=== PATIENT | male | born 1945 | race Caucasian/White ===

== ENCOUNTER 2017-05-14 11:30 | Outpatient (RCR) | payer MEDICARE, OTHER, SELFPAY ==
--- NOTE | 2017-05-09 12:58 | HP.PTEVAL_ITS ---
Patient's Visit Information ANILA ROBLEDO is a 71 year old M referred to Physical Therapy by Asif FRENCH with a diagnosis of vertigo. Date of Evaluation: 05/09/17 Physical Therapist: Asif Clifton, ELIZABETHT, OC - Visit Plan Frequency: 1-2x /Week Duration: 2-4 Weeks Plan: 1-2x/week as needed for positional treamtnets and vestibular therapya s warranted. - Subjective Subjective: Spinning with lying down last night, insidious onset, lasting 20 seconds. Feels normal in between episode. Head did feel a little funny last night. This is same as he had years ago. One other episode in between. Slept in [place] last night but not real well, this is normal for him. Called Dr. Segal this am and sent for PT. - Objective Walks into PT and transfers I. - L Hallpike and positive R hallpike up torsional, or ageotropic,. Treated with R Gal and then nauseous. [place] good on the way out and good balance but did not wish to attempt maneuver again as he has plans tonight. Full c/s AROM without pain and oriented to person, place and date. - Goals Goal 1:: abolish dizzyness in bed at night Goal Time Frame: 2-4 Weeks Goal 2:: Sleep normal without interruption from dizzyness. Goal Time Frame: 2-4 Weeks Goal 3:: Pt feel 100% normal and full actvitiy Goal Time Frame: 2-4 Weeks - Rehabilitation Potential Physical Therapy Diagnosis: BPPV horizontal vs posterior canal Rehabilitation Potential: Good - Anticipated Interventions Patient/Client Instruction: Educate patient on: Condition, Plan of Care For the Purpose of:: To increase tolerance to activity/condition/position Comment: positional treatment and ex/vestibular therapy For the Purpose of:: To increase tolerance to activity/condition/position Thank you for the opportunity to evaluate your patient. For Medicare and Medicare HMO plans, please review the plan of care and approve it. It will need to be FAXED BACK to us at [phone] for Medicare purposes. Please let me know if there are questions or concerns regarding this plan of care. Physician Signature: Date:
--- NOTE | 2017-05-14 11:44 | HP.PTDCSUM ---
HP - PT D/C Summary It has been my pleasure to treat ANILA ROBLEDO under orders from DR.ESMITH Dolores for the diagnosis of vertigo for a total of 2 visit(s). Discharge Date: 05/14/17 Please see the following information for a summary of their discharge status. - Subjective Subjective: No dizzyness, activities are normal except sleeping position stilla voiding L side and sleeping in a recliner. 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 - Overall Improvement % Improvement: 90 - Objective Objective/Function: - B hallpike. - roll test. FGA is good. VOR is normal. - Goals Goal 1:: abolish dizzyness in bed at night Goal Progress: Goal Met Goal 2:: Sleep normal without interruption from dizzyness. Goal Progress: Goal Met Goal 3:: Pt feel 100% normal and full actvitiy Goal Progress: Goal Met - Plan Plan: D/C - D/C Information Discharge Comments: Doing well and negative dizzyness testing today. If there are questions or concerns regarding this patient's physical therapy, please feel free to call me at [phone]. Thank you for the referral of this patient. Sincerely, Asif Clifton, ELIZABETHT, OC
== END 2017-05-14 19:00 | disposition home or self-care (01) ==
LOC: PT 11:30
PROVIDERS: Family Provider Family Medicine; PCP Family Medicine; Visit Provider Family Medicine
DX: R42 Dizziness and giddiness (principal)
CPT/HCPCS: 97161; 97530

== ENCOUNTER → 2017-05-15 09:18 | Outpatient (CLI) | payer MEDICARE, OTHER, SELFPAY ==
[2017-05-15 10:46] LABS: AST(SGOT) 30 U/L (15-37); Alanine Aminotransfer ALT/SGPT 51 U/L (16-61); Albumin, Serum 3.6 g/dL (3.2-5.0); Alkaline Phosphatase 53 U/L (45-117); Anion Gap 9 (5-15); BUN 16 mg/dL (7-18); BUN/Creat Ratio 14.5 RATIO (10-20); Calcium,Total 9.1 mg/dL (8.5-10.1); Chloride 102 mmol/L (98-107); EST Glomerular Filtration Rate 70 mL/min (>60); Est Glom Filt Rate - Afr Amer 85 mL/min (>60); Globulin 3.7 g/dL (2.2-4.2); Glucose 150 mg/dL (74-106); Potassium 3.8 mmol/L (3.5-5.1); Protein, Total 7.3 g/dL (6.4-8.2); Sodium Level 135 mmol/L (136-145)
== END ==
PROVIDERS: Family Provider Family Medicine; PCP Family Medicine; Visit Provider Family Medicine
DX: E11.9 Type 2 diabetes mellitus without complications (principal)
CPT/HCPCS: 36415; 80053

== ENCOUNTER 2017-05-27 13:31 | Outpatient (RCR) | payer MEDICARE, OTHER, SELFPAY ==
--- NOTE | 2017-05-27 14:13 | HP.PTEVAL_ITS ---
Patient's Visit Information ANILA ROBLEDO is a 71 year old M referred to Physical Therapy by Puma DIAS with a diagnosis of Vertigo. Date of Evaluation: 05/27/17 Physical Therapist: Asif Clifton DPT, OC - Visit Plan Frequency: 1x/Week Duration: 2-4 Weeks Plan: 1xweek as needed for positional monitorring and treatment. Educated patient on negative positional testing today and to watch for other symptoms. - Subjective Subjective: Was good for ten days. Then woke up last Friday and sat up and head started spinning like before real quick and not as bad. Then went to work and looked down, bent over and started spinning. No new traumas. Called doctor Kd and sent back for PT. No dizzyness today. Feels off in head and is avoiding fast movement of head. This is the same as before but not as bad, - Objective Patient walks in and transfers I and normal today. - B hallpike and - roll test today. Oculomotor is unremarkable: no nystagmus with gaze or head shake. -skew eye deviation. convergence appears normal. No symptoms with VOR walking or sitting. Pursuit is normal. Saccades is difficult to R but no symptoms. Balance appears normal. Neck AROM WFL and UE aROM WFL. Bi and tri reflexes 2/3. Sensation in UE WNL to gross light touch. OVERALL PATIENT PRESENTS WITH NEGATIVE POSITIONAL TESTS TODAY BUT NO OTHER CONCERNS OR UNUSUAL SYMPTOMS LEADING IN ANOTHER DIRECTION. BASED ON RECENT PAST, WILL MONITOR FOR POSITIONAL NEEDS. - Goals Goal 1:: Abolish dizzy feeling. Goal Time Frame: 2-4 Weeks - Rehabilitation Potential Physical Therapy Diagnosis: Vertigo Rehabilitation Potential: Good - Anticipated Interventions Patient/Client Instruction: Educate patient on: Condition For the Purpose of:: To increase tolerance to activity/condition/position Comment: positional treatments as needed. For the Purpose of:: To increase tolerance to activity/condition/position Thank you for the opportunity to evaluate your patient. For Medicare and Medicare HMO plans, please review the plan of care and approve it. It will need to be FAXED BACK to us at [phone] for Medicare purposes. Please let me know if there are questions or concerns regarding this plan of care. Physician Signature: Date:
--- NOTE | 2017-08-28 15:56 | HP.PT.NRP ---
HP - Discharge Summary (1) - Patient Information ANILA ROBLEDO was seen in my office for initial evaluation on 05/27/17. The following Plan of Care was established for this patient: Initial Frequency: 1x/Week Initial Duration: 2-4 Weeks - Anticipated Interventions Patient/Client Instruction: Educate patient on: Condition For the Purpose of:: To increase tolerance to activity/condition/position For the Purpose of:: To increase tolerance to activity/condition/position This patient was last seen in our office 05/27/17. Pertinent comments regarding their Physical therapy will appear below: Pt was tested for positional vertigo on the and was negative. This was after being seen for a bout of BPPV and treated. Plan was to monitor him weekly for need for therapy. He neglected to schedule any further visits and it has been 3 months and I will discontinue due to nonattendance. At this point I will be discontinuing this patient from physical therapy. I would be happy to see this patient again in the future if found appropriate by the physician. Thank you! Asif Clifton, DPT, OC
== END 2017-05-27 19:00 | disposition home or self-care (01) ==
LOC: PT 13:31
PROVIDERS: Family Provider Family Medicine; PCP Family Medicine; Visit Provider Family Medicine
DX: R42 Dizziness and giddiness (principal)
CPT/HCPCS: 97161

== ENCOUNTER → 2017-08-14 08:57 | Outpatient (CLI) | payer MEDICARE, OTHER, SELFPAY ==
--- NOTE | 2017-08-14 08:57 | DT_ITS ---
This patient was seen during an EMR downtime August 11, 2017 - August 18, 2017. This patient may have a combination of paper and electronic documentation or all paper documentation. All documentation is viewable within the e-chart portion of [facility] for each patient visit.
[2017-08-19 02:55] LABS: AST(SGOT) 29 U/L (15-37); Alanine Aminotransfer ALT/SGPT 50 U/L (16-61); Albumin, Serum 3.8 g/dL (3.2-5.0); Alkaline Phosphatase 60 U/L (45-117); BUN 20 mg/dL (7-18); BUN/Creat Ratio 15.4 RATIO (10-20); Calcium,Total 8.9 mg/dL (8.5-10.1); Cholesterol 178 mg/dL (200); EST Glomerular Filtration Rate 58 mL/min (>60); Est Glom Filt Rate - Afr Amer 70 mL/min (>60); Globulin 3.7 g/dL (2.2-4.2); Glucose 150 mg/dL (74-106); Potassium 3.9 mmol/L (3.5-5.1); Protein, Total 7.5 g/dL (6.4-8.2); Sodium Level 138 mmol/L (136-145); Triglycerides 58 mg/dL; Very Low Density Lipoprotein 12 mg/dL (5-40)
[2017-08-19 02:56] LABS: Anion Gap 8 (5-15); Chloride 102 mmol/L (98-107); High Density Lipoprotein 41 mg/dL; Thyroid Stim Hormone (TSH) 0.99 uIU/mL (0.358-3.74)
== END ==
PROVIDERS: Family Provider Family Medicine; PCP Family Medicine; Visit Provider Family Medicine
DX: E11.9 Type 2 diabetes mellitus without complications (principal)
CPT/HCPCS: 36415; 80053; 80061; 83036; 84443

== ENCOUNTER 2017-09-24 14:35 | Observation (INO) | payer MEDICARE, OTHER, SELFPAY ==
[2017-09-24] VITALS (8 sets, daily range): BP systolic 121–141; BP diastolic 61–90; PULSE 70–106; RESP 15–22; TEMP 36.6–36.8; O2SAT 95–98; BMI 36.9; BMI 39.2
--- NOTE | 2017-09-24 14:45 | EKG12_ITS ---
Test Reason : CP Blood Pressure : / mmHG Vent. Rate : 087 BPM Atrial Rate : 087 BPM P-R Int : 162 ms QRS Dur : 092 ms QT Int : 354 ms P-R-T Axes : 041 -41 003 degrees QTc Int : 425 ms Normal sinus rhythm Left axis deviation Abnormal ECG Confirmed by ELIZABETH FLEMING, SUZAN ([id number]), make up editor HOLLAND LOUISE ([id number]) on 09/26/2017 1:05:25 PM Referred By: GONZALEZ/TIFFANY Confirmed By:SUZAN JOHNSON MD
--- NOTE | 2017-09-24 14:50 | RAD_ITS ---
STUDY: X-RAY CHEST REASON FOR EXAM: Male, 71 years old. Chest tightness and shortness of breath. TECHNIQUE: Single AP portable view of the chest. COMPARISON: None. FINDINGS: EKG electrodes are seen. The lungs are clear and expanded. There is no demonstrated pleural abnormality. Normal size heart. Normal mediastinum and corby. Normal visualized pulmonary arteries. There is atherosclerotic calcification of the aortic arch with tortuosity. There are diffuse degenerative changes of the visualized thoracic spine. Normal visualized ribs, clavicles, and shoulders. There is no demonstrated abnormality of the visualized soft tissue structures of the upper abdomen. RAD/Chest 1 View (Portable) IMPRESSION: No acute abnormality is seen. Electronically Signed: Lance Jaramillo MD at 15:10 EDT Tel [phone], Service support ,
[2017-09-24 14:55] LABS: Absolute Neutrophil Count 4.9 X10^3/uL (2.0-7.7); Basophil# 0.02 X10^3/uL; Basophil% 0.2 % (0-1); Eosinophil# 0.11 X10^3/uL; Eosinophils% 1.3 % (0-5); Hematocrit 43.2 % (40-54); Hemoglobin 15.3 g/dl (13.0-16.5); Lymphocyte % 27.8 % (19-41); Mean Corp Hgb Conc 35.4 g/gl (32-36); Mean Corpuscular Hgb 31.3 pg (27.0-32.0); Mean Corpuscular Volume 88.3 fL (80-94); Mean Platelet Vol. 9.9 fl (6.2-12.0); Monocyte# 0.96 X10^3/uL; Monocyte% 11.6 % (0-10); Neutrophil # 4.86 X10^3/uL (2.7-7.7); Neutrophil % 58.7 % (47-70); Platelet Count 224 K/mm3 (150-450); RBC Distribution Width CV 13.6 % (11.6-14.6); RBC Distribution Width SD 43.4 fl (35.1-43.9); Red Blood Count 4.89 M/mm3 (4.6-6.2); White Blood Count 8.3 K/mm3 (4.4-11.0)
[2017-09-24 15:01] LABS: POSITIVE COUNT NO; POSITIVE DIFFERENTIAL NO; POSITIVE MORPHOLOGY NO
[2017-09-24 15:11] LABS: Anion Gap 8 (5-15); BUN 27 mg/dL (7-18); BUN/Creat Ratio 16.8 RATIO (10-20); Calcium,Total 9.7 mg/dL (8.5-10.1); Chloride 103 mmol/L (98-107); Creatinine, Serum 1.61 mg/dL (0.70-1.30); EST Glomerular Filtration Rate 45 mL/min (>60); Est Glom Filt Rate - Afr Amer 55 mL/min (>60); Estimated Creatinine Clearance 42.69 ml/min; Glucose 158 mg/dL (74-106); Potassium 3.7 mmol/L (3.5-5.1); Sodium Level 136 mmol/L (136-145)
--- NOTE | 2017-09-24 15:11 | ED.DCSUM_ITS ---
- ER Visit Summary Date of Service: 09/24/17 Chief Complaint: Chest pain History of Present Illness: The patient is a 71 M presenting with chest pain. This started while golfing. Patient was on the 16th hole and began having chest pain radiating to his left shoulder. He describes this as a tightness. At its worst it was 7 out of 10. He has shortness of breath associated with this. He has a history of hypertension, diabetes, hypercholesterolemia. He has a family history of early DE in his father at age 41. He is not a smoker. He travels frequently to [place], last trip was in August, no other PE/DVT risk factors. Physical Examination: Vitals are stable. Patient is afebrile. Alert no acute distress. HEENT exam is unremarkable. Neck is supple. Lungs are clear and equal bilaterally. Heart is regular rate and rhythm. Abdomen is soft nontender nondistended. Extremities are unremarkable. Skin is warm and dry. No focal neurologic deficit. Remainder of exam is unremarkable. Emergency Department Course and Treatment: Patient was given aspirin, morphine, Zofran. EKG is sinus rate of 87 with no acute ischemic changes. Chest x-ray shows no acute process. D-dimer negative. CBC, chemistries unremarkable other than creatinine 1.61. Troponin is negative. Patient is pain-free on reevaluation. Discussed with the hospitalist for observation. Disposition: Observation Impression: Chest pain This note was generated with [employer] dictation software. It may contain incorrect words, spelling, and punctuation that were not noted in review of the chart prior to signing ED Disposition - Plan for ED Patient: Chief Complaint: Chest Pain
--- NOTE | 2017-09-24 15:16 | NURSING ---
NO LW OR POA
[2017-09-24] MEDS: Morphine 4 MG/ML Syringe IV (15:24)
[2017-09-24] MEDS: Aspirin 325 MG Tablet PO (15:24)
[2017-09-24] MEDS: Ondansetron 4 MG/2 ML Vial IV (15:24)
[2017-09-24 16:13] LABS: D-Dimer Quantitative (DVT/PE) 0.49 FEU/ug/m (0.27-0.49)
--- NOTE | 2017-09-24 16:34 | PCM.HP.STD ---
Problem List (1) Chest pain Status: Acute (2) Diabetes Status: Chronic Qualifiers: Diabetes mellitus type: type 2 (3) HTN (hypertension) Status: Chronic (4) HLD (hyperlipidemia) Status: Chronic (5) GERD (gastroesophageal reflux disease) Status: Chronic (6) Aortic stenosis Status: Chronic History of Present Illness Date of Admission: 09/24/17 Chief Complaint: chest pain The patient is a 71 year old M with a hx of mild , htn, T2DM, HLD, GERD, who presents to the ER with chest pain that began today while he was playing golf. He described it as sudden onset of bilateral anterior sharp pain with no aggrevating or alleviating factors. He did also become somewhat SOB and nauseous, and reported some dizziness as well. There was some radiation into his left shoulder. It has been off and on all day. At this point he still complains of mild 1-2/10 pain. He has no hx of CAD and does not see a director multimedia. He has no smoking hx. His father at age 41 of a heart attack. He had a negative stress test about 10 years ago. He had mild on an echo about 1 year ago. He reports that he has good control of his diabetes and that his A1C has come down from 8 range to 7.4 on his last check. [] Past Medical History Past Medical History (Chronic Problems): Chronic Problems Diabetes (Chronic) HTN (hypertension) (Chronic) HLD (hyperlipidemia) (Chronic) GERD (gastroesophageal reflux disease) (Chronic) Aortic stenosis (Chronic) Allergies Penicillins [PCN] Allergy (Verified 12/03/16 13:10) Unknown Home Medications: Ambulatory Orders Medication Instructions Recorded Aspirin [Adult Low Dose Aspirin EC] 81 mg PO DAILY 09/24/15 Atorvastatin Calcium [Lipitor] 80 mg PO QHS 09/24/15 Hydrochlorothiazide [Hctz] 25 mg PO DAILY 09/24/15 Niacin 500 mg PO DAILY 09/24/15 Ramipril [Altace] 10 mg PO BID 09/24/15 Saw [place] 900 mg PO DAILY 09/24/15 Canagliflozin [Invokana] 100 mg PO DAILY 09/24/17 Finasteride [Proscar] 5 mg PO DAILY 09/24/17 Garlic 100 mg PO DAILY 09/24/17 Metformin HCl [Metformin HCl ER] 750 mg PO DAILY 09/24/17 Pyridoxine HCl [Vitamin B-6] 100 mg PO DAILY 09/24/17 Sitagliptin Phos/Metformin HCl 1 tab PO DAILY 09/24/17 [Janumet Xr 100-1,000 mg Tablet] Tamsulosin HCl [Flomax] 0.4 mg PO DAILY 09/24/17 Surgical History: no surgical history Psychiatric History: No pertinent psych hx Lives: Spouse/ Significant Other Smoking Status: Never smoker Tobacco Use: Non-smoker Alcohol: None Drugs: None - *Family History Maternal History Items: Cancer - breast Paternal History Items: Heart Disease - of [place] age 41 Review of Systems Constitutional: Denies: Chills, Fever, Weight Change HEENT: Denies: Head Aches, Sinus Congestion, Sinus Drainage Cardiovascular: Reports: Chest Pain, - - dizziness. Denies: Palpitations Respiratory: Reports: Shortness of Breath. Denies: Cough, Shortness of breath at rest, Sputum production Gastrointestinal: Denies: Abdominal Pain, Nausea, Vomiting Genitourinary: Denies: Dysuria Musculoskeletal: Denies: Joint Pain, Joint Tenderness Skin: Denies: Rash, Wounds Neurological: Denies: Numbness, Tingling, Focal weakness Psychiatric: Denies: Anxiety, Depression, Homicidal Ideations, Suicidal Ideations Hematologic/ Lymphatic: Denies: Easy Bruising, Easy Bleeding VTE Information - Inpt Only VTE Present on Admission: No VTE Mechan Device Prophylaxis: None VTE Pharm Prophylaxis ordered?: Yes Patient Problems: Active and Suspected Problems Chest pain (Acute) - Physical Exam General: Alert, Oriented x3, Cooperative HEENT: Atraumatic, PERRLA, EOMI, Normocephalic Neck: Supple, No JVD, Negative Carotid Bruits Lungs: Clear to auscultation, Normal air movement Cardiovascular: Regular rate, No murmurs, Murmur - 2/6 systolic murmur best heard over LSB 2nd intercostal space. Abdomen: Bowel Sounds Present, Soft, Non Tender Extremities: No edema, Capillary Refill Less than 3 Seconds Skin: No rashes, No breakdown Musculoskeletal: No Tenderness to Palpation of Joints or Extremities Neurological: Cranial nerves II-XII grossly intact Psych/Mental Status: Normal Affect, Appropriate, Alert and oriented to time, place, person, mood and affect Vital Signs Temp Pulse Resp BP Pulse Ox 98 F 76 17 134/89 H 97 09/24/17 14:37 09/24/17 16:24 09/24/17 16:24 09/24/17 16:24 09/24/17 16:24 Oxygen Flow Rate (L/min) 2 Oxygen Delivery Method Room Air Weight: 250 lb Body Mass Index (BMI) 36.9 Laboratory Tests Past 24 Hrs 09/24/17 09/24/17 09/24/17 14:42 14:42 14:42 WBC 8.3 RBC 4.89 Hgb 15.3 Hct 43.2 MCV 88.3 MCH 31.3 MCHC 35.4 RDW 13.6 RDW Differential 43.4 Plt Count 224 MPV 9.9 Immature Gran % (Auto) 0.400 Neut % (Auto) 58.7 Lymph % (Auto) 27.8 Moffat % (Auto) 11.6 H Eos % (Auto) 1.3 Baso % (Auto) 0.2 Absolute Neuts (auto) 4.9 Absolute Lymphs (auto) 2.30 Total Counted Not Reportable D-Dimer Quant (PE/DVT) 0.49 Sodium 136 Potassium 3.7 Chloride 103 Carbon Dioxide 25.0 Anion Gap 8 BUN 27 H Creatinine 1.61 H Estim Creat Clear Calc 42.69 Est GFR (MDRD) Af Amer 55 L Est GFR (MDRD) Non-Af 45 L BUN/Creatinine Ratio 16.8 Glucose 158 H Calcium 9.7 Troponin I < 0.015 Assessment/Plan All Active Problems Chest pain (Acute) 1. Chest pain - risk factors include age, family hx, T2DM, HTN, HLD, . Negative EKG, troponin, cxr. Treadmill stress in AM. cycle troponin. Repeat EKG in AM. Continue asa. D dimer neg. 2. HTN - on ramipril, hctz. hold hctz 3. Elevated creatinine - unclear baseline. hold hctz 4. T2DM - last a1c 7.4. hold orals 5. - last echo 08/24 - mild as. 6. HLD - on statin, niacin 7. BPH - flomax/proscar DVT ppx: heparin This patient was seen by Ralph Alvarado PA-C under the supervision of Doctor Neva.
--- NOTE | 2017-09-24 16:35 | NURSING ---
124 CP OBS CLIFTON
--- NOTE | 2017-09-24 16:39 | NURSING ---
Sera notified patient may transfer to PCU
--- NOTE | 2017-09-24 17:23 | EKG12_ITS ---
Test Reason : CHEST PAIN ADMIT Blood Pressure : / mmHG Vent. Rate : 078 BPM Atrial Rate : 078 BPM P-R Int : 168 ms QRS Dur : 094 ms QT Int : 404 ms P-R-T Axes : 024 -35 -06 degrees QTc Int : 460 ms Normal sinus rhythm Left axis deviation /LAHB Abnormal ECG When compared with ECG of 25-MAR-2003 13:32, Premature ventricular complexes are no longer Present Aberrant conduction is no longer Present Nonspecific T wave abnormality has replaced inverted T waves in Inferior leads Nonspecific T wave abnormality, worse in Lateral leads Confirmed by MARCELLO GODWIN ([id number]), editor managing newspaper HOLLAND LOUISE ([id number]) on 09/30/2017 2:14:29 PM Referred By: CLIFTON Confirmed By:MARCELLO GODWIN
[2017-09-24] MEDS: Pyridoxine HCl 100 MG Tablet PO (21:27)
[2017-09-24] MEDS: Atorvastatin Calcium 80 MG Tablet PO (21:28)
[2017-09-24] MEDS: Ramipril 10 MG Capsule PO (21:28)
[2017-09-24] MEDS: Tamsulosin HCl 0.4 MG Capsule PO (21:28)
[2017-09-24] MEDS: Heparin Injection (Vial) 5,000 UNIT/ML VIAL 5000 UNIT SC (21:28)
[2017-09-24] MEDS: Finasteride 5 MG Tablet PO (21:28)
[2017-09-25 03:00] VITALS: PULSE 68
[2017-09-25 03:25] VITALS: BP 111/70; PULSE 70; RESP 16; TEMP 36.7; O2SAT 94
[2017-09-25 05:26] LABS: Absolute Lymphocyte Count 1.78 X10^3/ul (0.83-4.51); Absolute Neutrophil Count 3.9 X10^3/uL (2.0-7.7); Basophil# 0.02 X10^3/uL; Basophil% 0.3 % (0-1); Eosinophil# 0.16 X10^3/uL; Eosinophils% 2.4 % (0-5); Hematocrit 41.6 % (40-54); Hemoglobin 14.4 g/dl (13.0-16.5); Lymphocyte # 1.78 X10^3/ul (4.0); Lymphocyte % 26.5 % (19-41); Mean Corp Hgb Conc 34.6 g/gl (32-36); Mean Corpuscular Volume 89.5 fL (80-94); Mean Platelet Vol. 10.4 fl (6.2-12.0); Monocyte# 0.88 X10^3/uL; Monocyte% 13.1 % (0-10); Neutrophil # 3.86 X10^3/uL (2.7-7.7); Neutrophil % 57.6 % (47-70); POSITIVE COUNT NO; POSITIVE DIFFERENTIAL NO; POSITIVE MORPHOLOGY NO; Platelet Count 198 K/mm3 (150-450); RBC Distribution Width CV 13.7 % (11.6-14.6); RBC Distribution Width SD 44.4 fl (35.1-43.9); Red Blood Count 4.65 M/mm3 (4.6-6.2); White Blood Count 6.7 K/mm3 (4.4-11.0)
[2017-09-25 05:29] LABS: International Normalized Ratio 1.1; Prothrombin Time (Protime)PT. 14.2 SECONDS (11.7-14.9)
[2017-09-25 05:30] LABS: Partial Thromboplast Time 32.8 Seconds (24.1-36.2)
[2017-09-25 05:36] VITALS: BP 123/77; PULSE 71; RESP 18; TEMP 36.9; O2SAT 93
[2017-09-25 05:37] LABS: Anion Gap 7 (5-15); BUN 23 mg/dL (7-18); BUN/Creat Ratio 19.3 RATIO (10-20); Calcium,Total 8.9 mg/dL (8.5-10.1); Chloride 105 mmol/L (98-107); Creatinine, Serum 1.19 mg/dL (0.70-1.30); EST Glomerular Filtration Rate 64 mL/min (>60); Est Glom Filt Rate - Afr Amer 78 mL/min (>60); Estimated Creatinine Clearance 55.88 ml/min; Glucose 136 mg/dL (74-106); Potassium 3.8 mmol/L (3.5-5.1); Sodium Level 139 mmol/L (136-145)
[2017-09-25] MEDS: Aspirin E.C. 81 MG Tablet PO (05:38)
[2017-09-25] MEDS: Ramipril 10 MG Capsule PO (05:38)
[2017-09-25 05:51] LABS: Bedside Glucose 138 mg/dL (70-110)
--- NOTE | 2017-09-25 05:55 | EKG12_ITS ---
Test Reason : AM EKG Blood Pressure : / mmHG Vent. Rate : 074 BPM Atrial Rate : 074 BPM P-R Int : 142 ms QRS Dur : 090 ms QT Int : 400 ms P-R-T Axes : 009 -36 -11 degrees QTc Int : 444 ms Normal sinus rhythm Left axis deviation Abnormal ECG When compared with ECG of 24-SEP-2017 17:37, MANUAL COMPARISON REQUIRED, DATA IS UNCONFIRMED Confirmed by MARCELLO GODWIN ([id number]), international editorial producer HOLLAND LOUISE ([id number]) on 09/30/2017 2:14:51 PM Referred By: CLIFTON Confirmed By:MARCELLO GODWIN
[2017-09-25 08:15] VITALS: PULSE 82
--- NOTE | 2017-09-25 09:07 | STRESSREP ---
Stress Test Report Exercise myocardial perfusion stress test. 71-year-old male with a history of chest pain hypertension hyperlipidemia diabetes mellitus. Stress protocol: Resting EKG demonstrates normal sinus rhythm with a rate of 76 bpm normal intervals and noted resting blood pressure is 122/76 mmHg. The patient exercised according to regular Willian protocol for total duration of 7 minutes patient completed 1 minute into stage III of the Willian protocol. The maximum heart rate attained was 144 bpm which was 96% of maximum predicted heart rate the maximum workload attained was 8.5 metabolic equivalents. At rest there were no ST or T-wave changes noted suggest ischemia peak exercise upsloping ST changes only were noted with no meet the criteria for ischemia. No clinical angina was noted. The test was terminated due to leg fatigue. Myocardial perfusion protocol. 14.7 mCi of technetium 99m sestamibi was injected at rest. The patient exercised according to regular Willian protocol for 7 minutes attaining 8.5 metabolic equivalents at peak exercise 44.9 mCi of technetium 99m sestamibi was injected stress images were obtained stress and rest images were reconstructed and compared in the short axis vertical long and horizontal long axis. Gated images were also obtained Perfusion SPECT analysis: Review of the stress images demonstrate normal uptake of tracer noted in all areas of the myocardium. The resting images similarly demonstrate normal uptake of tracer noted in all areas of myocardium. No reversibility is noted suggest ischemia no previous infarct is noted. Gated SPECT analysis: The gated ejection fraction is 46%. Conclusion: Normal exercise myocardial perfusion stress test at a high workload. No clinical angina noted. Good functional capacity. Borderline ejection fraction.
[2017-09-25 09:12] VITALS: BP 121/81; PULSE 75; RESP 18; TEMP 36.7; O2SAT 93
[2017-09-25] MEDS: Tamsulosin HCl 0.4 MG Capsule PO (09:23)
[2017-09-25] MEDS: Finasteride 5 MG Tablet PO (09:23)
[2017-09-25] MEDS: Pyridoxine HCl 100 MG Tablet PO (09:24)
--- NOTE | 2017-09-25 09:53 | DCINST_ITS ---
- Discharge Diagnoses Current Active Problems: Current Active and Chronic Problems Chest pain (Acute) Diabetes (Chronic) HTN (hypertension) (Chronic) HLD (hyperlipidemia) (Chronic) GERD (gastroesophageal reflux disease) (Chronic) Aortic stenosis (Chronic) You will use the following diet at home:: No restrictions Discharge Activity: Return to Normal Activity Call your doctor if you observe: Shortness of breath, Dizziness, Fainting spells , Chest pain Allergies/Adverse Reactions: Allergies Penicillins [PCN] Allergy (Verified 12/03/16 13:10) Unknown Medications to take at Discharge Aspirin [Adult Low Dose Aspirin EC] 81 mg PO DAILY 09/24/15 Atorvastatin Calcium [Lipitor] 80 mg PO QHS 09/24/15 Hydrochlorothiazide [Hctz] 25 mg PO DAILY 09/24/15 Niacin 500 mg PO DAILY 09/24/15 Ramipril [Altace] 10 mg PO BID 09/24/15 Saw [place] 900 mg PO DAILY 09/24/15 Canagliflozin [Invokana] 100 mg PO DAILY 09/24/17 Finasteride [Proscar] 5 mg PO DAILY 09/24/17 Garlic 100 mg PO DAILY 09/24/17 Metformin HCl [Metformin HCl ER] 750 mg PO DAILY 09/24/17 Pyridoxine HCl [Vitamin B-6] 100 mg PO DAILY 09/24/17 Sitagliptin Phos/Metformin HCl [Janumet Xr 100-1,000 mg Tablet] 1 tab PO DAILY 09/24/17 Tamsulosin HCl [Flomax] 0.4 mg PO DAILY 09/24/17 Primary Care Physician: Petr Yi MD [Primary Care Provider] - Please follow up with your Primary Care Physician in: 1 Week Test Results: Test results from this visit will be discussed in further detail at your follow- up appointment, if applicable. Proposed Discharge Date: 09/25/17
--- NOTE | 2017-09-25 09:54 | PCM.DC.SUM ---
Discharge Date and Diagnosis Date of Admission: 09/24/17 Date of Discharge: 09/25/17 - Primary Discharge Diagnosis Active and Suspected Problems 1. Chest pain-ACS ruled out. 2. Acute kidney injury- resolved. - Secondary Discharge Diagnosis Chronic Problems Diabetes (Chronic) HTN (hypertension) (Chronic) HLD (hyperlipidemia) (Chronic) GERD (gastroesophageal reflux disease) (Chronic) Aortic stenosis (Chronic) Hospital Course and Treatment Imaging Results: Diagnostic Data Chest X-Ray 09/24/17 14:50 IMPRESSION: No acute abnormality is seen. Electronically Signed: Lance Jaramillo MD at 15:10 EDT Tel [phone], Service support , Operations: None Procedures: Stress test Summary of Care Provided: The patient is a 71 year old M admitted 09/24/2017 due to chest pain. Patient states this occurred while golfing. Denies further chest pain since admission. ACS ruled out. EKG without evidence of ischemia. Chest x-ray unremarkable. Troponin negative. Patient underwent nuclear stress test which was negative for ischemia. Patient was noted to have acute kidney injury secondary to dehydration, resolved with IV fluids. His chronic medical history includes hypertension, type 2 diabetes mellitus, aortic stenosis, hyperlipidemia, BPH. Chronic medical conditions stable at this time. Patient follows as outpatient for routine echocardiograms to monitor aortic stenosis which was last noted to be mild 08/2016. Patient is stable at time of discharge. Follow-up with primary care physician in 1 week. General: Alert, Oriented x3, Cooperative HEENT: Atraumatic, PERRLA, EOMI, Normocephalic Neck: Supple, No JVD, Negative Carotid Bruits Lungs: Clear to auscultation, Normal air movement Cardiovascular: Regular rate, regular rhythm, murmur Abdomen: Bowel Sounds Present, Soft, Non Tender Extremities: No edema, Capillary Refill Less than 3 Seconds Skin: No rashes, No breakdown Musculoskeletal: No Tenderness to Palpation of Joints or Extremities Neurological: Cranial nerves II-XII grossly intact Psych/Mental Status: Normal Affect, Appropriate Patient seen exam prior to discharge. Physical assessment as noted above. Patient stable for discharge home with further follow-up with primary care physician. This patient was seen by IRIS Jackson under the supervision of Dr. Sementi. Discharge Diet: No Restrictions Discharge Activity: Return to Normal Activity Call your doctor if you observe: Shortness of breath, Dizziness, Fainting spells, Chest pain Home Medications: Medications to take at Discharge Aspirin [Adult Low Dose Aspirin EC] 81 mg PO DAILY 09/24/15 Atorvastatin Calcium [Lipitor] 80 mg PO QHS 09/24/15 Hydrochlorothiazide [Hctz] 25 mg PO DAILY 09/24/15 Niacin 500 mg PO DAILY 09/24/15 Ramipril [Altace] 10 mg PO BID 09/24/15 Saw [place] 900 mg PO DAILY 09/24/15 Canagliflozin [Invokana] 100 mg PO DAILY 09/24/17 Finasteride [Proscar] 5 mg PO DAILY 09/24/17 Garlic 100 mg PO DAILY 09/24/17 Metformin HCl [Metformin HCl ER] 750 mg PO DAILY 09/24/17 Pyridoxine HCl [Vitamin B-6] 100 mg PO DAILY 09/24/17 Sitagliptin Phos/Metformin HCl [Janumet Xr 100-1,000 mg Tablet] 1 tab PO DAILY 09/24/17 Tamsulosin HCl [Flomax] 0.4 mg PO DAILY 09/24/17 Primary Care Physician: Petr Yi MD [Primary Care Provider] - Please follow up with your Primary Care Physician in: 1 Week Disposition: Home Minutes spent on discharge:: 35 Patient Condition:: Stable Medical Necessity - Tobacco Use Smoking Status: Never smoker Tobacco Use: Non-smoker Meaningful Use Info Meaningful Use Diagnoses (Choose all that apply): None applicable
--- NOTE | 2017-09-25 10:07 | DS.PCM_ITS ---
Discharge Date and Diagnosis Date of Admission: 09/24/17 Date of Discharge: 09/25/17 - Primary Discharge Diagnosis Active and Suspected Problems 1. Chest pain-ACS ruled out. 2. Acute kidney injury- resolved. - Secondary Discharge Diagnosis Chronic Problems Diabetes (Chronic) HTN (hypertension) (Chronic) HLD (hyperlipidemia) (Chronic) GERD (gastroesophageal reflux disease) (Chronic) Aortic stenosis (Chronic) Hospital Course and Treatment Imaging Results: Diagnostic Data Chest X-Ray 09/24/17 14:50 IMPRESSION: No acute abnormality is seen. Electronically Signed: Lance Jaramillo MD at 15:10 EDT Tel [phone], Service support , Operations: None Procedures: Stress test Summary of Care Provided: The patient is a 71 year old M admitted 09/24/2017 due to chest pain. Patient states this occurred while golfing. Denies further chest pain since admission. ACS ruled out. EKG without evidence of ischemia. Chest x-ray unremarkable. Troponin negative. Patient underwent nuclear stress test which was negative for ischemia. Patient was noted to have acute kidney injury secondary to dehydration, resolved with IV fluids. His chronic medical history includes hypertension, type 2 diabetes mellitus, aortic stenosis, hyperlipidemia, BPH. Chronic medical conditions stable at this time. Patient follows as outpatient for routine echocardiograms to monitor aortic stenosis which was last noted to be mild 08/2016. Patient is stable at time of discharge. Follow-up with primary care physician in 1 week. General: Alert, Oriented x3, Cooperative HEENT: Atraumatic, PERRLA, EOMI, Normocephalic Neck: Supple, No JVD, Negative Carotid Bruits Lungs: Clear to auscultation, Normal air movement Cardiovascular: Regular rate, regular rhythm, murmur Abdomen: Bowel Sounds Present, Soft, Non Tender Extremities: No edema, Capillary Refill Less than 3 Seconds Skin: No rashes, No breakdown Musculoskeletal: No Tenderness to Palpation of Joints or Extremities Neurological: Cranial nerves II-XII grossly intact Psych/Mental Status: Normal Affect, Appropriate Patient seen exam prior to discharge. Physical assessment as noted above. Patient stable for discharge home with further follow-up with primary care physician. This patient was seen by IRIS Jackson under the supervision of Dr. Sementi. Discharge Diet: No Restrictions Discharge Activity: Return to Normal Activity Call your doctor if you observe: Shortness of breath, Dizziness, Fainting spells , Chest pain Home Medications: Medications to take at Discharge Aspirin [Adult Low Dose Aspirin EC] 81 mg PO DAILY 09/24/15 Atorvastatin Calcium [Lipitor] 80 mg PO QHS 09/24/15 Hydrochlorothiazide [Hctz] 25 mg PO DAILY 09/24/15 Niacin 500 mg PO DAILY 09/24/15 Ramipril [Altace] 10 mg PO BID 09/24/15 Saw [place] 900 mg PO DAILY 09/24/15 Canagliflozin [Invokana] 100 mg PO DAILY 09/24/17 Finasteride [Proscar] 5 mg PO DAILY 09/24/17 Garlic 100 mg PO DAILY 09/24/17 Metformin HCl [Metformin HCl ER] 750 mg PO DAILY 09/24/17 Pyridoxine HCl [Vitamin B-6] 100 mg PO DAILY 09/24/17 Sitagliptin Phos/Metformin HCl [Janumet Xr 100-1,000 mg Tablet] 1 tab PO DAILY 09/24/17 Tamsulosin HCl [Flomax] 0.4 mg PO DAILY 09/24/17 Primary Care Physician: Petr Yi MD [Primary Care Provider] - Please follow up with your Primary Care Physician in: 1 Week Disposition: Home Minutes spent on discharge:: 35 Patient Condition:: Stable Medical Necessity - Tobacco Use Smoking Status: Never smoker Tobacco Use: Non-smoker Meaningful Use Info Meaningful Use Diagnoses (Choose all that apply): None applicable
[2017-09-25 10:58] VITALS: PULSE 72
== END 2017-09-25 09:52 | disposition home or self-care (01) ==
LOC: ED 16:07 → PCU 16:36
PROVIDERS: Admitting Provider Internal Medicine; Emergency Provider Emergency Medicine; Family Provider Family Medicine; PCP Family Medicine; Visit Provider Internal Medicine
DX: R07.89 Other chest pain (principal); R06.02 Shortness of breath; I10 Essential (primary) hypertension; E11.9 Type 2 diabetes mellitus without complications; Z82.49 Family history of ischemic heart disease and other diseases of the circulatory system; K21.9 Gastro-esophageal reflux disease without esophagitis; E78.5 Hyperlipidemia, unspecified; Z79.899 Other long term (current) drug therapy; Z79.82 Long term (current) use of aspirin; Z79.84 Long term (current) use of oral hypoglycemic drugs; N40.0 Benign prostatic hyperplasia without lower urinary tract symptoms; N17.9 Acute kidney failure, unspecified; E86.0 Dehydration
CPT/HCPCS: 36415; 71045; 78452; 80048; 82962; 84484; 85025; 85379; 85610; 85730; 93005; 93017; 96372; 96374; 96375; 99218; 99283; A9500; J7040; A4216; G0378; J2405

== ENCOUNTER → 2017-11-11 22:57 | Outpatient (CLI) | payer MEDICARE, OTHER, SELFPAY | PROVIDERS: Family Provider Family Medicine; PCP Family Medicine; Visit Provider Family Medicine | DX: G47.33 Obstructive sleep apnea (adult) (pediatric) (principal) | CPT/HCPCS: 95810 ==

== ENCOUNTER → 2018-01-12 20:00 | Outpatient (CLI) | payer MEDICARE, OTHER, SELFPAY | PROVIDERS: Family Provider Family Medicine; PCP Family Medicine; Visit Provider Family Medicine | DX: G47.33 Obstructive sleep apnea (adult) (pediatric) (principal) | CPT/HCPCS: 95811 ==

== ENCOUNTER → 2018-03-04 12:57 | Outpatient (CLI) | payer MEDICARE, OTHER, SELFPAY ==
[2017-09-24 16:57] VITALS: BMI 39.2
[2018-03-04 13:14] LABS: Bacteria 0 SEEN /hpf (None Seen); Mucous, Urine 0 SEEN /hpf (<or=2+); Red Blood Cells-Urine 0 SEEN /hpf (0-5); Squamous Epithelial Cells - UA 0 SEEN /hpf (0-5); White Blood Cells 0 SEEN /hpf (0-5)
[2018-03-04 14:06] LABS: Color, Urine Yellow (Yellow); Glucose, Dipstick 1000 mg/dl (Normal); Ketone-Dipstick Negative (Negative); Leukocyte Esterase-Dipstick Negative /ul (Negative); Nitrite-Dipstick Negative (Negative); Occult Blood-Urine Negative /ul (Negative); Protein-Dipstick 30 mg/dl (Negative); Specific Gravity, Urine 1.015 (1.002-1.030); Urine Bilirubin Dipstick Negative (Negative); Urine Clarity Clear (Clear); Urine Urobilinogen Normal (Normal); Urine pH 6.5 (5.0 - 8.0)
[2018-03-04 14:19] LABS: Erythrocyte Sedimentation Rate 9 mm/hr (0-20)
[2018-03-04 14:22] LABS: Absolute Lymphocyte Count 1.97 X10^3/ul (0.83-4.51); Absolute Neutrophil Count 4.2 X10^3/uL (2.0-7.7); Basophil# 0.02 X10^3/uL; Basophil% 0.3 % (0-1); Eosinophil# 0.11 X10^3/uL; Eosinophils% 1.6 % (0-5); Hematocrit 43.2 % (40-54); Lymphocyte # 1.97 X10^3/ul (4.0); Lymphocyte % 28.5 % (19-41); Mean Corp Hgb Conc 34.7 g/gl (32-36); Mean Corpuscular Hgb 30.9 pg (27.0-32.0); Mean Corpuscular Volume 88.9 fL (80-94); Monocyte# 0.62 X10^3/uL; Neutrophil # 4.18 X10^3/uL (2.7-7.7); Neutrophil % 60.3 % (47-70); POSITIVE COUNT NO; POSITIVE DIFFERENTIAL NO; POSITIVE MORPHOLOGY NO; Platelet Count 203 K/mm3 (150-450); RBC Distribution Width CV 13.7 % (11.6-14.6); RBC Distribution Width SD 44.4 fl (35.1-43.9); Red Blood Count 4.86 M/mm3 (4.6-6.2); White Blood Count 6.9 K/mm3 (4.4-11.0)
[2018-03-04 14:39] LABS: AST(SGOT) 20 U/L (15-37); Alanine Aminotransfer ALT/SGPT 35 U/L (16-61); Albumin, Serum 3.6 g/dL (3.2-5.0); Alkaline Phosphatase 58 U/L (45-117); Anion Gap 8 (5-15); BUN 19 mg/dL (7-18); BUN/Creat Ratio 17.9 RATIO (10-20); Calcium,Total 8.9 mg/dL (8.5-10.1); Chloride 107 mmol/L (98-107); Cholesterol 209 mg/dL (200); Creatinine, Serum 1.06 mg/dL (0.70-1.30); EST Glomerular Filtration Rate 73 mL/min (>60); Est Glom Filt Rate - Afr Amer 89 mL/min (>60); Globulin 3.6 g/dL (2.2-4.2); Glucose 148 mg/dL (74-106); High Density Lipoprotein 40 mg/dL; Potassium 3.7 mmol/L (3.5-5.1); Protein, Total 7.2 g/dL (6.4-8.2); Sodium Level 138 mmol/L (136-145); Triglycerides 104 mg/dL; Very Low Density Lipoprotein 21 mg/dL (5-40)
== END ==
PROVIDERS: Family Provider Family Medicine; PCP Family Medicine; Referring Provider Family Medicine; Visit Provider Family Medicine
DX: E11.9 Type 2 diabetes mellitus without complications (principal); R10.11 Right upper quadrant pain
CPT/HCPCS: 36415; 80053; 80061; 81001; 85025; 85652

== ENCOUNTER → 2018-03-07 08:28 | Outpatient (CLI) | payer MEDICARE, OTHER, SELFPAY ==
--- NOTE | 2018-03-07 08:31 | US_ITS ---
HISTORY: RUQ PAIN X 1 WEEK TECHNIQUE: Mccarty scale and color doppler imaging was performed of the gallbladder and liver COMPARISON: None FINDINGS: The gallbladder shows normal distention and he is without internal echoes, wall thickening, or pericholecystic edema. No intrahepatic or extrahepatic biliary dilatation. The common duct measures 4-5 mm in diameter which is normal. The liver appears enlarged measuring over 19 cm in length and shows a diffuse pattern of increased echogenicity compatible with fatty infiltration. No focal lesion seen. No ascites. Visualized portions of the pancreas are unremarkable. The right kidney is visualized and shows a tiny exophytic cortical cyst. No hydronephrosis. US/Abdomen Limited IMPRESSION: 1. Enlarged, fatty liver. No ascites. 2. Negative gallbladder ultrasound. No biliary dilatation or acute disease. at 0403 Reported and signed by: Preet Mcbride MD Electronically Signed: Preet Mcbride, at 4:02 EST Tel , Service support ,
== END ==
PROVIDERS: Family Provider Family Medicine; PCP Family Medicine; Referring Provider Family Medicine; Visit Provider Family Medicine
DX: K76.0 Fatty (change of) liver, not elsewhere classified (principal); R10.11 Right upper quadrant pain
CPT/HCPCS: 76705

== ENCOUNTER → 2018-03-13 11:07 | Outpatient (CLI) | payer MEDICARE, OTHER, SELFPAY ==
--- NOTE | 2018-03-13 11:12 | NM_ITS ---
CLINICAL: 72-year-old male with reported history of right upper quadrant abdominal pain. RADIONUCLIDE HEPATOBILIARY SCINTIGRAPHY COMPARISON: Abdominal ultrasound report 03/07/2018 FINDINGS: Following the intravenous administration of 6.0 mCi of 99m Tc Mebrofenin, hepatobiliary images reveal: 1. Relatively prompt and homogeneous radiopharmaceutical concentration is noted by a normal sized liver. No parenchymal defects are identified. 2. Gallbladder activity is identified at 15 minutes post radiopharmaceutical administration. 3. Small intestinal tract is observed at 15 minutes following tracer injection. 4. Washout of the radiopharmaceutical by the hepatic parenchyma appears qualitatively normal. The patient was administered a fatty meal (8 ounces BOOST-30 grams fat). The post fatty meal consumption gallbladder ejection fraction calculated at 60 minutes was noted to be 35.0 % (normal greater than 30%). OH/Hepatobilliary Img w/Pharm Int IMPRESSION: 1. NORMAL 99m Tc Mebrofenin hepatobiliary imaging examination with fatty meal ingestion. A. A gallbladder ejection fraction calculated to be greater than 30% following the administration of a consumed fatty meal makes the probability of functional hepatobiliary disease (gallbladder and/or sphincter of Oddi dyskinesia) and/or organic hepatobiliary disease (chronic acalculous cholecystitis and/or cystic duct syndrome) to be low. (David and Xavier, J Nucl Med 43: 1603, 2002). Electronically Signed: Dustin Kelly DO at 22:49 EST Tel , Service support ,
== END ==
PROVIDERS: Family Provider Family Medicine; PCP Family Medicine; Referring Provider Family Medicine; Visit Provider Family Medicine
DX: R10.11 Right upper quadrant pain (principal)
CPT/HCPCS: 78227; A9537

== ENCOUNTER → 2018-03-19 16:45 | Outpatient (CLI) | payer MEDICARE, OTHER, SELFPAY ==
--- NOTE | 2018-03-19 16:47 | CT_ITS ---
STUDY: CT ABDOMEN AND PELVIS WITH CONTRAST REASON FOR EXAM: Male, 72 years old. Right upper quadrant pain since February RADIATION DOSAGE (If Supplied By Facility): CTDIvol = ( 15.79 ) mGy, DLP = ( 1318.97 ) mGycm TECHNIQUE: Transaxial images were obtained from the dome of the diaphragm to the symphysis pubis without oral contrast. 100ML ml of Isovue 300 contrast was administered. Sagittal and coronal images were reconstructed. Individualized dose optimization techniques were used for this CT. COMPARISON: None. FINDINGS: The visualized lung bases are unremarkable. The visualized portions of the heart are within normal limits. Water density cystic lesion of the right hepatic lobe measures 1.9 cm, compatible with a simple cyst. Subcentimeter intermediate density lesion of the left hepatic lobe measures 7 mm, too small to characterize but statistically likely represents simple cyst. No suspicious hepatic masses are seen. Normal gallbladder and extrahepatic biliary system. Normal spleen. Normal pancreas. Normal bilateral adrenal glands. Normal right kidney. Normal left kidney. Normal visualized stomach. Normal small intestine. Normal colon. The appendix is visualized and appears normal. There is diffuse atherosclerotic calcification of the abdominal aorta, without a demonstrated aneurysm. Normal inferior vena cava. Normal retroperitoneum. Normal urinary bladder. There is enlargement of the prostate gland. Prostate calcifications are present. Normal abdominal wall. There are diffuse degenerative changes of the visualized lumbar spine. There is narrowing of the canal at L4-L5. CT/Abdomen/Pelvis WITH Contrast IMPRESSION: 1. No inflammatory process or bowel obstruction seen. 2. Atherosclerosis. 3. Hepatic cyst. 4. Prostatomegaly with calcifications. 5. Degenerative changes of the thoracolumbar spine. Suspect canal narrowing at L4-L5. Electronically Signed: Julián Guzman MD at 17:38 EST , Service support ,
== END ==
PROVIDERS: Family Provider Family Medicine; PCP Family Medicine; Referring Provider Family Medicine; Visit Provider Family Medicine
DX: R10.11 Right upper quadrant pain (principal)
CPT/HCPCS: 74177; Q9967

== ENCOUNTER → 2018-04-14 08:24 | Outpatient (CLI) | payer MEDICARE, OTHER, SELFPAY ==
--- NOTE | 2018-04-14 08:30 | RAD_ITS ---
STUDY: X-RAY - LUMBAR SPINE REASON FOR EXAM: Male, 72 years old. Back pain. TECHNIQUE: 5 view(s) of the lumbar spine were obtained. COMPARISON: None FINDINGS: Normal lumbar lordosis. There is no substantial scoliosis. There is a normal alignment of the vertebrae. There is diffuse demineralization with multi-level endplate spondylosis. There is multi-level degenerative disc disease with multi-level disc space narrowing. There is no evidence of acute fracture or loss of vertebral axial height. There is no demonstrated spondylolysis of the pars interarticulares. There is atherosclerotic calcification of the abdominal aorta without a demonstrated aneurysm. RAD/L/S Spine Min 4 Views IMPRESSION: Osteopenia and degenerative changes of the lumbar spine. Electronically Signed: Naveen Robles DO at 22:38 EST Tel [phone], Service support ,
--- NOTE | 2018-04-14 08:45 | RAD_ITS ---
STUDY: X-RAY - THORACIC SPINE REASON FOR EXAM: Male, 72 years old. Back pain. Left lower quadrant pain. TECHNIQUE: 3 view(s) of the thoracic spine were obtained. COMPARISON: None. FINDINGS: Normal kyphosis of the thoracic spine. There is no substantial scoliosis. There is multilevel endplate spondylosis of the thoracic vertebrae. There is multilevel disc space narrowing of the thoracic spine. There is no evidence of acute fracture or loss of vertebral axial height. The soft tissue structures are unremarkable. RAD/Thoracic Spine 3 Views IMPRESSION: Degenerative changes of the thoracic spine. There is no acute fracture or subluxation. Electronically Signed: Naveen Robles DO at 23:16 EST Tel [phone], Service support ,
== END ==
PROVIDERS: Family Provider Family Medicine; PCP Family Medicine; Referring Provider Family Medicine; Visit Provider Family Medicine
DX: M47.895 Other spondylosis, thoracolumbar region (principal); M51.36 Other intervertebral disc degeneration, lumbar region; M48.061 Spinal stenosis, lumbar region without neurogenic claudication; M85.88 Other specified disorders of bone density and structure, other site
CPT/HCPCS: 72072; 72110

== ENCOUNTER 2018-05-13 08:14 | Day surgery (SDC) | payer MEDICARE, OTHER, SELFPAY ==
[2018-05-05 09:36] VITALS: BMI 35.1
[2018-05-13 08:27] VITALS: BP 94/62; PULSE 97; RESP 18; TEMP 36.4; O2SAT 99; BMI 35.3
[2018-05-13 08:45] LABS: Bedside Glucose 221 mg/dL (70-110)
--- NOTE | 2018-05-13 09:15 | EGD_PTH ---
PATIENT: ANILA ROBLEDO LOC: EN U#:[id number] AGE/SX: 72/M ROOM: RE05/13/[address]: Dr. Chuck Ricketts MD : 1945 BED: DIS: 05/13/2018 SPEC #: [id number] RECD: 05/13/18 10:26 STATUS: RACHNA RJ #: [id number] ZAKIA: 05/13/18 09:[address]: Chuck Ricketts DEPT: SURGICAL PATHOLOGY RECD BY: Nir Castillo ENTERED: 05/13/18 12:50 SP TYPE: EGD BIOPSY OT DR: Dr. Puma Yi MD Tissues: Gastric mucous membrane Procedures: Surgery Specimen Level IV HEADER OPER[place] [place] DIAGNOSIS: Abdominal pain TISSUE SUBMITTED: Antral biopsy for H. pylori and pathology MICROSCOPIC DIAGNOSIS Gastric antrum, biopsy: Chronic active gastritis. Positive for Helicobacter pylori. See comment. AM:tony 05/14/18 COMMENT The results of immunohistochemistry for Helicobacter pylori will be reported separately ([id number]). MICROSCOPIC DESCRIPTION Slides are reviewed. GROSS DESCRIPTION Received in fixative is one container labeled with the patient's name and designated antral biopsy. The specimen consists of one irregular fragment of light wong soft tissue that measures 0.5 x 0.2 x 0.1 cm. The specimen is totally submitted in one cassette. / AM:tony 05/13/18 TC:2 CPT: 79718
--- NOTE | 2018-05-13 09:15 | IMM_PTH ---
PATIENT: ANILA ROBLEDO LOC: [facility] U#:[id number] AGE/SX: 72/M ROOM: RE05/13/[address]: Dr. Chuck Ricketts MD : 1945 BED: DIS: 05/13/2018 SPEC #: [id number] RECD: 05/13/18 13:53 STATUS: RACHNA REBob #: [id number] ZAKIA: 05/13/18 09:[address]: Chuck Ricketts DEPT: IMMUNOHISTOCHEMISTRY RECD BY: Maddie Whitaker ENTERED: 05/13/18 13:55 SP TYPE: IMMUNO OTHR DR: Dr. Puma Yi MD Tissues: Stomach, NOS Procedures: H Pylori (initial) PHYSICIAN & INSTITUTION [place] [address] SPECIMEN INFORMATION: Tissue Source: Antral biopsy Clinical Info: Abdominal pain Specimen Number: [id number] CPT code: 59719 METHODOLOGY: Deparaffinized sections of prefer/formalin-fixed tissue or PAP/DQ stained slides are incubated with monoclonal/polyclonal antibodies/oligonucleotide probes. Localization is made via biotin free immunoperoxidase method. Appropriate controls are performed and reacted as expected. Results on target cell population are indicated in the following table: RESULTS: ANTIBODY / CLONE RESULT H Pylori (polyclonal) positive, abundant These tests were developed and their performance characteristics determined by [facility]. They may not have been cleared or approved by the U.S. Food and Drug Administration. The FDA has determined that such clearance or approval is not necessary. INTERPRETATION: Antral biopsy: Positive for abundant Helicobacter pylori organisms. AM:tony 05/14/18
[2018-05-13 09:22] VITALS: BP 84/57; BP 94/62; PULSE 82; RESP 16; TEMP 36.2; O2SAT 95
--- NOTE | 2018-05-13 09:23 | OP.ENDO_ITS ---
05/13/2018 Petr Yi [address] [place] [address] Re : Upper GI endoscopy procedure for Matthias Hoffmann Dear Dr. Yi This procedure was performed on Sunday, May 13, 2018. My impressions and recommendations are as follows: Impressions : - Normal esophagus. - Z-line regular, 39 cm from the incisors. - Gastritis. Biopsied. - Normal examined duodenum. No specimens collected. Recommendations : - Discharge patient to home. - Resume previous diet. - Continue present medications. - Await pathology results. - Repeat upper endoscopy (date not yet determined) to evaluate the response to therapy. - Return to my office in 2 weeks. My findings are described in the full procedure note, which is enclosed. If I can be of further assistance, please feel free to contact me at Doctor phone number(s): , Fax: [phone], Work: . Sincerely, MD Chuck Hatch MD 05/13/2018 9:22:58 AM This report has been signed electronically.
[2018-05-13 09:30] VITALS: BP 89/64; BP 94/62; PULSE 81; RESP 16; O2SAT 93
[2018-05-13 09:35] VITALS: BP 106/66; BP 94/62; PULSE 77; RESP 16; O2SAT 96
[2018-05-13 09:38] VITALS: BP 94/62; BP 98/72; PULSE 85; RESP 16; TEMP 36.6; O2SAT 93
[2018-05-13 10:09] VITALS: BP 94/62
== END 2018-05-13 10:12 | disposition home or self-care (01) ==
LOC: EN 08:15 → AC 08:17
PROVIDERS: Family Provider Family Medicine; PCP Family Medicine; Referring Provider Surgery; Visit Provider Surgery
PROC: 0DJ08ZZ Inspection of Upper Intestinal Tract, Via Natural or Artificial Opening Endoscopic (ICD-10-PCS; CPT 43235; principal; 2018-05-13 09:10)
DX: K29.50 Unspecified chronic gastritis without bleeding (principal); B96.81 Helicobacter pylori [H. pylori] as the cause of diseases classified elsewhere; R10.10 Upper abdominal pain, unspecified; K21.9 Gastro-esophageal reflux disease without esophagitis; E11.9 Type 2 diabetes mellitus without complications; I10 Essential (primary) hypertension; R01.1 Cardiac murmur, unspecified; I35.0 Nonrheumatic aortic (valve) stenosis; G25.81 Restless legs syndrome; E78.5 Hyperlipidemia, unspecified; Z79.84 Long term (current) use of oral hypoglycemic drugs; Z79.82 Long term (current) use of aspirin; Z79.899 Other long term (current) drug therapy
CPT/HCPCS: 43239; 82962; 88305; 88342; J7120

== ENCOUNTER → 2018-06-10 07:41 | Outpatient (CLI) | payer MEDICARE, OTHER, SELFPAY ==
[2018-05-27 08:54] VITALS: BMI 35.9
--- NOTE | 2018-06-10 07:43 | ECHOD_ITS ---
Reason For Study: MURMUR Procedure This was a 2D Doppler, Color Flow transthoracic echocardiogram. Exam performed in department. Left Ventricle Normal LV size. Moderate concentric left ventricular hypertrophy. Left ventricular systolic function is normal. The estimated ejection fraction is 60 %. Stage 1 diastolic dysfunction. No regional wall motion abnormalities noted. Right Ventricle Normal RV size. Normal systolic function. Atria The left atrium is mildly enlarged. Normal right atrium. Mitral Valve There is mild mitral annular calcification. Trivial mitral valve insufficiency. Tricuspid Valve Normal tricuspid valve. Mild (1+) tricuspid valve insufficiency. Aortic Valve Trisinus/trileaflet aortic valve. Moderate focal aortic valve calcification. Peak aortic valve gradient 56 mmHg. Mean aortic valve gradient 35 mmHg. Calculated aortic valve area (continuity equation) is 1.1 cm2. Mild to moderate aortic stenosis. Pulmonic Valve Normal pulmonic valve. Great Vessels Calcified aortic root. The pulmonary artery is normal size. Normal inferior vena cava. Pericardium/Pleural No pericardial effusion. MMode/2D Measurements & Calculations LVIDd: 4.8 cm IVSd: 1.5 cm LVOT diam: 2.2 cm LVIDs: 3.2 cm LVPWd: 1.4 cm LVOT area: 3.7 cm2 RVDd: 3.2 cm FS: 32.0 % Ao root diam: 3.7 cm LAV(MOD-bp): 80.0 ml LA A4 area: 24.3 cm2 LAV(MOD-bp) Indexed: 34.0 ml/m2 LAV(MOD-sp2): 72.1 ml LAV(MOD-sp4): 83.1 ml LA dimension(2D): 5.1 cm RA A4 area: 11.5 cm2 Time Measurements MV dec time: 0.38 sec Doppler Measurements & Calculations MV E max ld: 50.6 cm/sec Lat Peak E' Ld: 6.7 cm/sec Med Peak E' Ld: 4.0 cm/sec MV A max ld: 88.3 cm/sec E/E' lat: 7.5 E/E' med: 12.5 MV E/A: 0.57 Ao V2 max: 371.1 cm/sec LV V1 max: 114.2 cm/sec SV(LVOT): 93.5 ml Ao max P.0 mmHg LV V1 max P.2 mmHg Ao V2 mean: 286.9 cm/sec LV V1 mean P.2 mmHg Ao mean P.1 mmHg LV V1 mean: 87.1 cm/sec Ao V2 VTI: 76.3 cm LV V1 VTI: 25.5 cm SHERWIN(I,D): 1.2 cm2 SHERWIN(V,D): 1.1 cm2 PA V2 max: 118.0 cm/sec Interpretation Summary Normal LV size. Moderate concentric left ventricular hypertrophy. The estimated ejection fraction is 60 %. Stage 1 diastolic dysfunction. Moderate focal aortic valve calcification. Mean aortic valve gradient 35 mmHg. Calculated aortic valve area (continuity equation) is 1.1 cm2. Mild to moderate aortic stenosis. Ordering Physician: Alo Salgado Referring Physician: suzie Yi Performed By: Steph Killian, STALIN, RVT
--- NOTE | 2018-06-10 07:43 | CDU_ITS ---
Reason For Study: Syncope Rt. Velocities/BP Lt. Velocities/BP Prox CCA 76/16 cm/sec. Prox CCA 79/24 cm/sec. Mid CCA 79/15 cm/sec. Mid CCA 64/14 cm/sec. Dist CCA 73/23 cm/sec. Dist CCA 67/17 cm/sec. Prox ICA 71/22 cm/sec. Prox ICA 62/11 cm/sec. Mid ICA 59/21 cm/sec. Mid ICA 116/45 cm/sec. Dist ICA 60/23 cm/sec. Dist ICA 87/24 cm/sec. Rt. ICA/CCA = 0.90. Lt. ICA/CCA = 1.8. Prox ECA 90/17 cm/sec. Prox ECA 95/20 cm/sec. Rt. Vert. 49/17 cm/sec. Lt. Vert. 35/10 cm/sec. Right Extracranial There is heterogeneous, smooth atherosclerotic plaque noted in the right common carotid artery. There is heterogeneous, irregular atherosclerotic plaque noted in the right internal carotid artery. There is heterogeneous, smooth atherosclerotic plaque noted in the right external carotid artery. Antegrade flow is noted in the right vertebral artery. Left Extracranial There is heterogeneous, irregular atherosclerotic plaque noted in the left common carotid artery. There is heterogeneous, irregular atherosclerotic plaque noted in the left internal carotid artery. There is homogeneous, smooth atherosclerotic plaque noted in the left external carotid artery. Antegrade flow is noted in the left vertebral artery. Procedure Carotid Duplex [id number]. Exam performed in department. Interpretation Summary Mild (<50%) stenosis right extracranial internal carotid. Mild (<50%) stenosis left extracranial internal carotid. Flow within the vertebral arteries is antegrade bilaterally. Ordering Physician: Alo Salgado Referring Physician: Puma Yi Performed By: Tamela Burger, STALIN, RVT
== END ==
PROVIDERS: Family Provider Family Medicine; PCP Family Medicine; Referring Provider Internal Medicine Cardiovascular Disease; Visit Provider Internal Medicine Cardiovascular Disease
DX: Z01.810 Encounter for preprocedural cardiovascular examination (principal); R09.89 Other specified symptoms and signs involving the circulatory and respiratory systems
CPT/HCPCS: 93306; 93880

== ENCOUNTER → 2018-06-18 | Outpatient (CLI) | payer MEDICARE, OTHER, SELFPAY ==
[2018-05-27 08:54] VITALS: BMI 35.9
[2018-06-18 10:47] LABS: ALB/GLOB Ratio 1.2 RATIO (0.9-2.4); AST(SGOT) 26 U/L (15-37); Alanine Aminotransfer ALT/SGPT 39 U/L (16-61); Albumin, Serum 3.6 g/dL (3.2-5.0); Alkaline Phosphatase 57 U/L (45-117); Anion Gap 8 (5-15); BUN 20 mg/dL (7-18); Calcium,Total 8.9 mg/dL (8.5-10.1); Chloride 103 mmol/L (98-107); Cholesterol 158 mg/dL (200); Creatinine, Serum 1.05 mg/dL (0.70-1.30); EST Glomerular Filtration Rate 74 mL/min (>60); Est Glom Filt Rate - Afr Amer 89 mL/min (>60); Globulin 3.1 g/dL (2.2-4.2); Glucose 131 mg/dL (74-106); High Density Lipoprotein 36 mg/dL; Potassium 3.9 mmol/L (3.5-5.1); Protein, Total 6.7 g/dL (6.4-8.2); Sodium Level 135 mmol/L (136-145); Triglycerides 69 mg/dL; Very Low Density Lipoprotein 14 mg/dL (5-40)
== END | disposition home or self-care (01) ==
LOC: MFPLAB 09:05
PROVIDERS: Family Provider Family Medicine; PCP Family Medicine; Referring Provider Family Medicine; Visit Provider Family Medicine
DX: E11.9 Type 2 diabetes mellitus without complications (principal); I10 Essential (primary) hypertension; E78.00 Pure hypercholesterolemia, unspecified
CPT/HCPCS: 36415; 80053; 80061

== ENCOUNTER → 2018-07-27 10:35 | Outpatient (CLI) | payer MEDICARE, OTHER, SELFPAY ==
[2018-05-27 08:54] VITALS: BMI 35.9
== END ==
PROVIDERS: Family Provider Family Medicine; PCP Family Medicine; Referring Provider Surgery; Visit Provider Surgery
DX: A04.8 Other specified bacterial intestinal infections (principal)

== ENCOUNTER → 2018-11-13 18:05 | Outpatient (CLI) | payer MEDICARE, OTHER, SELFPAY ==
[2018-05-27 08:54] VITALS: BMI 35.9
== END ==
PROVIDERS: Family Provider Family Medicine; PCP Family Medicine; Referring Provider Family Medicine; Visit Provider Family Medicine
DX: R31.9 Hematuria, unspecified (principal)
CPT/HCPCS: 87077; 87086; 87088; 87186

== ENCOUNTER → 2019-01-19 08:36 | Outpatient (CLI) | payer MEDICARE, OTHER, SELFPAY ==
[2018-05-27 08:54] VITALS: BMI 35.9
[2019-01-19 10:04] LABS: ALB/GLOB Ratio 0.9 RATIO (0.9-2.4); AST(SGOT) 21 U/L (15-37); Alanine Aminotransfer ALT/SGPT 35 U/L (16-61); Albumin, Serum 3.5 g/dL (3.2-5.0); Alkaline Phosphatase 57 U/L (45-117); Anion Gap 7 (5-15); BUN 22 mg/dL (7-18); BUN/Creat Ratio 16.5 RATIO (10-20); Chloride 104 mmol/L (98-107); Cholesterol 208 mg/dL (200); Creatinine, Serum 1.33 mg/dL (0.70-1.30); EST Glomerular Filtration Rate 56 mL/min (>60); Est Glom Filt Rate - Afr Amer 68 mL/min (>60); Globulin 3.8 g/dL (2.2-4.2); Glucose 154 mg/dL (74-106); High Density Lipoprotein 42 mg/dL; PSA,Total - Annual Screen 0.72 ng/mL (0.00-4.00); Potassium 3.9 mmol/L (3.5-5.1); Protein, Total 7.3 g/dL (6.4-8.2); Sodium Level 136 mmol/L (136-145); Thyroid Stim Hormone (TSH) 1.67 uIU/mL (0.358-3.74); Triglycerides 85 mg/dL; Very Low Density Lipoprotein 17 mg/dL (5-40)
== END ==
PROVIDERS: Family Provider Family Medicine; PCP Family Medicine; Referring Provider Family Medicine; Visit Provider Family Medicine
DX: E78.00 Pure hypercholesterolemia, unspecified (principal); E11.9 Type 2 diabetes mellitus without complications; N40.1 Benign prostatic hyperplasia with lower urinary tract symptoms; Z12.5 Encounter for screening for malignant neoplasm of prostate
CPT/HCPCS: 36415; 80053; 80061; 84153; 84443; G0103

== ENCOUNTER → 2019-02-12 07:57 | Outpatient (CLI) | payer MEDICARE, OTHER, SELFPAY ==
[2019-01-22 08:15] VITALS: BMI 36.5
[2019-02-12 08:55] LABS: Hematocrit 45.5 % (40-54); Hemoglobin 15.3 g/dL (13.0-16.5); Mean Corp Hgb Conc 33.6 g/dL (32-36); Mean Corpuscular Hgb 29.9 pg (27.0-32.0); Mean Platelet Vol. 10.8 fl (6.2-12.0); Platelet Count 193 K/mm3 (150-450); RBC Distribution Width SD 45.5 fl (35.1-43.9); Red Blood Count 5.11 M/mm3 (4.6-6.2); White Blood Count 7.8 K/mm3 (4.4-11.0)
== END ==
PROVIDERS: Family Provider Family Medicine; PCP Family Medicine; Visit Provider Nurse Practitioner Adult Health
DX: E11.9 Type 2 diabetes mellitus without complications (principal)
CPT/HCPCS: 36415; 85027

== ENCOUNTER → 2019-04-15 10:15 | Outpatient (CLI) | payer MEDICARE, OTHER, SELFPAY ==
[2019-01-22 08:15] VITALS: BMI 36.5
[2019-04-15 12:54] LABS: Anion Gap 4 (5-15); BUN 17 mg/dL (7-18); BUN/Creat Ratio 14.7 RATIO (10-20); Calcium,Total 9.4 mg/dL (8.5-10.1); Chloride 109 mmol/L (98-107); Creatinine, Serum 1.16 mg/dL (0.70-1.30); EST Glomerular Filtration Rate 66 mL/min (>60); Est Glom Filt Rate - Afr Amer 80 mL/min (>60); Glucose 131 mg/dL (74-106); Sodium Level 137 mmol/L (136-145)
== END ==
PROVIDERS: PCP Family Medicine; Referring Provider Family Medicine; Visit Provider Family Medicine
DX: E11.9 Type 2 diabetes mellitus without complications (principal)
CPT/HCPCS: 36415; 80048

== ENCOUNTER → 2019-07-22 09:24 | Outpatient (CLI) | payer MEDICARE, OTHER, SELFPAY ==
[2019-01-22 08:15] VITALS: BMI 36.5
[2019-07-22 13:53] LABS: ALB/GLOB Ratio 1.2 RATIO (0.9-2.4); AST(SGOT) 23 U/L (15-37); Alanine Aminotransfer ALT/SGPT 41 U/L (16-61); Albumin, Serum 3.8 g/dL (3.2-5.0); Alkaline Phosphatase 62 U/L (45-117); Anion Gap 6 (5-15); BUN 20 mg/dL (7-18); BUN/Creat Ratio 16.4 RATIO (10-20); Calcium,Total 9.3 mg/dL (8.5-10.1); Chloride 104 mmol/L (98-107); Cholesterol 215 mg/dL (200); Creatinine, Serum 1.22 mg/dL (0.70-1.30); EST Glomerular Filtration Rate 62 mL/min (>60); Est Glom Filt Rate - Afr Amer 75 mL/min (>60); Globulin 3.2 g/dL (2.2-4.2); Glucose 147 mg/dL (74-106); High Density Lipoprotein 41 mg/dL; Potassium 3.8 mmol/L (3.5-5.1); Sodium Level 137 mmol/L (136-145); Triglycerides 78 mg/dL; Very Low Density Lipoprotein 16 mg/dL (5-40)
== END ==
PROVIDERS: PCP Family Medicine; Visit Provider Family Medicine
DX: E11.9 Type 2 diabetes mellitus without complications (principal)
CPT/HCPCS: 36415; 80053; 80061

== ENCOUNTER → 2019-11-06 09:43 | Outpatient (CLI) | payer MEDICARE, OTHER, SELFPAY ==
[2019-01-22 08:15] VITALS: BMI 36.5
[2019-11-06 10:48] LABS: ALB/GLOB Ratio 0.9 RATIO (0.9-2.4); AST(SGOT) 22 U/L (15-37); Alanine Aminotransfer ALT/SGPT 41 U/L (16-61); Albumin, Serum 3.7 g/dL (3.2-5.0); Alkaline Phosphatase 61 U/L (45-117); Anion Gap 5 (5-15); BUN 22 mg/dL (7-18); BUN/Creat Ratio 17.3 RATIO (10-20); Calcium,Total 8.9 mg/dL (8.5-10.1); Chloride 103 mmol/L (98-107); Cholesterol 188 mg/dL (200); Creatinine, Serum 1.27 mg/dL (0.70-1.30); EST Glomerular Filtration Rate 59 mL/min (>60); Est Glom Filt Rate - Afr Amer 72 mL/min (>60); Globulin 3.9 g/dL (2.2-4.2); Glucose 125 mg/dL (74-106); High Density Lipoprotein 42 mg/dL; Potassium 3.8 mmol/L (3.5-5.1); Protein, Total 7.6 g/dL (6.4-8.2); Sodium Level 138 mmol/L (136-145); Thyroid Stim Hormone (TSH) 1.16 uIU/mL (0.358-3.74); Triglycerides 65 mg/dL; Very Low Density Lipoprotein 13 mg/dL (5-40)
[2019-11-07 08:40] LABS: Vitamin B12 409 pg/mL (211-911)
== END ==
PROVIDERS: PCP Family Medicine; Referring Provider Family Medicine; Visit Provider Family Medicine
DX: E11.9 Type 2 diabetes mellitus without complications (principal)
CPT/HCPCS: 36415; 80053; 80061; 82607; 84403; 84443

== ENCOUNTER 2019-12-05 17:13 | Emergency (ER) | payer MEDICARE, OTHER, SELFPAY ==
[2019-01-22 08:15] VITALS: BMI 36.5
[2019-12-05 17:15] VITALS: BP 131/84; PULSE 88; RESP 18; TEMP 36.3; O2SAT 95; BMI 34.8
[2019-12-05] MEDS: Oxymetazoline 0.05% 1 SPRAY SPRAY.BTL 2 SPRAY NASAL (17:30)
--- NOTE | 2019-12-05 17:33 | ED.VIS.GEN ---
History of Present Illness Informant: Patient, Family Onset: Today Context: Sudden Onset Timing: Continuous Quality: Nosebleed Location: Right nostril Current Severity: Severe Maximum Severity: Severe Worsened by: Nothing Relieved by: Nothing Associated Symptoms: Denies Narrative: 74-year-old male history of recurrent nosebleeds with previous cautery by ENT presents to the emergency department with a nosebleed. Started 2 hours ago. He has been unable to get it stopped with manual pressure. He is only on aspirin. He was similar nosebleed yesterday but he was able to stop with manual pressure. He has had multiple cauterizations in the past with most recent being about 3 months ago. Patient denies trauma. He denies any other symptoms of bleeding. He is not lightheaded or dizzy. Denies nausea or vomiting. Denies headache or neck pain. Prior similar symptoms: Yes Recent Illness/Hospitalization: No <De Cerna - Last Filed: 12/05/19 18:05> <Jay Alexis - Last Filed: 12/05/19 20:09> Chief Complaint: Nosebleed Past Medical History Prior records reviewed: Yes Past Medical History: - - Hypertension hyperlipidemia otic stenosis GERD Surgical History: - - Bilateral knee replacement Lives: With Family Smoking Status: Never smoker Alcohol: None Drugs: None - Family History Maternal Family History: Family History (Last Reviewed 01/22/19 @ 10:[address] Alo Salgado MD) Mother Breast cancer Liver disease Father Myocardial infarction Heart disease Sister Cancer Breast cancer Brother CAD (coronary artery disease) Heart disease Family History: Reports: Cancer - breast Paternal Family History: Family History (Last Reviewed 01/22/19 @ 10:[address] Alo Salgado MD) Mother Breast cancer Liver disease Father Myocardial infarction Heart disease Sister Cancer Breast cancer Brother CAD (coronary artery disease) Heart disease Family History: Reports: Heart Disease - of [place] age 41 <De Cerna - Last Filed: 12/05/19 18:05> - Family History Maternal Family History: Family History (Last Reviewed 01/22/19 @ 10:[address] Alo Salgado MD) Mother Breast cancer Liver disease Father Myocardial infarction Heart disease Sister Cancer Breast cancer Brother CAD (coronary artery disease) Heart disease Paternal Family History: Family History (Last Reviewed 01/22/19 @ 10:[address] Alo Salgado MD) Mother Breast cancer Liver disease Father Myocardial infarction Heart disease Sister Cancer Breast cancer Brother CAD (coronary artery disease) Heart disease <Jay Alexis - Last Filed: 12/05/19 20:09> - Allergies and Home Meds Allergies/Adverse Reactions: Allergies Penicillins [PCN] Allergy (Mild, Verified 12/05/19 17:17) hives nitroglycerin Adverse Reaction (Mild, Verified 12/05/19 17:17) LOC Primary Care Physician: Petr Dos Santos MD [STAFF PHYSICIAN] - As soon as possible Review of Systems All systems negative except as indicated General: Denies: Chills, Fever, Sweats Eyes: Denies: Visual changes - bilaterally, Diplopia ENT: Reports: - - Epistaxis. Denies: Rhinorrhea, Sore throat Cardiovascular: Denies: Chest pain, Palpitations Respiratory: Denies: Dyspnea, Cough, Dyspnea on exertion Gastrointestinal: Denies: Abdominal pain, Nausea, Vomiting, Diarrhea, Melena, Hematochezia Genitourinary: Denies: Dysuria, Hematuria, Frequency Musculoskeletal: Denies: Back pain, Extremity Pain Skin: Denies: Rash, Wounds Neurological: Denies: Headache, Weakness, Numbness <De Cerna - Last Filed: 12/05/19 18:05> Physical Exam Vital Signs/Narrative: Vital Signs Temp Pulse Resp BP Pulse Ox 12/05/19 17:15 97.3 F L 88 18 131/84 H 95 Inital Vital Signs reviewed: Yes General: Well nourished, Well developed, No Acute Distress Head: Normocephalic, Atraumatic Eyes: Perrl, EOMI ENT: Moist mucous membranes, - - Patient has active bleeding right nostril. There is a large blood clot noted. After having him blow his nose I do not seal any nasal septal hematoma it appears to be anterior bleeding he has no blood in the posterior oropharynx he has no swelling or bruising of his nose that would. Demonstrate any signs of trauma. Left nostril is normal. Normal visualization of his face. Neck: Supple, Nontender Cardiovascular: Regular rate, Regular rhythm, No murmurs Respiratory: No distress, CTA bilaterally, Chest nontender Abdomen: Soft, Nontender, Nondistended, Normal bowel sounds Back: Nontender, Normal Inspection Extremities: Nontender, No edema Skin: Normal color, No rash Neurological: Alert, Oriented x3, Cranial nerves II-XII grossly intact, Normal Strength, Normal Sensation Psychological: Normal affect, Normal Mood <De Cerna - Last Filed: 12/05/19 18:05> Vital Signs/Narrative: Vital Signs Temp Pulse Resp BP Pulse Ox 12/05/19 17:15 97.3 F L 88 18 131/84 H 95 <Jay Alexis - Last Filed: 12/05/19 20:09> Diagnostic/Tx/Re-eval - Medical Decision Making Patient actively bleeding on arrival. Had him blow his nose. Blood some blood clots. I then soaked Afrin on a cottonball and placed it into the right nostril. Repeat exam his bleeding has essentially resolved I am able to see some areas of dry mucosa on his nasal septum. It is not actively bleeding. Therefore Vaseline gauze was packed into his nostril. Patient ambulated around the department he did not have any further bleeding. He was reassured. We will place him on Keflex. He will be following up with his ENT this week. He was given return precautions. He was discharged home and was agreeable with plan of care and all questions were answered <De Cerna - Last Filed: 12/05/19 18:05> - Medical Decision Making I supervised the PA and have performed my own pertinent history and physical. Results and treatment plan were discussed. HPI: Patient reports he had bleeding from his right nares that resolved yesterday. States that it began again today and is lasted 2 hours and he cannot get this to stop. He is on baby aspirin only. PE: Vitals: Stable. Afebrile. General: Well-nourished and well-developed. Head: Normocephalic atraumatic. HEENT: There is fresh blood in his right nares. There appears to be a culprit vessel on the anterior nasal septum on the right. Neck: Supple, no lymphadenopathy. No JVD. Nontender. Cardiovascular: Regular rate and rhythm. No murmurs. Respiratory: No respiratory distress. Clear to auscultation bilaterally. Abdominal: Soft, nontender, nondistended, normal bowel sounds. No guarding, rebound, or peritoneal signs. Back: Nontender. Extremities: Nontender, no edema. Skin: Normal color, no rash. Neurologic: Alert and oriented ?3. Cranial nerves II through XII are intact. Normal strength and sensation. Psych: Normal affect. Emergency Department course: Following packing with Vaseline gauze the patient was resting comfortably. However, prior to discharge she began to bleed from that site again. A 5.5 cm rapid Rhino was placed. He then had bleeding down the posterior pharynx. A 7.5 cm rapid Rhino was placed and he had bleeding anteriorly. The patient was discussed with Dr. Luis Angel Shanks who asked that we put a 5.5 cm rapid Rhino in the left side. This was placed and the bleeding stopped. He tolerated all of this well. Treatment Plan: Patient will be discharged with Keflex. Is given a first dose in the emergency department instructed to follow-up Dr. greene in 3 to 5 days for another exam. Return to the emergency department for any worsening symptoms. This note was generated with [employer] dictation software. It may contain incorrect words, spelling, and punctuation that were not noted in review of the chart prior to signing. <Jay Alexis - Last Filed: 12/05/19 20:09> ED Disposition <De Cerna - Last Filed: 12/05/19 18:05> <Jay Alexis - Last Filed: 12/05/19 20:09> - Plan for ED Patient: Disposition: Home or Assisted Living Diagnosis: Epistaxis, Essential hypertension, HLD (hyperlipidemia) Instructions: ED Epistaxis Adult Prescriptions: Cephalexin [Keflex] 500 mg PO Q6 #20 capsule Referrals: Petr Dos Santos MD [STAFF PHYSICIAN] - 3-5 Days
--- NOTE | 2019-12-05 17:56 | ED.RN ---
ENT CART AT BEDSIDE
[2019-12-05 20:24] VITALS: RESP 16
[2019-12-05] MEDS: Cephalexin 500 MG Capsule PO (20:27)
== END 2019-12-05 20:31 | disposition home or self-care (01) ==
PROVIDERS: Emergency Provider Physician Assistant Medical; PCP Family Medicine
DX: R04.0 Epistaxis (principal); I10 Essential (primary) hypertension; E78.5 Hyperlipidemia, unspecified; Z79.82 Long term (current) use of aspirin
CPT/HCPCS: 30901; 99283

== ENCOUNTER 2019-12-24 08:49 | Emergency (ER) | payer MEDICARE, OTHER, SELFPAY ==
[2019-12-24 08:50] VITALS: BP 171/106; PULSE 91; RESP 18; TEMP 36.4; O2SAT 96; BMI 35.4
--- NOTE | 2019-12-24 09:05 | ED.DCSUM_ITS ---
History of Present Illness Informant: Patient Onset: Today Narrative: 74-year-old male with a past medical history of recurrent nosebleeds with previous cautery by ENT presents with a nosebleed. Started 45 minutes ago when he bent over. He was able to get it to stop with manual pressure. He is not on aspirin or blood thinner. He states his most recent cauterization was within the last 2 weeks. Denies trauma. Denies dizziness or lightheadedness. <Asya Pak - Last Filed: 12/24/19 09:11> <Jay Alexis - Last Filed: 12/24/19 09:22> Chief Complaint: Nosebleed Past Medical History Past Medical History: - - recurrent epistaxis Surgical History: - - Bilateral knee replacement Smoking Status: Never smoker - Family History Maternal Family History: Family History (Last Reviewed 01/22/19 @ 10:[address] Alo Salgado MD) Mother Breast cancer Liver disease Father Myocardial infarction Heart disease Sister Cancer Breast cancer Brother CAD (coronary artery disease) Heart disease Family History: Reports: Cancer - breast Paternal Family History: Family History (Last Reviewed 01/22/19 @ 10:[address] Alo Salgado MD) Mother Breast cancer Liver disease Father Myocardial infarction Heart disease Sister Cancer Breast cancer Brother CAD (coronary artery disease) Heart disease Family History: Reports: Heart Disease - of [place] age 41 <Asya Pak - Last Filed: 12/24/19 09:11> - Family History Maternal Family History: Family History (Last Reviewed 01/22/19 @ 10:[address] Alo Salgado MD) Mother Breast cancer Liver disease Father Myocardial infarction Heart disease Sister Cancer Breast cancer Brother CAD (coronary artery disease) Heart disease Paternal Family History: Family History (Last Reviewed 01/22/19 @ 10:[address] Alo Salgado MD) Mother Breast cancer Liver disease Father Myocardial infarction Heart disease Sister Cancer Breast cancer Brother CAD (coronary artery disease) Heart disease <Jay Alexis - Last Filed: 12/24/19 09:22> - Allergies and Home Meds Allergies/Adverse Reactions: Allergies Penicillins [PCN] Allergy (Mild, Verified 12/24/19 08:52) hives nitroglycerin Adverse Reaction (Mild, Verified 12/24/19 08:52) LOC Primary Care Physician: Petr Dos Santos MD [STAFF PHYSICIAN] - Review of Systems General: Denies: Chills, Fever, Sweats ENT: Denies: Rhinorrhea, Sore throat Cardiovascular: Denies: Chest pain, Palpitations Respiratory: Denies: Dyspnea, Cough, Dyspnea on exertion Gastrointestinal: Denies: Abdominal pain, Nausea, Vomiting Genitourinary: Denies: Dysuria, Hematuria, Frequency Skin: Denies: Wounds Neurological: Denies: Headache, Weakness Hematologic: Reports: Easy bleeding <Asya Pak - Last Filed: 12/24/19 09:11> Physical Exam Vital Signs/Narrative: Vital Signs Temp Pulse Resp BP Pulse Ox 12/24/19 08:50 97.5 F L 91 18 171/106 H 96 Inital Vital Signs reviewed: Yes General: Well nourished, Well developed, No Acute Distress Head: Normocephalic, Atraumatic ENT: Moist mucous membranes, No rhinorrhea, - - Clot on right side of nasal septum. No active bleeding. Neck: Supple, Nontender Cardiovascular: Regular rate, Regular rhythm Respiratory: No distress, CTA bilaterally Skin: Normal color, No rash Neurological: Alert, Oriented x3, Cranial nerves II-XII grossly intact Psychological: Normal affect, Normal Mood <Asya Pak - Last Filed: 12/24/19 09:11> Vital Signs/Narrative: Vital Signs Temp Pulse Resp BP Pulse Ox 12/24/19 08:50 97.5 F L 91 18 171/106 H 96 <Jay Alexis - Last Filed: 12/24/19 09:22> Diagnostic/Tx/Re-eval - Medical Decision Making Patient presented with episode of epistaxis. He has a small clot in his right nasal septum and has no active bleeding in the ED. He has no orthostatic symptoms. He does not want treatment or to be monitored. He states he has salve he will put in his nose at home. He was advised to call ENT today for follow- up. Return to ED if rebleeding occurs. He was agreeable and discharged home in stable condition. <Asya Pak - Last Filed: 12/24/19 09:11> - Medical Decision Making I supervised the PA and have performed my own pertinent history and physical. Results and treatment plan were discussed. HPI: Patient reports that he had cautery to the right side of his nose marcial roximately [address] Tyler[address] He was doing well until this morning when it began bleeding again. The bleeding has now resolved. He is not on any blood thinners. PE: Vitals: Stable. Afebrile. General: Well-nourished and well-developed. Head: Normocephalic atraumatic. HEENT: There is a scab on the anterior nasal septum on the right from the cautery. There is no active bleeding. He has no blood in the oropharynx. Neck: Supple, no lymphadenopathy. No JVD. Nontender. Cardiovascular: Regular rate and rhythm. No murmurs. Respiratory: No respiratory distress. Clear to auscultation bilaterally. Abdominal: Soft, nontender, nondistended, normal bowel sounds. No guarding, rebound, or peritoneal signs. Back: Nontender. Extremities: Nontender, no edema. Skin: Normal color, no rash. Neurologic: Alert and oriented ?3. Cranial nerves II through XII are intact. Normal strength and sensation. Psych: Normal affect. Emergency Department course: Patient went through packing approximately 3 weeks ago. Had a prolonged discussion with him about using Vaseline gauze or packing again. At this time he would like to use conservative management. He does not want a packing placed. Treatment Plan: Patient will be discharged instructions to continue to use the ointment that was prescribed by Dr. Tyler. Called him today for to be seen in as soon as possible. Return to the emergency department for worsening bleeding or any other concerns. This note was generated with [employer] dictation software. It may contain incorrect words, spelling, and punctuation that were not noted in review of the chart prior to signing. <Jay Alexis - Last Filed: 12/24/19 09:22> ED Disposition <Asya Pak - Last Filed: 12/24/19 09:11> <Jay Alexis - Last Filed: 12/24/19 09:22> - Plan for ED Patient: Disposition: Home or Assisted Living Diagnosis: Epistaxis, recurrent Instructions: ED Epistaxis Adult Referrals: Petr Dos Santos MD [STAFF PHYSICIAN] -
== END 2019-12-24 09:37 | disposition home or self-care (01) ==
LOC: ED 09:19
PROVIDERS: Emergency Provider Physician Assistant; PCP Family Medicine
DX: R04.0 Epistaxis (principal); Z79.82 Long term (current) use of aspirin
CPT/HCPCS: 99282; 99285

== ENCOUNTER → 2020-02-10 14:41 | Outpatient (CLI) | payer MEDICARE, OTHER, SELFPAY ==
[2020-02-01 09:11] VITALS: BMI 36.1
--- NOTE | 2020-02-10 14:43 | ECHOD_ITS ---
Reason For Study: MURMUR Procedure This was a 2D Doppler, Color Flow transthoracic echocardiogram. Exam performed in department. Left Ventricle Normal LV size. Moderate concentric left ventricular hypertrophy. Left ventricular systolic function is normal. The estimated ejection fraction is 65 %. No regional wall motion abnormalities noted. Right Ventricle Normal RV size. Normal systolic function. Atria Normal left atrium. Normal right atrium. Mitral Valve Normal mitral valve. Tricuspid Valve Normal tricuspid valve. Aortic Valve Trisinus/trileaflet aortic valve. Moderate focal aortic valve calcification. Peak aortic valve gradient 90 mmHg. Mean aortic valve gradient 59 mmHg. Calculated aortic valve area (continuity equation) is 0.8 cm2. Severe aortic stenosis. Pulmonic Valve Normal pulmonic valve. Great Vessels Normal aortic root. The pulmonary artery is normal size. Normal inferior vena cava. Pericardium/Pleural No pericardial effusion. MMode/2D Measurements & Calculations LVIDd: 4.6 cm IVSd: 1.5 cm LVOT diam: 2.2 cm LVIDs: 2.5 cm LVPWd: 1.6 cm LVOT area: 3.8 cm2 RVDd: 3.4 cm FS: 45.8 % Ao root diam: 3.8 cm LAV(MOD-bp): 64.2 ml LA A4 area: 21.6 cm2 LAV(MOD-bp) Indexed: 27.3 ml/m2 LAV(MOD-sp2): 62.4 ml LAV(MOD-sp4): 62.7 ml LA dimension(2D): 5.1 cm RA A4 area: 12.0 cm2 Time Measurements MV dec time: 0.20 sec Doppler Measurements & Calculations MV E max ld: 43.9 cm/sec Lat Peak E' Ld: 5.3 cm/sec Med Peak E' Ld: 3.3 cm/sec MV A max ld: 87.0 cm/sec E/E' lat: 8.2 E/E' med: 13.4 MV E/A: 0.50 Ao V2 max: 474.6 cm/sec LV V1 max: 105.2 cm/sec SV(LVOT): 91.4 ml Ao max P.2 mmHg LV V1 max P.4 mmHg Ao V2 mean: 374.1 cm/sec LV V1 mean P.8 mmHg Ao mean P.1 mmHg LV V1 mean: 80.4 cm/sec Ao V2 VTI: 106.0 cm LV V1 VTI: 24.0 cm SHERWIN(I,D): 0.86 cm2 SHERWIN(V,D): 0.84 cm2 PA V2 max: 95.0 cm/sec Interpretation Summary Normal LV size. Moderate concentric left ventricular hypertrophy. Left ventricular systolic function is normal. The estimated ejection fraction is 65 %. Moderate focal aortic valve calcification. Mean aortic valve gradient 59 mmHg. Calculated aortic valve area (continuity equation) is 0.8 cm2. Severe aortic stenosis. Compared to the previous echocardiogram the aortic valve is significantly worse. Ordering Physician: Yancy Hussein Referring Physician: Maulik Yi Performed By: Steph Killian RDCS, RVT
== END ==
PROVIDERS: PCP Family Medicine; Referring Provider Physician Assistant Medical; Visit Provider Physician Assistant Medical
DX: I35.0 Nonrheumatic aortic (valve) stenosis (principal)
CPT/HCPCS: 93306

== ENCOUNTER 2020-03-13 07:07 | Day surgery (SDC) | payer MEDICARE, OTHER, SELFPAY ==
[2020-02-01 09:11] VITALS: BMI 36.1
[2020-03-07 11:34] VITALS: BMI 36.8
--- NOTE | 2020-03-07 12:22 | RAD_ITS ---
STUDY: X-RAY CHEST REASON FOR EXAM: Male, 74 years old. pre heart cath next week, SOB TECHNIQUE: Single AP portable view of the chest. COMPARISON: None. FINDINGS: The lungs are clear and expanded. There is no demonstrated pleural abnormality. Normal size heart. Normal mediastinum and corby. Normal visualized pulmonary arteries. Normal visualized aortic arch and descending thoracic aorta. Normal visualized thoracic spine. There is degenerative osteoarthritis of the bilateral shoulders. There is no demonstrated abnormality of the visualized soft tissue structures of the upper abdomen. RAD/Chest PA and Lateral IMPRESSION: Degenerative changes, as described above. No demonstrated acute cardiopulmonary process. Electronically Signed: Annabelle Mobley, at 10:47 EST Tel , Service support ,
[2020-03-07 13:08] LABS: Absolute Lymphocyte Count 1.88 X10^3/uL (0.83-4.51); Absolute Neutrophil Count 4.6 X10^3/uL (2.0-7.7); Basophil# 0.03 X10^3/uL; Basophil% 0.4 % (0-1); Eosinophil# 0.14 X10^3/uL; Eosinophils% 1.9 % (0-5); Hematocrit 46.3 % (40-54); Hemoglobin 15.3 g/dL (13.0-16.5); Lymphocyte # 1.88 X10^3/ul (4.0); Lymphocyte % 25.3 % (19-41); Mean Corpuscular Hgb 30.2 pg (27.0-32.0); Mean Corpuscular Volume 91.3 fL (80-94); Mean Platelet Vol. 10.1 fl (6.2-12.0); Monocyte# 0.74 X10^3/uL; NRBC Flagged by Analyzer 0 % (0-5); Neutrophil # 4.59 X10^3/uL (2.7-7.7); Neutrophil % 61.9 % (47-70); Platelet Count 198 K/mm3 (150-450); RBC Distribution Width CV 14.1 % (11.6-14.6); RBC Distribution Width SD 46.9 fl (35.1-43.9); Red Blood Count 5.07 M/mm3 (4.6-6.2); White Blood Count 7.4 K/mm3 (4.4-11.0)
[2020-03-07 13:14] LABS: Prothrombin Time (Protime)PT. 12.9 SECONDS (11.7-14.9)
[2020-03-07 13:36] LABS: Anion Gap 6 (5-15); BUN 15 mg/dL (7-18); Calcium,Total 9.1 mg/dL (8.5-10.1); Chloride 110 mmol/L (98-107); Creatinine, Serum 1.25 mg/dL (0.70-1.30); EST Glomerular Filtration Rate 60 mL/min (>60); Est Glom Filt Rate - Afr Amer 73 mL/min (>60); Glucose 110 mg/dL (74-106); Potassium 4.1 mmol/L (3.5-5.1); Sodium Level 141 mmol/L (136-145)
[2020-03-09 08:15] VITALS: BMI 36.8
--- NOTE | 2020-03-13 07:19 | HP_ITS ---
HPI HPI History of Present Illness Surgical H&P: Yes Details: This is a 74-year-old gentleman who presents here today for an updated history and physical for an upcoming heart catheterization for evaluation of his aortic stenosis. Patient does have a history of aortic stenosis, hypertension and hyperlipidemia. Patient did undergo a echocardiogram to evaluate his aortic stenosis earlier this month. It did demonstrate a calculated aortic valve area of 0.8 cm?. When compared to previous it is significantly worsened. From a cardiac standpoint, patient is doing well. He does not have any chest discomfort/heaviness/tightness. He does not have any worsening symptoms of shortness of breath. He denies any PND. He does not have any orthopnea. He does not have any symptoms of congestive heart failure. He does not have any palpitations that he is aware of. He does not have any lightheadedness or dizziness. He does not have any near-syncope or syncope. He does not have any lower extremity edema. He does not have any symptoms of claudication. Intake Vital Signs 03/07/20 Height 5 ft 11 in 03/07/20 Weight: 264 lb 03/07/20 BP 128/76 H 03/07/20 Blood Pressure Location Lt brachial 03/07/20 Position Sitting 03/07/20 Respiration 16 03/07/20 Pulse 79 03/07/20 Pulse Source Monitor Intake Visit Reasons: update H &P Religious Ritual Slaughterer Required: No Accompanied by: None Is patient in pain?: No Allergies Penicillins [PCN] Allergy (Mild, Verified 03/07/20 11:36) hives nitroglycerin Adverse Reaction (Mild, Verified 03/07/20 11:36) LOC Medications Atorvastatin Calcium [Lipitor] 80 mg PO QHS 09/24/15 [History Confirmed 03/07/20] Hydrochlorothiazide [Hctz] 25 mg PO DAILY 09/24/15 [History Confirmed 03/07/20] Ramipril [Altace] 10 mg PO BID 09/24/15 [History Confirmed 03/07/20] Finasteride [Proscar] 5 mg PO DAILY 09/24/17 [History Confirmed 03/07/20] Garlic 100 mg PO DAILY 09/24/17 [History Confirmed 03/07/20] Metformin HCl [Metformin HCl ER] 750 mg PO DAILY 09/24/17 [History Confirmed 03/07/20] Pyridoxine HCl [Vitamin B-6] 100 mg PO DAILY 09/24/17 [History Confirmed 03/07/20] Tamsulosin HCl [Flomax] 0.4 mg PO DAILY 09/24/17 [History Confirmed 03/07/20] ropinirole 0.5 mg tablet 0.5 mg PO QHS 05/05/18 [History Confirmed 03/07/20] Dulaglutide [Trulicity] 0.75 mg SQ QWEEK 12/05/19 [History Confirmed 03/07/20] aspirin 81 mg tablet,delayed release 81 mg PO DAILY 02/01/20 [History Confirmed 03/07/20] empagliflozin 25 mg tablet mg PO 02/01/20 [History Confirmed 03/07/20] linagliptin 5 mg tablet 5 mg PO DAILY tab 03/07/20 [History Confirmed 03/07/20] saw palmetto 450 mg capsule 900 mg PO DAILY cap 03/07/20 [History Confirmed 03/07/20] Ejection fraction %: 65 to 70 PFSH Medical History (Updated 03/07/20 @ 11:41 by Siobhan Head) Non-rheumatic aortic stenosis (Chronic) Essential hypertension (Chronic) HLD (hyperlipidemia) (Chronic) BPH (benign prostatic hyperplasia) (Chronic) GERD (gastroesophageal reflux disease) (Chronic) Positive Helicobacter pylori test (Chronic ~05/13/18) Sleep apnea (Chronic) Type 2 diabetes mellitus (Chronic) Cholecystitis (Resolved) Surgical History History of bilateral knee replacement (Resolved) History of colonoscopy (Resolved ~2016) History of esophagogastroduodenoscopy (EGD) (Resolved ~05/13/18) Family History Mother Breast cancer Liver disease Father , Age 41 Myocardial infarction Heart disease Sister Cancer Breast cancer Brother CAD (coronary artery disease) CABG Heart disease Social History (Updated 03/07/20 @ 16:41 by Yancy MCKEON, PA) Smoking Status: Never smoker alcohol intake: current alcohol intake frequency: holidays/special occasions only substance use type: does not use caffeine: No ROS Const Const: Negative for fatigue, weakness, headache(s), frequent falls, difficulty sleeping or excessive sweating Eyes Eyes: Negative for loss of peripheral vision, transient loss of vision, blurry vision, double vision or tunnel vision ENT ENT: Negative for headache(s), dizziness, Nosebleed/epistaxis or balance problems Cardio Chest Pain: No Palpitations: No Edema: None Muscle aches with walking: None Resp Respiratory: Positive for SOB with activity (Occasionally with stairs); negative for SOB at rest, SOB orthopnea\SOB lying down, Cough or paroxysmal nocturnal dyspnea GI GI: Negative nausea, vomiting, heartburn or black,tarry stools : Negative for hematuria Musc Musc: Negative for muscle aches/ myalgia, muscle weakness, joint pain or balance problems Skin Skin: Negative non-healing lesions, rash or unusual bruising Neuro Neuro: Negative for dizziness, lightheadedness, near syncope, syncope, frequent falls, headache(s), weakness, blurry vision, double vision or lack of coordination [place]akeel Hematologic/Lymphatic: Negative for easy bleeding or easy bruising Endo Endo: Negative for fatigue, excessive sweating or increased thirst/drinking Psych Psych: Negative for anxiety or depression Allergy Allergy/Immunology: Negative for hives, Negative for rash Assessment & Plan 1. Non-rheumatic aortic stenosis I35.0 Plan Echocardiogram did demonstrate worsening aortic stenosis in which it is in the severe category. Would like to obtain a heart catheterization to further evaluate. Based upon findings patient will likely be referred to a CT surgeon. Patient Instructions You will need a flatbed driver the day of your heart cath Nothing to eat or drink after midnight In the morning take only the altace. Hold your metformin the night before since you take it in the evening and for 3 days after. Hold your diabetic medication in the morning of the procedure. Your procedure is scheduled fo 03/13 at 0930, You will arrive at 0800. Orders Orders: 12 Lead EKG performed by [facility] Today Basic Metabolic Profile (BMP) Today Prothrombin Time w/INR Today CBC W/Diff, Automated Today Chest PA and Lateral Today 2. Essential hypertension I10 Plan Blood pressure is well controlled on current medications, we do not recommend any changes at this time. Orders Orders: 12 Lead EKG performed by [facility] Today Basic Metabolic Profile (BMP) Today Prothrombin Time w/INR Today CBC W/Diff, Automated Today Chest PA and Lateral Today 3. HLD (hyperlipidemia) E78.5 Plan Laboratory Tests 11/06/19 09:46 Cholesterol 188 LDL Cholesterol 133 H HDL Cholesterol 42 Pt will continue with current high intensity statin as these are not ideal. This is monitored by his PCP Orders Orders: 12 Lead EKG performed by [facility] Today Plan Detail Follow Up 2 Months (BELT TENDER/MMM) Coding Level of Care Code Off vis,est,level 4 Diagnoses Non-rheumatic aortic stenosis I35.0 Essential hypertension I10 HLD (hyperlipidemia) E78.5 Coding Level of Care Code Off vis,est,level 4 Diagnoses Non-rheumatic aortic stenosis I35.0 Essential hypertension I10 HLD (hyperlipidemia) E78.5 Supplemental Info Supplemental Information Echocardiogram 02/2020: Normal LV size. Moderate concentric left ventricular hypertrophy. Left ventricular systolic function is normal. The estimated ejection fraction is 65 %. Moderate focal aortic valve calcification. Mean aortic valve gradient 59 mmHg. Calculated aortic valve area (continuity equation) is 0.8 cm2. Severe aortic stenosis. Compared to the previous echocardiogram the aortic valve is significantly worse. Carotid duplex 2019: Mild (<50%) stenosis right extracranial internal carotid. Mild (<50%) stenosis left extracranial internal carotid. Flow within the vertebral arteries is antegrade bilaterally. Echocardiogram 2019: Normal LV size. Moderate concentric left ventricular hypertrophy. The estimated ejection fraction is 60 %. Stage 1 diastolic dysfunction. Moderate focal aortic valve calcification. Mean aortic valve gradient 35 mmHg. Calculated aortic valve area (continuity equation) is 1.1 cm2. Mild to moderate aortic stenosis. Stress test 2018: Normal exercise myocardial perfusion stress test at a high workload. No clinical angina noted. Good functional capacity. Borderline ejection fraction. Labs LDL Cholesterol 133 mg/dL (0-130) H 11/06/19 HDL Cholesterol 42 mg/dL (40-) 11/06/19 Triglycerides 65 mg/dL (-199) 11/06/19 VLDL Cholesterol 13 mg/dL (5-40) 11/06/19 Diagnostics Electrocardiogram 03/07/20 Echocardiogram 02/10/20 Chest X-Ray 03/07/20 COVID (Procedure Consent) Procedure Criteria Procedure Criteria: Yes Elective The surgeon/proceduralist and patient have discussed in detail the risk of exposure to and/or potential harm posed by the COVID-19 virus with having a surgery/procedure at this time versus the risk of? delaying the surgery/procedure. It is not possible to know either the risk of delaying the surgery or procedure or chance of getting an infection with perfect accuracy, but a joint decision was made between the patient and the surgeon/proceduralist ?to proceed at this time with the scheduled surgery/procedure as indicated on the consent form.
--- NOTE | 2020-03-13 08:39 | CL.D_ITS ---
Patient Name: ANILA ROBLEDO Study Date: 03/13/2020 Performing: Alo Salgado MD Ht: 70.86 inches 180 cm : 1945 Wt: 264.55 lbs 120 kg Age: 74 Gender: male BSA: 2.37 PROCEDURE(S) PERFORMED DC11-AO ROOT ANGIO WITH HEART CATH EX38-BTF/COR CLINICAL PROFILE AND INDICATIONS Indications: Valvular Disease Heart Failure: None Stress/Imaging Stress/Image Study Performed: No CAD Presentations: No Sxs, no angina. CONCLUSIONS Normal coronary arteries Aortic Valve Calcification- Moderate Aortic Valve Stenosis- Severe RECOMMENDATIONS Recommend TAVR DESCRIPTION OF PROCEDURE The patient arrived to the procedure lab. The risks and benefits of the procedure as well as a full d escription of our services here and current unavailability of surgical backup were fully explained to the patient and/or their significant other prior to the catheterization. The Timeout was completed, verifying the correct patient and procedure. The patient's procedural site was prepped and draped in the usual fashion. Local anesthetic was given subcutaneously to right radial region with Lidocaine 2% . Using a modified Seldinger technique, arterial access was obtained via the right radial artery, a 6 Fr sheath was inserted. Right Coronary Artery selective angiography was then performed in multiple v iews using a 5 Fr. 4.0 [place] catheter. Left Coronary Artery selective angiography was performed in mu ltiple views using a 5 Fr. 4.0 [place] catheter.The arterial sheath was pulled and a TR Band was applie d for hemostasis. 10cc of air CORONARY ANGIOGRAPHY DOMINANCE: Right Dominant LEFT HEART ASSESSMENT Left Ventricular Ejection Fraction: by Echo 65 % Normal LV wall motion Normal Left Ventricular systolic function LEFT MAIN: Angiographically normal LEFT ANTERIOR DESCENDING ARTERY: No significant disease noted CIRCUMFLEX ARTERY: No significant disease noted RIGHT CORONARY ARTERY: Mild luminal irregularities VALVE FINDINGS: Aortic Valve Calcification - moderate Aortic Valve Stenosis - severe AORTIC ROOT: Atherosclerotic COMPLICATIONS No Complications PROCEDURE MEDICATIONS Fentanyl 50 mcg IV Versed 1 mg IV Versed 1 mg IV Oxygen: 2 L/min via nasal cannula Heparin diluted in 23cc Heparinized saline. Patient given 10cc IA of this solution. 03/13/2020 08:23:0 2 Verapamil 2.5mg, 2000 units of Heparin diluted in 23cc Heparinized saline. Patient given 10cc IA of this solution. 03/13/2020 08:23:02 SUMMARY OF HEMODYNAMIC DATA Time AIR REST ECG 07:48:18 AO 139/78 (103) SA 08:24:32 AO 117/68 (91) 08:32:20 Signed By Alo Salgado MD On 03/13/2020 08:39:34 Signed By Alo Salgado MD On 03/13/2020 08:39:10 Alo Salgado MD
== END 2020-03-13 10:20 | disposition home or self-care (01) ==
PROVIDERS: Physician Assistant Medical; PCP Family Medicine; Referring Provider Internal Medicine Cardiovascular Disease; Visit Provider Internal Medicine Cardiovascular Disease
DX: I35.0 Nonrheumatic aortic (valve) stenosis (principal); I10 Essential (primary) hypertension; E78.5 Hyperlipidemia, unspecified; N40.0 Benign prostatic hyperplasia without lower urinary tract symptoms; K21.9 Gastro-esophageal reflux disease without esophagitis; E11.9 Type 2 diabetes mellitus without complications; G47.30 Sleep apnea, unspecified; R06.02 Shortness of breath; I35.8 Other nonrheumatic aortic valve disorders; I65.23 Occlusion and stenosis of bilateral carotid arteries; I77.810 Thoracic aortic ectasia; Z79.899 Other long term (current) drug therapy; Z79.84 Long term (current) use of oral hypoglycemic drugs; Z79.82 Long term (current) use of aspirin; Z82.49 Family history of ischemic heart disease and other diseases of the circulatory system
CPT/HCPCS: 36415; 71046; 80048; 85025; 85610; 93454; 99152; J7040; Q9967; C1769; C1894

== ENCOUNTER → 2020-04-20 09:55 | Outpatient (CLI) | payer MEDICARE, OTHER, SELFPAY ==
[2020-03-09 08:15] VITALS: BMI 36.8
--- NOTE | 2020-04-20 10:05 | RAD_ITS ---
STUDY: X-RAY - ABDOMEN/PELVIS REASON FOR EXAM: Male, 74 years old. RUQ pain for several months TECHNIQUE: AP supine and upright views of the abdomen and pelvis. COMPARISON: None. FINDINGS: Normal visualized lung bases. There is marked fecal retention, otherwise unremarkable bowel gas pattern. There is no demonstrated free abdominal air. The visualized liver, spleen and kidneys are grossly normal in size and morphology. Normal soft tissue structures. Normal visualized osseous structures. RAD/Abd Inc Decub and/or Erect IMPRESSION: Fecal retention. No gross acute abnormality. Electronically Signed: Cristofer Weber MD at 21:34 EST , Service support ,
[2020-04-20 12:43] LABS: Erythrocyte Sedimentation Rate 4 mm/hr (0-20)
[2020-04-20 12:49] LABS: Absolute Lymphocyte Count 1.76 X10^3/uL (0.83-4.51); Absolute Neutrophil Count 4.6 X10^3/uL (2.0-7.7); Basophil# 0.03 X10^3/uL; Basophil% 0.4 % (0-1); Eosinophil# 0.16 X10^3/uL; Eosinophils% 2.2 % (0-5); Hematocrit 46.4 % (40-54); Hemoglobin 15.1 g/dL (13.0-16.5); Lymphocyte # 1.76 X10^3/ul (4.0); Lymphocyte % 23.9 % (19-41); Mean Corp Hgb Conc 32.5 g/dL (32-36); Mean Corpuscular Hgb 29.4 pg (27.0-32.0); Mean Corpuscular Volume 90.3 fL (80-94); Mean Platelet Vol. 10.1 fl (6.2-12.0); Monocyte# 0.75 X10^3/uL; Monocyte% 10.2 % (0-10); NRBC Flagged by Analyzer 0 % (0-5); Neutrophil # 4.61 X10^3/uL (2.7-7.7); Neutrophil % 62.8 % (47-70); Platelet Count 224 K/mm3 (150-450); RBC Distribution Width CV 13.7 % (11.6-14.6); RBC Distribution Width SD 45.8 fl (35.1-43.9); Red Blood Count 5.14 M/mm3 (4.6-6.2); White Blood Count 7.4 K/mm3 (4.4-11.0)
[2020-04-20 13:07] LABS: ALB/GLOB Ratio 0.9 RATIO (0.9-2.4); AST(SGOT) 21 U/L (15-37); Alanine Aminotransfer ALT/SGPT 35 U/L (16-61); Albumin, Serum 3.4 g/dL (3.2-5.0); Alkaline Phosphatase 73 U/L (45-117); Anion Gap 4 (5-15); BUN 22 mg/dL (7-18); BUN/Creat Ratio 17.2 RATIO (10-20); Calcium,Total 9.6 mg/dL (8.5-10.1); Chloride 105 mmol/L (98-107); Creatinine, Serum 1.28 mg/dL (0.70-1.30); EST Glomerular Filtration Rate 59 mL/min (>60); Est Glom Filt Rate - Afr Amer 71 mL/min (>60); Globulin 3.9 g/dL (2.2-4.2); Glucose 162 mg/dL (74-106); Potassium 4.7 mmol/L (3.5-5.1); Protein, Total 7.3 g/dL (6.4-8.2); Sodium Level 138 mmol/L (136-145); Thyroid Stim Hormone (TSH) 1.21 uIU/mL (0.358-3.74)
[2020-04-21 13:47] LABS: H. Pylori Antibody (IgG) 0.88 (0.00-0.79)
== END ==
PROVIDERS: PCP Family Medicine; Referring Provider Family Medicine; Visit Provider Family Medicine
DX: Z00.00 Encounter for general adult medical examination without abnormal findings (principal); R10.11 Right upper quadrant pain; E11.9 Type 2 diabetes mellitus without complications; N40.1 Benign prostatic hyperplasia with lower urinary tract symptoms; Z12.5 Encounter for screening for malignant neoplasm of prostate
CPT/HCPCS: 36415; 74019; 80053; 84153; 84443; 85025; 85652; 86677; G0103

== ENCOUNTER → 2020-05-01 08:25 | Outpatient (CLI) | payer MEDICARE, OTHER, SELFPAY ==
[2020-04-20 14:54] VITALS: BMI 36.3
--- NOTE | 2020-05-01 08:30 | CR.ITP_ITS ---
Diagnosis - General Information Admitting Diagnosis: Heart Valve Replacement - AVR Personal Learning Style:: Audio/Visual, Written Barriers to Learning: Vision Impairment Stage of change r/t lifestyle modifications:: Action Gave educational material for:: Treating Heart Disease, Emotions & Heart Disease, Stress Management & Relaxation, Sleep Disorders & Heart Disease, How The Heart Works, What it means to have Heart Disease, How Coronary Artery Disease is Diagnosed, Heart Procedures, What Heart Medications Do, Risk Factors & Modifications, Living an Active Life, Nutrition - Education/Goals Individual Counseling: Initial Assessment: Abnormal Cholesterol Levels, High Blood Pressure, Overweight/Obesity, Diabetes, Metabolic Syndrome (as evidenced by 3 of 5 A-E below), A. Fasting Blood Sugar >100, B. Waist Circumference >35/Females >40/Males, Hypertension Cardiac Rehabilitation Goals: 1. Maintain the individual as the primary focus of care. 2. To improve the patient's quality of life. 3. Identification of cardiac risk factors and provide cardiac risk factor management. 4. Enhance the psychosocial status of the patient. 5. Reconditioning enough to allow the patient to resume customary activities. 6. Control symptoms of cardiac disease Personal Goals: Initial Assessment: Improve energy level, Participate in home exercise program, Improve knowledge of cardiac disease, Improve muscle strength and endurance, Improve diet and eating habits (eat healthier), Control risk factors (learn risk factor modification) Scale for measuring improvement of personal goals: Enter appropriate number in Comments. 2 = Unchanged. 3 = Slightly Better. 4 = Moderate Improvement. 5 = Met my Goal - Diagnosis & Disease Process Outcomes/Goals: Pt IDs own risk factors & lifestyle modifications by Session 10, Verbalizes symptoms of angina & response by session 3., Pt independently manages Plan/Interventions: Assist Pt to ID & engage in lifestyle modification to reduce CVD risk, Instruct on individual risk factors, Review symptoms of angina & emergency actions, Review secondary diagnosis & identify educational needs. - Safety Referral to Physical Therapy: No Referral to [facility] Case Management: No Fall Risk Assessed:: Yes Assistive Devices:: None Exercise - Initial Assessment - Visit Date of Eval: 05/01/20 Session #:: 0 - precardiac rehab Mets: Pre-: >7 METS for 30 minutes by discharge - Physician Prescribed Exercise Modalities: Treadmill, Rower, Airdyne, NuStep Frequency: 3x/week for 12 weeks [36 sessions] Intensity: 60-80% of age predicted maximum heart rate reserve Current METSs:: 4.0 Target Heart Rate:: 95-124 Resting Blood Pressure: 154/84 EKG Type: Sinus Rhythm - Outcomes & Goals Goals:: Verbalizes understanding of THR, RPE & goal METS by session 6, Documents in home exercise log/reports 30 min aerobic 5 day/wk by DC, Demonstrates accurate pulse taking by DC - Intervention & Plan Exercise Program Goals: Instruct on personal THR & RPE, Instruct on MET level & personal MET goal, Instruct on home exercise - Physical Activity Home Exercise Physical Activity - Home Exercise: Safe Exercise, Warm-up, Self-monitoring, Cool-Down, Home Exercise > 30 min Daily, Sitting Time <3 hours/daily - Outcomes & Goals Outcomes/Goals: Demonstrates correct Warm-up/exercise Cool-Down (S3) if = 2.5 METs, Verbalizes symptoms of exercise intolerance by Session 3 (S3), Demonstrate safe equipment use (S3) & follows exercise prescrition (6) - Intervention & Plan Plan/Intervention: Instruct warm-up & cool-down if exercising at > 2 METs, Instruct on symptoms of exercise intolerance & actions to take, Instruct & monitor on saf, Assess intial functional capacity & safety risk Nutrition - Initial Assessment - Program Goals Nutrition Program Goals: LDL <100 optimal. 100 - 129 Near optimal. 130 - 159 Borderline High. 160 - 189 High. Total Cholesterol <200 desirable. 200 - 239 Borderline High. >/= 240 High. HDL < 40 Low >/=60 High. Triglycerides <150 desirable. <199 optimal. VlDL 5 - 40. HgbA1C <7%. BMI <25 Patient has diagnosis of Hyperlipidemia (ICD E78)?: Yes - Visit Date of Assessment:: 05/01/20 Session #:: 0 - pre-cardiac rehab - Cholesterol/Lipids Triglycerides (mg/dL): 65 Total Cholesterol (mg/dL): 150 LDL Cholesterol (mg/dL): 133 HDL Cholesterol (mg/dL): 42 Determine presence & major risk factors that modify LDL goal: Hypertension or hypertensive medication, Family history of premature CHD in Male < 55 years: female <65 yearsFa, Age men > 45 years; women >/= 55 years Outcomes/Goals: Pt IDs own risk factors & lifestyle modifications by Session 10, Verbalizes symptoms of angina & response by session 3., Pt independently manages Intervention/Plan: Instruct on personal lipid levels & lipid goals/NCEP guidelines, Instruct on cholesterol Referral to dietitian:: Yes - Diabetes (Other Core Measures) Diabetes Type: Diagnosis Type II ICD-10 E11 Insulin dependent injection/pump?: No Non-Insulin Dependent?: Yes - Trulicity and metformin Do you monitor your blood sugar at home?: No Referral to Diabetic Clinic:: Yes Outcomes/Goals:: Able to state symptoms of, Able to state, Able to state Intervention/Plan:: Instruct on, Refer to, Instruct on - Weight Mgt (Other Care) Not Applicable: No Height: 5 ft 11 in Weight:: 261 lb BMI: 36.3 Diagnosis Overweight/Obesity BMI> 30% ICD-10 E66: Yes Diagnosis High BMI/Morbid Obesity BMI> 35% ICD-10 Z68: Yes Outcomes/Goals: Pt sets, maintains & shows weight loss goal & trend during rehab Intervention/Plan: Instruct on ideal BMI & set weight loss goal w/patient, Assist pt to ID & incorporate diet changes for weight loss by S9, Refer to Structured Weight Loss program as appropriate, Encourage goal of using 250- 300dcal per session for weight loss - Healthy Eating Habits Will attend diet classes:: Yes Outcomes/Goals:: Consume diet rich in vegs,fruits,whole grain/high fiber,fish,lean meat, Limit sat/trans fats,cholesterol & added salts & sugars Intervention/Plan:: Assess current eating habits - Education Gave educational materials for:: Signs & symptoms of hypoglycemia, Signs & symptoms of hyperglycemia, Relate diabetes to coronary artery disease, Healthy eating Medical - Initial Assessment - Visit Date of Eval: 05/01/20 Session #:: 0 - pre-cardiac rehab - Medication Compliance Preventative Medication(s):: Aspirin, Clopidogrel/P2Y12 inhibit, Statin/lipid H/O mental health issues: depression, anxiety, or addiction?: No Doesn?t believe in the benefits of treatment?: No Believes medications are unnecessary or harmful?: No Has a concern about medication side effects?: No Expresses concern over the cost of medications?: No Outcomes/Goals: Verbalizes medications,desired effect & common side effects @ DC, Pt self-reports following medication regimen, Keeps card in wallet w/medications listed by DC Interventions/plans: Instruct on medication effects & side effects, Review medication list w/patient every two weeks, Instruct importance of taking meds as ordered & assist problem solving - Tobacco Use Tobacco Use: Non-smoker - Hypertension Hypertension Diagnosis:: Hypertension ICD-10 I10 Resting Blood Pressure:: 148/84 [place] [employer] Hypertension Guidelines: [place] [employer] Hypertension Guidelines. Normal BP Less than 120/80. Elevated BP 120/80. Hypertension Stage 1: BP 130-139/80-89. Hypertesnion Stage 2: BP 140 or higher/90 or higher. Hypertension Crisis: BP higher than 180/120 Outcomes/Goals: Able to verbalize/achieve optimal blood pressure <130/80, Incorporates diet changes & exercise for blood pressure control by DC Interventions/plan: Instruct on optimal blood pressure, hypertension & medications, Instruct on effects of sodium, alcohol, stress, exercise &hypertension - Tobacco Cessation Referral Smoking Cessation Referral:: No Individual Education/Counseling:: No Education Schedule Given:: Yes Psychosocial - Initial Assess - VIsit Date of Eval: 05/01/20 Session #:: 0 - pre-cardiac rehab Not Applicable: Yes History of previous Mental disease:: No - Target Goals Target Goals: Assess presence or absence of depression. Using a valid screening tool, maximizes coping skills. Positive support system - Psychosocial Test Tool Used:: VerticalResponse QOL Cardiac, PHQ-9 Questionnaire phq-9 Severity: Severity. 1-4 Minimal Depression. 5-9 Mild Depression. 10-14 Moderate Depression. 15-19 Moderately Sever Depression. 20-27 Severe Depression. Rule: - Referral to Behavioral Health PS - Interventions: Yes Attend Stress Management Classes, No Referral to Behavioral Health if PHQ-9 score >9:, No Referral to [facility], No Referral to Physician if PHQ-9 if score is 5-9: - Outcomes/Goals: See list Psychosocial Outcomes/Goals:: ID's personal stressors & 2 strategies to manage stress by discharge - Intervention/Plan: See List Interventions/Plan:: Assess stressors,coping strategies & signs of derpression on admission, Instruct/assist pt to develop coping & personal stress Mgt strategies, Instruct patient to recognize signs & symptoms of depression, Instruct patient to recog Patient Health Questionnaire Initial Assessment 1. Little interest or pleasure in doing things: Not at all 2. Feeling down, depressed, or hopeless: Not at all 3. Trouble falling or staying asleep, or sleeping too much: Nearly every day 4. Feeling tired or having little energy: Several days 5. Poor appetite or overeating: Not at all 6. Feeling bad about yourself -- or that you are a failure or have let yourself or your family down: Not at all 7. Trouble concentrating on things, such as reading the newspaper or watching television: Not at all 8. Moving or speaking so slowly that other people could have noticed. Or the opposite - being so fidgety or restless that you have been moving around a lot more than usual: Not at all 9. Thoughts that you would be better off , or of hurting yourself in some way: Not at all How difficult have these problems made it for you to do your work, take care of things at home, or get along with other people?: Not difficult at all Total Score: 4 ROB-Q SV Test - Statements CAD is a disease of the arteries in the heart: False Examples of risk factors for heart disease: True Angina is chest pain or discomfort: I Don't Know The benefits of resistance training include: True Eating more meat and dairy products: False Anti-platelet medications such as aspirin are important: True The only effective way to manage stress: False An exercise warm-up slowly increases heart rate: True Prepared, processed foods usually have high sodium: I Don't Know Depression is common after a heart attack: I Don't Know The statin medications lower cholesterol: True To control blood pressure, lower the amount of sodium: I Don't Know Self-Efficacy Initial Assessment We would like to know how confident you are in doing certain activities. Please select your confidence level for:: Select your confidence level for the following using the scale 1-10 where 1 is not at all confident and 10 is totally confident. Your score is the average of all 6 responses. Fatigue: How confident are you that you can keep the fatigue caused by your disease from interfering with the things you want to do? Select Number: 10 Physical Discomfort or Pain: How confident are you that you can keep the physical discomfort or pain of your disease from interfering with the things you want to do? Select Number: 10 Emotional Distress: How confident are you that you can keep the emotional distress caused by your disease from interfering with the things you want to do? Select Number: 10 Other Symptoms or Health Problems: How confident are you that you can keep other symptoms or health problems from interfering with the things you want to do? Select Number: 7 Different Tasks and Activities: How confident are you that you can do the different tasks and activities needed to manage your health condition so as to reduce your need to see a doctor? Select Number: 10 Medication: How confident are you that you can do things other than just taking medication to reduce how much your illness affects your everyday life? Select Number: 7 Total Score:: 9 Nutrition Survey - Nutrition Survey Instructions Scoring Instructions: Scoring is as follows: Yes = 1 points. No = 0 point. Patient score that is >/=12 is considered to be at potential nutritional risk an d could benefit from a referral to a registered dietitian. - Nutrition Survey Initial Have you lost >10 lbs over the past 2 months without trying?: No Are you following a special diet at home for diabetes, low fat, or low salt?: No Are you interested in meeting with a dietitian for help understanding your diet?: Yes Do you eat less than 3 meals a day?: No Do you eat fatty meats (smith, sausage, ribs, etc), fried foods, desserts, large amounts of salad dressings, margarine, butter, or cheese most days?: Yes Do you have food allergies? [Enter types in comment field]: No Do you eat in restaurants more than 3 times a week?: No Do you season food with salt, seasoning salt, or garlic salt?: No Do you used canned, boxed, frozen meals, or soups, seasoning packets?: No Total Score:: 2
--- NOTE | 2020-05-01 08:31 | CR.HP_ITS ---
CR - History & Physical - General Arrival date:: 05/01/20 Arrival time:: 08:33 Date of Referral:: 04/22/20 Date of CR Evaluation:: 05/01/20 Referring Physician: Dr. Alo Salgado Primary Diagnosis: Heart Valve Replacement - AVR - History of Present Cardiac Event Onset Date: Enter Onset Date of cardiac illnesses in Comment field below Heart valve replacement or repair:: Yes - 04/10/2020 Type of Symptoms:: shortness of breath climbing stairs, tank terminal gauger heart murmur Interventions with present event:: TAVR - Medications Home Medications: Ambulatory Orders Medication Instructions Recorded Atorvastatin Calcium [Lipitor] 80 mg PO QHS 09/24/15 Hydrochlorothiazide [Hctz] 25 mg PO DAILY 09/24/15 Finasteride [Proscar] 5 mg PO DAILY 09/24/17 Metformin HCl [Metformin HCl ER] 750 mg PO DAILY 09/24/17 Pyridoxine HCl [Vitamin B-6] 100 mg PO DAILY 09/24/17 Tamsulosin HCl [Flomax] 0.4 mg PO DAILY 09/24/17 ropinirole 0.5 mg tablet 0.5 mg PO QHS 05/05/18 Dulaglutide [Trulicity] 0.75 mg SQ QWEEK 12/05/19 empagliflozin 25 mg tablet 1 tab PO DAILY 02/01/20 linagliptin 5 mg tablet 5 mg PO DAILY tab 03/07/20 saw palmetto 450 mg capsule 900 mg PO DAILY cap 03/07/20 aspirin 81 mg tablet,delayed 81 mg PO DAILY 04/19/20 release clindamycin HCl 300 mg capsule 600 mg PO ONCE cap 04/19/20 clopidogrel 75 mg tablet 75 mg PO DAILY 04/19/20 ramipril 10 mg capsule 10 mg PO DAILY cap 04/19/20 - Allergies Allergies/Adverse Reactions: Allergies Penicillins [PCN] Allergy (Mild, Verified 04/20/20 14:52) hives nitroglycerin Adverse Reaction (Mild, Verified 04/20/20 14:52) LOC - Sleep Disorder Evaluation Hx of Sleep Apnea: Yes Do you snore loudly (louder than talking or can be heard through closed doors)?: Yes - Diagonosed with Sleep Apnea has tried home unit hasn't worked. Do you often feel tired/ fatigued/ sleepy during daytime?: No Has anyone observed you stop breathing during sleep?: No History of Hypertension (for STOP score): Yes STOP Results: Positive Advanced Directives - Advanced Directives Power of Senior [employer]: Yes - Eloisa is POA for healthcare. Living Will: Yes Advance Directives Information Provided: No Advance Directives on File: Yes DNR Order?:: No Past Medical History - Covid-19 Screening Fever: No - Has had both vaccines for COVID Unexplained muscle aches: No Current respiratory symptoms: No Upper respiratory infections symptoms: No Gastro-intestinal symptoms: Yes - H/O GERD Jwu-[id number]-Cfhrdd symptoms: No Has tested positive for COVID-19 in last 30 days: No Had contact w/person w/symptoms or Covid-19 (+) last 14 days: No Has High Risk Exposures ID'd by Health dept/Inf Control team: No 65 years or older:: Yes Lives in Assisted Living facility:: No Has a chronic lung disease or moderate to severe asthma:: No Has a serious heart condition:: Yes Immunocompromised:: No Severely obese (Body Mass Index of 40 or higher):: No Diabetic:: Yes Has chronic kidney disease undergoing dialysis:: No - Past Medical Illness Medical History: Past Medical History (Last Reviewed 04/20/20 @ 15:[address] Alo Salgado MD) Non-rheumatic aortic stenosis (Chronic) I35.0 Essential hypertension (Chronic) I10 HLD (hyperlipidemia) (Chronic) E78.5 BPH (benign prostatic hyperplasia) N40.0 GERD (gastroesophageal reflux disease) K21.9 Positive Helicobacter pylori test Onset Date: 05/13/18 A04.8 Sleep apnea G47.30 Type 2 diabetes mellitus E11.9 Cholecystitis K81.9 - Past Surgical History Surgical History: Past Surgical History (Last Reviewed 04/20/20 @ 15:[address] Alo Salgado MD) History of aortic valve replacement (Acute) Onset Date: 04/10/20 Z95.2 TAVR w/ 26 mm Cynthia S3 ultra valve 04/10/20 History of bilateral knee replacement Z96.653 History of colonoscopy Onset Date: 2016 Z98.890 History of esophagogastroduodenoscopy (EGD) Onset Date: 05/13/18 Z98.890 History of left heart catheterization Onset Date: 03/13/20 Z98.890 Surgical History: - - Bilateral knee replacement - Family History Summary Family History: Family History (Last Reviewed 04/20/20 @ 15:[address] Alo Salgado MD) Mother Breast cancer Liver disease Father , Age 41 Myocardial infarction Heart disease Sister Cancer Breast cancer Brother CAD (coronary artery disease) CABG Heart disease Social History - Smoking History Smoking Status: Never smoker - Alcohol Use Alcohol Usage: Yes - very moderate - Substance Abuse Hx Substance Use: No - Occupation Occupation (List type of work in comments):: Retired - works at [employer] in [place] - Hobbies, Recreation, Social Activities Hobbies: Sports - Golfer Recreational Activities: I am able to engage in all my recreational activities Social Environment - Status Marital Status: - Current Living Arrangements Living Environment:: Spouse - Children How many children do you have?: 3 - 1 Do any of your children live nearby?: Yes - Safety Do you feel safe in your surroundings?: Yes - Assistance Do you need any assistance at home?: none Review of Systems - Review of Systems Hints: Right click = Denies (Slash). Left click = Reports (Mcgrath) Review of Present Symptoms: Reports: Dizziness/Lightheadedness - rare occasions; if stand to fast or for to long.. Denies: Shortness of Breath at Rest, Shortness of Breath with Exertion, Operative Discomfort, Angina, Wound Healing, Fatigue, Appetite - Normal - H-pyloria now on medications., Sleep - Normal - dont sleep very well, up and down after 2-3 hours of sleep, Sexual Changes - Pain Is Patient Pain Free?: Yes Pain Location: none Pain Level: 0/10 Risk Factor Assessment - Chief Complaint Chief Complaint: 74 yr old male of Dr. Salgado's who presentst o cardiac rehab today following recent heart valve replacement - AVR. - Vital Signs Temperature: 97.3 F Respiratory Rate: 16 Pulse Ox: 98 - Blood Pressure: 148/84 - Pulse Pulse Rate: 86 Pulse Rhythm: Regular - Hypertension Blood Pressure Sitting - Left Arm: 148/84 - Blood Cholesterol/Lipids Total Cholesterol (mg/dL) Goal = less than 200 mg/dL: 150 - 11/06/2019 HDL Cholesterol (mg/dL) Goal = less than 40 mg/dL: 42 LDL Cholesterol (mg/dL) Goal = less than 70 mg/dL: 133 Triglycerides (mg/dL) Goal = less than 150 mg/dL: 65 - Diabetes Diabetic History: Type II Nutrition Referral for Diabetes: Yes - Obesity Height: 5 ft 11 in Weight:: 261 lb Weight in Pounds: 261.0 lbs Weight Source: Stated by Patient Body Mass Index (BMI): 36.3 Nutritional Referral for Obesity: Yes - Risk Stratification Risk Guidelines: Lowest Risk: Risk Factor for Smoking, Risk Factor for Dyslipidemia, Risk Factor for Sedentary Lifestyle, Risk Factor for Depression, Moderate Risk: Risk Factor for Diabetes - Glucose 162, hBA1c 6.7, Highest Risk: Risk Factor for Obesity, Risk Factor for Hypertension - For Smoking Smoking Risk Guidelines: Smoking Low Risk: None or quit greater than 6 months ago. Smoking Moderate Risk: Smoker or quit 6 months or less ago. Smoking High Risk: Smoker - For Dyslipidemia Dyslipidemia Risk Guidelines: Low Risk: Moderate Risk: High Risk: 15-25% fat 25.1-29% fat >/= 30% fat. <7% sat fat 7-9% sat fat >9% sat fat. <150 mg chol 150-299 mg chol >/= 300 mg chol. LDL <100 LDL 100-129 LDL >/= 130. Chol/HDL ratio <5.0 Chol/HDL ratio 5.0-6.0 Chol/HDL ratio >6.0. Triglycerides <100 Triglycerides 100- 149 Triglycerides >/= 150 - For Diabetes Mellitus Diabetes Risk Guidelines: Diabetes Low Risk: HgA1c <6.5% and/or FBG <120. Diabetes Moderate Risk: HgA1c 6.6-7.9% and/or FBG 120-180. Diabetes High Risk: HgA1c >/= 8% and/or FBG >180 - For Obesity/Overweight Obesity/Overweight Risk Guidelines: Obesity Low Risk: BMI <25.0. Obesity Moderate Risk: BMI 25-29.9. Obesity High Risk: BMI >/= 30.0 - For Hypertension Hypertension Risk Guidelines: Hypertension Low Risk: Systolic <120 and Diastolic <80. Hypertension Moderate Risk: Systolic 120-139 and Diastolic 80-89. Hypertension High Risk: Systolic >/= 140 and Diastolic >/= 90 - For Sedentary Lifestyle Sedentary Lifestyle Risk Guidelines: Sedentary Lifestyle Low Risk: >/= 1,500 kcal/week. Sedentary Lifestyle Moderate Risk: 700-1,499 kcal/week. Sedentary Lifestyle High Risk: < 700 kcal/week - For Depression Depression Risk Guidelines: Depression Low Risk: Not clinically depressed. Depression Moderate Risk: Mildly depressed. Depression High Risk: Clinically depressed - Family History Family History: Family History (Last Reviewed 04/20/20 @ 15:[address] Alo Salgado MD) Mother Breast cancer Liver disease Father Myocardial infarction Heart disease Sister Cancer Breast cancer Brother CAD (coronary artery disease) Heart disease Motivation - Motivation to Participate On a scale of 1 to 10, how prepared are you to commit to attending program?: 10 What do you see as barriers to successfully being able to complete the program?: none What do you see as the benefits of succesfully completing the program? In other words, what do you hope to get out of participating in the program?: lose some weight, get cholesterol down some, Are there issues you are dealing with that will interfere with completing the program?: none Do you have a spouse or signficant other, family or friends who will help support you to complete the program?: Yes
[2020-05-01 08:51] VITALS: BP 148/84; PULSE 86; RESP 16; TEMP 36.3; O2SAT 98; BMI 36.3
[2020-05-01 09:22] VITALS: BP 148/84; BP 154/84; BMI 36.3
== END ==
PROVIDERS: PCP Family Medicine; Referring Provider Internal Medicine Cardiovascular Disease; Visit Provider Internal Medicine Cardiovascular Disease
DX: I10 Essential (primary) hypertension (principal); E11.9 Type 2 diabetes mellitus without complications; K21.9 Gastro-esophageal reflux disease without esophagitis; E78.5 Hyperlipidemia, unspecified

== ENCOUNTER 2020-05-05 08:00 | Outpatient (RCR) | payer MEDICARE, OTHER, SELFPAY ==
[2020-05-01 08:51] VITALS: BMI 36.3
[2020-05-01 09:22] VITALS: BMI 36.3
== END 2020-05-07 23:59 ==
LOC: CR 08:00
PROVIDERS: PCP Family Medicine; Referring Provider Internal Medicine Cardiovascular Disease; Visit Provider Internal Medicine Cardiovascular Disease
DX: I35.0 Nonrheumatic aortic (valve) stenosis (principal); Z95.2 Presence of prosthetic heart valve; I10 Essential (primary) hypertension; E78.5 Hyperlipidemia, unspecified
CPT/HCPCS: 93798

== ENCOUNTER 2020-06-07 08:00 | Outpatient (RCR) | payer MEDICARE, OTHER, SELFPAY ==
[2020-05-01 08:51] VITALS: BMI 36.3
[2020-05-01 09:22] VITALS: BMI 36.3
--- NOTE | 2020-05-29 10:35 | CR.ITP_ITS ---
Exercise - 30-day Assessment - Visit Date of Eval: 05/29/20 Session #:: 10 - Physician Prescribed Exercise Modalities: Treadmill, Airdyne, NuStep Frequency: 3x/week for 12 weeks [36 sessions] Intensity: 60-80% of age predicted maximum heart rate reserve Current METSs:: 4.0 Target Heart Rate:: 96-125 Current RPE:: 12-13 Maximum Excercise HR:: 125 Resting Blood Pressure: 110/52 Maximum Exercise Blood Pressure: 136/68 EKG Type: Sinus rhythm to sinus tachycardia with rare PVC and PAC - Outcomes & Goals Goals:: Verbalizes understanding of THR, RPE & goal METS by session 6, Documents in home exercise log/reports 30 min aerobic 5 day/wk by DC, Demonstrates accurate pulse taking by DC - Intervention & Plan Exercise Program Goals: Instruct on personal THR & RPE, Instruct on MET level & personal MET goal, Show patient to take own pulse /validate performance until accurate, Instruct on home exercise - 30-day Reassessments 30 day Reassessments:: Progressing - Physical Activity Home Exercise Physical Activity - Home Exercise: Safe Exercise, Warm-up, Self-monitoring, Cool-Down, Home Exercise > 30 min Daily, Sitting Time <3 hours/daily - Outcomes & Goals Outcomes/Goals: Demonstrates correct Warm-up/exercise Cool-Down (S3) if = 2.5 METs, Verbalizes symptoms of exercise intolerance by Session 3 (S3), Demonstrate safe equipment use (S3) & follows exercise prescrition (6) - Intervention & Plan Plan/Intervention: Instruct warm-up & cool-down if exercising at > 2 METs, Instruct on symptoms of exercise intolerance & actions to take, Instruct & monitor on saf, Assess intial functional capacity & safety risk - 30-day Reassessments 30 day Reassessments:: Progressing Nutrition - 30-Day Assessment - Program Goals Nutrition Program Goals: LDL <100 optimal. 100 - 129 Near optimal. 130 - 159 Borderline High. 160 - 189 High. Total Cholesterol <200 desirable. 200 - 239 Borderline High. >/= 240 High. HDL < 40 Low >/=60 High. Triglycerides <150 desirable. <199 optimal. VlDL 5 - 40. HgbA1C <7%. BMI <25 Patient has diagnosis of Hyperlipidemia (ICD E78)?: Yes - Visit Date of Assessment:: 05/29/20 Session #:: 10 - Cholesterol/Lipids Triglycerides (mg/dL): 295 - 120/04/2019 Total Cholesterol (mg/dL): 214 LDL Cholesterol (mg/dL): 108 HDL Cholesterol (mg/dL): 47 Determine presence & major risk factors that modify LDL goal: Hypertension or hypertensive medication, Family history of premature CHD in Male < 55 years: female <65 yearsFa, Age men > 45 years; women >/= 55 years Outcomes/Goals: Pt IDs own risk factors & lifestyle modifications by Session 10, Verbalizes symptoms of angina & response by session 3., Pt independently manages Intervention/Plan: Instruct on personal lipid levels & lipid goals/NCEP guidelines, Instruct on cholesterol Referral to dietitian:: Yes - Medical Nutrition Therapy 30-day Reassessments:: Progressing - Diabetes (Other Core Measures) Diabetes Type: Diagnosis Type II ICD-10 E11 Fasting blood glucose:: 119 Hgb A1C (4.2 -6.3): 6.5 Insulin dependent injection/pump?: No Non-Insulin Dependent?: Yes Do you monitor your blood sugar at home?: Yes Referral to Diabetic Clinic:: Yes Outcomes/Goals:: Able to state symptoms of, Able to state, Able to state Intervention/Plan:: Instruct on, Refer to, Instruct on 30-day Reassessments:: Progressing - Weight Mgt (Other Care) Not Applicable: Yes Height: 5 ft 11 in Weight:: 258 lb BMI: 35.9 Diagnosis Overweight/Obesity BMI> 30% ICD-10 E66: Yes Diagnosis High BMI/Morbid Obesity BMI> 35% ICD-10 Z68: Yes Outcomes/Goals: Pt sets, maintains & shows weight loss goal & trend during rehab Intervention/Plan: Instruct on ideal BMI & set weight loss goal w/patient, Assist pt to ID & incorporate diet changes for weight loss by S9, Refer to Structured Weight Loss program as appropriate, Encourage goal of using 250- 300dcal per session for weight loss 30 day Reassessments:: Progressing - Healthy Eating Habits Will attend diet classes:: Yes Outcomes/Goals:: Consume diet rich in vegs,fruits,whole grain/high fib er,fish,lean meat, Limit sat/trans fats,cholesterol & added salts & sugars Intervention/Plan:: Assess current eating habits 30-day Reassessments:: Progressing - Education Gave educational materials for:: Signs & symptoms of hypoglycemia, Signs & symptoms of hyperglycemia, Relate diabetes to coronary artery disease, Healthy eating Medical- 30-Day Assessment - Visit Date of Eval: 05/29/20 Session #:: 10 - Medication Compliance Preventative Medication(s):: Aspirin, Clopidogrel/P2Y12 inhibit, Statin/lipid, Beta uday H/O mental health issues: depression, anxiety, or addiction?: No Doesn?t believe in the benefits of treatment?: No Believes medications are unnecessary or harmful?: No Has a concern about medication side effects?: No Expresses concern over the cost of medications?: No Outcomes/Goals: Verbalizes medications,desired effect & common side effects @ DC, Pt self-reports following medication regimen, Keeps card in wallet w/medications listed by DC Interventions/plans: Instruct on medication effects & side effects, Review medication list w/patient every two weeks, Instruct importance of taking meds as ordered & assist problem solving 30-day Reassessments:: Progressing - Tobacco Use Tobacco Use: Non-smoker - Hypertension Hypertension Diagnosis:: Hypertension ICD-10 I10 Resting Blood Pressure:: 110/52 [place] [employer] Hypertension Guidelines: [place] [employer] Hypertension Guidelines. Normal BP Less than 120/80. Elevated BP 120/80. Hypertension Stage 1: BP 130-139/80-89. Hypertesnion Stage 2: BP 140 or higher/90 or higher. Hypertension Crisis: BP higher than 180/120 Peak Exercise Blood Pressure:: 136/68 Outcomes/Goals: Able to verbalize/achieve optimal blood pressure <130/80, Incorporates diet changes & exercise for blood pressure control by DC Interventions/plan: Instruct on optimal blood pressure, hypertension & medications, Instruct on effects of sodium, alcohol, stress, exercise &hypertension 30 day Reassessments:: Progressing - Tobacco Cessation Referral Smoking Cessation Referral:: No Individual Education/Counseling:: No Education Schedule Given:: Yes Psychosocial - 30-Day Assess - VIsit Date of Eval: 05/29/20 Session #:: 10 Not Applicable: Yes History of previous Mental disease:: No - Target Goals Target Goals: Assess presence or absence of depression. Using a valid screening tool, maximizes coping skills. Positive support system - Psychosocial Test Tool Used:: PHQ-9 Questionnaire phq-9 Severity: Severity. 1-4 Minimal Depression. 5-9 Mild Depression. 10-14 Moderate Depression. 15-19 Moderately Sever Depression. 20-27 Severe Depression. Rule: - Referral to Behavioral Health PS - Interventions: Yes Attend Stress Management Classes, No Referral to Behavioral Health if PHQ-9 score >9:, No Referral to [facility], No Referral to Physician if PHQ-9 if score is 5-9: - Outcomes/Goals: See list Psychosocial Outcomes/Goals:: ID's personal stressors & 2 strategies to manage stress by discharge - Intervention/Plan: See List Interventions/Plan:: Assess stressors,coping strategies & signs of derpression on admission, Instruct/assist pt to develop coping & personal stress Mgt strategies, Instruct patient to recognize signs & symptoms of depression, Instruct patient to recog - 30-day Reassessments: 30 day Reassessments:: Progressing Patient Health Questionnaire 30-Day Re-eval Assessment 1. Little interest or pleasure in doing things: Several days 2. Feeling down, depressed, or hopeless: Not at all 3. Trouble falling or staying asleep, or sleeping too much: Several days 4. Feeling tired or having little energy: Not at all 5. Poor appetite or overeating: Not at all 6. Feeling bad about yourself -- or that you are a failure or have let yourself or your family down: Not at all 7. Trouble concentrating on things, such as reading the newspaper or watching television: Not at all 8. Moving or speaking so slowly that other people could have noticed. Or the opposite - being so fidgety or restless that you have been moving around a lot more than usual: Not at all 9. Thoughts that you would be better off , or of hurting yourself in some way: Several days How difficult have these problems made it for you to do your work, take care of things at home, or get along with other people?: Somewhat difficult Total Score: 3 Self-Efficacy 30-Day Re-eval Assessment We would like to know how confident you are in doing certain activities. Please select your confidence level for:: Select your confidence level for the following using the scale 1-10 where 1 is not at all confident and 10 is totally confident. Your score is the average of all 6 responses. Fatigue: How confident are you that you can keep the fatigue caused by your disease from interfering with the things you want to do? Select Number: 9 Physical Discomfort or Pain: How confident are you that you can keep the physical discomfort or pain of your disease from interfering with the things you want to do? Select Number: 9 Emotional Distress: How confident are you that you can keep the emotional distress caused by your disease from interfering with the things you want to do? Select Number: 9 Other Symptoms or Health Problems: How confident are you that you can keep other symptoms or health problems from interfering with the things you want to do? Select Number: 9 Different Tasks and Activities: How confident are you that you can do the different tasks and activities needed to manage your health condition so as to reduce your need to see a doctor? Select Number: 10 Medication: How confident are you that you can do things other than just taking medication to reduce how much your illness affects your everyday life? Select Number: 8 Total Score:: 9
[2020-05-29 10:43] VITALS: BP 110/52; BP 136/68; BMI 35.9
== END 2020-06-07 23:59 ==
LOC: CR 08:00
PROVIDERS: PCP Family Medicine; Referring Provider Internal Medicine Cardiovascular Disease; Visit Provider Internal Medicine Cardiovascular Disease
DX: I35.0 Nonrheumatic aortic (valve) stenosis (principal); I10 Essential (primary) hypertension; E78.5 Hyperlipidemia, unspecified; Z95.2 Presence of prosthetic heart valve
CPT/HCPCS: 93798

== ENCOUNTER 2020-07-07 08:00 | Outpatient (RCR) | payer MEDICARE, OTHER, SELFPAY ==
[2020-05-01 08:51] VITALS: BMI 36.3
[2020-05-29 10:43] VITALS: BMI 35.9
[2020-06-08 00:46] VITALS: BP 110/52; BP 136/68
--- NOTE | 2020-06-28 06:42 | CR.ITP_ITS ---
Exercise - 60-day Assessment - Visit Date of Eval: 06/28/20 Session #:: 18 - Physician Prescribed Exercise Modalities: Treadmill, Rower, NuStep Frequency: 3x/week for 12 weeks [36 sessions] Intensity: 60-80% of age predicted maximum heart rate reserve Current METSs:: 5.5 increase from 4.0 Target Heart Rate:: 95-124 Current RPE:: 11-13 Maximum Excercise HR:: 116 Resting Blood Pressure: 128/74 Maximum Exercise Blood Pressure: 154/88 EKG Type: NSR to sinus tach w/rare PVCs - Outcomes & Goals Goals:: Verbalizes understanding of THR, RPE & goal METS by session 6, Documents in home exercise log/reports 30 min aerobic 5 day/wk by DC, Demonstrates accurate pulse taking by DC - Intervention & Plan Exercise Program Goals: Instruct on personal THR & RPE, Instruct on MET level & personal MET goal, Show patient to take own pulse /validate performance until accurate, Instruct on home exercise - 30-day Reassessments 30 day Reassessments:: Met - Physical Activity Home Exercise Physical Activity - Home Exercise: Safe Exercise, Warm-up, Self-monitoring, Cool-Down, Home Exercise > 30 min Daily, Sitting Time <3 hours/daily - Outcomes & Goals Outcomes/Goals: Demonstrates correct Warm-up/exercise Cool-Down (S3) if = 2.5 METs, Verbalizes symptoms of exercise intolerance by Session 3 (S3), Demonstrate safe equipment use (S3) & follows exercise prescrition (6) - Intervention & Plan Plan/Intervention: Instruct warm-up & cool-down if exercising at > 2 METs, Instruct on symptoms of exercise intolerance & actions to take, Instruct & monitor on saf, Assess intial functional capacity & safety risk - 30-day Reassessments 30 day Reassessments:: Met Nutrition - 60-Day Assessment - Program Goals Nutrition Program Goals: LDL <100 optimal. 100 - 129 Near optimal. 130 - 159 Borderline High. 160 - 189 High. Total Cholesterol <200 desirable. 200 - 239 Borderline High. >/= 240 High. HDL < 40 Low >/=60 High. Triglycerides <150 desirable. <199 optimal. VlDL 5 - 40. HgbA1C <7%. BMI <25 Patient has diagnosis of Hyperlipidemia (ICD E78)?: Yes - Visit Date of Assessment:: 06/28/20 Session #:: 18 - Cholesterol/Lipids Triglycerides (mg/dL): 65 - 11/06/2019 Total Cholesterol (mg/dL): 188 LDL Cholesterol (mg/dL): 133 HDL Cholesterol (mg/dL): 42 Determine presence & major risk factors that modify LDL goal: Hypertension or hypertensive medication, Age men > 45 years; women >/= 55 years Outcomes/Goals: Pt IDs own risk factors & lifestyle modifications by Session 10, Verbalizes symptoms of angina & response by session 3., Pt independently manages Intervention/Plan: Instruct on personal lipid levels & lipid goals/NCEP guidelines, Instruct on cholesterol Referral to dietitian:: Yes - Medical Nutrition Therapy 30-day Reassessments:: Progressing - Diabetes (Other Core Measures) Diabetes Type: Diagnosis Type II ICD-10 E11 Fasting blood glucose:: 162 Hgb A1C (4.2 -6.3): 6.7 Non-Insulin Dependent?: Yes - Trulicity, Do you monitor your blood sugar at home?: Yes Referral to Diabetic Clinic:: Yes Outcomes/Goals:: Able to state symptoms of, Able to state, Able to state Intervention/Plan:: Instruct on, Refer to, Instruct on - Weight Mgt (Other Care) Not Applicable: No Height: 5 ft 11 in Weight:: 260 lb BMI: 36.2 Diagnosis Overweight/Obesity BMI> 30% ICD-10 E66: Yes Diagnosis High BMI/Morbid Obesity BMI> 35% ICD-10 Z68: Yes Intervention/Plan: Instruct on ideal BMI & set weight loss goal w/patient, Assist pt to ID & incorporate diet changes for weight loss by S9, Refer to Structured Weight Loss program as appropriate, Encourage goal of using 250-3 00dcal per session for weight loss 30 day Reassessments:: Progressing - Healthy Eating Habits Will attend diet classes:: Yes Outcomes/Goals:: Consume diet rich in vegs,fruits,whole grain/high fiber,fish,lean meat, Limit sat/trans fats,cholesterol & added salts & sugars Intervention/Plan:: Assess current eating habits 30-day Reassessments:: Progressing - Education Gave educational materials for:: Signs & symptoms of hypoglycemia, Signs & symptoms of hyperglycemia, Relate diabetes to coronary artery disease, Healthy eating Medical- 60-Day Assessment - Visit Date of Eval: 06/28/20 Session #:: 18 - Medication Compliance Preventative Medication(s):: Aspirin, Clopidogrel/P2Y12 inhibit, Statin/lipid, Beta uday H/O mental health issues: depression, anxiety, or addiction?: No Doesn?t believe in the benefits of treatment?: No Believes medications are unnecessary or harmful?: No Has a concern about medication side effects?: No Expresses concern over the cost of medications?: No Outcomes/Goals: Verbalizes medications,desired effect & common side effects @ DC, Pt self-reports following medication regimen, Keeps card in wallet w/medica tions listed by DC Interventions/plans: Instruct on medication effects & side effects, Review medication list w/patient every two weeks, Instruct importance of taking meds as ordered & assist problem solving 30-day Reassessments:: Progressing - Tobacco Use Tobacco Use: Non-smoker - Hypertension Hypertension Diagnosis:: Hypertension ICD-10 I10 Resting Blood Pressure:: 128/74 - controlled with medication [place] [employer] Hypertension Guidelines: [place] [employer] Hypertension Guidelines. Normal BP Less than 120/80. Elevated BP 120/80. Hypertension Stage 1: BP 130-139/80-89. Hypertesnion Stage 2: BP 140 or higher/90 or higher. Hypertension Crisis: BP higher than 180/120 Peak Exercise Blood Pressure:: 154/88 - w/exercise Outcomes/Goals: Able to verbalize/achieve optimal blood pressure <130/80, Incorporates diet changes & exercise for blood pressure control by DC Interventions/plan: Instruct on optimal blood pressure, hypertension & medications, Instruct on effects of sodium, alcohol, stress, exercise &hypertension 30 day Reassessments:: Progressing - Tobacco Cessation Referral Smoking Cessation Referral:: No Individual Education/Counseling:: No Education Schedule Given:: Yes Psychosocial - 60-Day Assess - VIsit Date of Eval: 06/28/20 Session #:: 18 Not Applicable: Yes History of previous Mental disease:: No - Target Goals Target Goals: Assess presence or absence of depression. Using a valid screening tool, maximizes coping skills. Positive support system - Psychosocial Test Tool Used:: PHQ-9 Questionnaire phq-9 Severity: Severity. 1-4 Minimal Depression. 5-9 Mild Depression. 10-14 Moderate Depression. 15-19 Moderately Sever Depression. 20-27 Severe Depression. Rule: - Referral to Behavioral Health PS - Interventions: Yes Attend Stress Management Classes, No Referral to Behavioral Health if PHQ-9 score >9:, No Referral to [facility], No Referral to Physician if PHQ-9 if score is 5-9: - Outcomes/Goals: See list Psychosocial Outcomes/Goals:: ID's personal stressors & 2 strategies to manage stress by discharge - Intervention/Plan: See List Interventions/Plan:: Assess stressors,coping strategies & signs of derpression on admission, Instruct/assist pt to develop coping & personal stress Mgt stra tegies, Instruct patient to recognize signs & symptoms of depression, Instruct patient to recog - 30-day Reassessments: 30 day Reassessments:: Progressing Patient Health Questionnaire 60-Day Re-eval Assessment 1. Little interest or pleasure in doing things: Not at all 2. Feeling down, depressed, or hopeless: Not at all 3. Trouble falling or staying asleep, or sleeping too much: Not at all 4. Feeling tired or having little energy: Not at all 5. Poor appetite or overeating: Not at all 6. Feeling bad about yourself -- or that you are a failure or have let yourself or your family down: Not at all 7. Trouble concentrating on things, such as reading the newspaper or watching television: Not at all 8. Moving or speaking so slowly that other people could have noticed. Or the opposite - being so fidgety or restless that you have been moving around a lot more than usual: Not at all 9. Thoughts that you would be better off , or of hurting yourself in some way: Not at all How difficult have these problems made it for you to do your work, take care of things at home, or get along with other people?: Not difficult at all Total Score: 0 Self-Efficacy 60-Day Re-eval Assessment We would like to know how confident you are in doing certain activities. Please select your confidence level for:: Select your confidence level for the following using the scale 1-10 where 1 is not at all confident and 10 is totally confident. Your score is the average of all 6 responses. Fatigue: How confident are you that you can keep the fatigue caused by your disease from interfering with the things you want to do? Select Number: 10 Physical Discomfort or Pain: How confident are you that you can keep the physical discomfort or pain of your disease from interfering with the things you want to do? Select Number: 10 Emotional Distress: How confident are you that you can keep the emotional distress caused by your disease from interfering with the things you want to do? Select Number: 10 Other Symptoms or Health Problems: How confident are you that you can keep other symptoms or health problems from interfering with the things you want to do? Select Number: 10 Different Tasks and Activities: How confident are you that you can do the different tasks and activities needed to manage your health condition so as to reduce your need to see a doctor? Select Number: 10 Medication: How confident are you that you can do things other than just taking medication to reduce how much your illness affects your everyday life? Select Number: 10 Total Score:: 10
[2020-06-28 06:48] VITALS: BP 128/74; BP 154/88; BMI 36.2
== END 2020-07-07 23:59 ==
LOC: CR 08:00
PROVIDERS: PCP Family Medicine; Referring Provider Internal Medicine Cardiovascular Disease; Visit Provider Internal Medicine Cardiovascular Disease
DX: I35.0 Nonrheumatic aortic (valve) stenosis (principal); I10 Essential (primary) hypertension; E78.5 Hyperlipidemia, unspecified; Z95.2 Presence of prosthetic heart valve
CPT/HCPCS: 93798

== ENCOUNTER → 2020-07-26 08:37 | Outpatient (CLI) | payer MEDICARE, OTHER, SELFPAY ==
[2020-05-01 08:51] VITALS: BMI 36.3
[2020-06-28 06:48] VITALS: BMI 36.2
[2020-07-28 08:33] LABS: H. PYLORI STOOL AG Negative (Negative)
== END ==
PROVIDERS: PCP Family Medicine; Referring Provider Family Medicine; Visit Provider Family Medicine
DX: A04.8 Other specified bacterial intestinal infections (principal)

== ENCOUNTER 2020-08-04 15:15 | Outpatient (RCR) | payer MEDICARE, OTHER, SELFPAY ==
[2020-05-01 08:51] VITALS: BMI 36.3
[2020-06-28 06:48] VITALS: BMI 36.2
[2020-07-08 00:43] VITALS: BP 128/74; BP 154/88
--- NOTE | 2020-07-28 07:10 | CR.ITP_ITS ---
Diagnosis Exercise - Final/Discharge - Visit Date of Eval: 07/28/20 Session #:: 31 - Physician Prescribed Exercise Modalities: Treadmill, Rower, NuStep Frequency: 3x/week for 12 weeks [36 sessions] Intensity: 60-80% of age predicted maximum heart rate reserve Current METSs:: 5.5 unchanged due to neuropathy pain, knee discomfort, foot pain Target Heart Rate:: 95-124 Current RPE:: 12-14 Maximum Excercise HR:: 111 Resting Blood Pressure: 132/72 - still somewhat elevated resting BPs Maximum Exercise Blood Pressure: 164/84 EKG Type: NSR to sinus tach with occasional multi focal PVCs, rare PACs. Current Physical Activity or Exercising minutes: working & golfing - Outcomes & Goals Goals:: Verbalizes understanding of THR, RPE & goal METS by session 6, Documents in home exercise log/reports 30 min aerobic 5 day/wk by DC, Demonstrates accurate pulse taking by DC - Intervention & Plan Exercise Program Goals: Instruct on personal THR & RPE, Instruct on MET level & personal MET goal, Show patient to take own pulse /validate performance until accurate, Instruct on home exercise - 30-day Reassessments 30 day Reassessments:: Met - Physical Activity Home Exercise Physical Activity - Home Exercise: Safe Exercise, Warm-up, Self-monitoring, Cool-Down, Home Exercise > 30 min Daily, Sitting Time <3 hours/daily - Outcomes & Goals Outcomes/Goals: Demonstrates correct Warm-up/exercise Cool-Down (S3) if = 2.5 METs, Verbalizes symptoms of exercise intolerance by Session 3 (S3), Demonstrate safe equipment use (S3) & follows exercise prescrition (6) - Intervention & Plan Plan/Intervention: Instruct warm-up & cool-down if exercising at > 2 METs, Instruct on symptoms of exercise intolerance & actions to take, Instruct & monitor on saf, Assess intial functional capacity & safety risk - 30-day Reassessments 30 day Reassessments:: Met Nutrition - Initial Assessment Nutrition - 30-Day Assessment Nutrition - 60-Day Assessment Nutrition - 90-Day Assessment Nutrition - Final Assessment - Visit Date of Assessment:: 07/28/20 - no recent labs available since admission - Cholesterol/Lipids Determine presence & major risk factors that modify LDL goal: Hypertension or hypertensive medication, Family history of premature CHD in Male < 55 years: female <65 yearsFa, Age men > 45 years; women >/= 55 years Outcomes/Goals: Pt IDs own risk factors & lifestyle modifications by Session 10, Verbalizes symptoms of angina & response by session 3., Pt independently manages Intervention/Plan: Instruct on personal lipid levels & lipid goals/NCEP guidelines, Instruct on cholesterol Referral to dietitian:: No 30-day Reassessments:: Progressing - Diabetes (Other Core Measures) Diabetes Type: Diagnosis Type II ICD-10 E11 Non-Insulin Dependent?: Yes - Trulicity Qweek; metfomin Referral to Diabetic Clinic:: No Outcomes/Goals:: Able to state symptoms of, Able to state, Able to state Intervention/Plan:: Instruct on, Instruct on 30-day Reassessments:: Met - Weight Mgt (Other Care) Not Applicable: No Height: 5 ft 11 in Weight:: 261 lb - unchanged BMI: 36.3 Diagnosis Overweight/Obesity BMI> 30% ICD-10 E66: Yes Diagnosis High BMI/Morbid Obesity BMI> 35% ICD-10 Z68: Yes Outcomes/Goals: Pt sets, maintains & shows weight loss goal & trend during rehab Intervention/Plan: Instruct on ideal BMI & set weight loss goal w/patient, Assist pt to ID & incorporate diet changes for weight loss by S9, Encourage goal of using 250-300dcal per session for weight loss 30 day Reassessments:: Not Met - encouraged patient to participate in [facility] structured weight loss program. - Healthy Eating Habits Will attend diet classes:: Yes Outcomes/Goals:: Consume diet rich in vegs,fruits,whole grain/high fiber,fish,lean meat, Limit sat/trans fats,cholesterol & added salts & sugars Intervention/Plan:: Assess current eating habits 30-day Reassessments:: Progressing - Education Gave educational materials for:: Signs & symptoms of hypoglycemia, Signs & symptoms of hyperglycemia, Relate diabetes to coronary artery disease, Healthy eating Medical - Initial Assessment Medical- 30-Day Assessment Medical- 60-Day Assessment Medical- 90-Day Assessment Medical - Final Assessment - Visit Date of Eval: 07/28/20 Session #:: 31 - Medication Compliance Preventative Medication(s):: Aspirin, Statin/lipid, Beta uday H/O mental health issues: depression, anxiety, or addiction?: No Doesn?t believe in the benefits of treatment?: No Believes medications are unnecessary or harmful?: No Has a concern about medication side effects?: No Expresses concern over the cost of medications?: No Outcomes/Goals: Verbalizes medications,desired effect & common side effects @ DC, Pt self-reports following medication regimen, Keeps card in wallet w/medications listed by DC Interventions/plans: Instruct on medication effects & side effects, Review medication list w/patient every two weeks, Instruct importance of taking meds as ordered & assist problem solving 30-day Reassessments:: Met - Tobacco Use Tobacco Use: Non-smoker - Hypertension Hypertension Diagnosis:: Hypertension ICD-10 I10 Resting Blood Pressure:: 132/72 - resting BPs remain somewhat elevated [place] [employer] Hypertension Guidelines: [place] [employer] Hypertension Guidelines. Normal BP Less than 120/80. Elevated BP 120/80. Hypertension Stage 1: BP 130-139/80-89. Hypertesnion Stage 2: BP 140 or higher/90 or higher. Hypertension Crisis: BP higher than 180/120 Peak Exercise Blood Pressure:: 164/84 - w/exercise Outcomes/Goals: Able to verbalize/achieve optimal blood pressure <130/80, Incorporates diet changes & exercise for blood pressure control by DC Interventions/plan: Instruct on optimal blood pressure, hypertension & medications, Instruct on effects of sodium, alcohol, stress, exercise &hypertension 30 day Reassessments:: Progressing - Tobacco Cessation Referral Smoking Cessation Referral:: No Individual Education/Counseling:: No Education Schedule Given:: Yes Psychosocial - Initial Assess Psychosocial - 30-Day Assess Psychosocial - 60-Day Assess Psychosocial - 90-Day Assess Psychosocial - Final Assessmen - VIsit Date of Eval: 07/28/20 - t Session #:: 31 Not Applicable: Yes History of previous Mental disease:: No - Psychosocial Test Tool Used:: LisandroDone In :60 Seconds QOL Cardiac, PHQ-9 Questionnaire phq-9 Severity: Severity. 1-4 Minimal Depression. 5-9 Mild Depression. 10-14 Moderate Depression. 15-19 Moderately Sever Depression. 20-27 Severe Depression. Rule: - Referral to Behavioral Health PS - Interventions: Yes Attend Stress Management Classes, No Referral to Behavioral Health if PHQ-9 score >9:, No Referral to [facility], No Referral to Physician if PHQ-9 if score is 5-9: - Outcomes/Goals: See list Psychosocial Outcomes/Goals:: ID's personal stressors & 2 strategies to manage stress by discharge - Intervention/Plan: See List Interventions/Plan:: Assess stressors,coping strategies & signs of derpression on admission, Instruct/assist pt to develop coping & personal stress Mgt strategies, Instruct patient to recognize signs & symptoms of depression, Instruct patient to recog - 30-day Reassessments: 30 day Reassessments:: Met Patient Health Questionnaire Discharge Assessment 1. Little interest or pleasure in doing things: Not at all 2. Feeling down, depressed, or hopeless: Not at all 3. Trouble falling or staying asleep, or sleeping too much: Not at all 4. Feeling tired or having little energy: Not at all 5. Poor appetite or overeating: Not at all 6. Feeling bad about yourself -- or that you are a failure or have let yourself or your family down: Not at all 7. Trouble concentrating on things, such as reading the newspaper or watching television: Not at all 8. Moving or speaking so slowly that other people could have noticed. Or the opposite - being so fidgety or restless that you have been moving around a lot more than usual: Not at all 9. Thoughts that you would be better off , or of hurting yourself in some way: Not at all How difficult have these problems made it for you to do your work, take care of things at home, or get along with other people?: Not difficult at all Total Score: 0 ROB-Q SV Test - Statements CAD is a disease of the arteries in the heart: False Examples of risk factors for heart disease: True Angina is chest pain or discomfort: True The benefits of resistance training include: True Eating more meat and dairy products: False Anti-platelet medications such as aspirin are important: True The only effective way to manage stress: False An exercise warm-up slowly increases heart rate: True Prepared, processed foods usually have high sodium: True Depression is common after a heart attack: True The statin medications lower cholesterol: True To control blood pressure, lower the amount of sodium: True If someone gets chest discomfort during walking: False Transfats are partially hydrogenated vegetable oils: False Sleep apnea that is not treated increases the risk: True To control cholesterol, one should become a vegetarian: False Someone knows if he/she is exercising at the right level: True Diabetes cannot be prevented with exercise & health eating: False Stress is a large risk for heart attack: True A diet that can help lower blood pressure is rich in: True - Total Score Total Correct Responses: 18 Self-Efficacy Discharge Assessment We would like to know how confident you are in doing certain activities. Please select your confidence level for:: Select your confidence level for the following using the scale 1-10 where 1 is not at all confident and 10 is totally confident. Your score is the average of all 6 responses. Fatigue: How confident are you that you can keep the fatigue caused by your disease from interfering with the things you want to do? Select Number: 10 Physical Discomfort or Pain: How confident are you that you can keep the physical discomfort or pain of your disease from interfering with the things you want to do? Select Number: 10 Emotional Distress: How confident are you that you can keep the emotional distress caused by your disease from interfering with the things you want to do? Select Number: 10 Other Symptoms or Health Problems: How confident are you that you can keep other symptoms or health problems from interfering with the things you want to do? Select Number: 10 Different Tasks and Activities: How confident are you that you can do the different tasks and activities needed to manage your health condition so as to reduce your need to see a doctor? Select Number: 10 Medication: How confident are you that you can do things other than just taking medication to reduce how much your illness affects your everyday life? Select Number: 10 Total Score:: 10 Nutrition Survey - Nutrition Survey Discharge Have you lost >10 lbs over the past 2 months without trying?: No Are you following a special diet at home for diabetes, low fat, or low salt?: Yes Are you interested in meeting with a dietitian for help understanding your diet?: No Do you eat less than 3 meals a day?: No Do you eat fatty meats (smith, sausage, ribs, etc), fried foods, desserts, large amounts of salad dressings, margarine, butter, or cheese most days?: No Do you have food allergies? [Enter types in comment field]: No Do you eat in restaurants more than 3 times a week?: No Do you season food with salt, seasoning salt, or garlic salt?: No Do you used canned, boxed, frozen meals, or soups, seasoning packets?: No Total Score:: 1
[2020-07-28 07:22] VITALS: BP 132/72; BP 164/84; BMI 36.3
== END 2020-08-07 23:59 ==
LOC: CR 15:15
PROVIDERS: PCP Family Medicine; Referring Provider Internal Medicine Cardiovascular Disease; Visit Provider Internal Medicine Cardiovascular Disease
DX: I35.0 Nonrheumatic aortic (valve) stenosis (principal); I10 Essential (primary) hypertension; E78.5 Hyperlipidemia, unspecified; Z95.2 Presence of prosthetic heart valve
CPT/HCPCS: 93798

== ENCOUNTER 2020-08-09 06:27 | Outpatient (RCR) | payer MEDICARE, OTHER, SELFPAY ==
[2020-05-01 08:51] VITALS: BMI 36.3
[2020-07-28 07:22] VITALS: BMI 36.3
[2020-08-08 00:28] VITALS: BP 132/72; BP 164/84
== END 2020-09-06 23:59 ==
LOC: CR 06:27
PROVIDERS: PCP Family Medicine; Referring Provider Internal Medicine Cardiovascular Disease; Visit Provider Internal Medicine Cardiovascular Disease
DX: I35.0 Nonrheumatic aortic (valve) stenosis (principal); I10 Essential (primary) hypertension; E78.5 Hyperlipidemia, unspecified; Z95.2 Presence of prosthetic heart valve
CPT/HCPCS: 93798

== ENCOUNTER 2020-08-10 17:15 | Emergency (ER) | payer MEDICARE, OTHER, SELFPAY ==
[2020-05-01 08:51] VITALS: BMI 36.3
[2020-07-28 07:22] VITALS: BMI 36.3
[2020-08-10 17:16] VITALS: BP 139/93; PULSE 89; RESP 16; TEMP 36.1; O2SAT 95; BMI 35.9
[2020-08-10 17:17] VITALS: BP 139/93; PULSE 89; RESP 16; TEMP 36.1; O2SAT 95
--- NOTE | 2020-08-10 17:33 | CT_ITS ---
INDICATION: lower abd pain, n/v EXAMINATION: CT Abdomen And Pelvis W/ Contrast Injection TECHNIQUE: Helically acquired images were obtained of the abdomen and pelvis after IV contrast. A radiation dose optimization technique was used for this scan. IV Contrast dosage and agent: IV 100mL Isovue-300 Oral contrast: None. COMPARISON: 03/19/2018. FINDINGS: Visualized lung bases: Calcified granulomas in the right middle lobe and left lower lobe. Aortic valve replacement. Liver: Diffusely hypodense consistent with fatty liver. Few scattered simple cyst. Gallbladder: Contracted. Spleen: Unremarkable Pancreas: Unremarkable Adrenal Glands: Unremarkable Kidneys: Unremarkable Vasculature: Moderate aortoiliac atherosclerotic disease. GI Tract: Scattered diverticula throughout the colon without evidence of inflammation. Lymphadenopathy: None Peritoneum: No ascites. Bladder: Unremarkable Reproductive organs: The prostate is mildly enlarged. Bones/Soft tissues: There are diffuse degenerative changes of the spine. CT/Abdomen/Pelvis W IV Cont ONLY IMPRESSION: No acute abnormalities in the abdomen or pelvis. Fatty liver. Diverticulosis. Prostatomegaly. Correlate with PSA levels. Electronically Signed: Puma Mendez MD at 19:06 EDT Tel , Service support ,
--- NOTE | 2020-08-10 17:34 | ED.VIS.GI ---
HPI HPI - GI History of Present Illness Chief Complaint: Abd Pain Informant: patient Abdominal Pain/Flank Pain Onset: Days (2-3) Context: Gradual Onset Timing: Continuous and Waxes and wanes Quality: Aching Location: Diffuse (more across lower abd where pt notices) Current Severity: Mild Maximum Severity: Moderate Worsened by: Food (quickly after eating some foods, like a hot dog the other day) Relieved by: Nothing Nausea/Vomiting/Emesis GI Symptom: Positive for Nausea and Vomiting Onset: Yesterday Quality: Positive for Nonbilious Severity: Mild Diarrhea/Melena/Hematochezia GI Symptom: Negative for Diarrhea, Melena and Hematochezia Associated Symptoms Associated Symptoms: Negative for Dysuria, Frequency, Hematuria and Urgency Narrative Narrative: 74-year-old male has been having abdominal pain for the last couple days, it has not gone away but it has worsened quickly after eating certain meals but not everything. His appetite's been normal. He has had some vomiting, no fevers. Normal stools, normal urination. No history of any abdominal surgeries. 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 Denies bleeding from anywhere recently. Was seen initially by his PCP in the office and referred here for further urgent testing. Patient states he has been tested for gallbladder issues in the past but never diagnosed with stones that he knows of. He was diagnosed with H. pylori he wants remotely but unsure if this is similar pain. Rare alcohol use, no significant amounts recently. There is no radiation of the abdominal pain into his back or elsewhere. [facility] Medical History (Updated 08/10/20 @ 20:[address] Augie Claire MD) BPH (benign prostatic hyperplasia) Cholecystitis Essential hypertension GERD (gastroesophageal reflux disease) HLD (hyperlipidemia) Non-rheumatic aortic stenosis Positive Helicobacter pylori test (05/13/18) Sleep apnea Type 2 diabetes mellitus Home Medications atorvastatin 80 mg PO QHS 09/24/15 [History Last Taken 09/23/17] hydrochlorothiazide 25 mg PO DAILY 09/24/15 [History Last Taken 09/23/17] finasteride 5 mg PO DAILY 09/24/17 [History Last Taken 09/23/17] metformin 750 mg PO DAILY 09/24/17 [History Last Taken 03/12/20] pyridoxine (vitamin B6) 100 mg PO DAILY 09/24/17 [History Last Taken 09/23/17] tamsulosin 0.4 mg PO DAILY 09/24/17 [History Last Taken 09/23/17] ropinirole 0.5 mg tablet 0.5 mg PO QHS 05/05/18 [History Last Taken Unknown] dulaglutide 1.5 mg SQ QWEEK 12/05/19 [History Last Taken Unknown] empagliflozin 25 mg tablet 1 tab PO DAILY 02/01/20 [History Last Taken Unknown] linagliptin 5 mg tablet 5 mg PO DAILY tab 03/07/20 [History Last Taken Unknown] saw palmetto 450 mg capsule 900 mg PO DAILY cap 03/07/20 [History Last Taken Unknown] aspirin 81 mg tablet,delayed release 81 mg PO DAILY 04/19/20 [History Last Taken Unknown] ramipril 10 mg capsule 10 mg PO DAILY cap 04/19/20 [History Last Taken Unknown] dicyclomine 20 mg PO TIDAC PRN #20 capsule 08/10/20 [Rx Last Taken Unknown] ondansetron 8 mg PO Q8H PRN PRN #20 tab 08/10/20 [Rx Last Taken Unknown] Allergy/AdvReac Type Severity Reaction Status Date / Time Penicillins [PCN] Allergy Mild hives Verified 08/10/20 17:18 nitroglycerin AdvReac Mild LOC Verified 08/10/20 17:18 Family History Mother Breast cancer Liver disease Father , Age 41 Myocardial infarction Heart disease Sister Cancer Breast cancer Brother CAD (coronary artery disease) CABG Heart disease Surgical History History of aortic valve replacement (04/10/20) History of bilateral knee replacement History of colonoscopy (2016) History of esophagogastroduodenoscopy (EGD) (05/13/18) History of left heart catheterization (03/13/20) Social History Smoking Status: Never smoker alcohol intake: current alcohol intake frequency: holidays/special occasions only substance use type: does not use caffeine: No ROS ROS ED Constitutional Constitutional ED: Denies chills or fever(s) Eyes Eyes: Denies change in vision or diplopia ENT ENT ED: Denies rhinorrhea or sore throat Cardiovascular Cardiovascular: Denies chest pain or palpitations Respiratory/Chest Respiratory/Chest: Denies cough or dyspnea Gastrointestinal Gastrointestinal: Reports as per HPI, abdominal pain, nausea and vomiting; Denies diarrhea Genitourinary Genitourinary ED: Denies dysuria or hematuria Musculoskeletal Musculoskeletal: Denies back pain or neck pain Integumentary Denies abscess or rash Neurologic Neurologic: Denies headache(s), paresthesias or weakness Psychiatric Psychiatric: Denies anxiety or suicidal thoughts EXAM Physical Exam Const Vital Signs: 08/10/20 17:16 08/10/20 17:17 Temperature 96.9 F L 96.9 F L Temperature Source Temporal Temporal Pulse Rate 89 89 Respiratory Rate 16 16 Blood Pressure 139/93 H 139/93 H Blood Pressure Mean 108 108 Pulse Ox 95 95 Oxygen Delivery Method Room Air Room Air Positive well nourished and well developed General Appearance ED: well developed and NAD HEENT Reports moist mucous membranes normocephalic and atraumatic Eyes PERRL and EOMs intact bilaterally Neck full ROM and supple Resp normal respiratory effort and clear to auscultation bilaterally Cardio regular rate, regular rhythm and no murmurs GI soft to palpation, non-distended and no masses GI Narrative: Abdominal obesity. Auscultation: normoactive bowel sounds Palpation: soft and tender other (Multiple areas including epigastrium, left upper quadrant, and medial aspect of right upper quadrant with negative Tan's; periumbilical tenderness, right lower quadrant tenderness.); Negative for guarding or rebound tenderness present Back/Spine no CVA tenderness General Back: other FROM Extremity normal to inspection General Extremety ED: Negative for edema, pulses abnormal or tenderness General Extremity: Negative for edema or pulses abnormal Neuro oriented x3, CN's II-XII intact bilaterally and no sensory deficits noted Sensorium / Orientation: awake and alert Motor Exam: strength 5/5 throughout Skin no rashes or lesions noted and no wounds MDM MDM MDM Narrative Medical decision making narrative: Patient has diffuse multifocal tenderness. I am less inclined to think he has acute cholecystitis, I think this sounds more GI-related, therefore CT of the abdomen and pelvis with IV contrast was obtained. Results are below, negative for any acute. We discussed his prostatomegaly, he has had urine stream issues for some time but does not think he has had a PSA in the past. We discussed following up with that. He was given dicyclomine here and it did help his discomfort significantly, as well as Zofran for nausea. Will prescribe him both of these until he is able to follow-up, the prostatomegaly is incidental, I do think this is GI pain and etiology. He has diverticulosis without diverticulitis on the CT. Lab Data Attestation: I reviewed the patient's lab results. Labs: Laboratory Results - last 24 hr 08/10/20 08/10/20 08/10/20 17:25 17:25 19:10 WBC 8.7 RBC 5.34 Hgb 16.3 Hct 47.7 MCV 89.3 MCH 30.5 MCHC 34.2 RDW Std Deviation 43.6 RDW Coeff of Mateo 13.2 Plt Count 217 MPV 10.3 Immature Gran % (Auto) 0.500 Neut % (Auto) 60.1 Lymph % (Auto) 26.0 Osborne % (Auto) 11.4 H Eos % (Auto) 1.5 Baso % (Auto) 0.5 Absolute Neuts (auto) 5.2 Absolute Lymphs (auto) 2.25 Nucleated RBC % 0 Sodium 139 Potassium 3.6 Chloride 102 Carbon Dioxide 30.0 Anion Gap 7 BUN 22 H Creatinine 1.43 H Estim Creat Clear Calc 49.00 Est GFR (MDRD) Af Amer 62 Est GFR (MDRD) Non-Af 51 L BUN/Creatinine Ratio 15.4 Glucose 151 H Calcium 10.4 H Total Bilirubin 0.70 AST 21 ALT 41 Alkaline Phosphatase 77 Total Protein 7.8 Albumin 3.8 Globulin 4.0 Albumin/Globulin Ratio 1.0 Lipase 118 Urine Color Yellow Urine Clarity Sl. Cloudy Urine pH 5.0 Ur Specific Stephan 1.015 Urine Protein Negative Urine Glucose (UA) 1000 H Urine Ketones Negative Urine Occult Blood Negative Urine Nitrite Negative Urine Bilirubin Negative Urine Urobilinogen Normal Ur Leukocyte Esterase Negative Urine RBC 0 SEEN Urine WBC 0 SEEN Ur Squamous Epith Cells 0 SEEN Urine Bacteria 0 SEEN Urine Mucus 0 SEEN Radiography Diagnostic Testing: Radiology Impression Abdomen/Pelvis CT 08/10/20 17:33 IMPRESSION: No acute abnormalities in the abdomen or pelvis. Fatty liver. Diverticulosis. Prostatomegaly. Correlate with PSA levels. Electronically Signed: Puma Mendez MD at 19:06 EDT Tel , Service support , Discharge Plan Triage Chief Complaint: Abd Pain ED Provider: Augie Claire Dx/Rx/DC Orders Clinical Impression: Abdominal pain, diffuse Instructions: Abdominal Pain Prescriptions: New dicyclomine 10 MG capsule 20 mg PO TIDAC PRN (Reason: abdominal discomfort) Qty: 20 RF: 0 ondansetron [ondansetron] 4 MG tablet 8 mg PO Q8H PRN PRN (Reason: Nausea) Qty: 20 RF: 0 No Action ropinirole 0.5 mg tablet 0.5 mg PO QHS RF: 0 saw palmetto 450 mg capsule 900 mg PO DAILY RF: 0 empagliflozin 25 mg tablet 1 tab PO DAILY RF: 0 linagliptin 5 mg tablet 5 mg PO DAILY RF: 0 aspirin [Adult Aspirin Regimen] 81 mg tablet,delayed release (DR/EC) 81 mg PO DAILY RF: 0 atorvastatin 80 MG tablet 80 mg PO QHS RF: 0 hydrochlorothiazide 25 MG tablet 25 mg PO DAILY RF: 0 ramipril 10 mg capsule 10 mg PO DAILY RF: 0 tamsulosin 0.4 MG capsule 0.4 mg PO DAILY RF: 0 pyridoxine (vitamin B6) 100 MG tablet 100 mg PO DAILY RF: 0 finasteride 5 MG tablet 5 mg PO DAILY RF: 0 metformin 750 MG tablet extended release 24 hr 750 mg PO DAILY RF: 0 dulaglutide 0.75 MG/0.5 ML pen injector 1.5 mg SQ QWEEK RF: 0 Primary Care Provider: Petr Yi Referrals: Petr Yi MD [Primary Care Provider] - 3-5 Days Disposition Disposition: Home, self care
[2020-08-10 17:54] LABS: Absolute Lymphocyte Count 2.25 X10^3/uL (0.83-4.51); Absolute Neutrophil Count 5.2 X10^3/uL (2.0-7.7); Basophil# 0.04 X10^3/uL; Basophil% 0.5 % (0-1); Eosinophil# 0.13 X10^3/uL; Eosinophils% 1.5 % (0-5); Hematocrit 47.7 % (40-54); Hemoglobin 16.3 g/dL (13.0-16.5); Lymphocyte # 2.25 X10^3/ul (0.83-4.51); Mean Corp Hgb Conc 34.2 g/dL (32-36); Mean Corpuscular Hgb 30.5 pg (27.0-32.0); Mean Corpuscular Volume 89.3 fL (80-94); Mean Platelet Vol. 10.3 fl (6.2-12.0); Monocyte# 0.99 X10^3/uL; Monocyte% 11.4 % (0-10); NRBC Flagged by Analyzer 0 % (0-5); Neutrophil # 5.22 X10^3/uL (2.7-7.7); Neutrophil % 60.1 % (47-70); Platelet Count 217 K/mm3 (150-450); RBC Distribution Width CV 13.2 % (11.6-14.6); RBC Distribution Width SD 43.6 fl (35.1-43.9); Red Blood Count 5.34 M/mm3 (4.6-6.2); White Blood Count 8.7 K/mm3 (4.4-11.0)
[2020-08-10 18:17] LABS: AST(SGOT) 21 U/L (15-37); Alanine Aminotransfer ALT/SGPT 41 U/L (16-61); Albumin, Serum 3.8 g/dL (3.2-5.0); Alkaline Phosphatase 77 U/L (45-117); Anion Gap 7 (5-15); BUN 22 mg/dL (7-18); BUN/Creat Ratio 15.4 RATIO (10-20); Calcium,Total 10.4 mg/dL (8.5-10.1); Chloride 102 mmol/L (98-107); Creatinine, Serum 1.43 mg/dL (0.70-1.30); EST Glomerular Filtration Rate 51 mL/min (>60); Est Glom Filt Rate - Afr Amer 62 mL/min (>60); Glucose 151 mg/dL (74-106); Lipase 118 U/L (73-393); Potassium 3.6 mmol/L (3.5-5.1); Protein, Total 7.8 g/dL (6.4-8.2); Sodium Level 139 mmol/L (136-145)
[2020-08-10] MEDS: 0.9% Normal Saline 1,000 ML 1000 ML IV (18:24)
[2020-08-10] MEDS: Ondansetron 4 MG/2 ML Vial IV (18:24)
[2020-08-10] MEDS: Dicyclomine 10 MG Capsule 20 MG PO (18:24)
[2020-08-10 19:15] LABS: Bacteria 0 SEEN /hpf (None Seen); Mucous, Urine 0 SEEN /hpf (<or=2+); Red Blood Cells-Urine 0 SEEN /hpf (0-5); Squamous Epithelial Cells - UA 0 SEEN /hpf (0-5); White Blood Cells 0 SEEN /hpf (0-5)
[2020-08-10 19:16] LABS: Color, Urine Yellow (Yellow); Glucose, Dipstick 1000 mg/dl (Normal); Ketone-Dipstick Negative (Negative); Leukocyte Esterase-Dipstick Negative /ul (Negative); Nitrite-Dipstick Negative (Negative); Occult Blood-Urine Negative /ul (Negative); Protein-Dipstick Negative (Negative); Specific Gravity, Urine 1.015 (1.002-1.030); Urine Bilirubin Dipstick Negative (Negative); Urine Clarity Sl. Cloudy (Clear); Urine Urobilinogen Normal (Normal)
[2020-08-10 20:12] VITALS: BP 132/60; PULSE 79; RESP 16; O2SAT 97
== END 2020-08-10 20:15 | disposition home or self-care (01) ==
PROVIDERS: Emergency Provider Emergency Medicine; PCP Family Medicine
DX: R10.9 Unspecified abdominal pain (principal); E78.5 Hyperlipidemia, unspecified; I10 Essential (primary) hypertension; E11.9 Type 2 diabetes mellitus without complications; N40.0 Benign prostatic hyperplasia without lower urinary tract symptoms; Z79.82 Long term (current) use of aspirin; Z79.84 Long term (current) use of oral hypoglycemic drugs; Z95.3 Presence of xenogenic heart valve; Z79.899 Other long term (current) drug therapy
CPT/HCPCS: 74177; 80053; 81001; 83690; 85025; 96361; 96374; 99284; J7030; Q9967; A4216; J2405

== ENCOUNTER 2020-08-23 11:30 | Outpatient (RCR) | payer MEDICARE, OTHER, SELFPAY ==
[2020-05-01 08:51] VITALS: BMI 36.3
[2020-05-01 09:22] VITALS: BMI 36.3
[2020-07-28 07:22] VITALS: BMI 36.3
== END 2020-08-23 23:59 | disposition home or self-care (01) ==
LOC: DC 11:30
PROVIDERS: PCP Family Medicine; Visit Provider Internal Medicine Cardiovascular Disease
DX: E11.9 Type 2 diabetes mellitus without complications (principal); E78.5 Hyperlipidemia, unspecified; I10 Essential (primary) hypertension; K21.9 Gastro-esophageal reflux disease without esophagitis
CPT/HCPCS: G0108

== ENCOUNTER → 2021-01-23 08:33 | Outpatient (CLI) | payer MEDICARE, OTHER, SELFPAY ==
[2020-07-28 07:22] VITALS: BMI 36.3
[2021-01-23 10:22] LABS: Anion Gap 5 (5-15); BUN 22 mg/dL (7-18); BUN/Creat Ratio 17.7 RATIO (10-20); Chloride 104 mmol/L (98-107); Cholesterol 185 mg/dL (200); Creatinine, Serum 1.24 mg/dL (0.70-1.30); EST Glomerular Filtration Rate 61 mL/min (>60); Est Glom Filt Rate - Afr Amer 73 mL/min (>60); Glucose 149 mg/dL (74-106); High Density Lipoprotein 36 mg/dL; Potassium 3.8 mmol/L (3.5-5.1); Sodium Level 136 mmol/L (136-145); Triglycerides 127 mg/dL; Very Low Density Lipoprotein 25 mg/dL (5-40)
== END ==
PROVIDERS: PCP Family Medicine; Referring Provider Family Medicine; Visit Provider Family Medicine
DX: E11.9 Type 2 diabetes mellitus without complications (principal)
CPT/HCPCS: 36415; 80048; 80061

== ENCOUNTER 2021-05-16 09:48 | Outpatient (CLI) | payer MEDICARE, OTHER, SELFPAY ==
[2020-07-28 07:22] VITALS: BMI 36.3
[2021-05-16 12:31] LABS: Vitamin B12 370 pg/mL (211-911)
[2021-05-16 12:39] LABS: Anion Gap 4 (5-15); BUN 15 mg/dL (7-18); BUN/Creat Ratio 12.9 RATIO (10-20); Calcium,Total 9.7 mg/dL (8.5-10.1); Chloride 107 mmol/L (98-107); Creatinine, Serum 1.16 mg/dL (0.70-1.30); EST Glomerular Filtration Rate 65 mL/min (>60); Est Glom Filt Rate - Afr Amer 79 mL/min (>60); Glucose 186 mg/dL (74-106); PSA,Total - Annual Screen 0.61 ng/mL (0.00-4.00); Sodium Level 136 mmol/L (136-145); Thyroid Stim Hormone (TSH) 1.14 uIU/mL (0.358-3.74)
== END 2021-05-16 23:59 | disposition home or self-care (01) ==
LOC: MFPLAB 09:51
PROVIDERS: PCP Family Medicine; Referring Provider Family Medicine; Visit Provider Family Medicine
DX: E11.9 Type 2 diabetes mellitus without complications (principal); N40.1 Benign prostatic hyperplasia with lower urinary tract symptoms; Z12.5 Encounter for screening for malignant neoplasm of prostate
CPT/HCPCS: 36415; 80048; 82607; 84153; 84403; 84443; G0103

== ENCOUNTER 2021-05-24 11:03 | Outpatient (CLI) | payer MEDICARE, OTHER, SELFPAY ==
[2020-07-28 07:22] VITALS: BMI 36.3
[2021-05-24 11:30] LABS: Hematocrit 46.1 % (40-54); Hemoglobin 16.5 g/dL (13.0-16.5); Mean Corp Hgb Conc 35.8 g/dL (32-36); Mean Corpuscular Hgb 31.9 pg (27.0-32.0); Mean Corpuscular Volume 89.2 fL (80-94); Mean Platelet Vol. 10.2 fl (6.2-12.0); Platelet Count 214 K/mm3 (150-450); RBC Distribution Width SD 42.8 fl (35.1-43.9); Red Blood Count 5.17 M/mm3 (4.6-6.2); White Blood Count 7.2 K/mm3 (4.4-11.0)
== END 2021-05-24 23:59 | disposition home or self-care (01) ==
LOC: LAB 11:07
PROVIDERS: PCP Family Medicine; Visit Provider Family Medicine
DX: I35.0 Nonrheumatic aortic (valve) stenosis (principal)
CPT/HCPCS: 36415; 85027

== ENCOUNTER → 2021-08-16 | Outpatient (CLI) | payer MEDICARE, OTHER, SELFPAY ==
[2020-07-28 07:22] VITALS: BMI 36.3
== END | disposition home or self-care (01) ==
LOC: MTLAB 09:18
PROVIDERS: PCP Family Medicine; Referring Provider Family Medicine; Visit Provider Family Medicine
DX: E11.9 Type 2 diabetes mellitus without complications (principal)
CPT/HCPCS: 36415; 83036

== ENCOUNTER → 2021-11-21 | Outpatient (CLI) | payer MEDICARE, OTHER, SELFPAY ==
[2020-07-28 07:22] VITALS: BMI 36.3
[2021-11-21 10:45] LABS: AST(SGOT) 19 U/L (15-37); Alanine Aminotransfer ALT/SGPT 29 U/L (16-61); Albumin, Serum 3.5 g/dL (3.2-5.0); Alkaline Phosphatase 67 U/L (45-117); Anion Gap 6 (5-15); BUN 19 mg/dL (7-18); BUN/Creat Ratio 17.4 RATIO (10-20); Calcium,Total 9.6 mg/dL (8.5-10.1); Chloride 106 mmol/L (98-107); Cholesterol 191 mg/dL (200); Creatinine, Serum 1.09 mg/dL (0.70-1.30); EST Glomerular Filtration Rate 70 mL/min (>60); Est Glom Filt Rate - Afr Amer 85 mL/min (>60); Globulin 3.5 g/dL (2.2-4.2); Glucose 123 mg/dL (74-106); High Density Lipoprotein 40 mg/dL; Potassium 4.1 mmol/L (3.5-5.1); Sodium Level 138 mmol/L (136-145); Triglycerides 76 mg/dL; Very Low Density Lipoprotein 15 mg/dL (5-40)
== END | disposition home or self-care (01) ==
LOC: MFPLAB 09:24
PROVIDERS: PCP Family Medicine; Referring Provider Family Medicine; Visit Provider Family Medicine
DX: E11.9 Type 2 diabetes mellitus without complications (principal)
CPT/HCPCS: 36415; 80053; 80061

== ENCOUNTER → 2022-05-22 | Outpatient (CLI) | payer MEDICARE, OTHER, SELFPAY ==
[2020-07-28 07:22] VITALS: BMI 36.3
[2022-05-22 10:53] LABS: Vitamin B12 416 pg/mL (211-911)
[2022-05-22 10:54] LABS: ALB/GLOB Ratio 0.9 RATIO (0.9-2.4); AST(SGOT) 19 U/L (15-37); Alanine Aminotransfer ALT/SGPT 34 U/L (16-61); Albumin, Serum 3.4 g/dL (3.2-5.0); Alkaline Phosphatase 58 U/L (45-117); Anion Gap 9 (5-15); BUN 18 mg/dL (7-18); BUN/Creat Ratio 15.4 RATIO (10-20); Calcium,Total 9.6 mg/dL (8.5-10.1); Chloride 105 mmol/L (98-107); Cholesterol 199 mg/dL (200); Creatinine, Serum 1.17 mg/dL (0.70-1.30); EST Glomerular Filtration Rate 65 mL/min (>60); Est Glom Filt Rate - Afr Amer 78 mL/min (>60); Globulin 3.7 g/dL (2.2-4.2); Glucose 152 mg/dL (74-106); High Density Lipoprotein 38 mg/dL; PSA,Total - Annual Screen 0.72 ng/mL (0.00-4.00); Potassium 3.4 mmol/L (3.5-5.1); Protein, Total 7.1 g/dL (6.4-8.2); Sodium Level 137 mmol/L (136-145); Triglycerides 110 mg/dL; Very Low Density Lipoprotein 22 mg/dL (5-40)
== END | disposition home or self-care (01) ==
LOC: MFPLAB 09:03
PROVIDERS: PCP Family Medicine; Referring Provider Family Medicine; Visit Provider Family Medicine
DX: E11.9 Type 2 diabetes mellitus without complications (principal); N40.1 Benign prostatic hyperplasia with lower urinary tract symptoms; Z12.5 Encounter for screening for malignant neoplasm of prostate
CPT/HCPCS: 36415; 80053; 80061; 82607; 84153; 84403; 84443; G0103

== ENCOUNTER → 2022-12-11 | Outpatient (CLI) | payer MEDICARE, OTHER, SELFPAY ==
[2020-07-28 07:22] VITALS: BMI 36.3
[2022-12-11 10:46] LABS: ALB/GLOB Ratio 0.9 RATIO (0.9-2.4); AST(SGOT) 18 U/L (15-37); Alanine Aminotransfer ALT/SGPT 33 U/L (16-61); Albumin, Serum 3.4 g/dL (3.2-5.0); Alkaline Phosphatase 58 U/L (45-117); Anion Gap 5 (5-15); BUN 19 mg/dL (7-18); BUN/Creat Ratio 16.2 RATIO (10-20); Calcium,Total 9.2 mg/dL (8.5-10.1); Chloride 107 mmol/L (98-107); Cholesterol 249 mg/dL (200); Creatinine, Serum 1.17 mg/dL (0.70-1.30); EST Glomerular Filtration Rate 64 mL/min (>60); Est Glom Filt Rate - Afr Amer 78 mL/min (>60); Globulin 3.6 g/dL (2.2-4.2); Glucose 149 mg/dL (74-106); High Density Lipoprotein 43 mg/dL; Potassium 3.9 mmol/L (3.5-5.1); Sodium Level 135 mmol/L (136-145); Triglycerides 132 mg/dL; Very Low Density Lipoprotein 26 mg/dL (5-40)
== END | disposition home or self-care (01) ==
LOC: MFPLAB 08:42
PROVIDERS: PCP Family Medicine; Visit Provider Family Medicine
DX: E11.22 Type 2 diabetes mellitus with diabetic chronic kidney disease (principal); N18.2 Chronic kidney disease, stage 2 (mild)
CPT/HCPCS: 36415; 80053; 80061

== ENCOUNTER → 2023-03-18 | Outpatient (CLI) | payer MEDICARE, OTHER, SELFPAY ==
[2020-07-28 07:22] VITALS: BMI 36.3
[2023-03-18 10:48] LABS: ALB/GLOB Ratio 0.9 RATIO (0.9-2.4); AST(SGOT) 25 U/L (15-37); Alanine Aminotransfer ALT/SGPT 42 U/L (16-61); Albumin, Serum 3.5 g/dL (3.2-5.0); Alkaline Phosphatase 59 U/L (45-117); Anion Gap 7 (5-15); BUN 24 mg/dL (7-18); BUN/Creat Ratio 18.3 RATIO (10-20); Calcium,Total 9.9 mg/dL (8.5-10.1); Chloride 108 mmol/L (98-107); Cholesterol 191 mg/dL (200); Creatinine, Serum 1.31 mg/dL (0.70-1.30); EST Glomerular Filtration Rate 57 mL/min (>60); Est Glom Filt Rate - Afr Amer 68 mL/min (>60); Globulin 3.9 g/dL (2.2-4.2); Glucose 180 mg/dL (74-106); High Density Lipoprotein 38 mg/dL; Potassium 3.9 mmol/L (3.5-5.1); Protein, Total 7.4 g/dL (6.4-8.2); Sodium Level 139 mmol/L (136-145); Triglycerides 78 mg/dL; Very Low Density Lipoprotein 16 mg/dL (5-40)
== END | disposition home or self-care (01) ==
LOC: MFPLAB 08:40
PROVIDERS: PCP Family Medicine; Visit Provider Family Medicine
DX: E11.22 Type 2 diabetes mellitus with diabetic chronic kidney disease (principal); N18.9 Chronic kidney disease, unspecified
CPT/HCPCS: 36415; 80053; 80061

== ENCOUNTER → 2023-05-08 | Outpatient (CLI) | payer MEDICARE, OTHER, SELFPAY ==
[2020-07-28 07:22] VITALS: BMI 36.3
[2023-05-08 08:31] LABS: Bacteria 0 SEEN /hpf (None Seen); Mucous, Urine 0 SEEN /hpf (<or=2+); Red Blood Cells-Urine 0 SEEN /hpf (0-5); White Blood Cells 0 SEEN /hpf (0-5)
[2023-05-08 10:35] LABS: Color, Urine Straw (Yellow); Glucose, Dipstick 1000 mg/dl (Normal); Ketone-Dipstick Negative (Negative); Leukocyte Esterase-Dipstick 25 /ul (Negative); Nitrite-Dipstick Negative (Negative); Occult Blood-Urine 10 /ul (Negative); Protein-Dipstick 15 mg/dl (Negative); Specific Gravity, Urine 1.015 (1.002-1.030); Urine Bilirubin Dipstick Negative (Negative); Urine Clarity Clear (Clear); Urine Urobilinogen Normal (Normal)
[2023-05-08 10:40] LABS: Anion Gap 6 (5-15); BUN 21 mg/dL (7-18); BUN/Creat Ratio 18.1 RATIO (10-20); Calcium,Total 9.4 mg/dL (8.5-10.1); Chloride 108 mmol/L (98-107); Cholesterol 184 mg/dL (200); Creatinine, Serum 1.16 mg/dL (0.70-1.30); EST Glomerular Filtration Rate 65 mL/min (>60); Est Glom Filt Rate - Afr Amer 79 mL/min (>60); Glucose 157 mg/dL (74-106); High Density Lipoprotein 37 mg/dL; Potassium 3.9 mmol/L (3.5-5.1); Sodium Level 138 mmol/L (136-145); Triglycerides 108 mg/dL; Very Low Density Lipoprotein 22 mg/dL (5-40)
[2023-05-08 11:32] LABS: Squamous Epithelial Cells - UA 0-5 SEEN /hpf (0-5)
== END | disposition home or self-care (01) ==
LOC: MFPLAB 08:30
PROVIDERS: PCP Family Medicine; Visit Provider Family Medicine
DX: R39.15 Urgency of urination (principal); E11.69 Type 2 diabetes mellitus with other specified complication
CPT/HCPCS: 36415; 80048; 80061; 81001; 87086

== ENCOUNTER 2023-05-31 09:35 | Emergency (ER) | payer MEDICARE, OTHER, SELFPAY ==
[2020-07-28 07:22] VITALS: BMI 36.3
[2023-05-31 09:35] VITALS: BP 161/86; PULSE 70; RESP 17; TEMP 36.4; O2SAT 96
[2023-05-31 09:36] VITALS: BP 143/83; PULSE 77; RESP 16; TEMP 36.3; O2SAT 96; BMI 34.8
[2023-05-31 10:05] LABS: Absolute Lymphocyte Count 2.14 X10^3/uL (0.83-4.51); Absolute Neutrophil Count 6.4 X10^3/uL (2.0-7.7); Basophil# 0.03 X10^3/uL; Basophil% 0.3 % (0-1); Eosinophil# 0.14 X10^3/uL; Eosinophils% 1.5 % (0-5); Hemoglobin 16.3 g/dL (13.0-16.5); Lymphocyte # 2.14 X10^3/ul (0.83-4.51); Lymphocyte % 22.3 % (19-41); Mean Corp Hgb Conc 33.3 g/dL (32-36); Mean Corpuscular Hgb 29.9 pg (27.0-32.0); Mean Corpuscular Volume 89.7 fL (80-94); Mean Platelet Vol. 10.8 fl (6.2-12.0); Monocyte# 0.85 X10^3/uL; Monocyte% 8.8 % (0-10); NRBC Flagged by Analyzer 0 % (0-5); Neutrophil # 6.38 X10^3/uL (2.7-7.7); Neutrophil % 66.4 % (47-70); Platelet Count 196 K/mm3 (150-450); RBC Distribution Width SD 45.9 fl (35.1-43.9); Red Blood Count 5.46 M/mm3 (4.6-6.2); White Blood Count 9.6 K/mm3 (4.4-11.0)
[2023-05-31 10:11] LABS: Anion Gap 7 (5-15); BUN 18 mg/dL (7-18); BUN/Creat Ratio 14.5 RATIO (10-20); Calcium,Total 9.8 mg/dL (8.5-10.1); Chloride 105 mmol/L (98-107); Creatinine, Serum 1.24 mg/dL (0.70-1.30); EST Glomerular Filtration Rate 60 mL/min (>60); Est Glom Filt Rate - Afr Amer 73 mL/min (>60); Glucose 247 mg/dL (74-106); Potassium 3.6 mmol/L (3.5-5.1); Sodium Level 136 mmol/L (136-145)
--- NOTE | 2023-05-31 10:55 | EX.ED.DYSGE1 ---
HPI History of Present Illness Chief Complaint: Nausea/Vomiting Detail of Chief Complaint: Generalized weakness with nausea and vomiting Informant: patient, spouse/S.O. and family Onset/Context/Timing Onset: Today Quality: Several episodes of vomiting per . Patient denies Location: Home Current Severity: Mild Maximum Severity: Moderate Worsened by: Nothing Relieved by: Nothing Associated Symptoms Associated Symptoms: Dizziness, which patient cannot define. Narrative Narrative: Patient is a 77-year-old male. He has history of essential hypertension, hyperlipidemia, nonrheumatic aortic stenosis who was brought in because of nausea and vomiting per . He denies. He denies headache,. He denies visual, ocular auditory symptoms. He denies rhinorrhea, congestion, postnasal drainage and sore throat. He denies chest pain, shortness of breath or difficulty breathing. specifically stated that his emesis did not have coffee grounds or blood appearance. There was occasional malena. She cannot be more specific. He denies abdominal pain. He denies black or maroon-colored stool. He reports his bowel movements are normal. He denies dysuria, frequency, urgency or hematuria. When asked what he means by dizziness he stated not my head or room spinning . He states he cannot describe it other than dizziness. Asked specifically if he is lightheaded. He presently stated no he is diabetic. Not had his blood sugar checked recently. He is on 3 oral agents. He also has history of benign prostatic hypertrophy. He does endorse frequent urination. This has been a problem for months. He denies dysuria or hematuria. 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) HLD (hyperlipidemia) Non-rheumatic aortic stenosis Positive Helicobacter pylori test (05/13/18) Type 2 diabetes mellitus Home Medications atorvastatin 80 mg tablet 80 mg PO QHS CHOLESTEROL LOWERING 09/24/15 [History Last Taken 09/23/17] hydrochlorothiazide 25 mg tablet 25 mg PO DAILY WATER PILL, BLOOD PRESSUR 09/24/15 [History Last Taken 09/23/17] finasteride 5 mg tablet 5 mg PO DAILY PROSTATE 09/24/17 [History Last Taken 09/23/17] metformin 750 mg tablet,extended release 24 hr 750 mg PO DAILY BLOOD SUGAR 09/24/17 [History Last Taken 03/12/20] pyridoxine (vitamin B6) 100 mg tablet 100 mg PO DAILY SUPPLEMENT 09/24/17 [History Last Taken 09/23/17] tamsulosin 0.4 mg capsule 0.4 mg PO DAILY PROSTATE 09/24/17 [History Last Taken 09/23/17] empagliflozin 25 mg tablet 1 tab PO DAILY 02/01/20 [History Last Taken Unknown] saw palmetto 450 mg capsule 900 mg PO DAILY 03/07/20 [History Last Taken Unknown] aspirin 81 mg tablet,delayed release (Adult Aspirin Regimen) 81 mg PO DAILY 04/19/20 [History Last Taken Unknown] ramipril 10 mg capsule 10 mg PO DAILY BLOOD PRESSURE 04/19/20 [History Last Taken Unknown] clindamycin HCl 300 mg capsule 600 mg PO ONCE PRN 10/03/20 [History Last Taken Unknown] dulaglutide 1.5 mg/0.5 mL subcutaneous pen injector 1.5 mg subcut QWEEK 10/03/20 [History Last Taken Unknown] magnesium oxide 250 mg PO DAILY 05/24/21 [History Last Taken Unknown] ondansetron 4 mg disintegrating tablet 4 mg PO Q8H PRN PRN Nausea #5 tabs 05/31/23 [Rx Last Taken Unknown] Allergy/AdvReac Type Severity Reaction Status Date / Time Penicillins [PCN] Allergy Mild hives Verified 05/31/23 09:41 nitroglycerin AdvReac Mild LOC Verified 05/31/23 09:41 Family History Mother Breast cancer Liver disease Father , Age 41 Myocardial infarction Heart disease Sister Cancer Breast cancer Brother CAD (coronary artery disease) CABG Heart disease Surgical History History of bilateral knee replacement History of colonoscopy (2016) History of esophagogastroduodenoscopy (EGD) (05/13/18) History of left heart catheterization (03/13/20) Sleep apnea Social History Smoking Status: Never smoker alcohol intake: current alcohol intake frequency: holidays/special occasions only substance use type: does not use caffeine: No ROS ROS ED Constitutional Constitutional ED: Denies chills, fever(s), subjective, sweats or weight loss Eyes Eyes: Denies blurry vision, change in vision or diplopia ENT ENT ED: Denies ear pain, rhinorrhea or sore throat Cardiovascular Cardiovascular: Denies chest pain, palpitations or racing heartbeat Respiratory/Chest Respiratory/Chest: Denies cough, dyspnea or dyspnea on exertion Gastrointestinal Gastrointestinal: Reports nausea and vomiting; Denies abdominal pain, constipation, diarrhea or melena Genitourinary Genitourinary ED: Denies dysuria, hematuria or urinary frequency Musculoskeletal Musculoskeletal: Denies arthralgias, back pain or myalgias Integumentary Denies rash Neurologic Neurologic: Reports weakness; Denies headache(s) or paresthesias Psychiatric Psychiatric: Denies anxiety or depression Hematologic/Lymphatic Hematologic/Lymphatic: Reports systems reviewed and no addt'l complaints, except as documented EXAM Physical Exam Const Vital Signs: 05/31/23 09:35 05/31/23 09:36 05/31/23 11:35 Temperature 97.5 F L 97.4 F L 98.4 F Temperature Source Temporal Oral Oral Pulse Rate 70 77 62 Respiratory Rate 17 16 18 Blood Pressure 161/86 H 143/83 H 154/77 H Blood Pressure Mean 111 103 102 Pulse Ox 96 96 96 Oxygen Delivery Method Room Air Room Air Room Air Positive well nourished, well developed and obese General Appearance ED: well developed and NAD; Negative for pallor Nutritional Appearance: obese HEENT Reports dry mucous membranes HEENT Narrative: Head is atraumatic and normocephalic. Ears normal. Nares patent. Posterior pharynx is normal. Mouth ED: Yes dry mucous membranes Mouth: dry mucous membranes Eyes PERRL and EOMs intact bilaterally General Eye ED: Negative for pale conjunctiva or scleral icterus Neck no lymphadenopathy, supple and no JVD Chest Wall inspection of chest normal and palpation of chest normal Resp normal respiratory effort and clear to auscultation bilaterally Cardio regular rate, regular rhythm, S1 normal heart sound, S2 normal heart sound and no murmurs GI non-tender and no masses; Negative for hepatosplenomegaly GI Narrative: There is slight tympany to percussion. Auscultation: hypoactive bowel sounds Palpation: soft; Negative for tender, guarding, splenomegaly, mass or rebound tenderness present Back/Spine no CVA tenderness Back/Spine Narrative: Inspection of the back is normal. Extremity Extremity Narrative: There is slight edema of the lower extremities and there is lack of hair otherwise exam is unremarkable. Neuro oriented x3, CN's II-XII intact bilaterally and no sensory deficits noted Sensorium / Orientation: alert Sensory Exam: sensory level loss detected Psych mental status grossly normal Skin no rashes or lesions noted, no wounds and skin turgor normal General Skin Exam: Negative for jaundice or pallor MDM MDM MDM Narrative Medical decision making narrative: Patient's main symptom is nausea and vomiting. This may represent a viral illness. There is may represent gastroparesis. Since patient is complaining of dizziness will obtain orthostatic vital signs determine if he has orthostatic hypotension. CBC was obtained assess H&H and white count. BMP to assess renal function and glucose since he is diabetic. He was treated with Zofran for his nausea and vomiting. Lab Data Attestation: I reviewed the patient's lab results. Lab results narrative: CBC is normal. Basic metabolic panel is normal with a BUN to creatinine ratio 14.1. Blood sugar is elevated to 47 with normal CO2 anion gap. Labs: Laboratory Results - last 24 hr 05/31/23 09:51 WBC 9.6 RBC 5.46 Hgb 16.3 Hct 49.0 MCV 89.7 MCH 29.9 MCHC 33.3 RDW Std Deviation 45.9 H RDW Coeff of [place] 14.0 Plt Count 196 MPV 10.8 Immature Gran % (Auto) 0.700 Neut % (Auto) 66.4 Lymph % (Auto) 22.3 [place] % (Auto) 8.8 Eos % (Auto) 1.5 Baso % (Auto) 0.3 Absolute Neuts (auto) 6.4 Absolute Lymphs (auto) 2.14 Nucleated RBC % 0 Sodium 136 Potassium 3.6 Chloride 105 Carbon Dioxide 24.0 Anion Gap 7 BUN 18 Creatinine 1.24 Estim Creat Clear Calc 64.90 Est GFR (MDRD) Af Amer 73 Est GFR (MDRD) Non-Af 60 BUN/Creatinine Ratio 14.5 Glucose 247 H Calcium 9.8 Treatment and Re-Evaluation :: Patient and were informed of test results. Plan is discharge to home. Patient nor spouse had questions. Discharge Plan Triage Chief Complaint: Nausea/Vomiting ED Provider: Feng Manuel Dx/Rx/DC Orders Clinical Impression: Mild nausea and vomiting, Essential hypertension, History of transcatheter aortic valve replacement (TAVR), HLD (hyperlipidemia), Mild dehydration, Type 2 diabetes mellitus with hyperglycemia Instructions: ED Vomiting (Adult) Prescriptions: New ondansetron [ondansetron] 4 mg tablet,disintegrating 4 mg PO Q8H PRN PRN (Reason: Nausea) Qty: 5 0RF No Action saw palmetto 450 mg capsule 900 mg PO DAILY empagliflozin 25 mg tablet 1 tab PO DAILY aspirin [Adult Aspirin Regimen] 81 mg tablet,delayed release (DR/EC) 81 mg PO DAILY clindamycin HCl 300 mg capsule 600 mg PO ONCE PRN Patient Comments: 30-60 minutes prior to any dental procedure Trulicity 1.5 mg/0.5 mL pen injector 1.5 mg subcut QWEEK magnesium oxide 250 mg magnesium tablet 250 mg PO DAILY atorvastatin 80 MG tablet 80 mg PO QHS hydrochlorothiazide 25 MG tablet 25 mg PO DAILY ramipril 10 mg capsule 10 mg PO DAILY tamsulosin 0.4 MG capsule 0.4 mg PO DAILY pyridoxine (vitamin B6) 100 MG tablet 100 mg PO DAILY finasteride 5 MG tablet 5 mg PO DAILY metformin 750 MG tablet extended release 24 hr 750 mg PO DAILY Primary Care Provider: Petr Yi Referrals: Petr Yi MD [Primary Care Provider] - 3-5 Days if not improving Disposition Disposition: Home, Self Care
[2023-05-31 11:35] VITALS: BP 154/77; PULSE 62; RESP 18; TEMP 36.9; O2SAT 96
[2023-05-31 12:36] VITALS: BP 158/91; PULSE 84; RESP 16; TEMP 36.8; O2SAT 96
== END 2023-05-31 12:37 | disposition home or self-care (01) ==
PROVIDERS: Emergency Provider Emergency Medicine; PCP Family Medicine; Visit Provider Emergency Medicine
DX: R11.2 Nausea with vomiting, unspecified (principal); E11.65 Type 2 diabetes mellitus with hyperglycemia; I10 Essential (primary) hypertension; E78.5 Hyperlipidemia, unspecified; E86.0 Dehydration; E66.9 Obesity, unspecified
CPT/HCPCS: 80048; 85025; 99284

== ENCOUNTER 2023-06-04 15:00 | Outpatient (RCR) | payer MEDICARE, OTHER, SELFPAY ==
[2020-07-28 07:22] VITALS: BMI 36.3
--- NOTE | 2023-06-03 18:44 | HP.PTEVAL ---
Patient's Visit Information Visit Information Visit Information: ANILA ROBLEDO is a 77 year old M referred to Physical Therapy by Dr. Petr Yi MD with a diagnosis of labyrynthitis. Date of Evaluation: 06/03/23 Physical Therapist: Asif Clifton, DPT, OCS, CSCS Visit Plan Frequency: 2x /Week Duration: 2-4 Weeks Plan: Pt supposed to leave for [place] Th am. Will see 2+x/week for 2-4 as needed for positioonal treatments then balance checks. 06/03: check L HD first then R, then roll test if still dizzy. Subjective Subjective: If i look down, I fall down. Spins. had it yesterday when he lied down in bed and lasted a number of seconds. Fell one time on ice Friday and has been dizzy since. Had it several times since Friday if he moves his head too much. Fell over looking down this day. Feels off in between episodes nauseated. Takes meclizine several times per day. Has to get up slow. Is supposed to leave for [place] in two days. basic ADLs are OK. Objective Objective: Walks into PT I, transfers I, hesitant to move quickly especially up and down with head but I. Cervical aROM slow but WFL and without pain. UE AROM WFL. Positional testing... R HD + for up torsional nystagmus, treated with modified terrance then,(nystagmus lasting long but fatiguning in each [id number] change) R HD + for Horizontal nystagmus initially then up torsional as treatment went on.Treated with modified terrance.(nystagmus lasting long but fatiguing in each position change.) L HD + for obvious up torsional nystagmus 5 seconds and then modified terrance which went traditionally. Walked out I but hesitantly as he got nauseous after 2nd R epely and had dry heaves. Balance/Special Test Scores Functional Gait Assessment Score: 26 % Disability: 13.3400 Dizziness Score: 100 Goals Goal 1:: Pt feel dizzyness abolished with lying in bed and looking up Goal Time Frame: 2-4 Weeks Goal 2:: FGA score of 27/30 and good head movement with walking balance Goal Time Frame: 2-4 Weeks Goal 3:: Pt feel 100% back to normal activity and safe to travel to [facility] Goal Time Frame: 2-4 Weeks Rehabilitation Potential Physical Therapy Diagnosis: dizzyness with head position change consistent with BPPV effecting function Rehabilitation Potential: Good Anticipated Interventions Patient/Client Instruction: Educate patient on: Condition and Plan of Care For the Purpose of:: To decrease pain, To increase ROM, To improve nutrient delivery to tissue, To improve muscle performance and motor function, To increase tolerance to activity/condition/position, To improve ability of physical actions for home/community/work/leisure and To improve gait and locomotor functions Comment: psoitional treatments and exercises For the Purpose of:: To decrease level of supervision to perform tasks, To improve ability of physical actions for home/community/work/leisure, To improve gait and locomotor functions and To improve balance Text: Thank you for the opportunity to evaluate your patient. For Medicare and Medicare HMO plans, please review the plan of care and approve it. It will need to be FAXED BACK to us at [phone] for Medicare purposes. For Medicare only, by signing this I certify the plan of care. Please let me know if there are questions or concerns regarding this plan of care. Physician Signature: Date:
--- NOTE | 2023-06-04 15:06 | HP.PTDCSUM_ITS ---
Discharge Summary D/C summary: It has been my pleasure to treat ANILA ROBLEDO referred by Dr. Petr Yi MD, with the diagnosis of labyrynthitis for a total of 2 visit(s). Discharge Date: 06/04/23 Please see the following information for a summary of their discharge status. Subjective Subjective: Has not really had any dizzyness since last night. Feels better overall. Overall Improvement % Improvement: 95 Objective Objective/Function: FGA is better B hallpike phil - and roll tests - bending to touch floor and recovering without symptoms or problems. Goals Goal 1:: Pt feel dizzyness abolished with lying in bed and looking up Goal Progress: Goal Met Goal 2:: FGA score of 27/30 and good head movement with walking balance Goal Progress: Goal Met Goal 3:: Pt feel 100% back to normal activity and safe to travel to [facility] Goal Progress: Progressing Plan Plan: d/c D/C Information Discharge Comments: Pt to [facility] tomorrow with adn without concerns. d/c sentence: If there are questions or concerns regarding this patient's physical therapy, please feel free to call me at [phone]. Thank you for the referral of this patient. Sincerely, Asif Clifton, DPT, OCS, CSCS Balance/Gait/Functional tests Balance/Special Test Scores Functional Gait Assessment Score: 28 % Disability: 6.6700 Dizziness Score: 8 Improvement % Improvement: 95
== END 2023-06-04 19:00 | disposition home or self-care (01) ==
LOC: PT 15:00
PROVIDERS: PCP Family Medicine; Referring Provider Family Medicine; Visit Provider Family Medicine
DX: H83.09 Labyrinthitis, unspecified ear (principal)
CPT/HCPCS: 97161; 97530

== ENCOUNTER → 2023-07-10 | Outpatient (CLI) | payer MEDICARE, OTHER, SELFPAY ==
[2020-07-28 07:22] VITALS: BMI 36.3
[2023-07-10 17:39] LABS: Absolute Lymphocyte Count 1.93 X10^3/uL (0.83-4.51); Absolute Neutrophil Count 4.6 X10^3/uL (2.0-7.7); Basophil# 0.03 X10^3/uL; Basophil% 0.4 % (0-1); Eosinophil# 0.13 X10^3/uL; Eosinophils% 1.7 % (0-5); Hemoglobin 15.1 g/dL (13.0-16.5); Lymphocyte # 1.93 X10^3/ul (0.83-4.51); Lymphocyte % 25.5 % (19-41); Mean Corp Hgb Conc 33.6 g/dL (32-36); Mean Corpuscular Hgb 30.3 pg (27.0-32.0); Mean Corpuscular Volume 90.2 fL (80-94); Mean Platelet Vol. 10.5 fl (6.2-12.0); Monocyte% 10.6 % (0-10); NRBC Flagged by Analyzer 0 % (0-5); Neutrophil # 4.64 X10^3/uL (2.7-7.7); Neutrophil % 61.3 % (47-70); Platelet Count 222 K/mm3 (150-450); RBC Distribution Width CV 14.1 % (11.6-14.6); RBC Distribution Width SD 46.4 fl (35.1-43.9); Red Blood Count 4.99 M/mm3 (4.6-6.2); White Blood Count 7.6 K/mm3 (4.4-11.0)
[2023-07-10 17:54] LABS: Vitamin B12 347 pg/mL (211-911)
[2023-07-10 18:24] LABS: ALB/GLOB Ratio 0.9 RATIO (0.9-2.4); AST(SGOT) 26 U/L (15-37); Alanine Aminotransfer ALT/SGPT 40 U/L (16-61); Albumin, Serum 3.6 g/dL (3.2-5.0); Alkaline Phosphatase 65 U/L (45-117); Anion Gap 7 (5-15); BUN 23 mg/dL (7-18); BUN/Creat Ratio 16.9 RATIO (10-20); Calcium,Total 9.5 mg/dL (8.5-10.1); Chloride 104 mmol/L (98-107); Creatinine, Serum 1.36 mg/dL (0.70-1.30); EST Glomerular Filtration Rate 54 mL/min (>60); Est Glom Filt Rate - Afr Amer 65 mL/min (>60); Globulin 3.8 g/dL (2.2-4.2); Glucose 199 mg/dL (74-106); Potassium 3.6 mmol/L (3.5-5.1); Protein, Total 7.4 g/dL (6.4-8.2); Sodium Level 136 mmol/L (136-145); Thyroid Stim Hormone (TSH) 1.58 uIU/mL (0.358-3.74)
== END | disposition home or self-care (01) ==
LOC: MFPLAB 15:32
PROVIDERS: PCP Family Medicine; Visit Provider Family Medicine
DX: F07.81 Postconcussional syndrome (principal); I10 Essential (primary) hypertension
CPT/HCPCS: 36415; 80053; 82607; 84443; 85025

== ENCOUNTER → 2023-07-15 | Outpatient (CLI) | payer MEDICARE, OTHER, SELFPAY ==
[2020-07-28 07:22] VITALS: BMI 36.3
--- NOTE | 2023-07-15 06:37 | CT_ITS ---
STUDY: CT BRAIN WITHOUT CONTRAST REASON FOR EXAM: Male, 77 years old. Post concussion syndrome RADIATION DOSAGE (If Supplied By Facility): CTDIvol = ( 44.99 ) mGy, DLP = ( 829.85 ) mGycm TECHNIQUE: Transaxial CT imaging of the brain was performed without administration of intravenous contrast material. Individualized dose optimization techniques were used for this CT. COMPARISON: No relevant priors. FINDINGS: Normal soft tissue structures. Normal calvarium. There is mild cerebral atrophy with widening of the extra-axial spaces and ventricular dilatation. There are areas of decreased attenuation within the white matter tracts of the supratentorial brain, consistent with microvascular disease changes. There are small punctate calcifications of the basal ganglia which are seen in the aging brain as a normal variant. Normal brainstem. Normal cerebellum. There is no intracranial hemorrhage. There are no findings of an acute ischemic infarction. Normal visualized paranasal sinuses. CT/Brain/Head without Contrast IMPRESSION: Chronic involutional changes of the brain. Electronically Signed: Lance Jaramillo MD at 15:24 EDT ,
== END | disposition home or self-care (01) ==
LOC: CT 06:36
PROVIDERS: PCP Family Medicine; Referring Provider Family Medicine; Visit Provider Family Medicine
DX: F07.81 Postconcussional syndrome (principal)
CPT/HCPCS: 70450

== ENCOUNTER 2023-08-13 14:30 | Outpatient (RCR) | payer MEDICARE, OTHER, SELFPAY ==
[2020-07-28 07:22] VITALS: BMI 36.3
--- NOTE | 2023-08-06 14:34 | HP.PTEVAL ---
Patient's Visit Information Visit Information Visit Information: ANILA ROBLEDO is a 77 year old M referred to Physical Therapy by Dr. Puma Yi MD with a diagnosis of labryinthitis. Date of Evaluation: 08/06/23 Physical Therapist: Asif Clifton, DPT, OCS, CSCS Visit Plan Frequency: 1-2x /Week Duration: 4-6 Weeks Plan: weekly as helpful x 4-6 for... 1. trial of progressing head turn [place] zoë exercises (today given 10-15x head turns seated 6x/day) Subjective Subjective: Dizzy a couple months ago. Treated BPPV and better but not gone. head feels fuzzy since. Only one episode of dizzyness in parking lot that cleared up quickly. Threw up that day 3 weeks ago. Had catscan which was normal. no heart tests, bloodwork was OK. Is here now for fuzzyness in head whcih is constant and worse with sun shiny. No spinning in a couple months. Worse if he bends over for short duration. Not happening with lying down. Sleep is Ok and normal but never sleeps well. Works at [employer]. But cannot golf. No regular exercises for this. Objective Objective: walks I into and out of PT easily. cervical AROM is fair and symmetricala dn asymptomatic. UE AROM WFL - B hakllpike phil - roll test Oculomotor: no nystagmus with gaze or head shake - ocular tilt - skew eye deviation normal pursuit and saccades and VOR without symptoms H and V MSQ is normal except for head turns which give 7/10 nausea and increased fuzzyness. Takes 60 sec or so to recover. Balance/Special Test Scores Functional Gait Assessment Score: 28 % Disability: 6.6700 Dizziness Score: 20 Goals Goal 1:: pat feel fuzzyness is 75% better and intermittent Goal Time Frame: 4-6 Weeks Goal 2:: Pt can consider golfing agian without limitations Goal Time Frame: 4-6 Weeks Rehabilitation Potential Physical Therapy Diagnosis: fuzzyness limiting comfortable funciton. Rehabilitation Potential: Questionable Anticipated Interventions Patient/Client Instruction: Educate patient on: Condition and Risk Factors For the Purpose of:: To increase tolerance to activity/condition/position Comment: vestibular ex as helpful return to [facility] For the Purpose of:: To increase tolerance to activity/condition/position Text: Thank you for the opportunity to evaluate your patient. For Medicare and Medicare HMO plans, please review the plan of care and approve it. It will need to be FAXED BACK to us at [phone] for Medicare purposes. For Medicare only, by signing this I certify the plan of care. Please let me know if there are questions or concerns regarding this plan of care. Physician Signature: Date:
--- NOTE | 2023-08-13 14:31 | HP.PTDCSUM ---
Discharge Summary D/C summary: It has been my pleasure to treat ANILA ROBLEDO referred by Dr. Puma Yi MD, with the diagnosis of labryinthitis for a total of 2 visit(s). Discharge Date: 08/13/23 Please see the following information for a summary of their discharge status. Subjective Subjective: Doing exercises 4-6x/day and when and they do not make him dizzier. He feels good overall. Head still seems different. Slightly better than last week. Objective Objective/Function: No dizzyness created with MSQ or heaad turns today which is defintely better than last week but is not helping the general groggy feeling which is only [id number] improved over last week. - B hallpike diz - roll test. Goals Goal 1:: pat feel fuzzyness is 75% better and intermittent Goal Progress: Progressing Goal 2:: Pt can consider golfing agian without limitations Goal Progress: tried swinging and is OK Plan Plan: d/c, pt to doctor if conditions do not continue to improve, I am not seeing a vestibular componenet to this currently D/C Information d/c sentence: If there are questions or concerns regarding this patient's physical therapy, please feel free to call me at [phone]. Thank you for the referral of this patient. Sincerely, Asif Clifton, DPT, OCS, CSCS Balance/Gait/Functional tests Balance/Special Test Scores Functional Gait Assessment Score: 28 % Disability: 6.6700 Dizziness Score: 12
== END 2023-08-13 19:00 | disposition home or self-care (01) ==
LOC: PT 14:30
PROVIDERS: PCP Family Medicine; Referring Provider Family Medicine; Visit Provider Family Medicine
DX: H83.09 Labyrinthitis, unspecified ear (principal)
CPT/HCPCS: 97161; 97530

== ENCOUNTER → 2023-08-28 | Outpatient (CLI) | payer MEDICARE, OTHER, SELFPAY ==
[2020-07-28 07:22] VITALS: BMI 36.3
--- NOTE | 2023-08-28 12:39 | ECHOCS_ITS ---
Reason For Study: Prosthetic Heart Valve Procedure This was a 2D Doppler, Color Flow transthoracic echocardiogram. The study was technically difficult. Contrast injection was performed. Exam performed in department. Left Ventricle Normal LV size. Left ventricular systolic function is normal. The left ventricular ejection fraction is 65 %. Stage 1 diastolic dysfunction. No regional wall motion abnormalities noted. Right Ventricle Normal RV size. Normal systolic function. Atria Normal left atrium. Normal right atrium. Mitral Valve Normal mitral valve. Tricuspid Valve Normal tricuspid valve. Aortic Valve Peak aortic valve gradient 26 mmHg. Mean aortic valve gradient 14 mmHg. Bioprosthetic aortic valve. Pulmonic Valve Normal pulmonic valve. Great Vessels Normal aortic root. The pulmonary artery is normal size. Normal inferior vena cava. Pericardium/Pleural No pericardial effusion. Medication 22 gauge I.V. with prn adaptor inserted into right arm. Diluted definity 3ml given slow IV push to enhance endocardial definition. MMode/2D Measurements & Calculations LVIDd: 4.8 cm IVSd: 1.1 cm LVOT diam: 2.0 cm LVIDs: 3.1 cm LVPWd: 1.1 cm FS: 34.3 % LVOT area: 3.3 cm2 Ao root diam: 3.7 cm LAV(MOD-bp): 59.0 ml LVAd ap4: 33.1 cm2 LA dimension: 5.4 cm LAV(MOD-bp) Indexed: 25.6 ml/m2 LVLd ap4: 8.1 cm LAV(MOD-sp2): 50.6 ml EDV(MOD-sp4): 107.8 ml LAV(MOD-sp4): 64.1 ml EDV(sp4-el): 115.0 ml LVAs ap4: 18.3 cm2 LVLs ap4: 6.6 cm ESV(MOD-sp4): 42.2 ml ESV(sp4-el): 43.1 ml EF(MOD-sp4): 60.9 % EF(sp4-el): 62.5 % SV(MOD-sp4): 65.6 ml SV(sp4-el): 71.9 ml LA A4 area: 21.8 cm2 RA A4 area: 15.8 cm2 Time Measurements MV dec time: 0.38 sec Doppler Measurements & Calculations MV E max ld: 51.1 cm/sec Lat Peak E' Ld: 5.7 cm/sec Med Peak E' Ld: 4.4 cm/sec MV A max ld: 91.9 cm/sec E/E' lat: 8.9 E/E' med: 11.7 MV E/A: 0.56 MV V2 max: 113.8 cm/sec MV P1/2t max ld: 60.7 cm/sec Ao V2 max: 255.7 cm/sec MV max P.2 mmHg MV P1/2t: 133.1 msec Ao max P.2 mmHg MV V2 mean: 50.0 cm/sec MV dec slope: 133.6 cm/sec2 Ao V2 mean: 173.7 cm/sec MV mean P.2 mmHg MVA(P1/2t): 1.7 cm2 Ao mean P.0 mmHg MV V2 VTI: 24.8 cm Ao V2 VTI: 43.2 cm MVA(VTI): 3.2 cm2 AV (velocity ratio): 0.56 SHERWIN(I,D): 1.8 cm2 SHERWIN(V,D): 1.6 cm2 LV V1 max: 128.7 cm/sec SV(LVOT): 78.8 ml PA V2 max: 97.5 cm/sec LV V1 max P.6 mmHg PA max PG (full): 1.2 mmHg LV V1 mean P.3 mmHg PA V2 mean: 65.4 cm/sec LV V1 mean: 98.4 cm/sec PA mean PG (full): 0.78 mmHg LV V1 VTI: 24.1 cm ECHO/Echo Complete W/ Contrast Interpretation Summary Normal LV size. Left ventricular systolic function is normal. The left ventricular ejection fraction is 65 %. Stage 1 diastolic dysfunction. Bioprosthetic aortic valve. Mean aortic valve gradient 14 mmHg. Compared to the previous the gradients are very similar. Contrast injection was performed. Ordering Physician: Alo Salgado Referring Physician: Alo Salgado Performed By: Enrique Johnson RCS
== END | disposition home or self-care (01) ==
LOC: CVS 12:39
PROVIDERS: PCP Family Medicine; Referring Provider Internal Medicine Cardiovascular Disease; Visit Provider Internal Medicine Cardiovascular Disease
DX: Z95.2 Presence of prosthetic heart valve (principal)
CPT/HCPCS: 93306; Q9957; A4216; C8929

== ENCOUNTER → 2023-10-16 | Outpatient (CLI) | payer MEDICARE, OTHER, SELFPAY ==
[2020-07-28 07:22] VITALS: BMI 36.3
[2023-10-16 16:44] LABS: PSA,Total - Annual Screen 0.87 ng/mL (0.00-4.00)
== END | disposition home or self-care (01) ==
LOC: LAB 15:52
PROVIDERS: PCP Family Medicine; Referring Provider Nurse Practitioner; Visit Provider Nurse Practitioner
DX: Z12.5 Encounter for screening for malignant neoplasm of prostate (principal)
CPT/HCPCS: 36415; 84153; G0103

== ENCOUNTER 2023-11-18 10:00 | Outpatient (CLI) | payer MEDICARE, OTHER, SELFPAY ==
[2020-07-28 07:22] VITALS: BMI 36.3
--- NOTE | 2023-11-20 07:57 | EKG12_ITS ---
Test Reason : PREOP Blood Pressure : / mmHG Vent. Rate : 083 BPM Atrial Rate : 083 BPM P-R Int : 166 ms QRS Dur : 088 ms QT Int : 360 ms P-R-T Axes : 042 -49 012 degrees QTc Int : 423 ms Normal sinus rhythm Left axis deviation Abnormal ECG Confirmed by ELIZABETH FLEMING, SUZAN ([id number]), technical writer and editor AVEL MEZA ([id number]) on 11/25/2023 2:08:40 PM Referred By: Melvin Nation Confirmed By:SUZAN JOHNSON MD
[2023-11-20 08:36] LABS: Hematocrit 43.2 % (40-54); Hemoglobin 14.5 g/dL (13.0-16.5); Mean Corp Hgb Conc 33.6 g/dL (32-36); Mean Corpuscular Hgb 30.4 pg (27.0-32.0); Mean Corpuscular Volume 90.6 fL (80-94); Platelet Count 216 K/mm3 (150-450); RBC Distribution Width CV 13.7 % (11.6-14.6); RBC Distribution Width SD 45.4 fl (35.1-43.9); Red Blood Count 4.77 M/mm3 (4.6-6.2); White Blood Count 8.7 K/mm3 (4.4-11.0)
[2023-11-20 09:30] LABS: Hemoglobin A1c 6.8 % (3.8-5.6)
[2023-11-20 09:47] LABS: Anion Gap 5 (5-15); BUN 22 mg/dL (7-18); Calcium,Total 9.7 mg/dL (8.5-10.1); Chloride 109 mmol/L (98-107); Creatinine, Serum 1.22 mg/dL (0.70-1.30); EST Glomerular Filtration Rate 61 mL/min (>60); Est Glom Filt Rate - Afr Amer 74 mL/min (>60); Glucose 162 mg/dL (74-106); Potassium 3.9 mmol/L (3.5-5.1); Sodium Level 138 mmol/L (136-145)
== END 2023-11-18 23:00 | disposition home or self-care (01) ==
LOC: SDC 05-12 21:43
PROVIDERS: Anesthesiology; PCP Family Medicine; Referring Provider Urology; Visit Provider Urology
DX: Z01.818 Encounter for other preprocedural examination (principal)
CPT/HCPCS: 36415; 80048; 83036; 85027; 93005

== ENCOUNTER 2024-01-07 06:56 | Day surgery (SDC) | payer MEDICARE, OTHER, SELFPAY ==
[2023-12-24 10:32] VITALS: BMI 36.3
[2024-01-07] VITALS (7 sets, daily range): BP systolic 85–126; BP diastolic 61–80; PULSE 64–76; RESP 16–18; TEMP 36.2–36.3; O2SAT 92–94; BMI 33.2
--- OUTSIDE RECORDS SUMMARY | 2024-01-07 07:01 | XMS RPT_ITS | CCD ---
Author Organization [facility] Care Team Providers Care Dampproofer Name Role Phone Afshin Yi Primary Care Provider PROVIDER, UNKNOWN Referring Unavailable Rangarret, Christopher Primary Care Unavailable PORTILLO HOWARD Attending Unavailable PROVIDER, UNKNOWN Referring Unavailable [place], Christopher Primary Care Unavailable PORTILLO HOWARD Attending Unavailable [place], Christopher Primary Care Unavailable Jori Reilly Attending Unavailable PROVIDER, UNKNOWN Referring Unavailable PROVIDER, UNKNOWN Referring Unavailable DeSrinivas kingsley Attending Unavailable [facility]d, [facility] [place] Unavailable Kd, Menger B Primary Care Provider Meng Yier B Primary Care Provider Meng Yier B Primary Care Provider AFSHIN YI Referring Unavailable RANNEY, CHRISTOPHER Primary Care Unavailable DESRINIVAS KINGSLEY Attending Unavailable JORI REILLY Attending Unavailable RANNEY, CHRISTOPHER Primary Care Unavailable JORI REILLY Admitting Unavailable RANNEY, CHRISTOPHER Primary Care Unavailable DESRINIVAS KINGSLEY Attending Unavailable SRINIVAS COLEMAN Referring Unavailable RANNEY, CHRISTOPHER Primary Care Unavailable DESRINIVAS KINGSLEY Attending Unavailable RANNEY, CHRISTOPHER Primary Care Unavailable DEORASRINIVAS Self Attending Unavailable RANHURRICANE MILLS, CHRISTOPHER Primary Care Unavailable JORI REILLY Attending Unavailable RANNEY, CHRISTOPHER Primary Care Unavailable DEORASRINIVAS Self Attending Unavailable RANNEY, CHRISTOPHER Primary Care Unavailable DEORASRINIVAS Self Attending Unavailable RANNEY, CHRISTOPHER Primary Care Unavailable RYLAND PICKETT Attending Unavailable RANNEY, CHRISTOPHER Primary Care Unavailable JORI REILYL Attending Unavailable JORI REILLY Attending Unavailable RANNEY, CHRISTOPHER Primary Care Unavailable JORI REILLY Attending Unavailable JORI REILLY Referring Unavailable RANNEY, CHRISTOPHER Primary Care Unavailable Allergies Allergy Classification Reported Allergen(s) Allergy Type Date of Onset Reaction(s) Facility (7 sources) Nitroglycerin Drug Allergy 7 Other (See Comments) [place], [place] (7 sources) Penicillins Propensity to adverse reactions to drug 7 Swelling [place], [place] (20 sources) Nitroglycerin Propensity to adverse reactions 7 Anaphylaxis, Other [facility] (20 sources) Penicillins Drug Intolerance 7 Hives, Swelling, Dermatitis [facility] Work Phone: Medications Current Medications Medication Drug Class(es) Dates Sig (Normalized) Sig (Original) acetaminophen 325 mg oral tablet (5 sources) Start: 10-10-2022 End: 10-20-2022 take 2 tablets by mouth every six hours as needed for pain acetaminophen (Tylenol) 325 MG tablet Take 2 tablets (650 mg) by mouth every 6 hours as needed for mild pain (1-3) for up to 10 days. 30 tablet 0 10/10/2022 10/20/2022 Active Start: 10-10-2022 End: 10-10-2022 acetaminophen (Tylenol) tabl et 1,000 mg Start: 04-10-2020 take 650 mg by mouth every four hours as needed for pain, then take 4000 mg by mouth every twenty-four hours as needed for pain 650 mg, Oral, EVERY 4 HOURS PRN, Pain Mild (1-3), Fever, Fever >100.5 F (38 C), Starting Fri04/10/20 at 0905 Maximum dose of acetaminophen is 4000 mg from all sources in 24 hours. Post-op alginic acid 200 mg / calcium carbonate 80 mg / magnesium trisilicate 20 mg / sodium bicarbonate 70 mg oral tablet (1 source) Start: 04-10-2020 calcium carbon ate (TUMS) chewable tablet 1,000 mg aspirin 81 mg delayed release oral tablet (20 sources) Platelet Aggregation Inhibitor, Nonsteroidal Anti-inflammatory Drug Start: 04-11-2020 take 81 mg by mouth once daily 81 mg, Oral, DAILY, First dose on Fri04/11/20 at 0900 Do not crush or break. atorvastatin 80 mg oral tablet (20 sources) HMG-CoA Reductase Inhibitor Start: 02-05-2022 take 1 tablet by mouth once daily atorvastatin (Lipitor) 80 MG tablet Take 80 mg by mouth Nightly. 02/05/2022 Active Start: 09-01-2016 atorvastatin ( LIPITOR) 80 MG tablet at bedtime 0 09/01/2016 Active bisacodyl 5 mg delayed release oral tablet (1 source) Stimulant Laxative Start: 04-10-2020 take 5 mg by mouth once daily as needed for constipation 5 mg, Oral, DAILY PRN, Constipation, Starting Fri04/10/20 at 0905 First line therapy for constipation. Post-op clindamycin 150 mg oral capsule (20 sources) Lincosamide Antibacterial Start: 05-24-2022 clindamycin (Cleocin) 150 MG capsule 05/24/2022 Active clopidogrel 75 mg oral tablet (5 sources) P2Y12 Platelet Inhibitor Start: 04-11-2020 End: 04-11-2020 take 1 tablet by mouth once daily clopidogrel (PLAVIX) 75 MG tablet Take 1 tablet by mouth daily 90 tablet 0 04/11/2020 Active Start: 04-10-2020 take 300 mg by mouth once 300 mg, Oral, ONCE, Fri04/10/20 at 0930, For 1 dose, Post-op doxycycline monohydrate 100 mg oral capsule (1 source) Tetracycline-class Drug Start: 10-10-2022 End: 10-15-2022 doxycycline (Monodox) 100 MG capsule Take 1 capsule (100 mg) by mouth 2 times daily for 5 days. Take with at least 8 ounces (large glass) of water, do not lie down for 30 minutes after 10 capsule 0 10/10/2022 10/15/2022 Active 0.5 ml dulaglutide 1.5 mg/ml auto-injector (8 sources) GLP-1 Receptor Agonist Start: 02-01-2020 TRULICI TY 0.75 MG/0.5ML SOPN Inject 1 increment into the skin once a week 0 02/01/2020 Active Dulaglutide (FREDDY LICITY SC) Inject into the skin once a week On saturdays 0 Active empagliflozin 25 mg oral tablet (20 sources) Sodium-Glucose Cotransporter 2 Inhibitor Start: 03-09-2022 Jardiance 25 MG 1 (one) time each day. 03/09/2022 Active Start: 02-15-2020 take 1 tablet by love th once daily JARDIANCE 25 MG tablet Take 1 tablet by mouth daily 0 02/15/2020 Active ezetimibe 10 mg oral tablet (20 sources) Dietary Cholesterol Absorption Inhibitor Start: 02-05-2022 take 1 tablet by mouth once daily ezetimibe (Zetia) 10 MG tablet Take 10 mg by mouth Nightly. 02/05/2022 Active take 1 tablet by mouth at bedtim e ezetimibe (ZETIA) 10 MG tablet Take 10 mg by mouth at bedtime 0 Active finasteride 5 mg oral tablet (20 sources) 5-alpha Reductase Inhibitor Start: 02-10-2022 take 1 tablet by mouth once daily finasteride (Proscar) 5 MG tablet Take 5 mg by mouth daily. 02/10/2022 Active Start: 08-24-2016 finasteride (P ROSCAR) 5 MG tablet at bedtime 0 08/24/2016 Active hydroCHLOROthiazide 25 mg oral tablet (20 sources) Thiazide Diuretic Start: 02-10-2022 take 1 tablet by mouth once daily hydroCHLOROthiazide (HYDRODiuril) 25 MG tablet Take 25 mg by mouth daily. 02/10/2022 Active Start: 09-01-2016 hydrochlorothi azide (HYDRODIURIL) 25 MG tablet linagliptin 5 mg oral tablet (20 sources) Dipeptidyl Peptidase 4 Inhibitor Start: 04-10-2020 take 5 mg by mouth once daily 5 mg, Oral, DAILY, First dose on Fri04/10/20 at 0930 meclizine hydrochloride 25 mg oral tablet (20 sources) Antiemetic Start: 06-26-2022 take 1 tablet by mouth three times daily as needed meclizine (Antivert) 25 MG tablet Take 25 mg by mouth 3 times daily as needed. 06/26/2022 Active 24 hr metFORMIN hydrochloride 750 mg extended release oral tablet (20 sources) Biguanide Start: 02-05-2022 metFORMIN XR (Glucophage-XR) 750 MG 24 hr tablet 02/05/2022 Active Start: 01-12-2020 End: 04-11-2020 take 1 tablet by mouth once daily metFORMIN (GLUCOPHAGE-XR) 750 MG extended release tablet Take 1 tablet by mouth daily Resume 04/13/2020 30 tablet 3 04/11/2020 Active pantoprazole 40 mg delayed release oral tablet (1 source) Proton Pump Inhibitor Start: 04-10-2020 take 40 mg by mouth once daily 40 mg, Oral, DAILY, First dose on Fri04/10/20 at 0930 Do not crush or break. Post-op perflutren lipid microspheres (DEFINITY) injection 1.65 mg (1 source) Start: 04-10-2020 End: 04-13-2020 1.65 mg (1.5 mL), Intravenous, IMG ONCE PRN, Other, Suboptimal Echo Image, Starting Fri04/10/20 at 0905, For 72 hours Administer up to 1.65 mg via slow IVP for suboptimal echocardiogram enhancement.&nbs p;May administer as concentrated dose or diluted in 8.5 mL of 0.9% sodium chloride for a total volume of 10 mL. May administer as divided doses to reach optimal image enhancement. ramipril 10 mg oral capsule (20 sources) Angiotensin Converting Enzyme Inhibitor Start: 02-05-2022 take 1 capsule by mouth in the morning ramipril (Altace) 10 MG capsule Take 10 mg by mouth in the morning and 10 mg in the evening. 02/05/2022 Active Start: 04-10-2020 take 10 mg by mouth once daily 10 mg, Oral, DAILY, First dose on Fri04/10/20 at 0930 Hold for SBP less than 120 on procedure day 04/10/2020 Start: 02-28-2020 take 1 capsule by mo uth twice daily ramipril (ALTACE) 10 MG capsule Take 1 capsule by mouth 2 times daily 0 02/28/2020 Active Start: 02-28-2020 take 1 capsule by mo uth once daily ramipril (ALTACE) 10 MG capsule Take 1 capsule by mouth daily 0 02/28/2020 Active rOPINIRole 0.25 mg oral tablet (8 sources) Nonergot Dopamine Agonist Start: 04-10-2020 take 0.5 mg by mouth once daily 0.5 mg, Oral, NIGHTLY, First dose on Fri04/10/20 at 2100 Start: 02-15-2020 take 1 tablet by love th once daily rOPINIRole (REQUIP) 0.5 MG tablet Take 1 tablet by mouth nightly 0 02/15/2020 Active Saw [place] 450 MG CAPS (2 sources) take 2 capsules by mouth once daily Saw [place] 450 MG CAPS Take 2 capsules by mouth daily 0 Active saw palmetto extract 450 mg oral capsule (5 sources) take 2 capsules by mouth once daily [place] 450 MG CAPS Take 2 capsules by mouth daily 0 Active tamsulosin hydrochloride 0.4 mg oral capsule (20 sources) alpha-Adrenergic Flaco Start: tamsulosin (Flomax) 0.4 MG 24 hr capsule 12/31/2021 Active Start: 09-02-2016 tamsulosin (FL OMAX) 0.4 MG capsule at bedtime 0 09/02/2016 Active traMADol hydrochloride 50 mg oral tablet (1 source) Opioid Agonist Start: 10-10-2022 End: 10-15-2022 take 1 tablet by mouth every six hours as needed for pain traMADol (Ultram) 50 MG tablet Indications: Postoperative pain Take 1 tablet (50 mg) by mouth every 6 hours as needed for severe pain (7-10) for up to 5 days. 20 tablet 0 10/10/2022 10/15/2022 Active Trulicity 3 MG/0.5ML solution pen-injector (20 sources) Start: 02-05-2022 Trulicity 3 MG /0.5ML solution pen-injector 1 (one) time per week. 02/05/2022 Active Start: 02-05-2022 Trulicity 3 MG /0.5ML solution pen-injector 1 (one) time per week. 0 02/05/2022 Active vitamin b6 100 mg oral tablet (20 sources) take 1 tablet by love th once daily pyridoxine (B-6) 100 MG tablet Take 100 mg by mouth daily. Active Completed/Discontinued Medications Medication Drug Class(es) Dates Sig (Normalized) Sig (Original) ALPRAZolam 0.25 mg disintegrating oral tablet (1 source) Benzodiazepine Start: 10-10-2022 End: 10-10-2022 ALPRAZolam (Xanax) disintegrating tablet 0.25 mg calcium chloride 0.0014 meq/ml / potassium chloride 0.004 meq/ml / sodium chloride 0.103 meq/ml / sodium lactate 0.028 meq/ml injectable solution (1 source) Start: 10-10-2022 End: 10-10-2022 lactated Ringer's (LR) infusion cholecalciferol 9.52 unt/ml / glucose 357 mg/ml oral gel (1 source) Vitamin D Start: 10-10-2022 End: 10-10-2022 glucose oral gel 15 g famotidine 20 mg oral tablet (1 source) Histamine-2 Receptor Antagonist Start: 10-10-2022 End: 10-10-2022 famotidine (Pepcid) tablet 20 mg Start: 10-10-2022 End: 10-10-2022 famotidine (Pepcid) tablet 2 0 mg glucagon (rdna) 1 mg injection (2 sources) Antihypoglycemic Agent Start: 10-10-2022 End: 10-10-2022 glucagon (human recombinant) injection 1 mg Start: 04-10-2020 glucagon (rDNA ) injection 1 mg 150 ml glucose 50 mg/ml inje ction (5 sources) Start: 10-10-2022 End: 10-10-2022 dextrose 50 % solution 12.5 g Start: 10-10-2022 End: 10-10-2022 dextrose 5 % infusion Start: 04-10-2020 glucose (GLUTO SE) 40 % oral gel 15 g Start: 04-10-2020 dextrose 50 % IV solution Start: 04-10-2020 dextrose 5 % s olution insulin lispro 100 unt/ml injectable solution (3 sources) Insulin Analog Start: 10-10-2022 End: 10-10-2022 Insulin Lispro (Humalog) injection 0-12 Units Start: 04-10-2020 insulin lispro (HUMALOG) injection vial 0-6 Units perflutren lipid microsphere s (DEFINITY) injection 0.32 mg (1 source) Start: 05-10-2020 End: 05-10-2020 perflutren lipid microsphere s (DEFINITY) injection 0.32 mg 5 ml sodium chloride 9 mg/ml injection (8 sources) Start: 10-10-2022 End: 10-10-2022 sodium chloride 0.9 % infusi on Start: 10-10-2022 End: 10-10-2022 sodium chloride 0.9% (NS) fl ush 10 mL Start: 04-10-2020 End: 04-13-2020 take 10 mL intravenous route once as needed 10 mL, Intravenous, PRN, Line Care, Per Biomedical Equipment Tech Request, Starting Fri04/10/20 at 0905, For 72 hours May use order for Line Care after every IV line use and Agitated Saline Bubble Study. Administration for Bubble Study per remote sensing technologist request for only. Remove 1 mL 0.9% sodium chloride from 10 mL syringe for creating agitated saline. Start: 04-10-2020 End: 04-10-2020 0.9 % sodium chloride infusi on vancomycin (VANCOCIN) 1,500 mg in dextrose 5 % 250 mL IVPB (1 source) Start: 04-10-2020 End: 04-10-2020 vancomycin (VANCOCIN) 1,500 mg in dextrose 5 % 250 mL IVPB Problems Active Problems Problem Classification Problem Date Documented Date Episodic/Chronic Aortic; peripheral; and visceral artery aneurysms (2 sources) Aortic ectasia, unspecified site; Translations: [Aortic ectasia, unspecified site] Onset: 05-10-2021 Chronic Diabetes mellitus without complication (2 sources) Type 2 diabetes mellitus without complications; Translations: [Type 2 diabetes mellitus without complications (HCC)] Onset: 10-04-2022 Chronic Disorders of lipid metabolism (20 sources) Hyperlipidemia; Translations: [Other hyperlipidemia] Onset: 05-10-2020 05-10-2020 Chronic Essential hypertension (20 sources) Hypertensive disorder; Translations: [Essential (primary) hypertension] Onset: 05-10-2020 05-10-2020 Chronic Heart valve disorders (20 sources) Aortic stenosis, non-rheumatic ; Translations: [Nonrheumatic aortic (valve) stenosis] Onset: 03-20-2020 03-20-2020 Chronic Other and ill-defined heart disease (2 sources) Cardiomegaly; Translations: [Cardiomegaly] Onset: 05-10-2021 Chronic Other injuries and conditions due to external causes (2 sources) Neurapraxia; Translations: [Other injury of unspecified body region, initial encounter] Episodic Other lower respiratory disease (1 source) Dyspnea on exertion; Translations: [Dyspnea on exertion] Episodic Other nervous system disorders (1 source) Postoperative pain ; Translations: [Other acute postprocedural pain] 10-10-2022 Episodic Residual codes; unclassified (4 sources) Obstructive sleep apnea (adult) (pediatric); Translations: [Obstructive sleep apnea (adult) (pediatric)] Onset: 08-15-2021 Chronic Residual codes; unclassified (20 sources) Obstructive sleep apnea syndrome; Translations: [Obstructive sleep apnea (adult) (pediatric)] Onset: 10-04-2022 Chronic Residual codes; unclassified (3 sources) Insomnia; Translations: [Insomnia, unspecified] Episodic Past or Other Problems Problem Classification Problem Date Documented Date Episodic/Chronic Complication of device; implant or graft (5 sources) Mechanical complication of nervous system device; Translations: [Breakdown (mechanical) of implanted electronic neurostimulator, generator, initial encounter] Onset: 09-02-2022 08-28-2022 Episodic Other nervous system disorders (2 sources) Other acute postprocedural pain; Translations: [Other acute postprocedural pain] Onset: 10-10-2022 Episodic Results Test Name Value Interpretation Reference Range Facility Progress Noteon 07-11-2023 Progress Note Assessment and Recommendations: Matthias Hoffmann is a 77 y.o. male here for obstructive sleep apnea and awake endoscopy -Patient tolerated the procedure well without issue was reconfigured started on lower voltage settings to help with tolerance as well as delayed activation when he goes to sleep. He will follow-up with Dr. Coleman and we will confirm our findings with the inspire team all of his question concerns were answered he expressed understanding Otolaryngology Head and Neck Surgery Clinic Note HPI: Matthias Hoffmann is a 77 y.o. yo male who presents to clinic today for evaluation of addiction obstructive sleep apnea. Patient is known to Dr. Coleman has been going through titration studies and recently was found to have still severe sleep apnea with multiple obstructive hypopneic and central apneic events and is here for further evaluation and interrogation into the inspire device PMH: Past Medical History: Diagnosis Date Aortic stenosis, severe Arthritis Diabetes mellitus (HCC) Hyperlipidemia Hypertension Sleep apnea, obstructive does not tolerate cpap Allergies: Allergies Allergen Reactions Nitroglycerin Other BP dropped with administration Made blood pressure drop Penicillins Hives, Swelling and Dermatitis Has not had since childhood, unsure of rxn Medications: Current Outpatient Medications: aspirin 81 MG EC tablet, Take 81 mg by mouth daily., Disp: , Rfl: atorvastatin (Lipitor) 80 MG tablet, Take 80 mg by mouth Nightly., Disp: , Rfl: clindamycin (Cleocin) 150 MG capsule, , Disp: , Rfl: ezetimibe (Zetia) 10 MG tablet, Take 10 mg by mouth Nightly., Disp: , Rfl: finasteride (Proscar) 5 MG tablet, Take 5 mg by mouth daily., Disp: , Rfl: hydroCHLOROthiazide (HYDRODiuril) 25 MG tablet, Take 25 mg by mouth daily., Disp: , Rfl: Jardiance 25 MG, 1 (one) time each day., Disp: , Rfl: meclizine (Antivert) 25 MG tablet, Take 25 mg by mouth 3 times daily as needed., Disp: , Rfl: metFORMIN XR (Glucophage-XR) 750 MG 24 hr tablet, , Disp: , Rfl: pyridoxine (B-6) 100 MG tablet, Take 100 mg by mouth daily., Disp: , Rfl: ramipril (Altace) 10 MG capsule, Take 10 mg by mouth in the morning and 10 mg in the evening., Disp: , Rfl: tamsulosin (Flomax) 0.4 MG 24 hr capsule, , Disp: , Rfl: Trulicity 3 MG/0.5ML solution pen-injector, 1 (one) time per week., Disp: , Rfl: linaGLIPtin (Tradjenta) 5 MG tablet, Take 5 mg by mouth daily., Disp: , Rfl: PSH: Past Surgical History: Procedure Laterality Date CARDIAC PROCEDURE Left 03/13/2020 Normal Coronaries/Dr. Salgado/Hai CARDIAC SURGERY 04/12/2020 TAVR HERNIA REPAIR KNEE ARTHROPLASTY Bilateral LIPOMA RESECTION chest TONSILLECTOMY (HISTORICAL) FH: Family History Problem Relation Name Age of Onset Breast cancer Mother Heart Surgery Brother Heart attack Father Heart attack Brother SH: Social History Socioeconomic History Marital status: Spouse name: Not on file Number of children: Not on file Years of education: Not on file Highest education level: Not on file Occupational History Not on file Tobacco Use Smoking status: Never Smokeless tobacco: Never Vaping Use Vaping Use: Never used Substance and Sexual Activity Alcohol use: Yes Comment: once month Drug use: No Sexual activity: Not on file Other Topics Concern Not on file Social History Narrative Not on file Social Determinants of Health Financial Resource Strain: Not on file Food Insecurity: Not on file Transportation Needs: Not on file Physical Activity: Not on file Stress: Not on file Social Connections: Not on file Intimate Partner Violence: Not on file Housing Stability: Not on file Physical Exam: Constitutional: General: Patient is not in acute distress. Appearance: Patient is well-developed. Eyes: Conjunctiva/sclera: Conjunctivae normal. Pupils: Pupils are equal, round, and reactive to light. HENT: Jaw: No trismus. Nose: No nasal deformity, mucosal edema or rhinorrhea. Mouth: Mucous membranes are not pale, not dry and not cyanotic. No oral lesions. Pharynx: Uvula midline. No oropharyngeal exudate or uvula swelling. Tonsils: No tonsillar exudate. No abnormal masses or lesions Thyroid: No significant thyromegaly. Trachea: Trachea and phonation normal. No tracheal deviation. Pulmonary: Effort: Pulmonary effort is normal. No respiratory distress. Breath sounds: No stridor. Musculoskeletal: Head: Normocephalic and atraumatic. Neck: Full passive range of motion without pain, neck supple. Skin: General: Skin is warm and dry. Findings: No erythema or rash. Neurological: Cranial Nerves: No cranial nerve deficit. Sensory: No sensory deficit. Coordination: Coordination normal. Extremities: No significant peripheral edema or varicosities Psychiatric: Mood and Affect: Mood and affect normal. (more content not included)... [facility] 36on 05-29-2023 36 Lou, I had advised pt at follow-up yesterday that we would try to resend order. Could you please do so? Thanks [facility] 36 Patient called in stating Abelardo has not received chinstrap order that was done in March (order is in media). I told pt would look into this and provide him an update once that is received. Thank you! [facility] Office Visiton 05-28-2023 Follow-up visit [id number] Matthias Hoffmann 1945 M Date Provider Department Center 05/28/2023 [id number] COLEMAN [facility] None Family History Problem Relation Age of Onset Breast cancer Mother Heart Surgery Brother Heart attack Father Heart attack Brother Family Status - Relation Status Age at Mother Brother Father Level of Service:[id number] IN OFFICE/OUTPATIENT ESTABLISHED MOD MDM 30 MIN Reason for Visit and Comments: Follow-up [075223] - juliann [facility] Progress Noteon 05-28-2023 Progress Note [facility] FOLLOW UP OFFICE VISIT-SLEEP Date of last visit: 03/12/23 Plan at that time: - Performed functional tongue exam. Kept configuration at 0-0, amplitude at 1.0 V, start delay at 20 mins, pause time at 15 mins, and therapy duration at 9 hours. Changed lower range from 0.2 to 0.3 V, and upper range from 1.1 V to 1.3 V. - Discussed possible medication for insomnia. Ideally would first like to ensure JULIANN is fully treated. Will have pt scheduled for fine-tuning PSG. - Will try to order chin strap from [facility] to see if it would help with dry mouth. - F/u after fine-tuning PSG. Interval History: Not sure if he feels any benefit from [facility] at this point. Getting very dry mouth. Never really had snoring to begin with. Doesn't endorse any RLS, and does not report any leg movements she is aware of in sleep. Requip didn't help in the past. Had fine-tuning PSG done. Sleep-Wake Schedule Bedtime: 11 pm. Final wake time: 7 am. Patient does not wake up refreshed. Sleep Latency: within few minutes Awakenings after sleep onset: 3-4 times; sometimes to go to bathroom. Will frequently change positions. Difficult to fall back asleep. Naps: couple days per week for 15 mins Estimated total sleep time: 3 hours Sleep Metrics: [place] Sleepiness Scale: 10 (12 last visit) Past Treatments: Ropinirole (didn't help) CPAP [facility] Prior Sleep Studies: PSG 11/11/17 (hai): AHI 47.7; SpO2 min 79%. Weight 246 lbs. PLM 4.9. PAP titration 01/12/18 (hai): CPAP 11 cmH2O recommended. Weight 246. PLM 31.4; PLM-a 9. PSG 08/15/21: Weight 250 lbs. AHI 61; Spo2 min 79%. 15% central events. Absent supine sleep. [facility]ire Fine-tune PSG 05/09/23: weight 245 lbs. @ 1.4 V AHI 32.4 (lowest of study), SpO2 avg 87%, eugenia 78%. Arousal index 34.3. Config 0-0. Central apneas, PACs. PLM 34.7; PLM-a 9.9 Past Medical History Past Medical History: Diagnosis Date Aortic stenosis, severe Arthritis Diabetes mellitus (HCC) Hyperlipidemia Hypertension Sleep apnea, obstructive does not tolerate cpap Past Surgical History Past Surgical History: Procedure Laterality Date CARDIAC PROCEDURE Left 03/13/2020 Normal Coronaries/Dr. Salgado/Hai CARDIAC SURGERY 04/12/2020 TAVR HERNIA REPAIR KNEE ARTHROPLASTY Bilateral LIPOMA RESECTION chest TONSILLECTOMY (HISTORICAL) Allergies Allergies Allergen Reactions Nitroglycerin Anaphylaxis and Other BP dropped with administration Made blood pressure drop Penicillins Hives, Swelling and Dermatitis Has not had since childhood, unsure of rxn Medications Current Outpatient Medications Medication Instructions aspirin 81 mg, Oral, Daily atorvastatin (LIPITOR) 80 mg, Oral, Nightly clindamycin (Cleocin) 150 MG capsule No dose, route, or frequency recorded. ezetimibe (ZETIA) 10 mg, Oral, Nightly finasteride (PROSCAR) 5 mg, Oral, Daily hydroCHLOROthiazide (HYDRODIURIL) 25 mg, Oral, Daily Jardiance 25 MG Daily linaGLIPtin (TRADJENTA) 5 mg, Oral, Daily meclizine (ANTIVERT) 25 mg, Oral, 3 times daily PRN metFORMIN XR (Glucophage-XR) 750 MG 24 hr tablet No dose, route, or frequency recorded. pyridoxine (B-6) 100 mg, Oral, Daily ramipril (ALTACE) 10 mg, Oral, 2 time daily tamsulosin (Flomax) 0.4 MG 24 hr capsule No dose, route, or frequency recorded. Trulicity 3 MG/0.5ML solution pen-injector Weekly Social History Social History Tobacco Use Smoking status: Never Smokeless tobacco: Never Substance Use Topics Alcohol use: Yes Comment: once month Family History Family History Problem Relation Name Age of Onset Breast cancer Mother Heart Surgery Brother Heart attack Father Heart attack Brother Review of Systems Constitutional: Positive for fatigue. Psychiatric/Behavior al: Positive for sleep disturbance. Physical Exam Vitals: 05/28/23 1500 BP: 118/80 BP Location: Left arm Patient Position: Sitting BP Cuff Size: Large adult Pulse: 91 Resp: 16 SpO2: 94% Weight: 252 lb 6.4 oz (114 kg) Height: 5' 11 (1.803 m) General appearance: Well appearing. No acute distress. AAOX3 Head: Normocephalic, without obvious abnormality, atraumatic Eyes: Normal sclera and conjunctiva Mouth: Tongue lifting > protrusion when Inspire turned on Throat: Normal tongue protrusion (with device not active) Skin: Skin color normal. No rashes or lesions Psych: Euthymic Mood Labs/additional studies: Impression: Diagnosis Plan 1. JULIANN (obstructive sleep apnea) 2. Insomnia, unspecified type 77 y/o M with HTN, aortic stenosis (s/p TAVR), and obesity. Previously found to have severe JULIANN, was unable to tolerate PAP therapy and stopped using after three months. Inspire with cuff dislodgement, now using Inspire well (44 hours/week). Still with frequent awakenings; experiencing dry mouth and not noticing improvement at this time. Recommendations: - Performed functional tongue exam and observed rise and fal (more content not included)... Normal [facility] Polysomnographyon 05-19-2023 [facility] Office Visiton 03-12-2023 Follow-up visit [id number] Matthias Hoffmann 1945 M Date Provider Department Center 03/12/2023 [id number] [facility] SL None Family History Problem Relation Age of Onset Breast cancer Mother Heart Surgery Brother Heart attack Father Heart attack Brother Family Status - Relation Status Age at Mother Brother Father Level of Service:93878 IN OFFICE/OUTPATIENT ESTABLISHED MOD MDM 30 MIN Reason for Visit and Comments: Follow-up [629477] [facility] Progress Noteon 03-12-2023 Progress Note ORDER FOR CHINSTRAP WAITING SIGNATURE AND WILL FAX TO [employer] [facility] Progress Note [facility] SLEEP MEDICINE FOLLOW UP OFFICE VISIT-SLEEP Date of last visit: 01/15/23 Plan at that time: - Performed functional tongue exam. Lifting > protrusion, but patient noted more comfort on different configuration. Switched settings: - Configuration changed from +-+ to off - off. - amplitude changed from 0.7 V to 0.4 V. - Lower limit changed from 0.4 V to 0.2 V. - Upper limit changed from 1.4 V to 1.1 V. - Therapy duration increased from 8 to 9 hours as pt states he sleeps more in winter months. - F/u 1 month. Interval History: Not quite as tired in the day. But still waking up far more than he would prefer at this time. Couldn't get comfortable titrating above 0.7 V. Sleep-Wake Schedule Bedtime: 11 pm. Final wake time: 7 am. Patient does not wake up refreshed. Sleep Latency: within few minutes Awakenings after sleep onset: 3-4 times; sometimes to go to bathroom. Will frequently change positions. Difficult to fall back asleep. Naps: couple days per week for 15 mins Estimated total sleep time: 3 hours Sleep Metrics: [place] Sleepiness Scale: 10 (12 last visit) Past Treatments: Ropinirole (didn't help) CPAP Inspire Prior Sleep Studies: PSG 11/11/17 (rogers): AHI 47.7; SpO2 min 79%. Weight 246 lbs. PLM 4.9. PAP titration 01/12/18 (rogers): CPAP 11 cmH2O recommended. Weight 246. PLM 31.4; PLM-a 9. PSG 08/15/21: Weight 250 lbs. AHI 61; Spo2 min 79%. 15% central events. Absent supine sleep. Past Medical History Past Medical History: Diagnosis Date Aortic stenosis, severe Arthritis Diabetes mellitus (HCC) Hyperlipidemia Hypertension Sleep apnea, obstructive does not tolerate cpap Past Surgical History Past Surgical History: Procedure Laterality Date CARDIAC PROCEDURE Left 03/13/2020 Normal Coronaries/Dr. Salgado/Hai CARDIAC SURGERY 04/12/2020 TAVR HERNIA REPAIR KNEE ARTHROPLASTY Bilateral LIPOMA RESECTION chest TONSILLECTOMY (HISTORICAL) Allergies Allergies Allergen Reactions Nitroglycerin Anaphylaxis and Other BP dropped with administration Made blood pressure drop Penicillins Hives, Swelling and Dermatitis Has not had since childhood, unsure of rxn Medications Current Outpatient Medications Medication Instructions aspirin 81 mg, Oral, Daily atorvastatin (LIPITOR) 80 mg, Oral, Nightly clindamycin (Cleocin) 150 MG capsule No dose, route, or frequency recorded. ezetimibe (ZETIA) 10 mg, Oral, Nightly finasteride (PROSCAR) 5 mg, Oral, Daily hydroCHLOROthiazide (HYDRODIURIL) 25 mg, Oral, Daily Jardiance 25 MG Daily linaGLIPtin (TRADJENTA) 5 mg, Oral, Daily meclizine (ANTIVERT) 25 mg, Oral, 3 times daily PRN metFORMIN XR (Glucophage-XR) 750 MG 24 hr tablet No dose, route, or frequency recorded. pyridoxine (B-6) 100 mg, Oral, Daily ramipril (ALTACE) 10 mg, Oral, 2 time daily tamsulosin (Flomax) 0.4 MG 24 hr capsule No dose, route, or frequency recorded. Trulicity 3 MG/0.5ML solution pen-injector Weekly Social History Social History Tobacco Use Smoking status: Never Smokeless tobacco: Never Substance Use Topics Alcohol use: Yes Comment: once month Family History Family History Problem Relation Name Age of Onset Breast cancer Mother Heart Surgery Brother Heart attack Father Heart attack Brother Review of Systems Constitutional: Positive for fatigue. Psychiatric/Behavior al: Positive for sleep disturbance. Physical Exam Vitals: 03/12/23 1336 BP: 126/86 BP Location: Left arm Patient Position: Sitting BP Cuff Size: Large adult Pulse: 81 Resp: 16 SpO2: 95% Weight: 252 lb 3.2 oz (114 kg) Height: 5' 11 (1.803 m) General appearance: Well appearing. No acute distress. AAOX3 Head: Normocephalic, without obvious abnormality, atraumatic Eyes: Normal sclera and conjunctiva Mouth: Tongue lifting > protrusion when Inspire turned on Throat: Normal tongue protrusion (with device not active) Skin: Skin color normal. No rashes or lesions Psych: Euthymic Mood, restricted affect Labs/additional studies: Impression: Diagnosis Plan 1. JULIANN (obstructive sleep apnea) 2. Insomnia, unspecified type 77 y/o M with HTN, aortic stenosis (s/p TAVR), and obesity. Previously found to have severe JULIANN, was unable to tolerate PAP therapy and stopped using after three months. Inspire with cuff dislodgement, now using Inspire well (44 hours/week). Still with frequent awakenings. Recommendations: - Performed functional tongue exam. Kept configuration at 0-0, amplitude at 1.0 V, start delay at 20 mins, pause time at 15 mins, and therapy duration at 9 hours. Changed lower range from 0.2 to 0.3 V, and upper range from 1.1 V to 1.3 V. - Discussed possible medication for insomnia. Ideally would first like to ensure JULIANN is fully treated. Will have pt scheduled for fine-tuning PSG. - Will try to order chin strap from [employer] to see if it would help with dry mouth. - F/u after fine-tuning PSG. (more content not included)... Normal [facility] Office Visiton 01-15-2023 Follow-up visit [id number] Matthias Hoffmann 1945 M Date Provider Department Center 01/15/2023 [id number] [facility] None Family History Problem Relation Age of Onset Breast cancer Mother Heart Surgery Brother Heart attack Father Heart attack Brother Family Status - Relation Status Age at Mother Brother Father Level of Service:03054 IN OFFICE/OUTPATIENT ESTABLISHED HIGH MDM 40-54 MIN Reason for Visit and Comments: Follow-up [[id number]] Normal [facility] Progress Noteon 01-15-2023 Progress Note [facility] SLEEP MEDICINE FOLLOW UP OFFICE VISIT-SLEEP Date of last visit: 08/28/22 Plan at that time: - Inspire activation performed. See other note. - F/u approximately 2 months. Interval History: Not quite as tired in the day. But still waking up far more than he would prefer at this time. Couldn't get comfortable titrating above 0.7 V. Sleep-Wake Schedule Bedtime: 11 pm. Final wake time: 7 am. Patient does not wake up refreshed. Sleep Latency: within few minutes Awakenings after sleep onset: 3-4 times; sometimes to go to bathroom. Will frequently change positions. Difficult to fall back asleep. Naps: several days per week for 30 mins Estimated total sleep time: 3 hours Sleep Metrics: [place] Sleepiness Scale: 12 (7 last visit) Past Treatments: Ropinirole (didn't help) CPAP Inspire Prior Sleep Studies: PSG 11/11/17 (hai): AHI 47.7; SpO2 min 79%. Weight 246 lbs. PLM 4.9. PAP titration 01/12/18 (hai): CPAP 11 cmH2O recommended. Weight 246. PLM 31.4; PLM-a 9. PSG 08/15/21: Weight 250 lbs. AHI 61; Spo2 min 79%. 15% central events. Absent supine sleep. Past Medical History Past Medical History: Diagnosis Date Aortic stenosis, severe Arthritis Diabetes mellitus (HCC) Hyperlipidemia Hypertension Sleep apnea, obstructive does not tolerate cpap Past Surgical History Past Surgical History: Procedure Laterality Date CARDIAC PROCEDURE Left 03/13/2020 Normal Coronaries/Dr. Salgado/Hai CARDIAC SURGERY 04/12/2020 TAVR HERNIA REPAIR KNEE ARTHROPLASTY Bilateral LIPOMA RESECTION chest TONSILLECTOMY (HISTORICAL) Allergies Allergies Allergen Reactions Nitroglycerin Anaphylaxis and Other BP dropped with administration Made blood pressure drop Penicillins Hives, Swelling and Dermatitis Has not had since childhood, unsure of rxn Medications Current Outpatient Medications Medication Instructions aspirin 81 mg, Oral, Daily atorvastatin (LIPITOR) 80 mg, Oral, Nightly clindamycin (Cleocin) 150 MG capsule No dose, route, or frequency recorded. ezetimibe (ZETIA) 10 mg, Oral, Nightly finasteride (PROSCAR) 5 mg, Oral, Daily hydroCHLOROthiazide (HYDRODIURIL) 25 mg, Oral, Daily Jardiance 25 MG Daily linaGLIPtin (TRADJENTA) 5 mg, Oral, Daily meclizine (ANTIVERT) 25 mg, Oral, 3 times daily PRN metFORMIN XR (Glucophage-XR) 750 MG 24 hr tablet No dose, route, or frequency recorded. pyridoxine (B-6) 100 mg, Oral, Daily ramipril (ALTACE) 10 mg, Oral, 2 time daily tamsulosin (Flomax) 0.4 MG 24 hr capsule No dose, route, or frequency recorded. Trulicity 3 MG/0.5ML solution pen-injector Weekly Social History Social History Tobacco Use Smoking status: Never Smokeless tobacco: Never Substance Use Topics Alcohol use: Yes Comment: once month Family History Family History Problem Relation Name Age of Onset Breast cancer Mother Heart Surgery Brother Heart attack Father Heart attack Brother Review of Systems Constitutional: Positive for fatigue. Psychiatric/Behavior al: Positive for sleep disturbance. Physical Exam Vitals: 01/15/23 1422 BP: 128/80 BP Location: Left arm Patient Position: Sitting BP Cuff Size: Large adult Pulse: 87 Resp: 16 SpO2: 95% Weight: 251 lb (114 kg) Height: 5' 11 (1.803 m) General appearance: Well appearing. No acute distress. AAOX3 Head: Normocephalic, without obvious abnormality, atraumatic Eyes: Normal sclera and conjunctiva Mouth: Tongue lifting > protrusion when Inspire turned on Throat: Normal tongue protrusion (with device not active) Skin: Skin color normal. No rashes or lesions Psych: Euthymic Mood Labs/additional studies: Impression: Diagnosis Plan 1. JULIANN (obstructive sleep apnea) 2. Insomnia, unspecified type 77 y/o M with HTN, aortic stenosis (s/p TAVR), and obesity. Previously found to have severe JULIANN, was unable to tolerate PAP therapy and stopped using after three months. Inspire with cuff dislodgement, here for first visit after activation. Still with frequent awakenings. Good Inspire usage at 54 hours/week. Recommendations: - Performed functional tongue exam. Lifting > protrusion, but patient noted more comfort on different configuration. Switched settings: - Configuration changed from +-+ to off - off. - amplitude changed from 0.7 V to 0.4 V. - Lower limit changed from 0.4 V to 0.2 V. - Upper limit changed from 1.4 V to 1.1 V. - Therapy duration increased from 8 to 9 hours as pt states he sleeps more in winter months. - F/u 1 month. On this date, 01/15/2023 I have spent 40 minutes reviewing previous notes, test results and face to face with the patient discussing the diagnosis and importance of compliance with the treatment plan as well as documenting on the day of the visit. [facility] 36on 12-12-2022 36 Thank you! Reviewed, looks like patient's sleep started worsening after he increased it beyond 2 settings from where we set him. Will await update from him in a week or so to discuss further. Normal [facility] 36 Patient found on [employer]. Report thru 12/11/22 in media. Normal [facility] 36 Spoke with patient. States he thought he was originally doing better when on lower settings. Then as he started increasing he started actually waking up more throughout the night. Advised pt to decrease setting back to level 6 in case we had overshot. Advised him to call back with an update if no improvement in a week or so. Lisa, patient also stated that he had now synced his marcial. Could you check if he is showing up in [employer] yet? Thanks [facility] 36 One-month post-activation Inspire check-in. Download marcial and connected to provider? He thinks he did, but there's no info for him on [employer]. Instructed him to log into marcial and connect for download. He will try. Are you using Inspire through the night? Yes, but doesn't think it's working well. Not sleeping for more than 1-2 hours at a time. Cannot figure out why he keeps getting up. Is the stimulation comfortable? Seems to be OK, but he is troubled by not sleeping How many lights are on the back of your remote? 7 Has your snoring improved with Inspire? Says he never snored. How are you feeling? Not well rested. Reminded patient of follow up visit on 01/15/23. Did advise message would be sent to Dr. Coleman for any advice/suggestions in the meantime. Normal [facility] Office Visiton 11-13-2022 Follow-up visit [id number] Matthias Hoffmann Radha 1945 M Date Provider Department Center 11/13/2022 [id number]-EXWNQSSRINIVAS [facility] None Family History Problem Relation Age of Onset Breast cancer Mother Heart Surgery Brother Heart attack Father Heart attack Brother Family Status - Relation Status Age at Mother Brother Father Level of Service:85054 IN OFFICE/OUTPATIENT ESTABLISHED HIGH MDM 40-54 MIN Reason for Visit and Comments: Follow-up [[id number]] Normal [facility] Progress Noteon 11-13-2022 Progress Note Patient scheduled to be called in one month for post-activation check in. Normal [facility] Progress Note [facility] SLEEP MEDICINE FOLLOW UP OFFICE VISIT-SLEEP Date of last visit: 08/28/22 Plan at that time: - Attempted activation for patient with no improvement noted in tongue motion from previous visit 7 weeks prior. Patient recommended to follow up with Dr. Reilly for scans of system to help determine best course of action. - F/u after pt has seen Dr. Reilly and gotten imaging. Interval History: Patient reports no change in his sleep at this time. Cuff found to be off nerve, had surgery for revision. No issues since surgery. Sleep-Wake Schedule Bedtime: 10 pm to 12 am. Final wake time: 6 am. Patient does not wake up refreshed. Sleep Latency: within few minutes Awakenings after sleep onset: 5-6 times; sometimes to go to bathroom. Will frequently change positions. Difficult to fall back asleep. Naps: several days per week for 30 mins Estimated total sleep time: 3 hours Sleep Metrics: [place] Sleepiness Scale: 12 (7 last visit) Past Treatments: Ropinirole (didn't help) CPAP Inspire Prior Sleep Studies: PSG 11/11/17 (hai): AHI 47.7; SpO2 min 79%. Weight 246 lbs. PLM 4.9. PAP titration 01/12/18 (): CPAP 11 cmH2O recommended. Weight 246. PLM 31.4; PLM-a 9. PSG 08/15/21: Weight 250 lbs. AHI 61; Spo2 min 79%. 15% central events. Absent supine sleep. Past Medical History Past Medical History: Diagnosis Date Aortic stenosis, severe Arthritis Diabetes mellitus (HCC) Hyperlipidemia Hypertension Sleep apnea, obstructive does not tolerate cpap Past Surgical History Past Surgical History: Procedure Laterality Date CARDIAC PROCEDURE Left 03/13/2020 Normal Coronaries/Dr. Salgado/Hai CARDIAC SURGERY 04/12/2020 TAVR HERNIA REPAIR KNEE ARTHROPLASTY Bilateral LIPOMA RESECTION chest TONSILLECTOMY (HISTORICAL) Allergies Allergies Allergen Reactions Nitroglycerin Anaphylaxis and Other BP dropped with administration Made blood pressure drop Penicillins Hives, Swelling and Dermatitis Has not had since childhood, unsure of rxn Medications Current Outpatient Medications Medication Instructions aspirin 81 mg, Oral, Daily atorvastatin (LIPITOR) 80 mg, Oral, Nightly clindamycin (Cleocin) 150 MG capsule No dose, route, or frequency recorded. ezetimibe (ZETIA) 10 mg, Oral, Nightly finasteride (PROSCAR) 5 mg, Oral, Daily hydroCHLOROthiazide (HYDRODIURIL) 25 mg, Oral, Daily Jardiance 25 MG Daily linaGLIPtin (TRADJENTA) 5 mg, Oral, Daily meclizine (ANTIVERT) 25 mg, Oral, 3 times daily PRN metFORMIN XR (Glucophage-XR) 750 MG 24 hr tablet No dose, route, or frequency recorded. pyridoxine (B-6) 100 mg, Oral, Daily ramipril (ALTACE) 10 mg, Oral, 2 time daily tamsulosin (Flomax) 0.4 MG 24 hr capsule No dose, route, or frequency recorded. Trulicity 3 MG/0.5ML solution pen-injector Weekly Social History Social History Tobacco Use Smoking status: Never Smokeless tobacco: Never Substance Use Topics Alcohol use: Yes Comment: once month Family History Family History Problem Relation Name Age of Onset Breast cancer Mother Heart Surgery Brother Heart attack Father Heart attack Brother Review of Systems Constitutional: Positive for fatigue. Psychiatric/Behavior al: Positive for sleep disturbance. Physical Exam Vitals: 11/13/22 1340 BP: (!) 144/90 BP Location: Left arm Patient Position: Sitting BP Cuff Size: Large adult Pulse: 85 Resp: 16 SpO2: 92% Weight: 250 lb (113 kg) Height: 5' 11 (1.803 m) General appearance: Well appearing. No acute distress. AAOX3 Head: Normocephalic, without obvious abnormality, atraumatic Eyes: Normal sclera and conjunctiva Throat: Normal tongue protrusion (with device not active) Skin: Skin color normal. No rashes or lesions Psych: Euthymic Mood Labs/additional studies: Impression: Diagnosis Plan 1. JULIANN (obstructive sleep apnea) 77 y/o M with HTN, aortic stenosis (s/p TAVR), and obesity. Previously found to have severe JULIANN, was unable to tolerate PAP therapy and stopped using after three months. Inspire with cuff dislodgement, today post-revision here for activation. Recommendations: - Inspire activation performed. See other note. - F/u approximately 2 months. On this date, 11/13/2022 I have spent 50 minutes reviewing previous notes, test results and face to face with the patient discussing the diagnosis and importance of compliance with the treatment plan as well as documenting on the day of the visit. Normal [facility] Progress Note Inspire Activation Visit Template Note: All changes made during the time of activation are underlined. Patient Name/ID: Matthias Hoffmann Date of Visit: 11/13/22 Incision Check: Both incisions were normal. Functional Tongue Exam: Normal tongue motion. No evidence of tongue deviation or weakness. No difficulty with swallowing or speech. Sensation Threshold (ST): 0.6 V Functional Threshold (FT): 0.6 V Tongue Motion Phenotype at FT: Protrusion. Electrode Configuration set at: +-+ Final Amplitude: 0.6 V Patient Control Lower Limit: 0.4 V Patient Control Upper Limit: 1.4 V Pulse Width: 90 uq Rate: 33 Hz Start Delay: 20 minutes Therapy Duration: 8 hours Pause time: 15 minutes Sensor Waveform: Waveform showed upward and downward deflections. Rise/fall verified. Other Programming: Patient Instructions: Reviewed and educated the patient on proper sleep remote function. The patient demonstrated competency with the remote, is aware of the quick guide and instructional video. Instructed the patient to use therapy all-night, every-night and step up their levels every 5-7 nights by one level (0.1V). The patient will be contacted via phone or scheduled for an office visit before the fine tune sleep study to ensure adequate adherence and ensure the patient is stepping up their levels. The patient will be scheduled for a titration sleep study in about 3 months to assess adherence, fine tune the settings, and evaluate efficacy. Normal [facility] Office Visiton 10-18-2022 Follow-up visit [id number] Matthias Hoffmann 1945 Mar[employer] Provider Department Center 10/18/2022 [id number], G[facility] None Family History Problem Relation Age of Onset Breast cancer Mother Heart Surgery Brother Heart attack Father Heart attack Brother Family Status - Relation Status Age at Mother Brother Father Level of Service:63770 IN POSTOP FOLLOW UP VISIT RELATED TO ORIGINAL PX Reason for Visit and Comments: Follow-up [[id number]] - Pt states doing well Normal [facility] Op Noteon 10-10-2022 Op Note Date: 10/10/2022 Location: [facility] Name: Matthias Hoffmann, : 1945, Diagnosis Pre-op Diagnosis * Obstructive sleep apnea (adult) (pediatric) [G47.33] Post-op Diagnosis * Obstructive sleep apnea (adult) (pediatric) [G47.33] Procedures REVISION HYPOGLOSSAL NERVE STIMULATOR 03720 - IN REVISION/REPLMT NEUROSTIMLATOR ELTRD CRANIAL [facility] * Jori Reilly - Primary Procedure Summary Anesthesia: General ASA: III Estimated Blood Loss: 25 ccs Drains: * None in log * Implants Staff: Title Processor: Lisa Figueroa RN Nurse Practitioner: Fabi Richardson, NEWSPAPER PHOTOJOURNALIST - [employer] Title Processor: Sam Kingsley RN Scrub Person: Breanna Mcdaniels LPN; Kierra Holly Findings: Hypoglossal nerve stimulator cuff had dislodged, hypoglossal nerve identified and stimulated. Good tongue protrusion at 0.2 V. Good waveforms. Complications: None; patient tolerated the procedure well. Specimens Collected: Order Name Source Comment Collection Info Order Time POTASSIUM WITH MG REFLEX For patients on dialysis to draw potassium day of surgery 10/10/2022 8:15 AM PROTHROMBIN TIME If patient on coumadin within 4 days prior. 10/10/2022 8:15 AM Wound Class: Class I: Clean Blood Products: None Prophylactic Antibiotics: Procedure appropriate prophylactic antibiotic(s) given within 1 hour of surgical incision (two hours if receiving Vancomycin or flouroquinolone) Procedure in Detail: Patient was seen and evaluated in the pre-operative area. Informed consent was obtained after discussing the risks, benefits and indications for the procedure. The patient was taken back to the operating room by the anesthesia team. General anesthesia was induced and patient was orotracheally intubated. Appropriate timeout was performed. Table was turned 180 degrees and patient appropriately positioned. Patient was prepped and draped in the usual fashion. A shoulder roll was placed and the patient was prepped and draped in usual sterile fashion with the head turned to the left. Prior to prepping and draping, electrodes were placed in the genioglossus and styloglossus muscle and connected to the NIM box for intraoperative nerve monitoring. A modified sub-mandibular incision was made in the right upper neck approximately 2 cm below the mandible in the natural skin crease. Dissection was carried down through the subcutaneous tissue and platysma. Monopolar cautery was not used during this case given the leads. Blunt and sharp dissection was used to dissect down to the digastric tendon where the anchor was noted. We first identified the hypoglossal nerve and stimulated the exclusion and inclusion branches and protected the nerve. Submandibular gland was retracted superiorly and digastric inferiorly. The lead was followed to the cuff which was obviously dislodged posterior and inferior. The wound was copiously irrigated and the cuff placed back over the inclusion branches of the hypoglossal nerve. The cuff was irrigated with saline and the mylohyoid released taking care not to dislodge the cuff. Diagnostic evaluation confirmed activation of the genioglossus nerve, resulting in genioglossal activation and tongue protrusion, confirmed visually. This was first stimulated at 1.5 mA and then decreased until 0.5 with good tongue protrusion at each step. Assessment of the sense lead showed excellent waveforms with respiration. The wound was then closed in layers with deep 3-0 vicryl sutures and a 4-0 running subcuticular monocryl for the skin. Mastasol was applied followed by steri strips. This concluded the procedure and the patient was turned over to anesthesia for wake up. Patient was extubated and sent to the PACU in stable condition having tolerated the procedure well. All counts were correct at the end of case. . [facility] Op Note Date: 10/10/2022 Location: [facility] OR Name: Matthias Hoffmann, : 1945, Diagnosis Pre-op Diagnosis * Obstructive sleep apnea (adult) (pediatric) [G47.33] Post-op Diagnosis * Obstructive sleep apnea (adult) (pediatric) [G47.33] Procedures REVISION HYPOGLOSSAL NERVE STIMULATOR 83884 - IN REVISION/REPLMT NEUROSTIMLATOR ELTRD CRANIAL [facility] Surgeons * Jori Reilly - Primary Procedure Summary Anesthesia: General ASA: III Estimated Blood Loss: 25 ccs Drains: * None in log * Implants Staff: Title Processor: Lisa Figueroa RN Nurse Practitioner: Fabi Richardson APRN - [facility] [employer] Title Processor: Sam Kingsley RN Scrub Person: Breanna Mcdaniels LPN; Kierra Holly Findings: Hypoglossal nerve stimulator cuff had dislodged, hypoglossal nerve identified and stimulated. Good tongue protrusion at 0.2 V. Good waveforms. Complications: None; patient tolerated the procedure well. Specimens Collected: Order Name Source Comment Collection Info Order Time POTASSIUM WITH MG REFLEX For patients on dialysis to draw potassium day of surgery 10/10/2022 8:15 AM PROTHROMBIN TIME If patient on coumadin within 4 days prior. 10/10/2022 8:15 AM Wound Class: Class I: Clean Blood Products: None Prophylactic Antibiotics: Procedure appropriate prophylactic antibiotic(s) given within 1 hour of surgical incision (two hours if receiving Vancomycin or flouroquinolone) [facility] POCT glucose meteron 023 Glucose [Mass/Vol] 185 mg/dL High 70 - 100 mg/dL [facility] Interpretation and review of laboratory results Abnormal [facility] Performed by: [facility], [address] [place] [address], Count includes the [facility] [address] CLIA ID: [id number] [facility] Progress Noteon 10-10-2022 Progress Note Physician Response Please review the following and provide your response below. BMI 34.87 This documentation will become part of the patient's medical record. Normal [facility] ECG 12-LEADon 10-05-2022 ECG 12-LEAD IMPRESSION: Sinus rhythm Left anterior fascicular block Probable anteroseptal infarct, old Electronically Signed On 10-05-2022 10:16:22 EDT by Traci Whalen Normal [facility] PREPROCINSon 10-04-2022 PREPROCINS Medication List Accurate as of October 04, 2022 9:31 AM. Always use your most recent med list. aspirin 81 MG EC tablet Medication Adjustments for Surgery: Take morning of surgery atorvastatin 80 MG tablet Commonly known as: Lipitor Notes to patient: Do not take the morning of surgery. clindamycin 150 MG capsule Commonly known as: Cleocin ezetimibe 10 MG tablet Commonly known as: Zetia Notes to patient: Do not take the morning of surgery. finasteride 5 MG tablet Commonly known as: Proscar Medication Adjustments for Surgery: Take morning of surgery hydroCHLOROthiazide 25 MG tablet Commonly known as: HYDRODiuril Notes to patient: Do not take the morning of surgery. Jardiance 25 MG Generic drug: empagliflozin Notes to patient: Hold after your dose on 10/07/22. linaGLIPtin 5 MG tablet Commonly known as: Tradjenta meclizine 25 MG tablet Commonly known as: Antivert metFORMIN XR 750 MG 24 hr tablet Commonly known as: Glucophage-XR pyridoxine 100 MG tablet Commonly known as: B-6 Notes to patient: Do not take the morning of surgery. ramipril 10 MG capsule Commonly known as: Altace Notes to patient: Do not take the morning of surgery. tamsulosin 0.4 MG 24 hr capsule Commonly known as: Flomax Medication Adjustments for Surgery: Take morning of surgery Trulicity 3 MG/0.5ML solution pen-injector Generic drug: dulaglutide Additional Instructions: You may take your prescription pain medication. You may take Tylenol for pain. NO Motrin, ibuprofen or Advil for 24 hours prior to surgery or longer if instructed by your surgeon. NO Aleve or Naprosyn for 5 days prior to surgery or longer if instructed by your surgeon. IF YOU TAKE BLOOD THINNERS OR ASPIRIN: continue up to and including the day of surgery. Follow any instructions given to you by Dr. Reilly. Shower with an antibacterial soap such as Dial or Safeguard or shower kit provided to you before coming to the hospital. No makeup, lotion, powder, deodorant or body spays. No hair products. Remove all jewelry and leave it at home. Wear loose comfortable clothing to go home in. You may brush your teeth morning of surgery. Do not wear contacts day of surgery. No marijuana (THC), smoking or alcohol for 24 hours prior to surgery. Please arrange for a responsible adult to drive you home after your surgery and that there is a responsible adult with you for 24 hours post discharge. If you have specific questions, please call your surgeon. You will receive a call the day before your surgery to verify your arrival time and date. You will be asked to arrive at least two hours prior to your scheduled surgery time. Please bring your [facility] Surgical folder and medication list with you day of surgery. We encourage you to write down any questions you may have for the surgeon, anesthesiologist, or other members of the surgical team and bring it with you the day of surgery. Please bring photo ID and insurance information. SOCIAL SECURITY BENEFITS INTERVIEWER AND PARKING IN THE MAIN DECK ARE FREE DAY OF SURGERY. PARKING IN THE DECK-- AFTER PARKING TAKE THE ELEVATOR TO LEVEL ONE AND TAKE THE BRIDGE TO THE HOSPITAL. GO TO THE RIGHT AND GO AROUND THE CORNER TO THE SAME DAY SURGERY DESK AND CHECK IN THERE. IF GOING IN THE MAIN ENTRANCE-- TURN LEFT AND GO DOWN THE KNIGHT TO THE H ELEVATORS AND TAKE THEM TO ONE, LEFT OFF THE ELEVATOR AND GO AROUND TO THE SAME DAY DESK AND CHECK IN. [place] [address]on 10-02-2022 36 . [place] [address] Name of Caller: Matthias Contact Reason for Appointment: Pt is asking to reschedule the pre-test Office Name: ENT Medication Refills need, if any: n/a Medication Name: n/a [place] [address] Name of caller: Arlin Contact phone number: [phone] Relationship to Patient: Inspire sleep Provider: Practice: ENT Chief Complaint/Reason for Call: Arlin had Pt on the other line regarding some questions he had about the INSPIRE. Pt had become disconnected and CAC called Pt back and LM with details to give the office a call back.Please be advised. [facility] Office Visiton 09-17-2022 Follow-up visit [id number] Matthias Hoffmann Radha 1945 [facility] Provider Department Center 09/17/2022 [id number] ÁLVAREZ [facility] E[facility] ACH None Family History Problem Relation Age of Onset Breast cancer Mother Heart Surgery Brother Heart attack Father Heart attack Brother Family Status - Relation Status Age at Mother Brother Father Level of Service:[id number] IN OFFICE/OUTPATIENT ESTABLISHED MOD MDM 30-39 MIN Reason for Visit and Comments: Follow-up [[id number]] - JULIANN [facility] 36on 09-13-2022 36 I would assume there isn't a pre-op appt, so should he just keep the 09/17 then for questions? [facility] 36 . [facility] Office Visiton 08-28-2022 Follow-up visit [id number] Matthias Hoffmann Radha 1945 [facility] Provider Department Center 08/28/2022 [id number] AHUJA [facility] SL None Family History Problem Relation Age of Onset Breast cancer Mother Heart Surgery Brother Heart attack Father Heart attack Brother Family Status - Relation Status Age at Mother Brother Father Level of Service:[id number] IN OFFICE/OUTPATIENT ESTABLISHED LOW MDM 20-29 MIN Reason for Visit and Comments: Follow-up [[id number]] [facility] Progress Noteon 08-28-2022 Progress Note Called patient to schedule x-ray not having good activation results thus far would like to assess for possible cuff dislodgment. If negative will plan for CT scan. Voicemail left. [facility] Progress Note [facility] SLEEP MEDICINE FOLLOW UP OFFICE VISIT-SLEEP Date of last visit: 07/09/22 Plan at that time: Attempted to activate patient's Inspire device again. Normal waveform and impedence. However, elevated voltages (lower than last visit though) required for sensation and without optimal tongue protrusion (primarily tongue lifting seen), even at alternative electrode configurations tried. 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 Activation aborted. Patient did report he felt ?more tongue motion? compared to [facility] discussed findings with [facility] care pathway specialist with recommendation to delay activation another 6 weeks to allow for continued nerve healing. Interval History: Patient reports no change in his sleep at this time. Denies any RLS symptoms at this time. Sleep-Wake Schedule Bedtime: 10 pm to 12 am. Final wake time: 6 am. Patient does not wake up refreshed. Sleep Latency: within few minutes Awakenings after sleep onset: 5-6 times; sometimes to go to bathroom. Will frequently change positions. Difficult to fall back asleep. Naps: several days per week for 30 mins Estimated total sleep time: 3 hours Sleep Metrics: [place] Sleepiness Scale: 7 (10 last visit) Past Treatments: Ropinirole (didn't help) CPAP Inspire Prior Sleep Studies: PSG 11/11/17 (hai): AHI 47.7; SpO2 min 79%. Weight 246 lbs. PLM 4.9. PAP titration 01/12/18 (hai): CPAP 11 cmH2O recommended. Weight 246. PLM 31.4; PLM-a 9. PSG 08/15/21: Weight 250 lbs. AHI 61; Spo2 min 79%. 15% central events. Absent supine sleep. Past Medical History Past Medical History: Diagnosis Date Aortic stenosis, severe Arthritis Diabetes mellitus (HCC) Hyperlipidemia Hypertension Sleep apnea, obstructive does not tolerate cpap Past Surgical History Past Surgical History: Procedure Laterality Date CARDIAC PROCEDURE Left 03/13/2020 Normal Coronaries/Dr. Salgado/Hai CARDIAC SURGERY 04/12/2020 TAVR HERNIA REPAIR KNEE ARTHROPLASTY Bilateral LIPOMA RESECTION chest TONSILLECTOMY (HISTORICAL) Allergies Allergies Allergen Reactions Nitroglycerin Anaphylaxis and Other BP dropped with administration Made blood pressure drop Penicillins Hives, Swelling and Dermatitis Has not had since childhood, unsure of rxn Medications Current Outpatient Medications Medication Instructions aspirin 81 mg, Oral, Daily atorvastatin (LIPITOR) 80 mg, Oral, Nightly clindamycin (Cleocin) 150 MG capsule No dose, route, or frequency recorded. ezetimibe (ZETIA) 10 mg, Oral, Nightly finasteride (PROSCAR) 5 mg, Oral, Daily hydroCHLOROthiazide (HYDRODIURIL) 25 mg, Oral, Daily Jardiance 25 MG Daily linaGLIPtin (TRADJENTA) 5 mg, Oral, Daily meclizine (ANTIVERT) 25 mg, Oral, 3 times daily PRN metFORMIN XR (Glucophage-XR) 750 MG 24 hr tablet No dose, route, or frequency recorded. pyridoxine (B-6) 100 mg, Oral, Daily ramipril (ALTACE) 10 mg, Oral, 2 time daily tamsulosin (Flomax) 0.4 MG 24 hr capsule No dose, route, or frequency recorded. Trulicity 3 MG/0.5ML solution pen-injector Weekly Social History Social History Tobacco Use Smoking status: Never Smokeless tobacco: Never Substance Use Topics Alcohol use: Yes Comment: once month Family History Family History Problem Relation Name Age of Onset Breast cancer Mother Heart Surgery Brother Heart attack Father Heart attack Brother Review of Systems Psychiatric/Behavior al: Positive for sleep disturbance. Physical Exam Vitals: 08/28/22 1422 BP: 136/82 BP Location: Left arm Patient Position: Sitting BP Cuff Size: Large adult Pulse: 92 Resp: 16 SpO2: 94% Weight: 252 lb 6.4 oz (114 kg) Height: 5' 11 (1.803 m) General appearance: Well appearing. No acute distress. AAOX3 Head: Normocephalic, without obvious abnormality, atraumatic Eyes: Normal sclera and conjunctiva Throat: Normal tongue protrusion (with device not active) Skin: Skin color normal. No rashes or lesions Psych: Euthymic Mood Labs/additional studies: Impression: Diagnosis Plan 1. 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 Previously found to have severe JULIANN, was unable to tolerate PAP therapy and stopped using after three months. Has not been able to have Inspire activated due to possible neurapraxia vs cuff slippage/dislodgemen t? Recommendations: - Attempted activation for patient with no improvement noted in tongue motion from previous visit 7 weeks prior. Patient recommended to follow up with Dr. Reilly for scans of system to help determine best course of action. - F/u after pt has seen Dr. Reilly and gotten imaging. On this date, 08/28/2022 I have spent 20 minutes reviewing previous notes, test results and face to face with the patient discussing the diagnosis and importance of c (more content not included)... [facility] 36on 08-16-2022 36 Reschedule for 09/17 [facility] 36 Name of Caller: Matthias Contact Reason for Appointment: Pt is asking for a call to be rescheduled Office Name: ENT Medication Refills need, if any: n/a Medication Name: n/a [facility] 36on 07-25-2022 36 Called and discussed with patient. Advised that his appointment had been moved out to allow more time for nerve healing and to make sure Inspire lead field care coordinator from [facility] would be available. Pt voiced understanding. He requested this message be sent to Dr. Reilly so that his appt with him could also be rescheduled. [facility] 36 LVM for him to return my call. Dr Coleman wants his 08/14/22 office moved out 2 weeks due to Inspire rep [facility] Echo Complete w/wo Contrasto n 05-10-2021 Echo Complete w/wo Contrast Patient Name: MATTHIAS HOFFMANN Ultrasound ACCESSION EXAM DATE/TIME PROCEDURE ORDERING PROVIDER [id number] 05/10/2021 10:24 EST Echo Complete w/wo WEN HOWARD, PORTILLO [place] Reason For Exam (Echo Complete w/wo Contrast) one year follow up TAVR Report TRANSTHORACIC ECHOCARDIOGRAM PATIENT: Matthias Hoffmann STUDY DATE: 05/10/2021 : 1945 AGE: 75 HT/WT: 180.3 cm (71 118.4 kg in) (260.5 lb) GENDER: M BP: 126 / 91 LOCATION: [place] [address] [address] STATUS: *ORDERING PHYSICIAN: * Maurice, *FELLOW: * Vale Seymour *READING PHYSICIAN: * Jose, *PRINCIPLE SOFTWARE ENGINEER: * Jo Brennan [facility], [place] INDICATIONS: Non-rheumatic (I35.0). S/P TAVR 1 year (26mm) CONCLUSIONS SUMMARY: 1. Left ventricle: There is moderate concentric hypertrophy. Systolic function is normal by the biplane method of disks. The estimated ejection fraction is 66%. Doppler parameters are consistent with abnormal left ventricular relaxation (grade 1 diastolic dysfunction). 2. Right ventricle: The cavity size is mildly dilated. Systolic function is mildly decreased. 3. Aortic valve: There is a 23 mm Noe Cynthia bioprosthetic aortic valve There is no regurgitation. The peak systolic velocity is 2.7 m/sec. The mean systolic gradient is 17 mm Hg. Dimensionless index: 0.46. The valve area by the velocity-time integral method is 2.0 cm^2. 4. Aorta: The aorta is mildly dilated. The ascending aorta internal dimension in the A-P direction, maximal systolic dimension is 3.8 cm. 5. Inferior vena cava: The vessel is normal. The IVC collapses by greater than 50% with inspiration. STUDY DATA: Complete transthoracic echocardiogram. Procedure: Image quality was suboptimal. Intravenous imaging enhancement (Definity) was administered. Definity lot #: [id number]. M-mode, complete 2D, complete spectral Doppler, and color flow Doppler images were acquired and Ultrasound Report archived for permanent storage and are available for subsequent review. Study status: Routine. Patient status: Outpatient. ECG RHYTHM: NSR FINDINGS LEFT VENTRICLE: The cavity size is normal. Wall thickness is moderately increased. There is moderate concentric hypertrophy. Systolic function is normal by the biplane method of disks. The estimated ejection fraction is 66%. There are no regional wall motion abnormalities. Doppler parameters are consistent with abnormal left ventricular relaxation (grade 1 diastolic dysfunction). RIGHT VENTRICLE: The cavity size is mildly dilated. Systolic function is mildly decreased. Right ventricular systolic pressure is within the normal range. VENTRICULAR SEPTUM: There is no evidence of a ventricular septal defect. LEFT ATRIUM: The atrium is mildly dilated. RIGHT ATRIUM: The atrium is normal in size. ATRIAL SEPTUM: Color Doppler shows no shunt. MITRAL VALVE: Structurally normal valve. Doppler: There is trivial, less than 1+ regurgitation. AORTIC VALVE: There is a 23 mm Noe Cynthia bioprosthetic aortic valve Doppler: There is no regurgitation. Dimensionless index: 0.46. The valve area by the velocity-time integral method is 2.0 cm^2. The valve area index by the velocity-time integral method is 0.8 cm^2/m^2. The mean systolic gradient is 17 mm Hg. The peak systolic gradient is 30 mm Hg. The peak systolic velocity is 2.7 m/sec. TRICUSPID VALVE: Structurally normal valve. Doppler: There is trivial, less than 1+ regurgitation. PULMONIC VALVE: Structurally normal valve. Doppler: There is trivial, less than 1+ regurgitation. AORTA: The aorta is mildly dilated. PULMONARY ARTERY: Main pulmonary artery: Normal. PERICARDIUM: Prominent epicardial fat is present. There is no pericardial effusion. SYSTEMIC VEINS: Inferior vena cava: The vessel is normal. The IVC collapses by greater than 50% with inspiration. Measurements Value 05/10/2020 Reference Ascending aorta ID, A-P, 3.8 cm 3.3 S Ascending aorta ID/bsa, 1.5 cm/m^2 1.3 A-P, S Left ventricle Value 05/10/2020 Reference LV ID, ED (L) 3.7 cm 5.1 4.2 - 5.8 LV ID, ES 2.6 cm 3.6 2.5 - 4.0 LV ID/bsa, ED (L) 1.5 cm/m^2 2.1 2.2 - 3.0 LV ID/bsa, ES (L) 1.1 cm/m^2 1.4 1.3 - 2.1 LV PW thickness, ED (H) 1.6 cm 1.4 0.6 - 1.0 LV PW/LV ID ratio, ED 0.43 0.27 LV wall mass (H) 251 g 329 96 - 200 LV wall mass/bsa 101 g/m^2 133 50 - 102 Stroke volume/bsa, 1-p 13.1 ml/m^2 13.7 A2C LV end-diastolic volume, (more content not included)... Normal [facility] Echo 2D Doppler Coloron TRANSTHORACIC ECHOCARDIOGRAM PATIENT: Matthias Hoffmann STUDY DATE: 05/10/2020 : 1945 AGE: 74 HT/WT: 180.3 cm (71 117.5 kg in) (258.5 lb) GENDER: M BP: 118 / 72 LOCATION: [place] [address] [address] STATUS: *ORDERING PHYSICIAN: * Portillo Howard *READING PHYSICIAN: * Medardo *PRINCIPLE SOFTWARE ENGINEER: * Linda Christina RDCS, AEAlvarado MD [facility], [facility] INDICATIONS: Aortic Stenosis, 1 Month Post TAVR. HISTORY: Transcatheter aortic valve replacement. CONCLUSIONS SUMMARY: 1. Left ventricle: The cavity size is normal. Wall thickness is moderately increased. Systolic function is normal by the biplane method of disks. The estimated ejection fraction is 65%. There are no regional wall motion abnormalities. Doppler parameters are consistent with abnormal left ventricular relaxation (grade 1 diastolic dysfunction). 2. Right ventricle: The cavity size is normal. Systolic function is normal. Right ventricular systolic pressure is within the normal range. 3. Left atrium: The atrium is normal in size. 4. Aortic valve: Prior repair procedures include transcatheter aortic valve replacement. There is a #26 mm. Noe Cynthia S3 bioprosthetic valve present, placed 04/10/20 There is no regurgitation. Dimensionless index: 0.7. The valve area by the velocity-time integral method is 2.3 cm^2. 5. Tricuspid valve: There is trivial, less than 1+ regurgitation. 6. NORMAL FUNCTIONING AV BIOPROSTHESIS. STUDY DATA: Complete transthoracic echocardiogram. Procedure: Image quality was suboptimal. The study was technically limited due to respiratory interference. Intravenous imaging enhancement (Definity) was administered. Definity lot #: [id number]. M-mode, complete 2D, complete spectral Doppler, and color flow Doppler images were acquired and archived for permanent storage and are available for subsequent review. Study status: Routine. Patient status: Outpatient. FINDINGS LEFT VENTRICLE: The cavity size is normal. Wall thickness is moderately increased. Systolic function is normal by the biplane method of disks. The estimated ejection fraction is 65%. There are no regional wall motion abnormalities. Doppler parameters are consistent with abnormal left ventricular relaxation (grade 1 diastolic dysfunction). RIGHT VENTRICLE: The cavity size is normal. Systolic function is normal. Right ventricular systolic pressure is within the normal range. VENTRICULAR SEPTUM: There is no evidence of a ventricular septal defect. LEFT ATRIUM: The atrium is normal in size. RIGHT ATRIUM: The atrium is normal in size. ATRIAL SEPTUM: Color Doppler shows no shunt. MITRAL VALVE: Mildly thickened leaflets. Doppler: There is trivial, less than 1+ regurgitation. AORTIC VALVE: Prior repair procedures include transcatheter aortic valve replacement. There is a #26 mm. Noe Cynthia S3 bioprosthetic valve present, placed 04/10/20 Doppler: There is no regurgitation. Dimensionless index: 0.7. The valve area by the velocity-time integral method is 2.3 cm^2. The valve area index by the velocity-time integral method is 0.9 cm^2/m^2. The mean systolic gradient is 14 mm Hg. The peak systolic gradient is 25 mm Hg. The peak systolic velocity is 2.5 m/sec. TRICUSPID VALVE: Structurally normal valve. Doppler: There is trivial, less than 1+ regurgitation. PULMONIC VALVE: Not well visualized. Structurally normal valve. Doppler: There is no regurgitation. AORTA: The aorta is normal. PULMONARY ARTERY: Main pulmonary artery: Normal. PERICARDIUM: There is no pericardial effusion. SYSTEMIC VEINS: Inferior vena cava: The vessel is normal in size. Measurements Value 04/11/2020 Reference Ascending aorta ID, A-P, S 3.3 cm --------- Ascending aorta ID/bsa, 1.3 cm/m^2 --------- A-P, S Left ventricle Value 04/11/2020 Reference LV ID, ED 5.1 cm 4.4 4.2 - 5.8 LV ID, ES 3.6 cm 3.1 2.5 - 4.0 LV ID/bsa, ED (L) 2.1 cm/m^2 1.8 2.2 - 3.0 LV ID/bsa, ES 1.4 cm/m^2 1.3 1.3 - 2.1 LV PW thickness, ED (H) 1.4 cm 1.2 0.6 - 1.0 LV PW/LV ID ratio, ED 0.27 0.27 --------- LV wall mass (H) 329 g 263 96 - 200 LV wall mass/bsa (H) 133 g/m^2 106 50 - 102 Stroke volume/bsa, 1-p A2C 13.7 ml/m^2 32.7 --------- LV end-diastolic volume, 72 ml 220 69 - 185 1-p A4C LV end-systolic volume, 22 ml 85 22 - 78 1-p A4C LV end-diastolic volume, 67 ml 192 62 - 150 2-p LV end-systolic volume, 23 ml 83 21 - 61 2-p LV ejection fraction, 2-p 65 % 57 52 - 72 LV E/e', lateral 9 10.2 --------- LV E/e', medial 12.6 14.4 --------- LV E/e', average 10.5 11.9 --------- Ventricular septum Value 04/11/2020 Reference IVS thickness, ED (H) 1.6 cm 1.7 0.6 - 1.0 LVOT Value 04/11/2020 Reference LVOT ID, A-P 2.1 cm 2.3 --------- LVOT mean velocity, S 1 m/sec 0.8 --------- LVOT peak gradient, S 8 mm Hg 4 --------- Stroke volume (SV), LVOT 95 ml 89 --------- DP Stroke index (SV/bsa), 38 ml/m^2 36 --------- LVOT DP Aortic valve Value 04/11/2020 Reference Aortic valve peak 2.5 m/sec 3.2 --------- velocity, S Aortic valve mean 1.8 m/sec 2.2 --------- velocity, S Aortic mean gradient, S 14 mm Hg 22 --------- Aortic peak gradient, S 25 mm Hg 42 --------- DI 0.7 0.38 --------- Aortic valve area, VTI 2.3 cm^2 1.6 --------- Aortic valve area/bsa, VTI 0.9 cm^2/m^2 0.6 --------- Left atrium Value 04/11/2020 Reference LA volume/bsa, ES, 2-p 21 ml/m^2 36 16 - 34 Mitral valve Value 04/11/2020 Reference Mitral E-wave peak 0.5 m/sec 0.7 --------- velocity Mitral A-wave peak 1.2 m/sec 1 --------- velocity Mitral deceleration time 160 ms 268 --------- Mitral E/A ratio, peak 0.4 0.7 --------- Tricuspid valve Value 04/11/2020 Reference Tricuspid regurg peak 2.4 m/sec <=2.8 velocity Tricuspid peak RV-RA 24 mm Hg --------- gradient Right atrium Value 04/11/2020 Reference RA area, ES, A4C 15 cm^2 20 10 - 18 Right ventricle Value 04/11/2020 Reference RV ID, minor axis, ED, A4C 3.0 cm 4.0 1.9 - 3.5 mid Legend: (L) and (H) dominic values outside specified reference range. Electronically signed by Medardo Childers MD 05/10/2020 16:23 Prior Signatures: [employer] Work Phone: Honorio, [employer] Incoming Cardiology Results From [facility] - 05/10/2020 4:24 PM EST TRANSTHORACIC ECHOCARDIOGRAM PATIENT: Matthias Hoffmann STUDY DATE: 05/10/2020 : 1945 AGE: 74 HT/WT: 180.3 cm (71 117.5 kg in) (258.5 lb) GENDER: M BP: 118 / 72 LOCATION: [facility] PATIENT Outpatient [address] STATUS: *ORDERING PHYSICIAN: * Portillo Howard *READING PHYSICIAN: * Medardo *PRINCIPLE SOFTWARE ENGINEER: * Linda Christina RDCS, AE, MD [place] [facility], [facility] INDICATIONS: Aortic Stenosis, 1 Month Post TAVR. HISTORY: Transcatheter aortic valve replacement. CONCLUSIONS SUMMARY: 1. Left ventricle: The cavity size is normal. Wall thickness is moderately increased. Systolic function is normal by the biplane method of disks. The estimated ejection fraction is 65%. There are no regional wall motion abnormalities. Doppler parameters are consistent with abnormal left ventricular relaxation (grade 1 diastolic dysfunction). 2. Right ventricle: The cavity size is normal. Systolic function is normal. Right ventricular systolic pressure is within the normal range. 3. Left atrium: The atrium is normal in size. 4. Aortic valve: Prior repair procedures include transcatheter aortic valve replacement. There is a #26 mm. Noe Cynthia S3 bioprosthetic valve present, placed 04/10/20 There is no regurgitation. Dimensionless index: 0.7. The valve area by the velocity-time integral method is 2.3 cm^2. 5. Tricuspid valve: There is trivial, less than 1+ regurgitation. 6. NORMAL FUNCTIONING AV BIOPROSTHESIS. STUDY DATA: Complete transthoracic echocardiogram. Procedure: Image quality was suboptimal. The study was technically limited due to respiratory interference. Intravenous imaging enhancement (Definity) was administered. Definity lot #: [id number]. M-mode, complete 2D, complete spectral Doppler, and color flow Doppler images were acquired and archived for permanent storage and are available for subsequent review. Study status: Routine. Patient status: Outpatient. FINDINGS LEFT VENTRICLE: The cavity size is normal. Wall thickness is moderately increased. Systolic function is normal by the biplane method of disks. The estimated ejection fraction is 65%. There are no regional wall motion abnormalities. Doppler parameters are consistent with abnormal left ventricular relaxation (grade 1 diastolic dysfunction). RIGHT VENTRICLE: The cavity size is normal. Systolic function is normal. Right ventricular systolic pressure is within the normal range. VENTRICULAR SEPTUM: There is no evidence of a ventricular septal defect. LEFT ATRIUM: The atrium is normal in size. RIGHT ATRIUM: The atrium is normal in size. ATRIAL SEPTUM: Color Doppler shows no shunt. MITRAL VALVE: Mildly thickened leaflets. Doppler: There is trivial, less than 1+ regurgitation. AORTIC VALVE: Prior repair procedures include transcatheter aortic valve replacement. There is a #26 mm. Noe Cynthia S3 bioprosthetic valve present, placed 04/10/20 Doppler: There is no regurgitation. Dimensionless index: 0.7. The valve area by the velocity-time integral method is 2.3 cm^2. The valve area index by the velocity-time integral method is 0.9 cm^2/m^2. The mean systolic gradient is 14 mm Hg. The peak systolic gradient is 25 mm Hg. The peak systolic velocity is 2.5 m/sec. TRICUSPID VALVE: Structurally normal valve. Doppler: There is trivial, less than 1+ regurgitation. PULMONIC VALVE: Not well visualized. Structurally normal valve. Doppler: There is no regurgitation. AORTA: The aorta is normal. PULMONARY ARTERY: Main pulmonary artery: Normal. PERICARDIUM: There is no pericardial effusion. SYSTEMIC VEINS: Inferior vena cava: The vessel is normal in size. Measurements Value 04/11/2020 Reference Ascending aorta ID, A-P, S 3.3 cm --------- Ascending aorta ID/bsa, 1.3 cm/m^2 --------- A-P, S Left ventricle Value 04/11/2020 Reference LV ID, ED 5.1 cm 4.4 4.2 - 5.8 LV ID, ES 3.6 cm 3.1 2.5 - 4.0 LV ID/bsa, ED (L) 2.1 cm/m^2 1.8 2.2 - 3.0 LV ID/bsa, ES 1.4 cm/m^2 1.3 1.3 - 2.1 LV PW thickness, ED (H) 1.4 cm 1.2 0.6 - 1.0 LV PW/LV ID ratio, ED 0.27 0.27 --------- LV wall mass (H) 329 g 263 96 - 200 LV wall mass/bsa (H) 133 g/m^2 106 50 - 102 Stroke volume/bsa, 1-p A2C 13.7 ml/m^2 32.7 --------- LV end-diastolic volume, 72 ml 220 69 - 185 1-p A4C LV end-systolic volume, 22 ml 85 22 - 78 1-p A4C LV end-diastolic volume, 67 ml 192 62 - 150 2-p LV end-systolic volume, 23 ml 83 21 - 61 2-p LV ejection fraction, 2-p 65 % 57 52 - 72 LV E/e', lateral 9 10.2 --------- LV E/e', medial 12.6 14.4 --------- LV E/e', average 10.5 11.9 --------- Ventricular septum Value 04/11/2020 Reference IVS thickness, ED (H) 1.6 cm 1.7 0.6 - 1.0 LVOT Value 04/11/2020 Reference LVOT ID, A-P 2.1 cm 2.3 --------- LVOT mean velocity, S 1 m/sec 0.8 --------- LVOT peak gradient, S 8 mm Hg 4 --------- Stroke volume (SV), LVOT 95 ml 89 --------- DP Stroke index (SV/bsa), 38 ml/m^2 36 --------- LVOT DP Aortic valve Value 04/11/2020 Reference Aortic valve peak 2.5 m/sec 3.2 --------- velocity, S Aortic valve mean 1.8 m/sec 2.2 --------- velocity, S Aortic mean gradient, S 14 mm Hg 22 --------- Aortic peak gradient, S 25 mm Hg 42 --------- DI 0.7 0.38 --------- Aortic valve area, VTI 2.3 cm^2 1.6 --------- Aortic valve area/bsa, VTI 0.9 cm^2/m^2 0.6 --------- Left atrium Value 04/11/2020 Reference LA volume/bsa, ES, 2-p 21 ml/m^2 36 16 - 34 Mitral valve Value 04/11/2020 Reference Mitral E-wave peak 0.5 m/sec 0.7 --------- velocity Mitral A-wave peak 1.2 m/sec 1 --------- velocity Mitral deceleration time 160 ms 268 --------- Mitral E/A ratio, peak 0.4 0.7 --------- Tricuspid valve Value 04/11/2020 Reference Tricuspid regurg peak 2.4 m/sec <=2.8 velocity Tricuspid peak RV-RA 24 mm Hg --------- gradient Right atrium Value 04/11/2020 Reference RA area, ES, A4C 15 cm^2 20 10 - 18 Right ventricle Value 04/11/2020 Reference RV ID, minor axis, ED, A4C 3.0 cm 4.0 1.9 - 3.5 mid Legend: (L) and (H) dominic values outside specified reference range. Electronically signed by Medardo Childers MD 05/10/2020 16:23 Prior Signatures: [employer] Work Phone: Basic Metabolic Panelon - Anion gap [Moles/Vol] 7 mmol/L [facility] [place] Calcium [Mass/Vol] 9.5 mg/dL 8.4 - 10. 4 mg/dL [place], [place] Chloride [Moles/Vol] 99 mmol/L 98 - 10 7 mmol/L [facility] [place] CO2 [Moles/Vol] 25 mmol/L 22 - 30 mmol/L [place], [place] Creatinine [Mass/Vol] 1.08 mg/dL 0.52 - 1.25 mg/dL [place], [place] EGFR IF NonAfrican [place] 67.5 mL/min >60 [place], [place] Comment on above: KDIGO guidelines pro vide the following GFR categories: Stage GFR(ml/min/1.73 m2) Terms G1 >=90 Normal or high G2 60-89 Mildly decreased* G3a 45-59 Mildly to moderately decreased G3b 30-44 Moderately to severely decreased G4 15-29 Severely decreased G5 <15 Kidney failure *Relative to young adult level. In the absence of evidence of kidney damage, neither GFR category G1 nor G2 fulfill the criteria for CKD. The CKD-EPI equation is validated in individuals 18 years of age and older. Currently the best equation for estimating glomerular filtration rate (GFR) from serum creatinine in children is the Bedside Brown equation. It is less accurate in patients with extremes of muscle mass, restriction of dietary protein, ingestion of creatine, extra-renal metabolism of creatinine, or treatment with medications that affect renal tubular creatinine secretion. GFR/1.73 sq M predicted among blacks MDRD (S/P/Bld) [Vol rate/Area] 78.2 mL/min/{1.73_m2} >60 [place], [place] Glucose [Mass/Vol] 145 mg/dL High 70 - 100 mg/dL [place], [place] Interpretation and review of laboratory results Abnormal [place], [place] Potassium [Moles/Vol] 3.9 mmol/L 3.5 - 5.1 mmol/L [place], [place] Sodium [Moles/Vol] 132 mmol/L Low 135 - 145 mmol/L [place], [place] Urea nitrogen [Mass/Vol] 25 mg/dL High 7 - 20 mg/dL [place] Test [facility] [address] [address] [place], [place] CBCon 04-11-2020 Erythrocyte distribution width (RBC) [Ratio] 14.5 % 11.5 - 14.5 % [place] Hematocrit (Bld) [Volume fraction] 44.2 % 40 - 52 % [place] Hemoglobin (Bld) [Mass/Vol] 15.2 g/dL 13 - 18 g/dL [place], [place] Interpretation and review of laboratory results Abnormal [place], [place] MCH (RBC) [Entitic mass] 30.1 pg 26 - 34 pg [place], [place] MCHC (RBC) [Mass/Vol] 34.3 % 32 - 36 % [place], [place] MCV (RBC) [Entitic vol] 87.7 fL 80 - 98 fL M [place], [place] Platelet mean volume (Bld) [Entitic vol] 8.6 fL 7.4 - 10.4 fL [place], [place] Platelets (Bld) [#/Vol] 172 10*3/uL 140 - 440 10*3/uL [place], [place] RBC (Bld) [#/Vol] 5.04 10*6/uL 4.4 - 5.9 10*6/uL [place], [place] WBC (Bld) [#/Vol] 13.0 10*3/uL High 3.6 - 10.7 10*3/uL [place], [place] Test Performed by [facility], [address] [place] [id number] [place] [address] ECHO Complete 2D W Doppler W [place] 04-11-2020 TRANSTHORACIC ECHOCARDIOGRAM PATIENT: Matthias Hoffmann STUDY DATE: 04/11/2020 : 1945 AGE: 74 HT/WT: 180.3 cm (71 118.4 kg (260.5 in) lb) GENDER: M BP: 168 / 92 LOCATION: [facility] PATIENT Inpatient main STATUS: *ORDERING PHYSICIAN: * Portillo Howard *READING PHYSICIAN: * Clive *PRINCIPLE SOFTWARE ENGINEER: * Marci Holder, , FSVM, FACC RDCS,AE, PE, RVT INDICATIONS: POD 1. HISTORY: TAVR 26mm BIOPROSTETIC 04/10/20. CONCLUSIONS SUMMARY: 1. Left ventricle: Systolic function is by the biplane method of disks. The estimated ejection fraction is 57%. 2. Right ventricle: The cavity size is mildly dilated. Systolic function is mildly decreased by visual assessment. Right ventricular systolic pressure is within the normal range. 3. Mitral valve: Structurally normal valve. 4. Aortic valve: TAVR 26 mm. Well seated. There is no regurgitation. The mildly elevated gradients and mildly reduced iEOA together wiith a normal acceleration time suggest a mild degree of patient prosthesis mismatch. See below. The mean systolic gradient is 22 mm Hg. The peak systolic gradient is 42 mm Hg. The valve area index by the velocity-time integral method is 0.6 cm^2/m^2. 5. Tricuspid valve: Structurally normal valve. 6. Aorta: The asecnding aorta is mildly dilated. 7. Pericardium, extracardiac: There is no pericardial effusion. STUDY DATA: Complete transthoracic echocardiogram. Procedure: Image quality was suboptimal. Intravenous imaging enhancement (Definity) was administered to opacify the chamber. Definity lot #: [id number]. M-mode, complete 2D, complete spectral Doppler, and color flow Doppler images were acquired and archived for permanent storage and are available for subsequent review. Study status: Routine. Patient status: Inpatient. FINDINGS LEFT VENTRICLE: The cavity size is normal. There is concentric and moderate asymmetric hypertrophy. Systolic function is by the biplane method of disks. The estimated ejection fraction is 57%. There are no regional wall motion abnormalities. Doppler parameters are consistent with abnormal left ventricular relaxation (grade 1 diastolic dysfunction). This value generally correlates with a low(<8) wedge pressure. RIGHT VENTRICLE: The cavity size is mildly dilated. Systolic function is mildly decreased by visual assessment. Right ventricular systolic pressure is within the normal range. VENTRICULAR SEPTUM: There is no evidence of a ventricular septal defect. LEFT ATRIUM: The atrium is mildly dilated. RIGHT ATRIUM: The atrium is normal in size. ATRIAL SEPTUM: The interatrial septum is normal. Color Doppler shows no shunt. Doppler shows no shunt. MITRAL VALVE: Structurally normal valve. Doppler: There is trivial, less than 1+ regurgitation. AORTIC VALVE: Not well visualized. There is a bioprosthetic valve. TAVR 26 mm. Well seated. The mildly elevated gradients and mildly reduced iEOA together wiith a normal acceleration time suggest a mild degree of patient prosthesis mismatch. See below. Doppler: There is no regurgitation. Dimensionless index: 0.38. Normal acceleration time. The valve area by the velocity-time integral method is 1.6 cm^2. The valve area index by the velocity-time integral method is 0.6 cm^2/m^2. The mean systolic gradient is 22 mm Hg. The peak systolic gradient is 42 mm Hg. The peak systolic velocity is 3.2 m/sec. TRICUSPID VALVE: Structurally normal valve. Doppler: There is trivial, less than 1+ regurgitation. PULMONIC VALVE: Structurally normal valve. Doppler: There is trivial, less than 1+ regurgitation. AORTA: The asecnding aorta is mildly dilated. PULMONARY ARTERY: Main pulmonary artery: Normal. PERICARDIUM: There is no pericardial effusion. SYSTEMIC VEINS: Not visualized. Measurements Value 04/10/2020 Reference Ascending aorta ID, max 3.6 cm 2.2 - 3.8 Ascending aorta ID/bsa, 1.5 cm/m^2 1.1 - 1.9 max Left ventricle Value 04/10/2020 Reference LV ID, ED 4.4 cm 4.2 4.2 - 5.8 LV ID, ES 3.1 cm 3.0 2.5 - 4.0 LV ID/bsa, ED (L) 1.8 cm/m^2 1.8 2.2 - 3.0 LV ID/bsa, ES 1.3 cm/m^2 1.3 1.3 - 2.1 LV PW thickness, ED (H) 1.2 cm 1.9 0.6 - 1.0 LV PW/LV ID ratio, ED 0.27 0.47 --------- LV wall mass (H) 263 g 317 96 - 200 LV wall mass/bsa (H) 106 g/m^2 139 50 - 102 Stroke volume/bsa, 1-p A2C 32.7 ml/m^2 --------- LV end-diastolic volume, (H) 220 ml 69 - 185 1-p A4C LV end-systolic volume, (H) 85 ml 22 - 78 1-p A4C LV end-diastolic volume, (H) 192 ml 62 - 150 2-p LV end-systolic volume, (H) 83 ml 21 - 61 2-p LV ejection fraction, 2-p 57 % 55 52 - 72 LV E/e', lateral 10.2 --------- LV E/e', medial 14.4 --------- LV E/e', average 11.9 --------- Ventricular septum Value 04/10/2020 Reference IVS thickness, ED (H) 1.7 cm 1.6 0.6 - 1.0 LVOT Value 04/10/2020 Reference LVOT ID, A-P 2.3 cm 2.1 --------- LVOT mean velocity, S 0.8 m/sec 0.9 --------- LVOT peak gradient, S 4 mm Hg 6 --------- Stroke volume (SV), LVOT 89 ml 95 --------- DP Stroke index (SV/bsa), 36 ml/m^2 41 --------- LVOT DP Aortic valve Value 04/10/2020 Reference Aortic valve peak 3.2 m/sec 1.8 --------- velocity, S Aortic valve mean 2.2 m/sec 1.2 --------- velocity, S Aortic mean gradient, S 22 mm Hg 7 --------- Aortic peak gradient, S 42 mm Hg 13 --------- DI 0.38 0.79 --------- Aortic valve area, VTI 1.6 cm^2 2.7 --------- Aortic valve area/bsa, VTI 0.6 cm^2/m^2 1.2 --------- Left atrium Value 04/10/2020 Reference LA volume/bsa, ES, 2-p (H) 36 ml/m^2 16 - 34 Mitral valve Value 04/10/2020 Reference Mitral E-wave peak 0.7 m/sec --------- velocity Mitral A-wave peak 1 m/sec --------- velocity Mitral deceleration time 268 ms --------- Mitral E/A ratio, peak 0.7 --------- Right atrium Value 04/10/2020 Reference RA area, ES, A4C (H) 20 cm^2 10 - 18 Right ventricle Value 04/10/2020 Reference RV ID, minor axis, ED, A4C (H) 4.0 cm 1.9 - 3.5 mid TAPSE, 2D 1.9 cm 1.7 - 3.1 Legend: (L) and (H) dominic values outside specified reference range. Electronically signed by Clive Holder DO, FSVM, FACBrittany 04/11/2020 09:27 Prior Signatures: [place], [place] Honorio, [facility] Incoming Cardiology Results From [employer] - 04/11/2020 9:28 AM EST TRANSTHORACIC ECHOCARDIOGRAM PATIENT: Matthias Hoffmann STUDY DATE: 04/11/2020 : 1945 AGE: 74 HT/WT: 180.3 cm (71 118.4 kg (260.5 in) lb) GENDER: M BP: 168 / 92 LOCATION: [facility] PATIENT Inpatient main STATUS: *ORDERING PHYSICIAN: * Portillo Howard *READING PHYSICIAN: * Clive *PRINCIPLE SOFTWARE ENGINEER: * Marci Holder DO, FSVM, CARLEY RDCS,AE, PE, RVT INDICATIONS: POD 1. HISTORY: TAVR 26mm BIOPROSTETIC 04/10/20. CONCLUSIONS SUMMARY: 1. Left ventricle: Systolic function is by the biplane method of disks. The estimated ejection fraction is 57%. 2. Right ventricle: The cavity size is mildly dilated. Systolic function is mildly decreased by visual assessment. Right ventricular systolic pressure is within the normal range. 3. Mitral valve: Structurally normal valve. 4. Aortic valve: TAVR 26 mm. Well seated. There is no regurgitation. The mildly elevated gradients and mildly reduced iEOA together wiith a normal acceleration time suggest a mild degree of patient prosthesis mismatch. See below. The mean systolic gradient is 22 mm Hg. The peak systolic gradient is 42 mm Hg. The valve area index by the velocity-time integral method is 0.6 cm^2/m^2. 5. Tricuspid valve: Structurally normal valve. 6. Aorta: The asecnding aorta is mildly dilated. 7. Pericardium, extracardiac: There is no pericardial effusion. STUDY DATA: Complete transthoracic echocardiogram. Procedure: Image quality was suboptimal. Intravenous imaging enhancement (Definity) was administered to opacify the chamber. Definity lot #: [id number]. M-mode, complete 2D, complete spectral Doppler, and color flow Doppler images were acquired and archived for permanent storage and are available for subsequent review. Study status: Routine. Patient status: Inpatient. FINDINGS LEFT VENTRICLE: The cavity size is normal. There is concentric and moderate asymmetric hypertrophy. Systolic function is by the biplane method of disks. The estimated ejection fraction is 57%. There are no regional wall motion abnormalities. Doppler parameters are consistent with abnormal left ventricular relaxation (grade 1 diastolic dysfunction). This value generally correlates with a low(<8) wedge pressure. RIGHT VENTRICLE: The cavity size is mildly dilated. Systolic function is mildly decreased by visual assessment. Right ventricular systolic pressure is within the normal range. VENTRICULAR SEPTUM: There is no evidence of a ventricular septal defect. LEFT ATRIUM: The atrium is mildly dilated. RIGHT ATRIUM: The atrium is normal in size. ATRIAL SEPTUM: The interatrial septum is normal. Color Doppler shows no shunt. Doppler shows no shunt. MITRAL VALVE: Structurally normal valve. Doppler: There is trivial, less than 1+ regurgitation. AORTIC VALVE: Not well visualized. There is a bioprosthetic valve. TAVR 26 mm. Well seated. The mildly elevated gradients and mildly reduced iEOA together wiith a normal acceleration time suggest a mild degree of patient prosthesis mismatch. See below. Doppler: There is no regurgitation. Dimensionless index: 0.38. Normal acceleration time. The valve area by the velocity-time integral method is 1.6 cm^2. The valve area index by the velocity-time integral method is 0.6 cm^2/m^2. The mean systolic gradient is 22 mm Hg. The peak systolic gradient is 42 mm Hg. The peak systolic velocity is 3.2 m/sec. TRICUSPID VALVE: Structurally normal valve. Doppler: There is trivial, less than 1+ regurgitation. PULMONIC VALVE: Structurally normal valve. Doppler: There is trivial, less than 1+ regurgitation. AORTA: The asecnding aorta is mildly dilated. PULMONARY ARTERY: Main pulmonary artery: Normal. PERICARDIUM: There is no pericardial effusion. SYSTEMIC VEINS: Not visualized. Measurements Value 04/10/2020 Reference Ascending aorta ID, max 3.6 cm 2.2 - 3.8 Ascending aorta ID/bsa, 1.5 cm/m^2 1.1 - 1.9 max Left ventricle Value 04/10/2020 Reference LV ID, ED 4.4 cm 4.2 4.2 - 5.8 LV ID, ES 3.1 cm 3.0 2.5 - 4.0 LV ID/bsa, ED (L) 1.8 cm/m^2 1.8 2.2 - 3.0 LV ID/bsa, ES 1.3 cm/m^2 1.3 1.3 - 2.1 LV PW thickness, ED (H) 1.2 cm 1.9 0.6 - 1.0 LV PW/LV ID ratio, ED 0.27 0.47 --------- LV wall mass (H) 263 g 317 96 - 200 LV wall mass/bsa (H) 106 g/m^2 139 50 - 102 Stroke volume/bsa, 1-p A2C 32.7 ml/m^2 --------- LV end-diastolic volume, (H) 220 ml 69 - 185 1-p A4C LV end-systolic volume, (H) 85 ml 22 - 78 1-p A4C LV end-diastolic volume, (H) 192 ml 62 - 150 2-p LV end-systolic volume, (H) 83 ml 21 - 61 2-p LV ejection fraction, 2-p 57 % 55 52 - 72 LV E/e', lateral 10.2 --------- LV E/e', medial 14.4 --------- LV E/e', average 11.9 --------- Ventricular septum Value 04/10/2020 Reference IVS thickness, ED (H) 1.7 cm 1.6 0.6 - 1.0 LVOT Value 04/10/2020 Reference LVOT ID, A-P 2.3 cm 2.1 --------- LVOT mean velocity, S 0.8 m/sec 0.9 --------- LVOT peak gradient, S 4 mm Hg 6 --------- Stroke volume (SV), LVOT 89 ml 95 --------- DP Stroke index (SV/bsa), 36 ml/m^2 41 --------- LVOT DP Aortic valve Value 04/10/2020 Reference Aortic valve peak 3.2 m/sec 1.8 --------- velocity, S Aortic valve mean 2.2 m/sec 1.2 --------- velocity, S Aortic mean gradient, S 22 mm Hg 7 --------- Aortic peak gradient, S 42 mm Hg 13 --------- DI 0.38 0.79 --------- Aortic valve area, VTI 1.6 cm^2 2.7 --------- Aortic valve area/bsa, VTI 0.6 cm^2/m^2 1.2 --------- Left atrium Value 04/10/2020 Reference LA volume/bsa, ES, 2-p (H) 36 ml/m^2 16 - 34 Mitral valve Value 04/10/2020 Reference Mitral E-wave peak 0.7 m/sec --------- velocity Mitral A-wave peak 1 m/sec --------- velocity Mitral deceleration time 268 ms --------- Mitral E/A ratio, peak 0.7 --------- Right atrium Value 04/10/2020 Reference RA area, ES, A4C (H) 20 cm^2 10 - 18 Right ventricle Value 04/10/2020 Reference RV ID, minor axis, ED, A4C (H) 4.0 cm 1.9 - 3.5 mid TAPSE, 2D 1.9 cm 1.7 - 3.1 Legend: (L) and (H) dominic values outside specified reference range. Electronically signed by Clive Holder DO, [facility] 04/11/2020 09:27 Prior Signatures: [place], [place] POCT Glucoseon 04-11-2020 Glucose [Mass/Vol] 168 mg/dL High 70 - 100 mg/dL [place], [place] Comment on above: Test performed by gl ucose meter. Results may be 10%-15% lower than serum/plasma values. (CLIA ID [id number]) Interpretation and review of laboratory results Abnormal [place], [place] Test Performed by [facility], [address] [place] [id number] [place], [place] Basic Metabolic Panelon Anion gap [Moles/Vol] 6 mmol/L [place], [place] Calcium [Mass/Vol] 8.8 mg/dL 8.4 - 10. 4 mg/dL [place], [place] Chloride [Moles/Vol] 104 mmol/L 98 - 10 7 mmol/L [place], [place] CO2 [Moles/Vol] 23 mmol/L 22 - 30 mmol/L [place] Creatinine [Mass/Vol] 0.96 mg/dL 0.52 - 1.25 mg/dL [place], [place] EGFR IF NonAfrican [place] 77.8 mL/min >60 [place], [place] Comment on above: KDIGO guidelines pro vide the following GFR categories: Stage GFR(ml/min/1.73 m2) Terms G1 >=90 Normal or high G2 60-89 Mildly decreased* G3a 45-59 Mildly to moderately decreased G3b 30-44 Moderately to severely decreased G4 15-29 Severely decreased G5 <15 Kidney failure *Relative to young adult level. In the absence of evidence of kidney damage, neither GFR category G1 nor G2 fulfill the criteria for CKD. The CKD-EPI equation is validated in individuals 18 years of age and older. Currently the best equation for estimating glomerular filtration rate (GFR) from serum creatinine in children is the Bedside Brown equation. It is less accurate in patients with extremes of muscle mass, restriction of dietary protein, ingestion of creatine, extra-renal metabolism of creatinine, or treatment with medications that affect renal tubular creatinine secretion. GFR/1.73 sq M predicted among blacks MDRD (S/P/Bld) [Vol rate/Area] mL/min/{1.73_m2} >60 mL/min [place], [place] Glucose [Mass/Vol] 201 mg/dL High 70 - 100 mg/dL [place], [place] Interpretation and review of laboratory results Abnormal [place], [place] Potassium [Moles/Vol] 3.6 mmol/L 3.5 - 5.1 mmol/L [place], [place] Sodium [Moles/Vol] 133 mmol/L Low 135 - 145 mmol/L [place], [place] Urea nitrogen [Mass/Vol] 23 mg/dL High 7 - 20 mg/dL [place], [place] Test Performed by [id number] [place] [address] CBCon 04-10-2020 Erythrocyte distribution width (RBC) [Ratio] 14.7 % High 11.5 - 14.5 % [place], [place] Hematocrit (Bld) [Volume fraction] 41.9 % 40 - 52 % [place] Hemoglobin (Bld) [Mass/Vol] 14.4 g/dL 13 - 18 g/dL [place] Interpretation and review of laboratory results Abnormal [place] MCH (RBC) [Entitic mass] 30.6 pg 26 - 34 pg [place] MCHC (RBC) [Mass/Vol] 34.4 % 32 - 36 % [place] MCV (RBC) [Entitic vol] 89.0 fL 80 - 98 fL [place] Platelet mean volume (Bld) [Entitic vol] 8.7 fL 7.4 - 10.4 fL [place] Platelets (Bld) [#/Vol] 149 10*3/uL 140 - 440 10*3/uL [place] RBC (Bld) [#/Vol] 4.71 10*6/uL 4.4 - 5.9 10*6/uL [place] WBC (Bld) [#/Vol] 10.1 10*3/uL 3.6 - 10.7 10*3/uL [facility] [place], [place] Test Performed by [facility] [address] [place] [id number] [facility] [place], [place] ECHOCARDIOGRAM LIMITEDon [facility], [facility] Incoming Cardiology Results From [facility] - 04/10/2020 9:44 AM EST LIMITED TRANSTHORACIC ECHOCARDIOGRAM Perioperative - TAVR PATIENT: Matthias Hoffmann STUDY DATE: 04/10/2020 : 1945 AGE: 74 HT/WT: 188 cm (74 98.2 kg (216 in) lb) GENDER: M BP: 116 / 77 [facility] In[facility] main STATUS: *ORDERING PHYSICIAN: * Geoffrey Benedict MD *READING PHYSICIAN: * Gary *PRINCIPLE SOFTWARE ENGINEER: * Abhay Esparza RD, MD Jose AE INDICATIONS: TAVR assessment. CONCLUSIONS SUMMARY: 1. Study data: Transthoracic echocardiography, limited study. 2. Left ventricle: There is moderate concentric hypertrophy. Systolic function is normal by visual assessment. The estimated ejection fraction is 55%. There are no regional wall motion abnormalities. 3. Aortic valve: The aortic valve prosthesis is well seated. There is a normally functioning 26 mm bioprosthetic valve (Noe Cynthia). There is no regurgitation. 4. Pericardium, extracardiac: There is no pericardial effusion. STUDY DATA: Transthoracic echocardiography, limited study. Procedure: Image quality was poor. The study was technically limited due to poor acoustic window availability, restricted patient mobility, body habitus, respiratory interference, off axis, and supine position. Limited 2D, limited spectral Doppler, and color flow Doppler images were acquired and archived for permanent storage and are available for subsequent review. Study status: Routine. Patient status: Inpatient. Location: Hybrid operating room. FINDINGS LEFT VENTRICLE: The cavity size is normal. Wall thickness is moderately increased. There is moderate concentric hypertrophy. Systolic function is normal by visual assessment. The estimated ejection fraction is 55%. There are no regional wall motion abnormalities. MITRAL VALVE: Structurally normal valve. Leaflet separation is normal. Doppler: Transvalvular velocity is within the normal range. There is no evidence for stenosis. There is no regurgitation. AORTIC VALVE: The aortic valve prosthesis is well seated. There is a normally functioning 26 mm bioprosthetic valve (Noe Cynthia). Doppler: There is no regurgitation. Dimensionless index: 0.79. The valve area by the velocity-time integral method is 2.8 cm^2. The valve area index by the velocity-time integral method is 1.2 cm^2/m^2. The mean systolic gradient is 7 mm Hg. The peak systolic gradient is 13 mm Hg. The peak systolic velocity is 1.8 m/sec. Pre-TAVR: SHERWIN: 0.6 cm^2. Peak gradient: 83 mm Hg. Mean gradient: 50 mm Hg. Peak velocity: 4.6 m/sec. Post-TAVR: SHERWIN: 2.8 cm^2. Peak gradient: 13 mm Hg. Mean gradient: 7 mm Hg. Peak velocity: 1.8 m/sec. TRICUSPID VALVE: Structurally normal valve. Leaflet separation is normal. Doppler: Transvalvular velocity is within the normal range. There is no evidence for stenosis. PULMONIC VALVE: Not well visualized. AORTA: Aortic root: The aortic root is normal in size. Ascending aorta: The ascending aorta is normal in size. PERICARDIUM: There is no pericardial effusion. Measurements Left ventricle Value Reference LV ID, ED 4.2 cm 4.2 - 5.8 LV ID, ES 3.0 cm 2.5 - 4.0 LV ID/bsa, ED (L) 1.8 cm/m^2 2.2 - 3.0 LV ID/bsa, ES 1.3 cm/m^2 1.3 - 2.1 LV PW thickness, ED (H) 1.9 cm 0.6 - 1.0 LV PW/LV ID ratio, ED 0.47 --------- LV wall mass (H) 317 g 96 - 200 LV wall mass/bsa (H) 139 g/m^2 50 - 102 LV ejection fraction, 2-p 55 % 52 - 72 Ventricular septum Value Reference IVS thickness, ED (H) 1.6 cm 0.6 - 1.0 LVOT Value Reference LVOT ID, A-P 2.1 cm --------- LVOT mean velocity, S 0.9 m/sec --------- LVOT peak gradient, S 6 mm Hg --------- Stroke volume (SV), LVOT DP 95 ml --------- Stroke index (SV/bsa), LVOT DP 41 ml/m^2 --------- Aortic valve Value Reference Aortic valve peak velocity, S 1.8 m/sec --------- Aortic valve mean velocity, S 1.2 m/sec --------- Aortic mean gradient, S 7 mm Hg --------- Aortic peak gradient, S 13 mm Hg --------- DI 0.79 --------- Aortic valve area, VTI 2.7 cm^2 --------- Aortic valve area/bsa, VTI 1.2 cm^2/m^2 --------- Legend: (L) and (H) dominic values outside specified reference range. Electronically signed by Gary Garcia MD 04/10/2020 09:44 Prior Signatures: [facility] [place] [place] LIMITED TRANSTHORACIC ECHOCARDIOGRAM Perioperative - TAVR PATIENT: Matthias Hoffmann STUDY DATE: 04/10/2020 : 1945 AGE: 74 HT/WT: 188 cm (74 98.2 kg (216 in) lb) GENDER: M BP: 116 / 77 LOCATION: [facility] PATIENT Inpatient main STATUS: *ORDERING PHYSICIAN: * Geoffrey Benedict MD *READING PHYSICIAN: * Gary *PRINCIPLE SOFTWARE ENGINEER: * Abhay Esparza RDJose MD AE INDICATIONS: TAVR assessment. CONCLUSIONS SUMMARY: 1. Study data: Transthoracic echocardiography, limited study. 2. Left ventricle: There is moderate concentric hypertrophy. Systolic function is normal by visual assessment. The estimated ejection fraction is 55%. There are no regional wall motion abnormalities. 3. Aortic valve: The aortic valve prosthesis is well seated. There is a normally functioning 26 mm bioprosthetic valve (Noe Cynthia). There is no regurgitation. 4. Pericardium, extracardiac: There is no pericardial effusion. STUDY DATA: Transthoracic echocardiography, limited study. Procedure: Image quality was poor. The study was technically limited due to poor acoustic window availability, restricted patient mobility, body habitus, respiratory interference, off axis, and supine position. Limited 2D, limited spectral Doppler, and color flow Doppler images were acquired and archived for permanent storage and are available for subsequent review. Study status: Routine. Patient status: Inpatient. Location: Hybrid operating room. FINDINGS LEFT VENTRICLE: The cavity size is normal. Wall thickness is moderately increased. There is moderate concentric hypertrophy. Systolic function is normal by visual assessment. The estimated ejection fraction is 55%. There are no regional wall motion abnormalities. MITRAL VALVE: Structurally normal valve. Leaflet separation is normal. Doppler: Transvalvular velocity is within the normal range. There is no evidence for stenosis. There is no regurgitation. AORTIC VALVE: The aortic valve prosthesis is well seated. There is a normally functioning 26 mm bioprosthetic valve (Noe Cynthia). Doppler: There is no regurgitation. Dimensionless index: 0.79. The valve area by the velocity-time integral method is 2.8 cm^2. The valve area index by the velocity-time integral method is 1.2 cm^2/m^2. The mean systolic gradient is 7 mm Hg. The peak systolic gradient is 13 mm Hg. The peak systolic velocity is 1.8 m/sec. Pre-TAVR: SHERWIN: 0.6 cm^2. Peak gradient: 83 mm Hg. Mean gradient: 50 mm Hg. Peak velocity: 4.6 m/sec. Post-TAVR: SHERWIN: 2.8 cm^2. Peak gradient: 13 mm Hg. Mean gradient: 7 mm Hg. Peak velocity: 1.8 m/sec. TRICUSPID VALVE: Structurally normal valve. Leaflet separation is normal. Doppler: Transvalvular velocity is within the normal range. There is no evidence for stenosis. PULMONIC VALVE: Not well visualized. AORTA: Aortic root: The aortic root is normal in size. Ascending aorta: The ascending aorta is normal in size. PERICARDIUM: There is no pericardial effusion. Measurements Left ventricle Value Reference LV ID, ED 4.2 cm 4.2 - 5.8 LV ID, ES 3.0 cm 2.5 - 4.0 LV ID/bsa, ED (L) 1.8 cm/m^2 2.2 - 3.0 LV ID/bsa, ES 1.3 cm/m^2 1.3 - 2.1 LV PW thickness, ED (H) 1.9 cm 0.6 - 1.0 LV PW/LV ID ratio, ED 0.47 --------- LV wall mass (H) 317 g 96 - 200 LV wall mass/bsa (H) 139 g/m^2 50 - 102 LV ejection fraction, 2-p 55 % 52 - 72 Ventricular septum Value Reference IVS thickness, ED (H) 1.6 cm 0.6 - 1.0 LVOT Value Reference LVOT ID, A-P 2.1 cm --------- LVOT mean velocity, S 0.9 m/sec --------- LVOT peak gradient, S 6 mm Hg --------- Stroke volume (SV), LVOT DP 95 ml --------- Stroke index (SV/bsa), LVOT DP 41 ml/m^2 --------- Aortic valve Value Reference Aortic valve peak velocity, S 1.8 m/sec --------- Aortic valve mean velocity, S 1.2 m/sec --------- Aortic mean gradient, S 7 mm Hg --------- Aortic peak gradient, S 13 mm Hg --------- DI 0.79 --------- Aortic valve area, VTI 2.7 cm^2 --------- Aortic valve area/bsa, VTI 1.2 cm^2/m^2 --------- Legend: (L) and (H) dominic values outside specified reference range. Electronically signed by Gary Garcia MD 04/10/2020 09:44 Prior Signatures: [facility] [place] POCT Glucoseon 04-10-2020 Glucose [Mass/Vol] 266 mg/dL High 70 - 100 mg/dL [place], [place] Comment on above: Test performed by ucose meter. Results may be 10%-15% lower than serum/plasma values. (CLIA ID [id number]) Interpretation and review of laboratory results Abnormal [place], [place] Test Performed by [facility] [place] [address] [place], [place] Glucose [Mass/Vol] 272 mg/dL High 70 - 100 mg/dL [place], [place] Comment on above: Test performed by ucose meter. Results may be 10%-15% lower than serum/plasma values. (CLIA ID [id number]) Interpretation and review of laboratory results Abnormal [place] Test Performed by [facility] [place] [address] [place] Brain Natriuretic Peptideon 03-30-2020 Interpretation and review of laboratory results Abnormal [place] Natriuretic peptide B (Bld) [Mass/Vol] 208 pg/mL High 0 - 125 pg/mL [place], [place] Test Performed by [facility], [facility] [place] [address] [place], [place] CBC Auto Differentialon 03-11 Absolute Baso # 0.0 10*3/uL 0 - 0.2 10*3/uL [place] Absolute Neut # 4.5 10*3/uL 1.8 - 7 10*3/uL [place], [place] Basophils/100 WBC (Bld) 0.4 % 0 - 2 % [place] Eosinophils (Bld) [#/Vol] 0.1 10*3/uL 0 - 0.5 10*3/uL [place] Eosinophils/100 WBC (Bld) 1.8 % 1 - 6 % [place] Erythrocyte distribution width (RBC) [Ratio] 14.5 % 11.5 - 14.5 % [place] Granulocytes/100 WBC (Bld) 59.7 % 40 - 80 % [place] Hematocrit (Bld) [Volume fraction] 43.3 % 40 - 52 % [place] Hemoglobin (Bld) [Mass/Vol] 15.1 g/dL 13 - 18 g/dL [place] Interpretation and review of laboratory results Abnormal [place] Lymphocytes (Bld) [#/Vol] 2.1 10*3/uL 1 - 4.3 10*3/uL [place] Lymphocytes/100 WBC (Bld) 27.2 % 20 - 40 % [place] MCH (RBC) [Entitic mass] 31.1 pg 26 - 34 pg [place] MCHC (RBC) [Mass/Vol] 34.9 % 32 - 36 % [place] MCV (RBC) [Entitic vol] 88.9 fL 80 - 98 fL [place] Monocytes (Bld) [#/Vol] 0.8 10*3/uL 0 - 0.8 10*3/uL [place], [place] Monocytes/100 WBC (Bld) 10.9 % High 2 - 10 % [place] Platelet mean volume (Bld) [Entitic vol] 9.0 fL 7.4 - 10.4 fL [place] Platelets (Bld) [#/Vol] 186 10*3/uL 140 - 440 10*3/uL [place] RBC (Bld) [#/Vol] 4.87 10*6/uL 4.4 - 5.9 10*6/uL [place] WBC (Bld) [#/Vol] 7.6 10*3/uL 3.6 - 10.7 10*3/uL [place] Test [facility]formed by [facility], [address] [place] [id number] [place], [place] Protime/INR & PTTon 01-21-20 21 aPTT Coag (Bld) [Time] 26.3 s 20 - 30.5 s M [place], [place] Comment on above: NOTE: The therapeuti c time for Heparin anticoagulation, based on Xa activity inhibition, is an APTT of 46-80 seconds. INR Coag (PPP) [Relative time] 1.0 {INR} [place], [place] Comment on above: Recommended Anticoag ulant Therapy: SEE BELOW ----- INR of 2.0 - 3.0 : - Prophylaxis of Venous Thrombosis (high-risk surgery) - Treatment of Venous Thrombosis - Treatment of Pulmonary Embolism (Includes tissue heart valves, Acute Myocardial Infarction to prevent systemic embolism, Valvular Heart Disease, and Atrial Fibrillation) ----- INR of 2.5 - 3.5 : - Mechanical Prosthetic Valves (high risk) - If oral anticoagulant therapy is used to prevent Myocardial Infarction PT Coag (PPP) [Time] 10.8 s 9 - 12 s [place], [place] Comment on above: . Test Performed by [facility] [id number] [place] [address] TYPE AND SCREENon 03-30-2020 Sodium [Moles/Vol] A [place], [place] Sodium [Moles/Vol] Positive [place], [place] Sodium [Moles/Vol] Negative [place] Test Performed by [facility] [id number] [place] [address] XR CHEST (2 VW)on 03-30-2020 [facility]: [id number] Radiology ACCESSION EXAM DATE/TIME PROCEDURE ORDERING PROVIDER [id number] 03/30/2020 15:03 EST CR Chest PA & LAT WEN HOWARD, PORTILLO CPT code 52776 Reason For Exam (CR Chest PA & LAT) TAVR Report Chest: PA and lateral 03/30/2020. Clinical Information: TAVR. Findings: PA and lateral views of the chest reveal the trachea, heart and mediastinal structures to be unremarkable. No focal areas of consolidation or volume loss are seen. There are no pleural effusions. The pulmonary vasculature does not appear congested. The visualized bony structures are intact. No prior studies for comparison. Impression: No acute process. Report Dictated on --- Final --- Dictated: 03/30/2020 3:05 pm Dictating Physician: MD BENEDICT RISA Signed Date and Time: 03/30/2020 3:07 pm Signed by: MD BENEDICT RISA Transcribed Date and Time: 03/30/2020 3:05 [place], [place] [facility] Incoming Radiology Results From [facility] - 03/30/2020 3:08 PM EST Patient Name: MATTHIAS HOFFMANN Diagnostic Radiology ACCESSION EXAM DATE/TIME PROCEDURE ORDERING PROVIDER [id number] 03/30/2020 15:03 EST CR Chest PA & LAT WEN HOWARD, PORTILLO CPT code 81936 Reason For Exam (CR Chest PA & LAT) TAVR Report Chest: PA and lateral 03/30/2020. Clinical Information: TAVR. Findings: PA and lateral views of the chest reveal the trachea, heart and mediastinal structures to be unremarkable. No focal areas of consolidation or volume loss are seen. There are no pleural effusions. The pulmonary vasculature does not appear congested. The visualized bony structures are intact. No prior studies for comparison. Impression: No acute process. Report Dictated on --- Final --- Dictated: 03/30/2020 3:05 pm Dictating Physician: MD BENEDICT RISA Signed Date and Time: 03/30/2020 3:07 pm Signed by: MD BENEDICT RISA Transcribed Date and Time: 03/30/2020 3:05 [place], [place] Comprehensive Metabolic Pane stacy 03-21-2020 Albumin [Mass/Vol] 4.3 g/dL 3.5 - 5 g/dL [place] ALP [Catalytic activity/Vol] 67 U/L 38 - 126 U/L [place] ALT [Catalytic activity/Vol] 31 U/L 0 - 49 U/L [place], [place] Comment on above: The ALT test is perf ormed by an updated assay method. Please note that the reference intervals have been changed and are now sex specific. Anion gap [Moles/Vol] 7 mmol/L [place], [place] AST [Catalytic activity/Vol] 32 U/L 15 - 46 U/L [place] Bilirubin Ql (U) 0.8 mg/dL 0.2 - 1.3 mg/dL [place] Calcium [Mass/Vol] 10.1 mg/dL 8.4 - 10. 4 mg/dL [place] Chloride [Moles/Vol] 101 mmol/L 98 - 10 7 mmol/L [place] CO2 [Moles/Vol] 31 mmol/L High 22 - 30 mmol/L [place] Creatinine [Mass/Vol] 1.35 mg/dL High 0.52 - 1.25 mg/dL [place], [place] EGFR IF NonAfrican [place] 51.5 mL/min Abnormal >60 [place], [place] Comment on above: KDIGO guidelines pro vide the following GFR categories: Stage GFR(ml/min/1.73 m2) Terms G1 >=90 Normal or high G2 60-89 Mildly decreased* G3a 45-59 Mildly to moderately decreased G3b 30-44 Moderately to severely decreased G4 15-29 Severely decreased G5 <15 Kidney failure *Relative to young adult level. In the absence of evidence of kidney damage, neither GFR category G1 nor G2 fulfill the criteria for CKD. The CKD-EPI equation is validated in individuals 18 years of age and older. Currently the best equation for estimating glomerular filtration rate (GFR) from serum creatinine in children is the Bedside Brown equation. It is less accurate in patients with extremes of muscle mass, restriction of dietary protein, ingestion of creatine, extra-renal metabolism of creatinine, or treatment with medications that affect renal tubular creatinine secretion. GFR/1.73 sq M predicted among blacks MDRD (S/P/Bld) [Vol rate/Area] 59.7 mL/min/{1.73_m2} Abnormal >60 [place], [place] Glucose [Mass/Vol] 174 mg/dL High 70 - 100 mg/dL [place] Interpretation and review of laboratory results Abnormal [place] Potassium [Moles/Vol] 4.4 mmol/L 3.5 - 5.1 mmol/L [place] Protein [Mass/Vol] 7.6 g/dL 6.3 - 8.2 g/dL [place] Sodium [Moles/Vol] 139 mmol/L 135 - 145 mmol/L [place] Urea nitrogen [Mass/Vol] 23 mg/dL High 7 - 20 mg/dL [place] Test Performed by [facility], [address] [place] [id number] [place] [address] Vital Signs Date Time Vital Sign Value Performing Clinician Facility 07-11-2023 10:41-0400 Body height 180.3 cm Ryland Pickett MD Work Phone: [facility] 07-11-2023 10:41-0400 Body mass index (BMI) [Ratio] 35.15 kg/m2 Ryland Pickett MD Work Phone: [facility] 07-11-2023 10:41-0400 Body weight 114.31 kg Ryland Pickett MD Work Phone: [facility] 05-28-2023 15:00-0400 Body height 180.3 cm Srinivas Coleman MD Work Phone: [facility] 05-28-2023 15:00-0400 Body mass index (BMI) [Ratio] 35.2 kg/m2 Srinivas Coleman MD Work Phone: [facility] 05-28-2023 15:00-0400 Body weight 114.49 kg Srinivas Coleman MD Work Phone: [facility] 05-28-2023 15:00-0400 Diastolic blood pressure 80 mm[Hg] Srinivas Coleman MD Work Phone: [facility] 05-28-2023 15:00-0400 Heart rate 91 /min Srinivas Coleman MD Work Phone: [facility] 05-28-2023 15:00-0400 Respiratory rate 16 /min Srinivas Coleman MD Work Phone: [facility] 05-28-2023 15:00-0400 SaO2% (BldA) [Mass fraction] 94 % Srinivas Coleman MD Work Phone: [facility] Comment on above: 05-28-2023 15:00-0400 Systolic blood pressure 118 mm[Hg] Srinivas Coleman MD Work Phone: [facility] 03-12-2023 13:36-0500 Body height 180.3 cm Srinivas Coleman MD Work Phone: [facility] 03-12-2023 13:36-0500 Body mass index (BMI) [Ratio] 35.17 kg/m2 Srinivas Coleman MD Work Phone: [facility] 03-12-2023 13:36-0500 Body weight 114.4 kg Srinivas Coleman MD Work Phone: [facility] 03-12-2023 13:36-0500 Diastolic blood pressure 86 mm[Hg] Sriniavs Coleman MD Work Phone: [facility] 03-12-2023 13:36-0500 Heart rate 81 /min Srinivas Coleman MD Work Phone: [facility] 03-12-2023 13:36-0500 Respiratory rate 16 /min Srinivas Coleman MD Work Phone: [facility] 03-12-2023 13:36-0500 SaO2% (BldA) [Mass fraction] 95 % Srinivas Coleman MD Work Phone: [facility] Comment on above: 03-12-2023 13:36-0500 Systolic blood pressure 126 mm[Hg] Srinivas Coleman MD Work Phone: [facility] 11-13-2022 13:40-0400 Body height 180.3 cm Srinivas Coleman MD Work Phone: [facility] 11-13-2022 13:40-0400 Body mass index (BMI) [Ratio] 34.87 kg/m2 Srinivas Coleman MD Work Phone: [facility] 11-13-2022 13:40-0400 Body weight 113.4 kg Srinivas Coleman MD Work Phone: [facility] 11-13-2022 13:40-0400 Diastolic blood pressure 90 mm[Hg] Srinivas Coleman MD Work Phone: [facility] 11-13-2022 13:40-0400 Heart rate 85 /min Srinivas Coleman MD Work Phone: [facility] 11-13-2022 13:40-0400 Respiratory rate 16 /min Srinivas Coleman MD Work Phone: [facility] 11-13-2022 13:40-0400 SaO2% (BldA) [Mass fraction] 92 % Srinivas Coleman MD Work Phone: [facility] Comment on above: 11-13-2022 13:40-0400 Systolic blood pressure 144 mm[Hg] Srinivas Coleman MD Work Phone: [facility] 10-18-2022 10:50-0400 Body mass index (BMI) [Ratio] 35.01 kg/m2 Jori Reilly MD Work Phone: [facility] 10-18-2022 10:50-0400 Body weight 113.85 kg Jori Reilly MD Work Phone: [facility] 10-10-2022 13:30-0400 Diastolic blood pressure 75 mm[Hg] Jori Reilly MD Work Phone: [facility] 10-10-2022 13:30-0400 Heart rate 81 /min Jori Reilly MD Work Phone: [facility] 10-10-2022 13:30-0400 Respiratory rate 16 /min Jori Reilly MD Work Phone: [facility] 10-10-2022 13:30-0400 SaO2% (BldA) [Mass fraction] 94 % Jori Reilly MD Work Phone: [facility] 10-10-2022 13:30-0400 Systolic blood pressure 143 mm[Hg] Jori Reilly MD Work Phone: [facility] 10-10-2022 12:05-0400 Body temperature 97 [degF] Jori Reilly MD Work Phone: [facility] 09-17-2022 14:24-0400 Body height 180.3 cm Jori Reilly MD Work Phone: [facility] 09-17-2022 14:24-0400 Body mass index (BMI) [Ratio] 35.15 kg/m2 Jori Reilly MD Work Phone: [facility] 09-17-2022 14:24-0400 Body weight 114.31 kg Jori Reilly MD Work Phone: [facility] 08-28-2022 14:22-0400 Body height 180.3 cm Srinivas Coleman MD Work Phone: [facility] 08-28-2022 14:22-0400 Body mass index (BMI) [Ratio] 35.2 kg/m2 Srinivas Coleman MD Work Phone: [facility] 08-28-2022 14:22-0400 Body weight 114.49 kg Srinivas Coleman MD Work Phone: [facility] 08-28-2022 14:22-0400 Diastolic blood pressure 82 mm[Hg] Srinivas Coleman MD Work Phone: [facility] 08-28-2022 14:22-0400 Heart rate 92 /min Srinivas Coleman MD Work Phone: [facility] 08-28-2022 14:22-0400 Respiratory rate 16 /min Srinivas Coleman MD Work Phone: [facility] 08-28-2022 14:22-0400 SaO2% (BldA) [Mass fraction] 94 % Srinivas Coleman MD Work Phone: [facility] Comment on above: 08-28-2022 14:22-0400 Systolic blood pressure 136 mm[Hg] Srinivas Coleman MD Work Phone: [facility] 07-09-2022 09:38-0400 Body height 180.3 cm Srinivas Coleman MD Work Phone: [facility] 07-09-2022 09:38-0400 Body mass index (BMI) [Ratio] 34.95 kg/m2 Srinivas Coleman MD Work Phone: [facility] 07-09-2022 09:38-0400 Body weight 113.67 kg Srinivas Coleman MD Work Phone: [facility] 07-09-2022 09:38-0400 Diastolic blood pressure 88 mm[Hg] Srinivas Coleman MD Work Phone: [facility] 07-09-2022 09:38-0400 Heart rate 80 /min Srinivas Coleman MD Work Phone: [facility] 07-09-2022 09:38-0400 Respiratory rate 16 /min Srinivas Coleman MD Work Phone: [facility] 07-09-2022 09:38-0400 SaO2% (BldA) [Mass fraction] 96 % Srinivas Coleman MD Work Phone: [facility] Comment on above: 07-09-2022 09:38-0400 Systolic blood pressure 126 mm[Hg] Srinivas Coleman MD Work Phone: [facility] 12-18-2021 15:02-0400 Body temperature 97.81 [degF] Jori Reilly MD Work Phone: [facility] 12-18-2021 15:02-0400 Diastolic blood pressure 74 mm[Hg] Jori Reilly MD Work Phone: [facility] 12-18-2021 15:02-0400 Heart rate 82 /min Jori Reilly MD Work Phone: [facility] 12-18-2021 15:02-0400 SaO2% (BldA) [Mass fraction] 93 % Jori Reilly MD Work Phone: [facility] 12-18-2021 15:02-0400 Systolic blood pressure 113 mm[Hg] Jori Reilly MD Work Phone: [facility] 12-18-2021 15:00-0400 Body height 180.3 cm Jori Reilly MD Work Phone: [facility] 12-18-2021 15:00-0400 Body mass index (BMI) [Ratio] 34.39 kg/m2 Jori Reilly MD Work Phone: [facility] 12-18-2021 15:00-0400 Body weight 111.86 kg Jori Reilly MD Work Phone: [facility] 04-11-2020 09:00-0500 BP Diastolic 75 mm[Hg] [place], [place] 04-11-2020 09:00-0500 BP Systolic 145 mm[Hg] [place] 04-11-2020 09:00-0500 Pulse (Heart Rate) 79 /min [place] 04-11-2020 09:00-0500 Pulse Oximetry 93 % [place] 04-11-2020 08:00-0500 Body Temperature 98.4 [degF] [place], [place] 04-11-2020 08:00-0500 Respiratory Rate 18 /min [place] 04-10-2020 05:56-0500 BMI (Body Mass Index) 36.4 kg/m2 [place] 04-10-2020 05:56-0500 Body weight 118.39 kg [place] 04-10-2020 05:56-0500 Height 180.3 cm [place] Encounters Encounter Date Encounter Type Care Provider Facility Start: 07-11-2023 End: 07-11-2023 ambulatory [facility] Start: 07-11-2023 End: 07-11-2023 Office outpatient visit 25 minutes Ryland Pickett MD Work Phone: [facility] Comment on above: JULIANN (obstructive sle ep apnea) (Primary Dx) Start: 05-29-2023 Telephone encounter Srinivas Burgess MD Work Phone: [facility] Start: 05-28-2023 End: 05-28-2023 ambulatory [facility] Start: 05-28-2023 End: 05-28-2023 Office outpatient visit 25 minutes Srinivas Coleman MD Work Phone: [facility] Comment on above: JULIANN (obstructive sle ep apnea) (Primary Dx); Insomnia, unspecified type Start: 05-09-2023 End: 05-10-2023 ambulatory SRINIVAS COLEMAN [facility] Start: 05-09-2023 End: 05-10-2023 ambulatory Srinivas Coleman MD Work Phone: [facility] Comment on above: JULIANN (obstructive sle ep apnea) Start: 03-12-2023 End: 03-12-2023 ambulatory [facility] Start: 03-12-2023 End: 03-12-2023 Office outpatient visit 25 minutes Srinivas Coleman MD Work Phone: [facility] Sleep Medicine Comment on above: JULIANN (obstructive sle ep apnea) (Primary Dx); Insomnia, unspecified type Start: 01-15-2023 End: 01-15-2023 ambulatory [facility] Start: 12-12-2022 Telephone encounter Srinivas Burgess MD Work Phone: [facility] Sleep Medicine Comment on above: Care Coordination (I nspire Follow Up ) Start: 11-13-2022 End: 11-13-2022 ambulatory [facility] Start: 11-13-2022 End: 11-13-2022 Office outpatient visit 40 minutes Srinivas Coleman MD Work Phone: [facility] Sleep Medicine Comment on above: JULIANN (obstructive sle ep apnea) (Primary Dx) Start: 10-18-2022 End: 10-18-2022 ambulatory [facility] Start: 10-18-2022 End: 10-18-2022 Postop follow up visit related to original px Jori Reilly MD Work Phone: [facility] ENT Comment on above: JULIANN (obstructive sle ep apnea) (Primary Dx) Start: 10-10-2022 End: 10-10-2022 ambulatory [facility] Start: 10-10-2022 End: 10-10-2022 Subsequent hospital visit by physician Jori Reilly MD Work Phone: [facility] MAIN OR Comment on above: Postoperative pain ( Primary Dx) Start: 10-04-2022 End: 10-04-2022 ambulatory AFSHIN YI [facility] Start: 10-04-2022 End: 10-04-2022 Encounter for other preprocedural examination [facility] Start: 10-02-2022 Telephone encounter Jori Reilly MD Work Phone: [facility] ENT Comment on above: Appointment questions regarding the INSPIRE Start: 09-17-2022 End: 09-17-2022 ambulatory [facility] Start: 09-17-2022 End: 09-17-2022 Office outpatient visit 25 minutes Jori Reilly MD Work Phone: [facility] ENT Comment on above: JULIANN (obstructive sle ep apnea) (Primary Dx) Start: 09-02-2022 End: 09-03-2022 ambulatory [facility] Start: 09-02-2022 End: 09-02-2022 Subsequent hospital visit by physician Afshin Yi Work Phone: [facility] X[facility] Comment on above: JULIANN (obstructive sle ep apnea); Breakdown (mechanical) of implanted electronic neurostimulator, generator, initial encounter (HCC) Start: 08-28-2022 End: 08-28-2022 Office outpatient visit 15 minutes Srinivas Coleman MD Work Phone: [facility] Sleep Medicine Comment on above: JULIANN (obstructive sle ep apnea) (Primary Dx); Neurapraxia Start: 08-28-2022 End: 08-29-2022 Orders Only Jori Reilly MD Work Phone: [facility] ENT Comment on above: JULIANN (obstructive sle ep apnea) (Primary Dx); Breakdown (mechanical) of implanted electronic neurostimulator, generator, initial encounter (HCC) Start: 08-16-2022 Telephone encounter Jori Reilly MD Work Phone: [facility] ENT Comment on above: Appointment Start: 07-09-2022 End: 07-09-2022 Office outpatient visit 25 minutes Srinivas Coleman MD Work Phone: [facility] Sleep Medicine Comment on above: JULIANN (obstructive sle ep apnea) (Primary Dx); Insomnia, unspecified type; Neurapraxia Start: 12-18-2021 ambulatory [facility] Start: 12-18-2021 End: 12-18-2021 Subsequent hospital visit by physician Jori Reilly MD Work Phone: [facility] Pre-Admit Testing Comment on above: Arrived Start: 08-15-2021 End: 08-16-2021 ambulatory UNKNOWN PROVIDER [facility] Start: 08-15-2021 End: 08-16-2021 Subsequent hospital visit by physician Srinivas Coleman MD Work Phone: [facility] Start: 05-10-2021 ambulatory UNKNOWN PROVIDER [facility] Start: 04-12-2021 ambulatory UNKNOWN PROVIDER [facility] Start: 05-10-2020 End: 05-10-2020 Evaluation and management of inpatient Portillo Howard Work Phone: [facility] [address] Comment on above: Aortic valve stenosi s, etiology of cardiac valve disease unspecified Start: 04-10-2020 End: 04-11-2020 Evaluation and management of inpatient Geoffrey Benedict Work Phone: [facility] Comment on above: Arrived Start: 03-30-2020 End: 03-30-2020 Subsequent hospital visit by physician Portillo Howard Work Phone: [facility] [address] [facility] Comment on above: Nonrheumatic aortic valve stenosis; Dyspnea on exertion Nonrheumatic aortic valve stenosis; Aortic stenosis, severe Start: 03-21-2020 End: 03-21-2020 Subsequent hospital visit by physician Geoffrey Benedict Work Phone: [facility] [address] Comment on above: Aortic stenosis, sev ere Procedures Date Procedure Procedure Detail Performing Clinician Start: 05-19-2023 POLYSOMNOGRAPHY Srinivas Coleman MD Work Phone: Start: 03-12-2023 Follow-up visit Follow-up SRINIVAS CARRILLO Start: 10-10-2022 Glucose quantitative blood xcpt reagent strip Jori Reilly MD Work Phone: Start: 05-10-2020 Echo tthrc r-t 2d w/ wom-mode compl spec&colr d Portillo L Maurice Work Phone: Start: 04-11-2020 Echo tthrc r-t 2d w/ wom-mode compl spec&colr d Portillo L Maurice Work Phone: Start: 04-11-2020 Gluc bld gluc mntr d ev cleared fda spec home use Geoffrey Garcia Jovany Work Phone: Start: 04-11-2020 Ecg routine ecg w/le ast 12 lds w/i&r Portillo L Maurice Work Phone: Start: 04-11-2020 Basic metabolic pane l calcium total Portillo L Maurice Work Phone: Start: 04-11-2020 Blood count complete automated Portillo L Maurice Work Phone: Start: 04-10-2020 Gluc bld gluc mntr d ev cleared fda spec home use Geoffrey Benedict Work Phone: Start: 04-10-2020 Gluc bld gluc mntr d ev cleared fda spec home use Geoffrey Benedict Work Phone: Start: 04-10-2020 Basic metabolic pane l calcium total Portillo L Maurice Work Phone: Start: 04-10-2020 Blood count complete automated Portillo L Maurice Work Phone: Start: 04-10-2020 Ecg routine ecg w/le ast 12 lds w/i&r Portillo L Maurice Work Phone: Start: 04-10-2020 Echocardiography Geoffrey Zelaya Jovany Work Phone: Start: 04-10-2020 OPERATIVE REPORT 3m Sca nning Start: 03-30-2020 Blood count complete auto&auto difrntl wbc Portillo Howard Work Phone: Start: 03-30-2020 Blood typing serologic abo Portillo Howard Work Phone: Start: 03-30-2020 Natriuretic peptide Denzel emery Howard Work Phone: Start: 03-30-2020 PROTIME/INR & PTT Jemma Howard Work Phone: Start: 03-30-2020 Radiologic exam chest 2 views Portillo Briggs Maurice Work Phone: Start: 03-21-2020 Comprehensive metabolic panel Geoffrey Garcia Jovany Work Phone: Plan of Treatment Date Care Activity Detail Author Start: 11-09-2023 COVID-19 Vaccine ( season) COVID-19 Vaccine ( season) [facility] Start: 11-09-2023 Influenza vaccination Influenza Vacc ine (#1) [facility] Start: 03-13-2023 End: 03-13-2024 Polysomnography [facility] Routine JULIANN (obstructive sleep apnea) Expected: 03/13/2023 (Approximate), Expires: 03/13/2024 [facility] Work Phone: Comment on above: Expected: 03/13/2023 (Approximate), Expires: 03/13/2024 Start: 01-15-2023 End: 01-15-2023 Patient encounter procedure 01/15/2023 2:30 PM EST Office Visit [facility] Medicine [address] [place], [place] [id number] Srinivas Coleman MD [address] [place] [address] [facility] Start: 11-08-2022 COVID-19 Vaccine ( season) COVID-19 Vaccine ( season) [facility] Start: 11-08-2022 Influenza vaccination Influenza Vacc ine (#1) [facility] Start: 10-18-2022 End: 10-18-2022 Patient encounter procedure 10/18/2022 11:15 AM EDT Office Visit [facility] ENT [address] [place] [phone] Jori Reilly MD [address] [phone] [facility] ENT Start: 10-10-2022 End: 10-10-2022 Admission to same day surgery center 10/10/2022 9:30 AM EDT - 10/10/2022 11:00 AM EDT Surgery [facility] MA[facility] OR [address] [place] [phone] Jori Reilly MD [address] [address] REVISION HYPOGLOSSAL NERVE STIMULATOR [23504 (CPT )] [facility] Comment on above: REVISION HYPOGLOSSAL NERVE STIMULATOR [78261 (CPT )] Start: 10-10-2022 End: 10-10-2022 Revision/replmt neurostimlator eltrd cranial nrv REVISION OR REPLACEMENT CRANIAL NERVE NEUROSTIMULATOR ELECTRODE Obstructive sleep apnea (adult) (pediatric) 10/10/2022 9:30 AM EDT [facility] Operating Room Start: 10-10-2022 Subsequent hospital visit by physician 10/10/2022 9:30 AM EDT Hospital Encounter [facility] MA[facility] OR [address] [place] [phone] Jori Reilly MD [address] [phone] [facility] OR Start: 10-04-2022 End: 10-04-2022 Admission to establishment 10/04/2022 9:00 AM EDT Pre-Admission Testing [facility] Pre-Admit Testing [address] [place] [phone] Jori Reilly MD [address] [place] [address] [facility] Pre-Admit Testing Start: 09-17-2022 End: 09-17-2022 Patient encounter procedure 09/17/2022 2:45 PM EDT Office Visit [facility] ENT [address] [place] [address] Jori Reilly MD [address] [place], [place] [phone] [facility] Start: 09-04-2022 End: 09-04-2022 Patient encounter procedure 09/04/2022 Office Visit Otolaryngology Jori Reilly MD [address] [place], [place] [phone] [facility] Start: 08-28-2022 End: 08-29-2023 XR Cervical spine 2 or 3 Views XR cervical spine 2 or 3 views Imaging Routine JULIANN (obstructive sleep apnea) Breakdown (mechanical) of implanted electronic neurostimulator, generator, initial encounter (HCC) Expected: 08/28/2022, Expires: 08/29/2023 [facility] Work Phone: Comment on above: Expected: 08/28/2022 , Expires: 08/29/2023 Start: 08-14-2022 End: 08-14-2022 Patient encounter procedure 08/14/2022 Office Visit Sleep Medicine Srinivas Coleman MD [address] [place] [address] [facility] Start: 04-16-2022 COVID-19 Vaccine (4 - Booster for Moderna series) COVID-19 Vaccine (4 - Booster for Moderna series) [facility] Start: 04-16-2022 COVID-19 Vaccine (7 - Moderna series) COVID-19 Vaccine (7 - Moderna series) [facility] Start: 12-31-2021 End: 12-31-2021 Patient encounter procedure 12/31/2021 Office Visit Otolaryngology Jori Reilly MD [address] [place] [address] [facility] ENT [facility] Start: 10-08-2021 Influenza vaccination Flu vaccine (# 1) [facility] Start: 04-11-2021 Creatinine measurement Creatinine mo [place], [place] Start: 04-11-2021 Potassium monitoring Potassium monit [place], [place] Start: 03-21-2021 Creatinine measurement Creatinine mo [place], [place] Start: 03-21-2021 Potassium monitoring Potassium monit [place], [place] Start: 09-09-2020 COVID-19 Vaccine (3 - Booster for Moderna series) COVID-19 Vaccine (3 - Booster for Moderna series) [facility] Start: 05-10-2020 End: 05-10-2020 Office Visit 05/10/2020 Office Visit Cardiology Portillo Howard, NEWSPAPER PHOTOJOURNALIST - HEALTH [employer]ATE [address] [place] [address] [phone] [facility] Start: 04-19-2020 End: 04-19-2020 Office Visit 04/19/2020 Office Visit Cardiology Portillo Howard, NEWSPAPER PHOTOJOURNALIST - HEALTH ADVOCATE [address] [place] [address] [phone] [facility] Start: 04-12-2020 COVID-19 Vaccine (2 of 2 - Moderna series) COVID-19 Vaccine (2 of 2 - Moderna series) [place], [place] Start: 04-10-2020 End: 04-10-2020 Appointment 04/10/2020 Appointment General Surgery Geoffrey Benedict MD [address] [place] [phone] Elli Bonilla MD [address] [place] [address] [facility] General Surgery Start: 03-30-2020 End: 03-30-2020 Nurse Only [facility] Start: 03-14-2020 Annual Wellness Visi t (AWV) Annual Wellness Visit (AWV) [facility] Start: 2006 Hepatitis B Vaccines (1 of 3 - Risk 3-dose series) Hepatitis B Vaccines (1 of 3 - Risk 3-dose series) [facility] Start: 2006 RSV Immunization age d 60 or older (1 - 1-dose 60+ series) RSV Immunization aged 60 or older (1 - 1-dose 60+ series) [facility] Start: 1996 Screening for malign ant neoplasm of colon Colon cancer screen colonoscopy [place], [place] Start: 09-30-1991 Screening for malign ant neoplasm of colon [facility] Start: 1965 DTaP/Tdap/Td vaccine (1 - Tdap) DTaP/Tdap/Td vaccine (1 - Tdap) [facility] Start: 1965 DTaP/Tdap/Td Vaccine s (1 - Tdap) DTaP/Tdap/Td Vaccines (1 - Tdap) [facility] Start: 1965 Urine screening for protein Diabetes: Urine Protein Screening [facility] Start: 1964 Hepatitis C screening [facility] Start: 1958 Depression Screen Depression Screen [facility] Start: 1958 Depression Screening Depression Scre ening [facility] Start: 1956 Diabetic foot examination Diabetes: Foot Exam [facility] Start: 1956 Glaucoma screening Diabetes: R etinopathy Screening [facility] Start: 1956 Lipid panel [facility] Start: 1956 Preventive dental service Diabetes: Dental Exam [facility] Start: 1946 Annual Wellness Visi t (AWV) Annual Wellness Visit (AWV) [facility] Start: 1946 Creatinine measurement Creatinine mo nitoring [place], [place] Start: 1946 Hemoglobin A1c measurement Diabetes: Hemoglobin A1C [facility] Start: 1946 Hepatitis B Vaccines (1 of 3 - 3-dose series) Hepatitis B Vaccines (1 of 3 - 3-dose series) [facility] Start: 1946 Hepatitis C screening Hepatitis C sc reen [place], [place] Start: 1946 Lipid panel Lipid Panel [facility] Start: 1946 Medicare Annual Well ness (AWV) Medicare Annual Wellness (AWV) [facility] Start: 1946 Potassium monitoring Potassium monit oring [employer] [facility] Start: 1946 Screening for malign ant neoplasm of colon [facility] Basic metabolic 2000 panel Basic Metabolic Panel Lab Routine Daily until discontinued starting 04/10/2020, 2 completed [employer] [facility] Comment on above: Daily until disconti nued starting 04/10/2020, 2 completed CBC CBC Lab Routine Daily until discontinued starting 04/10/2020, 2 completed [employer] [facility] Comment on above: Daily until disconti nued starting 04/10/2020, 2 completed Continuous pulse oximetry Pulse oximetry, continuous Respiratory Care Routine Every 4hr until discontinued starting 04/10/2020 [employer] [facility] Comment on above: Every 4hr until disc ontinued starting 04/10/2020 End: 03-30-2020 CTA Chest Abdomen Pelvis W Contrast CTA Chest Abdomen Pelvis W Contrast Imaging Routine Aortic stenosis, severe 1 Occurrences starting 03/30/2020 until 03/30/2020 [employer] [facility] Comment on above: 1 Occurrences starti ng 03/30/2020 until 03/30/2020 CTA Chest Abdomen Pe lvis W Contrast CTA Chest Abdomen Pelvis W Contrast Imaging Routine Aortic stenosis, severe 03/30/2020 2:58 PM EST [facility] Comment on above: Daily until disconti nued starting 04/10/2020, 2 completed Oxygen therapy [[facility] Data Set] Initiate Oxygen Therapy Protocol Respiratory Care Routine Daily until discontinued starting 04/10/2020 [employer] [facility] Comment on above: Daily until disconti nued starting 04/10/2020 POCT glucose [facility] Tears for Life [facility] Comment on above: 4X Daily (AC & HS) u ntil discontinued starting 04/10/2020 As Needed until disc ontinued starting 04/10/2020 End: 03-30-2020 PREPARE RBC (CROSSMATCH), 2 Units PREPARE RBC (CROSSMATCH), 2 Units Blood Bank Routine Nonrheumatic aortic valve stenosis 1 Occurrences starting 03/30/2020 until 03/30/2020 [place] Comment on above: 1 Occurrences starti ng 03/30/2020 until 03/30/2020 PREPARE RBC (CROSSMA [facility]), 2 Units PREPARE RBC (CROSSMATCH), 2 Units Blood Bank Routine Nonrheumatic aortic valve stenosis 03/30/2020 3:26 PM EST [place] Spirometry panel Incentive isiah metry Respiratory Care Routine Every 2hr while awake until discontinued starting 04/10/2020 [place] Comment on above: Every 2hr while awak e until discontinued starting 04/10/2020 End: 09-02-2022 XR Cervical spine 2 or 3 Views [facility] Work Phone: Comment on above: Once for 1 Occurrenc es starting 09/02/2022 until 09/02/2022 Immunizations Immunization Date Immunization Notes Care Provider [facility] 12-05-2022 influenza virus vacc ine, unspecified formulation [facility] 3 [facility] 11-21-2021 influenza virus vacc ine, unspecified formulation Jori Reilly MD Work Phone: [facility] Payers Date Payer Category Payer Private Health Insurance [id number] 2015 Private Health Insurance 2011 Medicare [id number] 2011 Medicare 1945 Unknown [id number] 1945 Unknown [id number] 1945 Unknown [id number] 1945 Unknown [id number] Social History Date Type Detail Facility Start: 03-30-2020 End: 12-18-2021 Tobacco smoking status NHIS Never smoker [place] Start: 03-30-2020 End: 12-18-2021 Tobacco use and exposure Never used [place] Start: 03-30-2020 End: 03-12-2023 Alcohol intake Current drinker of alcohol (finding) [place] Start: 09-27-2016 Alcohol Comment occasionally [place], [place] Start: 1945 Sex Assigned At Not on file M [place] Start: 12-08-2021 End: 11-13-2022 Exposure to SARS-CoV-2 (event) Not sure [place] Start: 04-02-2022 Alcohol Comment once month [facility] Start: 07-09-2022 End: 07-11-20[address] [facility] Start: 07-09-2022 End: 07-11-[address] [facility] Medical Equipment Procedure Code Equipment Code Equipment Origin al Text Equipment Identifier Dates Lead Sensing Res p Inspire - [id number] - [id number] _imp Start: 04-09-2022 Generator Pulse Inspire - [id number] - [id number] _imp Start: 04-09-2022 Lead Stim Inspir e - [id number] - [id number] _imp Start: 04-09-2022 Clinical Notes 12-18-2021 to 07-11-2023 Ryland Pickett MD - 07/11/2023 11:00 AM EDTTelephone Encounter - Srinivas Coleman MD - 05/29/2023 9:52 AM EDTTelephone Encounter - Srinivas Coleman MD - 05/29/2023 9:52 AM EDTDischarge Instructions Note Date & Type Note Facility 07-11-2023 History of Presen t illness Narrative Assessment and Recommendations: Matthias Hoffmann is a 77 y.o. male here for obstructive sleep apnea and awake endoscopy -Patient tolerated the procedure well without issue was reconfigured started on lower voltage settings to help with tolerance as well as delayed activation when he goes to sleep. He will follow-up with Dr. Coleman and we will confirm our findings with the inspire team all of his question concerns were answered he expressed understanding Otolaryngology Head and Neck Surgery Clinic Note HPI: Matthias Hoffmann is a 77 y.o. yo male who presents to clinic today for evaluation of addiction obstructive sleep apnea. Patient is known to Dr. Coleman has been going through titration studies and recently was found to have still severe sleep apnea with multiple obstructive hypopneic and central apneic events and is here for further evaluation and interrogation into the inspire device PMH: Past Medical History: Diagnosis Date Aortic stenosis, severe Arthritis Diabetes mellitus (HCC) Hyperlipidemia Hypertension Sleep apnea, obstructive does not tolerate cpap Allergies: Allergies Allergen Reactions Nitroglycerin Other BP dropped with administration Made blood pressure drop Penicillins Hives, Swelling and Dermatitis Has not had since childhood, unsure of rxn Medications: Current Outpatient Medications: aspirin 81 MG EC tablet, Take 81 mg by mouth daily., Disp: , Rfl: atorvastatin (Lipitor) 80 MG tablet, Take 80 mg by mouth Nightly., Disp: , Rfl: clindamycin (Cleocin) 150 MG capsule, , Disp: , Rfl: ezetimibe (Zetia) 10 MG tablet, Take 10 mg by mouth Nightly., Disp: , Rfl: finasteride (Proscar) 5 MG tablet, Take 5 mg by mouth daily., Disp: , Rfl: hydroCHLOROthiazide (HYDRODiuril) 25 MG tablet, Take 25 mg by mouth daily., Disp: , Rfl: Jardiance 25 MG, 1 (one) time each day., Disp: , Rfl: meclizine (Antivert) 25 MG tablet, Take 25 mg by mouth 3 times daily as needed., Disp: , Rfl: metFORMIN XR (Glucophage-XR) 750 MG 24 hr tablet, , Disp: , Rfl: pyridoxine (B-6) 100 MG tablet, Take 100 mg by mouth daily., Disp: , Rfl: ramipril (Altace) 10 MG capsule, Take 10 mg by mouth in the morning and 10 mg in the evening., Disp: , Rfl: tamsulosin (Flomax) 0.4 MG 24 hr capsule, , Disp: , Rfl: Trulicity 3 MG/0.5ML solution pen-injector, 1 (one) time per week., Disp: , Rfl: linaGLIPtin (Tradjenta) 5 MG tablet, Take 5 mg by mouth daily., Disp: , Rfl: PSH: Past Surgical History: Procedure Laterality Date CARDIAC PROCEDURE Left 03/13/2020 Normal Coronaries/Dr. Salgado/Hai CARDIAC SURGERY 04/12/2020 TAVR HERNIA REPAIR KNEE ARTHROPLASTY Bilateral LIPOMA RESECTION chest TONSILLECTOMY (HISTORICAL) FH: Family History Problem Relation Name Age of Onset Breast cancer Mother Heart Surgery Brother Heart attack Father Heart attack Brother SH: Social History Socioeconomic History Marital status: Spouse name: Not on file Number of children: Not on file Years of education: Not on file Highest education level: Not on file Occupational History Not on file Tobacco Use Smoking status: Never Smokeless tobacco: Never Vaping Use Vaping Use: Never used Substance and Sexual Activity Alcohol use: Yes Comment: once month Drug use: No Sexual activity: Not on file Other Topics Concern Not on file Social History Narrative Not on file Social Determinants of Health Financial Resource Strain: Not on file Food Insecurity: Not on file Transportation Needs: Not on file Physical Activity: Not on file Stress: Not on file Social Connections: Not on file Intimate Partner Violence: Not on file Housing Stability: Not on file Physical Exam: Constitutional: General: Patient is not in acute distress. Appearance: Patient is well-developed. Eyes: Conjunctiva/sclera: Conjunctivae normal. Pupils: Pupils are equal, round, and reactive to light. HENT: Jaw: No trismus. Nose: No nasal deformity, mucosal edema or rhinorrhea. Mouth: Mucous membranes are not pale, not dry and not cyanotic. No oral lesions. Pharynx: Uvula midline. No oropharyngeal exudate or uvula swelling. Tonsils: No tonsillar exudate. No abnormal masses or lesions Thyroid: No significant thyromegaly. Trachea: Trachea and phonation normal. No tracheal deviation. Pulmonary: Effort: Pulmonary effort is normal. No respiratory distress. Breath sounds: No stridor. Musculoskeletal: Head: Normocephalic and atraumatic. Neck: Full passive range of motion without pain, neck supple. Skin: General: Skin is warm and dry. Findings: No erythema or rash. Neurological: Cranial Nerves: No cranial nerve deficit. Sensory: No sensory deficit. Coordination: Coordination normal. Extremities: No significant peripheral edema or varicosities Psychiatric: Mood and Affect: Mood and affect normal. Cognition and Memory: Cognition and memory normal. Awake endoscopy performed testing several different configurations as well as voltage settings with good airway flare throughout the entire process. Patient shows good airway flare of the palate as well as the base of tongue airways widely patent documented in this encounter [facility] 05-29-2023 Telephone encounter Note Lou I had advised pt at follow-up yesterday that we would try to resend order. Could you please do so? Thanks [facility] Work Phone: 05-29-2023 Miscellaneous Notes Lou I had advised pt at follow-up yesterday that we would try to resend order. Could you please do so? Thanks Patient called in stating Abelardo has not received chinstrap order that was done in March (order is in media). I told pt would look into this and provide him an update once that is received. Thank you! documented in this encounter [facility] 05-29-2023 Telephone encounter Note Patient called in stating Abelardo has not received chinstrap order that was done in March (order is in media). I told pt would look into this and provide him an update once that is received. Thank you! [facility] 05-28-2023 History of Presen t illness Narrative Images from the original note were not included. [facility] SLEEP MEDICINE FOLLOW UP OFFICE VISIT-SLEEP Date of last visit: 03/12/23 Plan at that time: - Performed functional tongue exam. Kept configuration at 0-0, amplitude at 1.0 V, start delay at 20 mins, pause time at 15 mins, and therapy duration at 9 hours. Changed lower range from 0.2 to 0.3 V, and upper range from 1.1 V to 1.3 V. - Discussed possible medication for insomnia. Ideally would first like to ensure JULIANN is fully treated. Will have pt scheduled for fine-tuning PSG. - Will try to order chin strap from [facility] to see if it would help with dry mouth. - F/u after fine-tuning PSG. Interval History: Not sure if he feels any benefit from Inspire at this point. Getting very dry mouth. Never really had snoring to begin with. Doesn't endorse any RLS, and does not report any leg movements she is aware of in sleep. Requip didn't help in the past. Had fine-tuning PSG done. Sleep-Wake Schedule Bedtime: 11 pm. Final wake time: 7 am. Patient does not wake up refreshed. Sleep Latency: within few minutes Awakenings after sleep onset: 3-4 times; sometimes to go to bathroom. Will frequently change positions. Difficult to fall back asleep. Naps: couple days per week for 15 mins Estimated total sleep time: 3 hours Sleep Metrics: [place] Sleepiness Scale: 10 (12 last visit) Past Treatments: Ropinirole (didn't help) CPAP Inspire Prior Sleep Studies: PSG 11/11/17 (): AHI 47.7; SpO2 min 79%. Weight 246 lbs. PLM 4.9. PAP titration 01/12/18 (): CPAP 11 cmH2O recommended. Weight 246. PLM 31.4; PLM-a 9. PSG 08/15/21: Weight 250 lbs. AHI 61; Spo2 min 79%. 15% central events. Absent supine sleep. Inspire Fine-tune PSG 05/09/23: weight 245 lbs. @ 1.4 V AHI 32.4 (lowest of study), SpO2 avg 87%, eugenia 78%. Arousal index 34.3. Config 0-0. Central apneas, PACs. PLM 34.7; PLM-a 9.9 Past Medical History Past Medical History: Diagnosis Date Aortic stenosis, severe Arthritis Diabetes mellitus (HCC) Hyperlipidemia Hypertension Sleep apnea, obstructive does not tolerate cpap Past Surgical History Past Surgical History: Procedure Laterality Date CARDIAC PROCEDURE Left 03/13/2020 Normal Coronaries/Dr. Salgado/Hai CARDIAC SURGERY 04/12/2020 TAVR HERNIA REPAIR KNEE ARTHROPLASTY Bilateral LIPOMA RESECTION chest TONSILLECTOMY (HISTORICAL) Allergies Allergies Allergen Reactions Nitroglycerin Anaphylaxis and Other BP dropped with administration Made blood pressure drop Penicillins Hives, Swelling and Dermatitis Has not had since childhood, unsure of rxn Medications Current Outpatient Medications Medication Instructions aspirin 81 mg, Oral, Daily atorvastatin (LIPITOR) 80 mg, Oral, Nightly clindamycin (Cleocin) 150 MG capsule No dose, route, or frequency recorded. ezetimibe (ZETIA) 10 mg, Oral, Nightly finasteride (PROSCAR) 5 mg, Oral, Daily hydroCHLOROthiazide (HYDRODIURIL) 25 mg, Oral, Daily Jardiance 25 MG Daily linaGLIPtin (TRADJENTA) 5 mg, Oral, Daily meclizine (ANTIVERT) 25 mg, Oral, 3 times daily PRN metFORMIN XR (Glucophage-XR) 750 MG 24 hr tablet No dose, route, or frequency recorded. pyridoxine (B-6) 100 mg, Oral, Daily ramipril (ALTACE) 10 mg, Oral, 2 time daily tamsulosin (Flomax) 0.4 MG 24 hr capsule No dose, route, or frequency recorded. Trulicity 3 MG/0.5ML solution pen-injector Weekly Social History Social History Tobacco Use Smoking status: Never Smokeless tobacco: Never Substance Use Topics Alcohol use: Yes Comment: once month Family History Family History Problem Relation Name Age of Onset Breast cancer Mother Heart Surgery Brother Heart attack Father Heart attack Brother Review of Systems Constitutional: Positive for fatigue. Psychiatric/Behavioral: Positive for sleep disturbance. Physical Exam Vitals: 05/28/23 1500 BP: 118/80 BP Location: Left arm Patient Position: Sitting BP Cuff Size: Large adult Pulse: 91 Resp: 16 SpO2: 94% Weight: 252 lb 6.4 oz (114 kg) Height: 5' 11 (1.803 m) General appearance: Well appearing. No acute distress. AAOX3 Head: Normocephalic, without obvious abnormality, atraumatic Eyes: Normal sclera and conjunctiva Mouth: Tongue lifting > protrusion when Inspire turned on Throat: Normal tongue protrusion (with device not active) Skin: Skin color normal. No rashes or lesions Psych: Euthymic Mood Labs/additional studies: Impression: Diagnosis Plan 1. JULIANN (obstructive sleep apnea) 2. Insomnia, unspecified type 77 y/o M with HTN, aortic stenosis (s/p TAVR), and obesity. Previously found to have severe JULIANN, was unable to tolerate PAP therapy and stopped using after three months. Inspire with cuff dislodgement, now using Inspire well (44 hours/week). Still with frequent awakenings; experiencing dry mouth and not noticing improvement at this time. Recommendations: - Performed functional tongue exam and observed rise and fall with sensor waveform. - Discussed possible medication for insomnia. Ideally would first like to ensure JULIANN is fully treated. - Will try to order chin strap from [facility] to see if it would help with dry mouth. - Reviewed fine-tuning PSG results. Unfortunately, optimal therapeutic amplitude not identified. Discussed with inspire rep. Will have pt in for awake endoscopy. F/u approximately 1 month afterwards. Will likely required complex/advanced titration study. On this date, 05/28/2023 I have spent 30 minutes reviewing the above treatment plan with the patient as well as documenting on the day of the visit. documented in this encounter [facility] 03-12-2023 History of Presen t illness Narrative Images from the original note were not included. [facility] SLEEP MEDICINE FOLLOW UP OFFICE VISIT-SLEEP Date of last visit: 01/15/23 Plan at that time: - Performed functional tongue exam. Lifting > protrusion, but patient noted more comfort on different configuration. Switched settings: - Configuration changed from +-+ to off - off. - amplitude changed from 0.7 V to 0.4 V. - Lower limit changed from 0.4 V to 0.2 V. - Upper limit changed from 1.4 V to 1.1 V. - Therapy duration increased from 8 to 9 hours as pt states he sleeps more in winter months. - F/u 1 month. Interval History: Not quite as tired in the day. But still waking up far more than he would prefer at this time. Couldn't get comfortable titrating above 0.7 V. Sleep-Wake Schedule Bedtime: 11 pm. Final wake time: 7 am. Patient does not wake up refreshed. Sleep Latency: within few minutes Awakenings after sleep onset: 3-4 times; sometimes to go to bathroom. Will frequently change positions. Difficult to fall back asleep. Naps: couple days per week for 15 mins Estimated total sleep time: 3 hours Sleep Metrics: [place] Sleepiness Scale: 10 (12 last visit) Past Treatments: Ropinirole (didn't help) CPAP Inspire Prior Sleep Studies: PSG 11/11/17 (rogers): AHI 47.7; SpO2 min 79%. Weight 246 lbs. PLM 4.9. PAP titration 01/12/18 (rogers): CPAP 11 cmH2O recommended. Weight 246. PLM 31.4; PLM-a 9. PSG 08/15/21: Weight 250 lbs. AHI 61; Spo2 min 79%. 15% central events. Absent supine sleep. Past Medical History Past Medical History: Diagnosis Date Aortic stenosis, severe Arthritis Diabetes mellitus (HCC) Hyperlipidemia Hypertension Sleep apnea, obstructive does not tolerate cpap Past Surgical History Past Surgical History: Procedure Laterality Date CARDIAC PROCEDURE Left 03/13/2020 Normal Coronaries/Dr. Salgado/Hai CARDIAC SURGERY 04/12/2020 TAVR HERNIA REPAIR KNEE ARTHROPLASTY Bilateral LIPOMA RESECTION chest TONSILLECTOMY (HISTORICAL) Allergies Allergies Allergen Reactions Nitroglycerin Anaphylaxis and Other BP dropped with administration Made blood pressure drop Penicillins Hives, Swelling and Dermatitis Has not had since childhood, unsure of rxn Medications Current Outpatient Medications Medication Instructions aspirin 81 mg, Oral, Daily atorvastatin (LIPITOR) 80 mg, Oral, Nightly clindamycin (Cleocin) 150 MG capsule No dose, route, or frequency recorded. ezetimibe (ZETIA) 10 mg, Oral, Nightly finasteride (PROSCAR) 5 mg, Oral, Daily hydroCHLOROthiazide (HYDRODIURIL) 25 mg, Oral, Daily Jardiance 25 MG Daily linaGLIPtin (TRADJENTA) 5 mg, Oral, Daily meclizine (ANTIVERT) 25 mg, Oral, 3 times daily PRN metFORMIN XR (Glucophage-XR) 750 MG 24 hr tablet No dose, route, or frequency recorded. pyridoxine (B-6) 100 mg, Oral, Daily ramipril (ALTACE) 10 mg, Oral, 2 time daily tamsulosin (Flomax) 0.4 MG 24 hr capsule No dose, route, or frequency recorded. Trulicity 3 MG/0.5ML solution pen-injector Weekly Social History Social History Tobacco Use Smoking status: Never Smokeless tobacco: Never Substance Use Topics Alcohol use: Yes Comment: once month Family History Family History Problem Relation Name Age of Onset Breast cancer Mother Heart Surgery Brother Heart attack Father Heart attack Brother Review of Systems Constitutional: Positive for fatigue. Psychiatric/Behavioral: Positive for sleep disturbance. Physical Exam Vitals: 03/12/23 1336 BP: 126/86 BP Location: Left arm Patient Position: Sitting BP Cuff Size: Large adult Pulse: 81 Resp: 16 SpO2: 95% Weight: 252 lb 3.2 oz (114 kg) Height: 5' 11 (1.803 m) General appearance: Well appearing. No acute distress. AAOX3 Head: Normocephalic, without obvious abnormality, atraumatic Eyes: Normal sclera and conjunctiva Mouth: Tongue lifting > protrusion when Inspire turned on Throat: Normal tongue protrusion (with device not active) Skin: Skin color normal. No rashes or lesions Psych: Euthymic Mood, restricted affect Labs/additional studies: Impression: Diagnosis Plan 1. JULIANN (obstructive sleep apnea) 2. Insomnia, unspecified type 77 y/o M with HTN, aortic stenosis (s/p TAVR), and obesity. Previously found to have severe JULIANN, was unable to tolerate PAP therapy and stopped using after three months. Inspire with cuff dislodgement, now using Inspire well (44 hours/week). Still with frequent awakenings. Recommendations: - Performed functional tongue exam. Kept configuration at 0-0, amplitude at 1.0 V, start delay at 20 mins, pause time at 15 mins, and therapy duration at 9 hours. Changed lower range from 0.2 to 0.3 V, and upper range from 1.1 V to 1.3 V. - Discussed possible medication for insomnia. Ideally would first like to ensure JULIANN is fully treated. Will have pt scheduled for fine-tuning PSG. - Will try to order chin strap from [employer] to see if it would help with dry mouth. - F/u after fine-tuning PSG. On this date, 03/12/23 I have spent 30 minutes reviewing previous notes, test results and face to face with the patient discussing the diagnosis and importance of compliance with the treatment plan as well as documenting on the day of the visit. ORDER FOR CHINSTRAP WAITING SIGNATURE AND WILL FAX TO [facility] documented in this encounter [facility] 12-12-2022 Telephone encounter Note Thank you! Reviewed, looks like patient's sleep started worsening after he increased it beyond 2 settings from where we set him. Will await update from him in a week or so to discuss further. [facility] Work Phone: 12-12-2022 Miscellaneous Notes Thank you! Reviewed, looks like patient's sleep started worsening after he increased it beyond 2 settings from where we set him. Will await update from him in a week or so to discuss further. Patient found on [employer]. Report thru 12/11/22 in media. Spoke with patient. States he thought he was originally doing better when on lower settings. Then as he started increasing he started actually waking up more throughout the night. Advised pt to decrease setting back to level 6 in case we had overshot. Advised him to call back with an update if no improvement in a week or so. Lisa, patient also stated that he had now synced his marcial. Could you check if he is showing up in [employer] yet? Thanks One-month post-activation Inspire check-in. Download marcial and connected to provider? He thinks he did, but there's no info for him on [employer]. Instructed him to log into marcial and connect for download. He will try. Are you using Inspire through the night? Yes, but doesn't think it's working well. Not sleeping for more than 1-2 hours at a time. Cannot figure out why he keeps getting up. Is the stimulation comfortable? Seems to be OK, but he is troubled by not sleeping How many lights are on the back of your remote? 7 Has your snoring improved with Inspire? Says he never snored. How are you feeling? Not well rested. Reminded patient of follow up visit on 01/15/23. Did advise message would be sent to Dr. Coleman for any advice/suggestions in the meantime. documented in this encounter [facility] 12-12-2022 Telephone encounter Note Patient found on [facility]. Report thru 12/11/[address] [facility] 12-12-2022 Telephone encounter Note Spoke with patient. States he thought he was originally doing better when on lower settings. Then as he started increasing he started actually waking up more throughout the night. Advised pt to decrease setting back to level 6 in case we had overshot. Advised him to call back with an update if no improvement in a week or so. Lisa, patient also stated that he had now synced his marcial. Could you check if he is showing up in [facility] yet? Thanks [facility] 12-12-2022 Telephone encounter Note One-month post-activation Inspire check-in. Download marcial and connected to provider? He thinks he did, but there's no info for him on [facility]. Instructed him to log into marcial and connect for download. He will try. Are you using Inspire through the night? Yes, but doesn't think it's working well. Not sleeping for more than 1-2 hours at a time. Cannot figure out why he keeps getting up. Is the stimulation comfortable? Seems to be OK, but he is troubled by not sleeping How many lights are on the back of your remote? 7 Has your snoring improved with Inspire? Says he never snored. How are you feeling? Not well rested. Reminded patient of follow up visit on 01/15/23. Did advise message would be sent to Dr. Coleman for any advice/suggestions in the meantime. T [facility] 11-13-2022 History of Presen t illness Narrative Images from the original note were not included. [facility] SLEEP MEDICINE FOLLOW UP OFFICE VISIT-SLEEP Date of last visit: 08/28/22 Plan at that time: - Attempted activation for patient with no improvement noted in tongue motion from previous visit 7 weeks prior. Patient recommended to follow up with Dr. Reilly for scans of system to help determine best course of action. - F/u after pt has seen Dr. Reilly and gotten imaging. Interval History: Patient reports no change in his sleep at this time. Cuff found to be off nerve, had surgery for revision. No issues since surgery. Sleep-Wake Schedule Bedtime: 10 pm to 12 am. Final wake time: 6 am. Patient does not wake up refreshed. Sleep Latency: within few minutes Awakenings after sleep onset: 5-6 times; sometimes to go to bathroom. Will frequently change positions. Difficult to fall back asleep. Naps: several days per week for 30 mins Estimated total sleep time: 3 hours Sleep Metrics: [place] Sleepiness Scale: 12 (7 last visit) Past Treatments: Ropinirole (didn't help) CPAP Inspire Prior Sleep Studies: PSG 11/11/17 (): AHI 47.7; SpO2 min 79%. Weight 246 lbs. PLM 4.9. PAP titration 01/12/18 (): CPAP 11 cmH2O recommended. Weight 246. PLM 31.4; PLM-a 9. PSG 08/15/21: Weight 250 lbs. AHI 61; Spo2 min 79%. 15% central events. Absent supine sleep. Past Medical History Past Medical History: Diagnosis Date Aortic stenosis, severe Arthritis Diabetes mellitus (HCC) Hyperlipidemia Hypertension Sleep apnea, obstructive does not tolerate cpap Past Surgical History Past Surgical History: Procedure Laterality Date CARDIAC PROCEDURE Left 03/13/2020 Normal Coronaries/Dr. Salgado/Hai CARDIAC SURGERY 04/12/2020 TAVR HERNIA REPAIR KNEE ARTHROPLASTY Bilateral LIPOMA RESECTION chest TONSILLECTOMY (HISTORICAL) Allergies Allergies Allergen Reactions Nitroglycerin Anaphylaxis and Other BP dropped with administration Made blood pressure drop Penicillins Hives, Swelling and Dermatitis Has not had since childhood, unsure of rxn Medications Current Outpatient Medications Medication Instructions aspirin 81 mg, Oral, Daily atorvastatin (LIPITOR) 80 mg, Oral, Nightly clindamycin (Cleocin) 150 MG capsule No dose, route, or frequency recorded. ezetimibe (ZETIA) 10 mg, Oral, Nightly finasteride (PROSCAR) 5 mg, Oral, Daily hydroCHLOROthiazide (HYDRODIURIL) 25 mg, Oral, Daily Jardiance 25 MG Daily linaGLIPtin (TRADJENTA) 5 mg, Oral, Daily meclizine (ANTIVERT) 25 mg, Oral, 3 times daily PRN metFORMIN XR (Glucophage-XR) 750 MG 24 hr tablet No dose, route, or frequency recorded. pyridoxine (B-6) 100 mg, Oral, Daily ramipril (ALTACE) 10 mg, Oral, 2 time daily tamsulosin (Flomax) 0.4 MG 24 hr capsule No dose, route, or frequency recorded. Trulicity 3 MG/0.5ML solution pen-injector Weekly Social History Social History Tobacco Use Smoking status: Never Smokeless tobacco: Never Substance Use Topics Alcohol use: Yes Comment: once month Family History Family History Problem Relation Name Age of Onset Breast cancer Mother Heart Surgery Brother Heart attack Father Heart attack Brother Review of Systems Constitutional: Positive for fatigue. Psychiatric/Behavioral: Positive for sleep disturbance. Physical Exam Vitals: 11/13/22 1340 BP: (!) 144/90 BP Location: Left arm Patient Position: Sitting BP Cuff Size: Large adult Pulse: 85 Resp: 16 SpO2: 92% Weight: 250 lb (113 kg) Height: 5' 11 (1.803 m) General appearance: Well appearing. No acute distress. AAOX3 Head: Normocephalic, without obvious abnormality, atraumatic Eyes: Normal sclera and conjunctiva Throat: Normal tongue protrusion (with device not active) Skin: Skin color normal. No rashes or lesions Psych: Euthymic Mood Labs/additional studies: Impression: Diagnosis Plan 1. JULIANN (obstructive sleep apnea) 77 y/o M with HTN, aortic stenosis (s/p TAVR), and obesity. Previously found to have severe JULIANN, was unable to tolerate PAP therapy and stopped using after three months. Inspire with cuff dislodgement, today post-revision here for activation. Recommendations: - Inspire activation performed. See other note. - F/u approximately 2 months. On this date, 11/13/2022 I have spent 50 minutes reviewing previous notes, test results and face to face with the patient discussing the diagnosis and importance of compliance with the treatment plan as well as documenting on the day of the visit. Inspire Activation Visit Template Note: All changes made during the time of activation are underlined. Patient Name/ID: Matthias Hoffmann Date of Visit: 11/13/22 Incision Check: Both incisions were normal. Functional Tongue Exam: Normal tongue motion. No evidence of tongue deviation or weakness. No difficulty with swallowing or speech. Sensation Threshold (ST): 0.6 V Functional Threshold (FT): 0.6 V Tongue Motion Phenotype at FT: Protrusion. Electrode Configuration set at: +-+ Final Amplitude: 0.6 V Patient Control Lower Limit: 0.4 V Patient Control Upper Limit: 1.4 V Pulse Width: 90 uq Rate: 33 Hz Start Delay: 20 minutes Therapy Duration: 8 hours Pause time: 15 minutes Sensor Waveform: Waveform showed upward and downward deflections. Rise/fall verified. Other Programming: Patient Instructions: Reviewed and educated the patient on proper sleep remote function. The patient demonstrated competency with the remote, is aware of the quick guide and instructional video. Instructed the patient to use therapy all-night, every-night and step up their levels every 5-7 nights by one level (0.1V). The patient will be contacted via phone or scheduled for an office visit before the fine tune sleep study to ensure adequate adherence and ensure the patient is stepping up their levels. The patient will be scheduled for a titration sleep study in about 3 months to assess adherence, fine tune the settings, and evaluate efficacy. Patient scheduled to be called in one month for post-activation check in. documented in this encounter [facility] 10-18-2022 Note Assessment and Recom mendations: Matthias Hoffmann is a 77 y.o. y.o. male here for evaluation of obstructive sleep apnea status post OR on 12/25/2021 for drug-induced sleep endoscopy is a candidate for inspire s/p OR 04/09/22 for INSPIRE placement postop work-up with dislodged cuff s/p OR 10/10/22 for revision of cuff which had dislodged -Given that patient also has restless leg and insomnia issues I discussed that the inspire may or may not completely improve his sleep continue follow-up with Dr. Coleman of sleep medicine. Will arrange appointment for 4-6 week activation -JULIANN: Status post hypoglossal nerve stimulator placement with cuff dislodgement, now revised with good stimulation intraoperatively. . Otolaryngology / Head and Neck Surgery Clinic Note Matthias Hoffmann is a 76 y.o. male who presents for evaluation of chief complaint of obstructive sleep apnea. Would like to discuss INSPIRE. Last sleep study was January 2018 AHI 47.7 O2 eugenia 79%. Was prescribed a CPAP in early 2018. Has tried wearing full mask, and nose mask and he states that he still does not sleep. He reports restless sleep. No real snoring. No witnessed apneas; but sleep study report that he stopped breathing quite a bit. No allergic rhinitis symptoms such as itchy watery eyes runny nose and sneezing. No nasal obstruction symptoms. BMI 36.40. Reports daytime somnolence and unrefreshing sleep. No need for serial MRIs. Had his Aortic valve replaced last year. Not on plavix anymore - was only taking it for 90 days. 81 ASA no other blood thinners. No history of stroke. No lung issues. Interval History 11/02/21: Patient did see Dr. Coleman 07/18/21 note reviewed referred for INSPIRE evaluation. BMI now 35.29. Patient repeat sleep study on 08/15/2021 shows severe sleep apnea with AHI of 61, 15% central apneas, oxygen eugenia 79%. Patient with no significant heart or lung issues no need for chest imaging. Does have a history of aortic stenosis but had a valve replacement and has been doing well since. Interval history 12/31/2021: Patient was a candidate for inspire based on sleep endoscopy. Patient here to discuss inspire hypoglossal nerve stimulator surgery. Patient is very excited to discuss surgical intervention. No concerns or complaints at this time. BMI is 34.31. Interval history 04/15/2022: Patient now status post hypoglossal nerve stimulator placement. Here for first postop. Patient is doing well overall. Has noticed bruising around the neck incision but has not noticed any swelling, drainage or any pain around the incision sites. Minimal pain. No concerns or complaints at this time. Interval history 09/17/2022: Patient has been having issues with activation no tongue paresis and only mild stimulation at highest amplitudes. Case had been discussed and patient called x-ray of neck showing a displaced cuff consistent with poor activation of tongue with inspire device. Patient denies any weakness at the time. Interval History 10/18/22: Patient now s/p revision of INSPIRE cuff with good intraop tongue motion. No concerns no tongue weakness. Past Medical History: Diagnosis Date Aortic stenosis, severe Arthritis Diabetes mellitus (HCC) Hyperlipidemia Hypertension Sleep apnea, obstructive does not tolerate cpap Past Surgical History: Procedure Laterality Date CARDIAC PROCEDURE Left 03/13/2020 Normal Coronaries/Dr. Salgado/Hai CARDIAC SURGERY 04/12/2020 TAVR HERNIA REPAIR KNEE ARTHROPLASTY Bilateral LIPOMA RESECTION chest TONSILLECTOMY (HISTORICAL) Current Outpatient Medications: acetaminophen (Tylenol) 325 MG tablet, Take 2 tablets (650 mg) by mouth every 6 hours as needed for mild pain (1-3) for up to 10 days., Disp: 30 tablet, Rfl: 0 aspirin 81 MG EC tablet, Take 81 mg by mouth daily., Disp: , Rfl: atorvastatin (Lipitor) 80 MG tablet, Take 80 mg by mouth Nightly., Disp: , Rfl: clindamycin (Cleocin) 150 MG capsule, , Disp: , Rfl: ezetimibe (Zetia) 10 MG tablet, Take 10 mg by mouth Nightly., Disp: , Rfl: finasteride (Proscar) 5 MG tablet, Take 5 mg by mouth daily., Disp: , Rfl: hydroCHLOROthiazide (HYDRODiuril) 25 MG tablet, Take 25 mg by mouth daily., Disp: , Rfl: Jardiance 25 MG, 1 (one) time each day., Disp: , Rfl: linaGLIPtin (Tradjenta) 5 MG tablet, Take 5 mg by mouth daily., Disp: , Rfl: meclizine (Antivert) 25 MG tablet, Take 25 mg by mouth 3 times daily as needed., Disp: , Rfl: metFORMIN XR (Glucophage-XR) 750 MG 24 hr tablet, , Disp: , Rfl: pyridoxine (B-6) 100 MG tablet, Take 100 mg by mouth daily., Disp: , Rfl: ramipril (Altace) 10 MG capsule, Take 10 mg by mouth in the morning and 10 mg in the evening., Disp: , Rfl: tamsulosin (Flomax) 0.4 MG 24 hr capsule, , Disp: , Rfl: Trulicity 3 MG/0.5ML solution pen-injector, 1 (one) time per week., Disp: , Rfl: Allergies Allergen Reactions Nitroglycerin Anaphy (more content not included)... [facility]ly [facility] 10-18-2022 History of Presen t illness Narrative Assessment and Recommendations: Matthias Hoffmann is a 77 y.o. y.o. male here for evaluation of obstructive sleep apnea status post OR on 12/25/2021 for drug-induced sleep endoscopy is a candidate for inspire s/p OR 04/09/22 for INSPIRE placement postop work-up with dislodged cuff s/p OR 10/10/22 for revision of cuff which had dislodged -Given that patient also has restless leg and insomnia issues I discussed that the inspire may or may not completely improve his sleep continue follow-up with Dr. Coleman of sleep medicine. Will arrange appointment for 4-6 week activation -JULIANN: Status post hypoglossal nerve stimulator placement with cuff dislodgement, now revised with good stimulation intraoperatively. . Otolaryngology / Head and Neck Surgery Clinic Note Matthias Hoffmann is a 76 y.o. male who presents for evaluation of chief complaint of obstructive sleep apnea. Would like to discuss INSPIRE. Last sleep study was January 2018 AHI 47.7 O2 eugenia 79%. Was prescribed a CPAP in early 2018. Has tried wearing full mask, and nose mask and he states that he still does not sleep. He reports restless sleep. No real snoring. No witnessed apneas; but sleep study report that he stopped breathing quite a bit. No allergic rhinitis symptoms such as itchy watery eyes runny nose and sneezing. No nasal obstruction symptoms. BMI 36.40. Reports daytime somnolence and unrefreshing sleep. No need for serial MRIs. Had his Aortic valve replaced last year. Not on plavix anymore - was only taking it for 90 days. 81 ASA no other blood thinners. No history of stroke. No lung issues. Interval History 11/02/21: Patient did see Dr. Coleman 07/18/21 note reviewed referred for INSPIRE evaluation. BMI now 35.29. Patient repeat sleep study on 08/15/2021 shows severe sleep apnea with AHI of 61, 15% central apneas, oxygen eugenia 79%. Patient with no significant heart or lung issues no need for chest imaging. Does have a history of aortic stenosis but had a valve replacement and has been doing well since. Interval history 12/31/2021: Patient was a candidate for inspire based on sleep endoscopy. Patient here to discuss inspire hypoglossal nerve stimulator surgery. Patient is very excited to discuss surgical intervention. No concerns or complaints at this time. BMI is 34.31. Interval history 04/15/2022: Patient now status post hypoglossal nerve stimulator placement. Here for first postop. Patient is doing well overall. Has noticed bruising around the neck incision but has not noticed any swelling, drainage or any pain around the incision sites. Minimal pain. No concerns or complaints at this time. Interval history 09/17/2022: Patient has been having issues with activation no tongue paresis and only mild stimulation at highest amplitudes. Case had been discussed and patient called x-ray of neck showing a displaced cuff consistent with poor activation of tongue with inspire device. Patient denies any weakness at the time. Interval History 10/18/22: Patient now s/p revision of INSPIRE cuff with good intraop tongue motion. No concerns no tongue weakness. Past Medical History: Diagnosis Date Aortic stenosis, severe Arthritis Diabetes mellitus (HCC) Hyperlipidemia Hypertension Sleep apnea, obstructive does not tolerate cpap Past Surgical History: Procedure Laterality Date CARDIAC PROCEDURE Left 03/13/2020 Normal Coronaries/Dr. Salgado/Hai CARDIAC SURGERY 04/12/2020 TAVR HERNIA REPAIR KNEE ARTHROPLASTY Bilateral LIPOMA RESECTION chest TONSILLECTOMY (HISTORICAL) Current Outpatient Medications: acetaminophen (Tylenol) 325 MG tablet, Take 2 tablets (650 mg) by mouth every 6 hours as needed for mild pain (1-3) for up to 10 days., Disp: 30 tablet, Rfl: 0 aspirin 81 MG EC tablet, Take 81 mg by mouth daily., Disp: , Rfl: atorvastatin (Lipitor) 80 MG tablet, Take 80 mg by mouth Nightly., Disp: , Rfl: clindamycin (Cleocin) 150 MG capsule, , Disp: , Rfl: ezetimibe (Zetia) 10 MG tablet, Take 10 mg by mouth Nightly., Disp: , Rfl: finasteride (Proscar) 5 MG tablet, Take 5 mg by mouth daily., Disp: , Rfl: hydroCHLOROthiazide (HYDRODiuril) 25 MG tablet, Take 25 mg by mouth daily., Disp: , Rfl: Jardiance 25 MG, 1 (one) time each day., Disp: , Rfl: linaGLIPtin (Tradjenta) 5 MG tablet, Take 5 mg by mouth daily., Disp: , Rfl: meclizine (Antivert) 25 MG tablet, Take 25 mg by mouth 3 times daily as needed., Disp: , Rfl: metFORMIN XR (Glucophage-XR) 750 MG 24 hr tablet, , Disp: , Rfl: pyridoxine (B-6) 100 MG tablet, Take 100 mg by mouth daily., Disp: , Rfl: ramipril (Altace) 10 MG capsule, Take 10 mg by mouth in the morning and 10 mg in the evening., Disp: , Rfl: tamsulosin (Flomax) 0.4 MG 24 hr capsule, , Disp: , Rfl: Trulicity 3 MG/0.5ML solution pen-injector, 1 (one) time per week., Disp: , Rfl: Allergies Allergen Reactions Nitroglycerin Anaphylaxis and Other BP dropped with administration Made blood pressure drop Penicillins Hives, Swelling and Dermatitis Has not had since childhood, unsure of rxn Physical Exam: Constitutional: General: Patient is not in acute distress. Appearance: Patient is well-developed. Eyes: Conjunctiva/sclera: Conjunctivae normal. Pupils: Pupils are equal, round, and reactive to light. HENT: Jaw: No trismus. Nose: External nose midline, anterior rhinoscopy with septal deviation mild to the left, turbinate mild hypertrophy bilaterally Mouth: Mucous membranes are not pale, not dry and not cyanotic. No oral lesions. Pharynx: Uvula midline. No oropharyngeal exudate or uvula swelling. modified mallampati score 1, tonsil size a tonsillar, palate mildly redundant, uvula normal, retrognathia not present. Tongue protrusion symmetric no atrophy no weakness equal strength normal. Tonsils: No tonsillar exudate. No abnormal masses or lesions Neck: No lymphadenopathy, neck circumference enlarged Thyroid: No significant thyromegaly. Trachea: Trachea and phonation normal. No tracheal deviation. Pulmonary: Effort: Pulmonary effort is normal. No respiratory distress. Breath sounds: No stridor. Musculoskeletal: Head: Normocephalic and atraumatic. Neck: Full passive range of motion without pain, neck supple. Chest and neck incisions clean dry intact. Neck incision with ecchymosis surrounding incision, no swelling, drainage or bleeding from incision Skin: General: Skin is warm and dry. Findings: No erythema or rash. Neurological: Cranial Nerves: No cranial nerve deficit. Sensory: No sensory deficit. Coordination: Coordination normal. Extremities: No significant peripheral edema or varicosities Psychiatric: Mood and Affect: Mood and affect normal. Cognition and Memory: Cognition and memory normal. Prior Flexible Nasolaryngoscopy -No masses or lesions throughout essentially normal exam crusting on the right anterior septum mild leftward septal deviation -lingual tonsils not present -tongue size normal -epiglottis position normal -lateral wall laxity not present documented in this encounter [facility] 10-10-2022 Note Patient: Matthias cunningham Procedure Summary Date: 10/10/22 Room / Location: [address] Operating Room Anesthesia Start: 958 Anesthesia Stop: 120 Procedure: REVISION HYPOGLOSSAL NERVE STIMULATOR (Bilateral) Diagnosis: Obstructive sleep apnea (adult) (pediatric) (Obstructive sleep apnea (adult) (pediatric) [G47.33]) Surgeons: Jori Reilly MD Responsible Provider: COURT Meza CRNA Anesthesia Type: general ASA Status: 3 Anesthesia Type: general Vitals Value Taken Time BP 123/75 10/10/22 1206 Temp 97.2 10/10/22 1209 Pulse 92 10/10/22 1209 Resp 19 10/10/22 1209 SpO2 97 % 10/10/22 1209 Vitals shown include unvalidated device data. Anesthesia Post Evaluation Patient location during evaluation: PACU Patient participation: complete - patient participated Level of consciousness: awake and alert Pain management: satisfactory to patient Airway patency: patent Dental Injury: no Cardiovascular status: acceptable, blood pressure returned to baseline and hemodynamically stable Respiratory status: acceptable and spontaneous ventilation Hydration status: euvolemic Nausea/Vomiting: controlled No notable events documented. Patient can be discharged once all PACU criteria has been met. Former[facility] 10-10-2022 Note Patient: Matthias cunningham Procedure Summary Date: 10/10/22 Room / Location: [address] Operating Room Anesthesia Start: 958 Anesthesia Stop: 1202 Procedure: REVISION HYPOGLOSSAL NERVE STIMULATOR (Bilateral) Diagnosis: Obstructive sleep apnea (adult) (pediatric) (Obstructive sleep apnea (adult) (pediatric) [G47.33]) Surgeons: Jori Reilly MD Responsible Provider: COURT Meza CRNA Anesthesia Type: general ASA Status: 3 Anesthesia Type: general Vitals Value Taken Time BP 123/75 10/10/22 1206 Temp 97.2 10/10/22 1209 Pulse 90 10/10/22 1208 Resp 20 10/10/22 1208 SpO2 97 % 10/10/22 1208 Vitals shown include unvalidated device data. Anesthesia Post Evaluation Patient location during evaluation: PACU Patient participation: complete - patient participated Level of consciousness: sleepy but conscious Pain management: satisfactory to patient Multimodal analgesia pain management approach Airway patency: patent Two or more strategies used to mitigate risk of obstructive sleep apnea Cardiovascular status: acceptable and hemodynamically stable Respiratory status: acceptable and face mask Hydration status: acceptable No notable events documented. MIPS #[phone] PONV Patient received an inhalational anesthetic (4554F) Patient exhibits three or more risk factors for PONV (4556F) Patient received at leaset 2 prophylactic Rx PONV anti-emtic agents of different classes preop and/or intraop (G9775) MIPS # 424 Perioperative Temperature Management Anesthesia time was 60 minutes or longer (4255F) Anesthesai administered was General (inhalational or TIVA) or Neuraxial block (X0424) At least one body temperature greater than 95.8F/35.5C achieved within the 30 mins immediately prior to or the 15 minutes immediately following anesthesia end time (G9771) MIPS #477 Multimodal Pain Management Not emergent case Patient was administered multimodal pain management (two or more drugs and/or interventions excluding systemic opioids) in the periopeartive period occurring at some time between 6 hours prior to anesthesia start time until discharged from PACU (G2148) MIPS #404 Anesthesiology Smoking Abstinence The patient is not a current smoker (e.g. cigarette, cigar, pipe, e-cigarette/vaping/marijuana) If no stop here (G9644) I completed my handoff to the receiving clinician during which we: 1. Identified the patient 2. Identified the responsible provider 3. Reviewed the pertinent medical history 4. Discussed the surgical course 5. Reviewed intra-op anesthesia management and issues during anesthesia 6. Set expectations for post-procedure period 7. Allowed opportunity for questions and acknowledgement of understanding. [facility] 10-10-2022 Note Airway Date/Time: 10/10/2022 10:10 AM Urgency: scheduled Airway not difficult General Information and Staff Patient location during procedure: Procedural Resident/ZYGLO TECHNICIAN: COURT Meza CRNA Performed: ZYGLO TECHNICIAN and SRNA Performed by: COURT Meza CRNA Authorized by: COURT Meza CRNA Indications and Patient Condition Indications for airway management: anesthesia and airway protection Sedation level: Asleep Preoxygenated: yes Patient position: sniffing MILS maintained throughout Mask difficulty assessment: 1 - vent by mask Final Airway Details Final airway type: endotracheal airway Successful airway: ETT Cuffed: yes Successful intubation technique: direct laryngoscopy Facilitating devices/methods: intubating stylet Endotracheal tube insertion site: oral Blade: Rosy Blade size: #3 ETT size (mm): 8.0 Cormack-Lehane Classification: grade IIa - partial view of glottis Placement verified by: capnometry Measured from: gums ETT to gums (cm): 22 Number of attempts at approach: 1 Ventilation between attempts: [facility] 10-10-2022 Note H&P reviewed. The pa tient was examined and there are no changes to the H&P. [facility] 10-10-2022 Hospital Discharg e instructions Jori Reilly MD - 10/10/2022 11:47 AM EDT [facility] [place] INSPIRE / Hypoglossal Nerve Stimulator Post-Operative Instructions What to expect for your procedure: Implantation procedure: The procedure to implant Inspire is typically an outpatient procedure lasting about 3 hours. For some special circumstances, your physician may recommend a single night stay in the hospital. Pain after the procedure varies but for most patients is not severe. Pain will usually resolve within 7-14 days after the procedure and pain medication will be provided along with a prescription for antibiotic and sometimes a steroid to help reduce swelling if the physicians deems appropriate. (This is not required- up to physician discretion) Two incisions will be made: one at the upper neck and one just below the collarbone. All wounds will have Steri strips placed over them which can be left in place until you are seen for your first postoperative appointment. Additionally, pressure dressings will be placed on the chest incision and should be left place for 48 hours after the procedure after which they may be removed (leaving the Steri strips in place). You may shower after the pressure dressings are removed. An arm sling may be placed at the time of surgery. This is to provide comfort and limit arm movement. You may remove the sling 24 hours after surgery but may continue to use it if it is more comfortable to do so. Swelling at incision sites is expected and will typically improve over the first 2 weeks. Most patients can expect some swelling under the jaw that will give the appearance of a double chin. This will improve over 2-4 weeks. For the first week after surgery please do not perform any strenuous activity or heavy lifting. Your physician also asks that you do not lift the right arm above your shoulder for 1 month after surgery. You may resume a normal diet after surgery. Please call the office if you have any of the following symptoms: fever higher than 100.5, excessive swelling at any of the incision sites, bleeding from incisions, slurred speech, difficulty swallowing, or shortness of breath. A physician can be reached at all times at the main office number. A postoperative appointment should be made for 1 week following the procedure. If one has not been previously scheduled, please call the office to arrange. It is important to know that the stimulator device will NOT be active in the immediate postoperative period. Therefore, no sensations of stimulation should be expected. 2 What to expect in the time period after the procedure: Week 1: At the first postoperative visit, sutures that were placed will be removed and incisions will be checked by the physician. Please note that the device will still remain inactive. Between Weeks 4-6: Patient Remote At the 1-month visit post-surgery, you will come to the sleep medicine office for activation of the device. You will need no special preparation but please wear a shirt/blouse that can be unbuttoned so that the physician can check all incisions and access the implant. Your physician will use a clinical data programmer to check the device for proper function and turn it on for you to begin using it. The process of activation is not painful and typically takes less than hour. At this visit you will be given a remote control and given instructions on how to use it. A range of therapy will be programmed for you to start at a low level of stimulation and gradually increase it over the next several weeks. Usually, it is advisable to increase the stimulation every 3 days. If you find that the stimulation level is too high, you may decrease the setting to one that is more comfortable and then try to increase again after several days. A manual for details about the remote will be provided. 3 Once activated, you should begin using the device every time you go to sleep (including naps). When you turn the device on, you should expect an initial pulse of tongue motion to let you know that the device is working. The device will then delay any further stimulation for hour; allowing you to fall asleep without feeling any sensations. Your physician can modify this delay period at any time if you require more or less time to fall asleep. There is also a pause feature that allows the device to be temporarily shut off for 15 minutes. This can be used if you need to get up in the middle of the night. Between weeks 4-12 You will receive several check-in calls from the office to check on your acclimation to Inspire Therapy. They will assist with any questions you may have as well as helping to assure that you are utilizing the therapy All Night, Every Night, as well as increasing the amplitude as appropriate. If you have any questions or feedback, do not hesitate to call the office at any time. Between Weeks 12-18: 2-3 months post activation, you will return to the sleep center for a sleep study and additional programming of the device. This will consist of a routine sleep study (without a CPAP mask) where the device will be set to a level to optimize control of your sleep apnea. A limited range of stimulation will be programmed to allow you to adjust your device to your comfort. You should continue to use the device every time you sleep. A visit will be set up with your physician shortly after this study to go over the results, to follow up on how you are doing, and make any necessary adjustments. Please note that at any time, your physician can reprogram the device for your comfort. Subsequent visits: Your physician will want to see you periodically. In the first year, there will be several visits scheduled to check in on how you are doing with your Inspire treatment. At each visit, the device will be checked to see how often you are using your device and to trouble shoot any problems. If you have any technical problems, you may also call Inspire at any time [phone] Option #3 The battery life on the Inspire device is roughly 10 years. When the battery is low, there will be indicators on your remote to let you know to come in to see your physician. The battery change will require a minor procedure, which can be performed under local anesthesia (or sedation). The battery on the remote control is a 9-volt standard battery. Please make sure to use a high quality non-rechargeable battery. Because of changes in sleep and changes in weight that may occur over time, adjustments may need to be made periodically. If you experience changes in how the device seems to be functioning for you should call your physician and potentially arrange a follow up appointment. If at any time you have any concerns or questions, please call your physician. Timeline Overview: Initial evaluation: Office assessment of sleep apnea. Drug induced sleep endoscopy: Diagnostic procedure to identify the mechanism and sites of airway collapse. This is a critical component to the evaluation, to determine candidacy for Inspire. Implantation: Surgical procedure to place the implant. First postop visit (1-week post implantation): First visit in the office after implantation to check incisions and recovery. THIS VISIT WILL BE IN THE ENT OFFICE. Activation (1 month post implantation): Office visit to turn device on and assess for proper function. THIS VISIT WILL BE SCHEDULED at the Sleep Medicine office Sleep study with device adjustment (2-3 months post implantation): Routine sleep study at which time the device will be adjusted to identify the best settings to control the sleep apnea. THIS OVERNIGHT VISIT WILL BE IN THE SLEEP LAB. Routine follow up visits: visits to monitor status of sleep apnea, sleep quality and assess for device function and use. Throughout the process the Inspire Reimbursement team will be working on the Insurance approvals needed for your procedure. If at anytime you have a question specific to the status of the submission, please call the prior authorization team at: If there are any issues at any time, either send Dr. Reilly a message at [employer] or call the office at [phone] during business hours. If after hours and there is concern, go to the emergency room. documented in this encounter [facility] 10-10-2022 Attending History and physical note H&P reviewed. The patient was examined and there are no changes to the H&P. Source Note - LINDA Dale - 10/04/2022 9:00 AM EDT Images from the original note were not included. Comprehensive Pre Surgical History and Physical ? Name: Matthias Hoffmann : 1945 (Age-77 y.o.) Date of Service: Pt seen/examined on 10/04/2022 Procedure Information Date/Time: 10/10/22 0930 Procedure: REVISION HYPOGLOSSAL NERVE STIMULATOR (Bilateral) - 90 mins Location: [facility] OR [address] [place] [address] Operating Room Surgeons: Jori Reilly MD Chief Complaint: Obstructive sleep apnea (adult) (pediatric) [G47.33] ASSESSMENT/PLAN: Patient is considered low/intermediate risk for this low/intermediate risk procedure/surgery. 1) Obstructive sleep apnea (adult) (pediatric) [G47.33] - Managed per surgery - Noncompliant with mask - 09/11/22 A1c reviewed - Ordered per PAT protocol - EKG, H&H, BMP 2) Aortic valve stenosis - S/p repair 2020 - 05/10/21 ECHO: There is a 23 mm Noe Cynthia bioprosthetic aortic valve There is no regurgitation. The peak systolic velocity is 2.7 m/sec. The mean systolic gradient is 17 mm Hg. Dimensionless index: 0.46. The valve area by the velocity-time integral method is 2.0 cm^2. - Managed on aspirin, statin - continue aspirin 3) HTN - Managed on hydrochlorothiazide, ramipril BP Readings from Last 3 Encounters: 10/04/22 121/79 08/28/22 136/82 07/09/22 126/88 4) NIDDM - Managed on Jardiance, metformin, Trulicity - A1c reviewed on patient's phone, on 09/11 resulted at 7.4% - BS less than 250 DOS per PAT Protocol 5) HLD - Continue statin, Zetia Visit Type: Pre-Admission Testing Visit Labs Ordered: YES - PER PAT PROTOCOL Sleep Referral Ordered: NO - ALREADY DIAGNOSED WITH JULIANN AND PATIENT IS NOT COMPLIANT WITH CPAP Total time spent (which include face to face and non face to face encounters) : 30 minutes Toxic drug monitoring/narrow therapeutic index drug monitoring : # Drug name : hydrochlorothiazide, ramipril, Jardiance/Tradjenta/metformin/Freddy licity # Route administered : oral # Method of monitoring : BMP PAT Protocol referenced includes: 1. Anesthesia Lab Protocol Orders 2. Perioperative Cardiovascular Risk Assessment 3. Anesthesia Assessment 4. Pain Assessment and Acute Pain Service Consult (if appropriate) 5. Medical Clearance/Consult from Internal Medicine (IMS) 6. Shower/Wash Order (for designated surgeries) 7. JULIANN Screen and Sleep Clinic Referral (if appropriate) History Of Present Illness: 77 y.o. male who we are asked to see/evaluate by Dr. Reilly for pre-operative evaluation prior to the above procedure. OV with Dr. Reilly on 09/17/22 Patient has been having issues with activation no tongue paresis and only mild stimulation at highest amplitudes. Case had been discussed and patient called x-ray of neck showing a displaced cuff consistent with poor activation of tongue with inspire device. Patient denies any weakness at the time. ? Denies history of DC, CAD, CHF, TIA, CVA Past Medical History: Past Medical History: No date: Aortic stenosis, severe No date: Arthritis No date: Diabetes mellitus (HCC) No date: Hyperlipidemia No date: Hypertension No date: Sleep apnea, obstructive Comment: does not tolerate cpap Past Surgical History: Past Surgical History: 03/13/2020: CARDIAC PROCEDURE; Left Comment: Normal Coronaries/Dr. Salgado/Hai 04/12/2020: CARDIAC SURGERY Comment: TAVR No date: HERNIA REPAIR No date: KNEE ARTHROPLASTY; Bilateral No date: LIPOMA RESECTION Comment: chest No date: TONSILLECTOMY (HISTORICAL) Medications Prior to Admission: Prior to Admission medications Medication Sig Start Date End Date Taking? Authorizing Provider aspirin 81 MG EC tablet Take 81 mg by mouth daily. Historical Provider, atorvastatin (Lipitor) 80 MG tablet Take 80 mg by mouth Nightly. 02/05/22 Historical Provider, clindamycin (Cleocin) 150 MG capsule 05/24/22 Historical Provider, ezetimibe (Zetia) 10 MG tablet Take 10 mg by mouth Nightly. 02/05/22 Historical Provider, finasteride (Proscar) 5 MG tablet Take 5 mg by mouth daily. 02/10/22 Historical ProviderMD hydroCHLOROthiazide (HYDRODiuril) 25 MG tablet Take 25 mg by mouth daily. 02/10/22 Historical Provider, Jardiance 25 MG 1 (one) time each day. 03/09/22 Historical Provider, linaGLIPtin (Tradjenta) 5 MG tablet Take 5 mg by mouth daily. Historical Provider, meclizine (Antivert) 25 MG tablet Take 25 mg by mouth 3 times daily as needed. 06/26/22 Historical Provider, metFORMIN XR (Glucophage-XR) 750 MG 24 hr tablet 02/05/22 Historical Provider, pyridoxine (B-6) 100 MG tablet Take 100 mg by mouth daily. Historical Provider, ramipril (Altace) 10 MG capsule Take 10 mg by mouth in the morning and 10 mg in the evening. 02/05/22 Historical ProviderMD tamsulosin (Flomax) 0.4 MG 24 hr capsule 12/31/21 Historical Provider, Trulicity 3 MG/0.5ML solution pen-injector 1 (one) time per week. 02/05/22 Historical Provider, CHRONIC NARCOTIC USE: No Allergies: Nitroglycerin and Penicillins If patient has opioid allergy, is it okay to take Acetaminophen: Yes Social History: TOBACCO: reports that he has never smoked. He has never used smokeless tobacco. ETOH: reports current alcohol use. Social History Substance and Sexual Activity Drug Use No Family History: Family History Problem Relation Name Age of Onset Breast cancer Mother Heart Surgery Brother Heart attack Father Heart attack Brother REVIEW OF SYSTEMS: Review of Systems Constitutional: Negative for chills, fatigue and fever. HENT: Negative for congestion. Respiratory: Negative for cough, chest tightness and shortness of breath. Cardiovascular: Negative for chest pain, palpitations and leg swelling. Gastrointestinal: Negative for nausea and vomiting. Skin: Negative for rash and wound. Neurological: Negative for weakness and headaches. Psychiatric/Behavioral: Negative for agitation. Physical Exam: Physical Exam Constitutional: Appearance: Normal appearance. HENT: Head: Normocephalic and atraumatic. Nose: Nose normal. Eyes: Extraocular Movements: Extraocular movements intact. Cardiovascular: Rate and Rhythm: Normal rate and regular rhythm. Heart sounds: Normal heart sounds. Pulmonary: Effort: Pulmonary effort is normal. Breath sounds: Normal breath sounds. Musculoskeletal: General: Normal range of motion. Cervical back: Neck supple. Skin: General: Skin is warm and dry. Neurological: General: No focal deficit present. Mental Status: He is alert. Psychiatric: Mood and Affect: Mood normal. Behavior: Behavior normal. Vitals: Vitals Value Taken Time BP 121/79 10/04/22 0905 Temp 36.3 C (97.3 F) 10/04/22 0905 Pulse 84 10/04/22 0905 Resp 16 10/04/22 0905 SpO2 94 % 10/04/22 0905 Labs: Lab Results Component Value Date WBC 13.0 (H) 04/11/2020 HGB 15.4 04/02/2022 HCT 44.0 04/02/2022 MCV 87.7 04/11/2020 Lab Results Component Value Date NA 136 04/02/2022 K 4.5 04/02/2022 CL 106 04/02/2022 CO2 27 04/02/2022 BUN 18 04/02/2022 CREATININE 1.15 04/02/2022 GLUCOSE 136 (H) 04/02/2022 CALCIUM 9.6 04/02/2022 PROT 7.6 03/21/2020 ALKPHOS 67 03/21/2020 AST 32 03/21/2020 EGFR 66.4 04/02/2022 Franky's Simple Cardiac Risk Index: FRANKY'S SIMPLE CARDIAC RISK SCORE: 0 Interpretation: 0 Points Class I 0.5% 1 Point Class II 1.3% 2 Points Class III 3.6% 3+ Points Class IV 9.1% PAT Pain Score: Postop Pain Management Plan (Pain consult ordered?): Pain consult not indicated at this time ? EKG: Yes ordered. Patient asymptomatic with >4 METS Encounter Date: 04/02/22 ECG 12 lead Result Value Heart Rate 70 QRSD Interval 103 QT Interval 386 QTC Interval 416 P Sandborn 1 QRS Sandborn -48 T Wave Sandborn -9 IN Interval 160 Impression Sinus rhythm Left anterior fascicular block Nonspecific ST and T wave changes Electronically Signed On 04-03-2022 9:14:53 EST by Tarik Shin ECHO and EF:Echo 05/10/21 METS ____>4__ Electronically signed by: LINDA Dale Date: 10/04/2022 at 9:[address] [facility] 10-10-2022 Note Formatting of this n ote is different from the original. Date: 10/10/2022 Location: [facility] OR Name: Matthias Hoffmann, : 1945, Diagnosis Pre-op Diagnosis * Obstructive sleep apnea (adult) (pediatric) [G47.33] Post-op Diagnosis * Obstructive sleep apnea (adult) (pediatric) [G47.33] Procedures REVISION HYPOGLOSSAL NERVE STIMULATOR [id number] - IN REVISION/REPLMT NEUROSTIMLATOR ELTRD CRANIAL NRV Surgeons * Jori Reilly - Primary Procedure Summary Anesthesia: General ASA: III Estimated Blood Loss: 25 ccs Drains: * None in log * Implants Staff: Title Processor: Lisa Figueroa RN Nurse Practitioner: Fabi Richardson APRN - [employer] Title Processor: Sam Kingsley RN Scrub Person: Breanna Mcdaniels LPN; Kierra Holly Findings: Hypoglossal nerve stimulator cuff had dislodged, hypoglossal nerve identified and stimulated. Good tongue protrusion at 0.2 V. Good waveforms. Complications: None; patient tolerated the procedure well. Specimens Collected: Order Name Source Comment Collection Info Order Time POTASSIUM WITH MG REFLEX For patients on dialysis to draw potassium day of surgery 10/10/2022 8:15 AM PROTHROMBIN TIME If patient on coumadin within 4 days prior. 10/10/2022 8:15 AM Wound Class: Class I: Clean Blood Products: None Prophylactic Antibiotics: Procedure appropriate prophylactic antibiotic(s) given within 1 hour of surgical incision (two hours if receiving Vancomycin or flouroquinolone) Procedure in Detail: Patient was seen and evaluated in the pre-operative area. Informed consent was obtained after discussing the risks, benefits and indications for the procedure. The patient was taken back to the operating room by the anesthesia team. General anesthesia was induced and patient was orotracheally intubated. Appropriate timeout was performed. Table was turned 180 degrees and patient appropriately positioned. Patient was prepped and draped in the usual fashion. A shoulder roll was placed and the patient was prepped and draped in usual sterile fashion with the head turned to the left. Prior to prepping and draping, electrodes were placed in the genioglossus and styloglossus muscle and connected to the NIM box for intraoperative nerve monitoring. A modified sub-mandibular incision was made in the right upper neck approximately 2 cm below the mandible in the natural skin crease. Dissection was carried down through the subcutaneous tissue and platysma. Monopolar cautery was not used during this case given the leads. Blunt and sharp dissection was used to dissect down to the digastric tendon where the anchor was noted. We first identified the hypoglossal nerve and stimulated the exclusion and inclusion branches and protected the nerve. Submandibular gland was retracted superiorly and digastric inferiorly. The lead was followed to the cuff which was obviously dislodged posterior and inferior. The wound was copiously irrigated and the cuff placed back over the inclusion branches of the hypoglossal nerve. The cuff was irrigated with saline and the mylohyoid released taking care not to dislodge the cuff. Diagnostic evaluation confirmed activation of the genioglossus nerve, resulting in genioglossal activation and tongue protrusion, confirmed visually. This was first stimulated at 1.5 mA and then decreased until 0.5 with good tongue protrusion at each step. Assessment of the sense lead showed excellent waveforms with respiration. The wound was then closed in layers with deep 3-0 vicryl sutures and a 4-0 running subcuticular monocryl for the skin. Mastasol was applied followed by steri strips. This concluded the procedure and the patient was turned over to anesthesia for wake up. Patient was extubated and sent to the PACU in stable condition having tolerated the procedure well. All counts were correct at the end of case. . [facility] 10-10-2022 Note Formatting of this n ote is different from the original. Date: 10/10/2022 Location: [facility] OR Name: Matthias Hoffmann, : 1945, Diagnosis Pre-op Diagnosis * Obstructive sleep apnea (adult) (pediatric) [G47.33] Post-op Diagnosis * Obstructive sleep apnea (adult) (pediatric) [G47.33] Procedures REVISION HYPOGLOSSAL NERVE STIMULATOR 80063 - IN REVISION/REPLMT NEUROSTIMLATOR ELTRD CRANIAL NRV Surgeons * Jori Reilly - Primary Procedure Summary Anesthesia: General ASA: III Estimated Blood Loss: 25 ccs Drains: * None in log * Implants Staff: Title Processor: Lisa Figueroa RN Nurse Practitioner: Fabi Richardson, NEWSPAPER PHOTOJOURNALIST - [employer] Title Processor: Sam Kingsley RN Scrub Person: Breanna Mcdaniels LPN; Kierra Holly Findings: Hypoglossal nerve stimulator cuff had dislodged, hypoglossal nerve identified and stimulated. Good tongue protrusion at 0.2 V. Good waveforms. Complications: None; patient tolerated the procedure well. Specimens Collected: Order Name Source Comment Collection Info Order Time POTASSIUM WITH MG REFLEX For patients on dialysis to draw potassium day of surgery 10/10/2022 8:15 AM PROTHROMBIN TIME If patient on coumadin within 4 days prior. 10/10/2022 8:15 AM Wound Class: Class I: Clean Blood Products: None Prophylactic Antibiotics: Procedure appropriate prophylactic antibiotic(s) given within 1 hour of surgical incision (two hours if receiving Vancomycin or flouroquinolone) [facility] 10-10-2022 History and physical note H&P reviewed. The patient was examined and there are no changes to the H&P. Source Note - LINDA Dale - 10/04/2022 9:00 AM EDT Images from the original note were not included. Comprehensive Pre Surgical History and Physical ? Name: Matthias Hoffmann : 1945 (Age-77 y.o.) Date of Service: Pt seen/examined on 10/04/2022 Procedure Information Date/Time: 10/10/22 0930 Procedure: REVISION HYPOGLOSSAL NERVE STIMULATOR (Bilateral) - 90 mins Location: [place] [address] [facility] Operating Room Surgeons: Jori Reilly MD Chief Complaint: Obstructive sleep apnea (adult) (pediatric) [G47.33] ASSESSMENT/PLAN: Patient is considered low/intermediate risk for this low/intermediate risk procedure/surgery. 1) Obstructive sleep apnea (adult) (pediatric) [G47.33] - Managed per surgery - Noncompliant with mask - 09/11/22 A1c reviewed - Ordered per PAT protocol - EKG, H&H, BMP 2) Aortic valve stenosis - S/p repair 2020 - 05/10/21 ECHO: There is a 23 mm Noe Cynthia bioprosthetic aortic valve There is no regurgitation. The peak systolic velocity is 2.7 m/sec. The mean systolic gradient is 17 mm Hg. Dimensionless index: 0.46. The valve area by the velocity-time integral method is 2.0 cm^2. - Managed on aspirin, statin - continue aspirin 3) HTN - Managed on hydrochlorothiazide, ramipril BP Readings from Last 3 Encounters: 10/04/22 121/79 08/28/22 136/82 07/09/22 126/88 4) NIDDM - Managed on Jardiance, metformin, Trulicity - A1c reviewed on patient's phone, on 09/11 resulted at 7.4% - BS less than 250 DOS per PAT Protocol 5) HLD - Continue statin, Zetia Visit Type: Pre-Admission Testing Visit Labs Ordered: YES - PER PAT PROTOCOL Sleep Referral Ordered: NO - ALREADY DIAGNOSED WITH JULIANN AND PATIENT IS NOT COMPLIANT WITH CPAP Total time spent (which include face to face and non face to face encounters) : 30 minutes Toxic drug monitoring/narrow therapeutic index drug monitoring : # Drug name : hydrochlorothiazide, ramipril, Jardiance/Tradjenta/metformin/Freddy licity # Route administered : oral # Method of monitoring : BMP PAT Protocol referenced includes: 1. Anesthesia Lab Protocol Orders 2. Perioperative Cardiovascular Risk Assessment 3. Anesthesia Assessment 4. Pain Assessment and Acute Pain Service Consult (if appropriate) 5. Medical Clearance/Consult from Internal Medicine (IMS) 6. Shower/Wash Order (for designated surgeries) 7. JULIANN Screen and Sleep Clinic Referral (if appropriate) History Of Present Illness: 77 y.o. male who we are asked to see/evaluate by Dr. Reilly for pre-operative evaluation prior to the above procedure. OV with Dr. Reilly on 09/17/22 Patient has been having issues with activation no tongue paresis and only mild stimulation at highest amplitudes. Case had been discussed and patient called x-ray of neck showing a displaced cuff consistent with poor activation of tongue with inspire device. Patient denies any weakness at the time. ? Denies history of DC, CAD, CHF, TIA, CVA Past Medical History: Past Medical History: No date: Aortic stenosis, severe No date: Arthritis No date: Diabetes mellitus (HCC) No date: Hyperlipidemia No date: Hypertension No date: Sleep apnea, obstructive Comment: does not tolerate cpap Past Surgical History: Past Surgical History: 03/13/2020: CARDIAC PROCEDURE; Left Comment: Normal Coronaries/Dr. Salgado/Hai 04/12/2020: CARDIAC SURGERY Comment: TAVR No date: HERNIA REPAIR No date: KNEE ARTHROPLASTY; Bilateral No date: LIPOMA RESECTION Comment: chest No date: TONSILLECTOMY (HISTORICAL) Medications Prior to Admission: Prior to Admission medications Medication Sig Start Date End Date Taking? Authorizing Provider aspirin 81 MG EC tablet Take 81 mg by mouth daily. Historical Provider, atorvastatin (Lipitor) 80 MG tablet Take 80 mg by mouth Nightly. 02/05/22 Historical Provider, clindamycin (Cleocin) 150 MG capsule 05/24/22 Historical Provider, ezetimibe (Zetia) 10 MG tablet Take 10 mg by mouth Nightly. 02/05/22 Historical Provider, finasteride (Proscar) 5 MG tablet Take 5 mg by mouth daily. 02/10/22 Historical Provider, hydroCHLOROthiazide (HYDRODiuril) 25 MG tablet Take 25 mg by mouth daily. 02/10/22 Historical Provider, Jardiance 25 MG 1 (one) time each day. 03/09/22 Historical Provider, linaGLIPtin (Tradjenta) 5 MG tablet Take 5 mg by mouth daily. Historical Provider, meclizine (Antivert) 25 MG tablet Take 25 mg by mouth 3 times daily as needed. 06/26/22 Historical Provider, metFORMIN XR (Glucophage-XR) 750 MG 24 hr tablet 02/05/22 Historical Provider, pyridoxine (B-6) 100 MG tablet Take 100 mg by mouth daily. Historical Provider, ramipril (Altace) 10 MG capsule Take 10 mg by mouth in the morning and 10 mg in the evening. 02/05/22 Historical Provider, tamsulosin (Flomax) 0.4 MG 24 hr capsule 12/31/21 Historical Provider, Trulicity 3 MG/0.5ML solution pen-injector 1 (one) time per week. 02/05/22 Historical Provider, CHRONIC NARCOTIC USE: No Allergies: Nitroglycerin and Penicillins If patient has opioid allergy, is it okay to take Acetaminophen: Yes Social History: TOBACCO: reports that he has never smoked. He has never used smokeless tobacco. ETOH: reports current alcohol use. Social History Substance and Sexual Activity Drug Use No Family History: Family History Problem Relation Name Age of Onset Breast cancer Mother Heart Surgery Brother Heart attack Father Heart attack Brother REVIEW OF SYSTEMS: Review of Systems Constitutional: Negative for chills, fatigue and fever. HENT: Negative for congestion. Respiratory: Negative for cough, chest tightness and shortness of breath. Cardiovascular: Negative for chest pain, palpitations and leg swelling. Gastrointestinal: Negative for nausea and vomiting. Skin: Negative for rash and wound. Neurological: Negative for weakness and headaches. Psychiatric/Behavioral: Negative for agitation. Physical Exam: Physical Exam Constitutional: Appearance: Normal appearance. HENT: Head: Normocephalic and atraumatic. Nose: Nose normal. Eyes: Extraocular Movements: Extraocular movements intact. Cardiovascular: Rate and Rhythm: Normal rate and regular rhythm. Heart sounds: Normal heart sounds. Pulmonary: Effort: Pulmonary effort is normal. Breath sounds: Normal breath sounds. Musculoskeletal: General: Normal range of motion. Cervical back: Neck supple. Skin: General: Skin is warm and dry. Neurological: General: No focal deficit present. Mental Status: He is alert. Psychiatric: Mood and Affect: Mood normal. Behavior: Behavior normal. Vitals: Vitals Value Taken Time BP 121/79 10/04/22 0905 Temp 36.3 C (97.3 F) 10/04/22 0905 Pulse 84 10/04/22 0905 Resp 16 10/04/22 09 SpO2 94 % 10/04/22 09 Labs: Lab Results Component Value Date WBC 13.0 (H) 04/11/2020 HGB 15.4 04/02/2022 HCT 44.0 04/02/2022 MCV 87.7 04/11/2020 Lab Results Component Value Date NA 136 04/02/2022 K 4.5 04/02/2022 CL 106 04/02/2022 CO2 27 04/02/2022 BUN 18 04/02/2022 CREATININE 1.15 04/02/2022 GLUCOSE 136 (H) 04/02/2022 CALCIUM 9.6 04/02/2022 PROT 7.6 03/21/2020 ALKPHOS 67 03/21/2020 AST 32 03/21/2020 EGFR 66.4 04/02/2022 Franky's Simple Cardiac Risk Index: FRANKY'S SIMPLE CARDIAC RISK SCORE: 0 Interpretation: 0 Points Class I 0.5% 1 Point Class II 1.3% 2 Points Class III 3.6% 3+ Points Class IV 9.1% PAT Pain Score: Postop Pain Management Plan (Pain consult ordered?): Pain consult not indicated at this time ? EKG: Yes ordered. Patient asymptomatic with >4 METS Encounter Date: 04/02/22 ECG 12 lead Result Value Heart Rate 70 QRSD Interval 103 QT Interval 386 QTC Interval 416 P Sandborn 1 QRS Sandborn -48 T Wave Sandborn -9 IN Interval 160 Impression Sinus rhythm Left anterior fascicular block Nonspecific ST and T wave changes Electronically Signed On 04-03-2022 9:14:53 EST by Tarik Shin ECHO and EF:Echo 05/10/21 METS ____>4__ Electronically signed by: LINDA Dale Date: 10/04/2022 at 9:35 AM documented in this encounter [facility] 10-10-2022 Miscellaneous Notes Date: 10/10/2022 Location: [facility] OR Name: Matthias Hoffmann, : 1945, Diagnosis Pre-op Diagnosis * Obstructive sleep apnea (adult) (pediatric) [G47.33] Post-op Diagnosis * Obstructive sleep apnea (adult) (pediatric) [G47.33] Procedures REVISION HYPOGLOSSAL NERVE STIMULATOR [id number] - IN REVISION/REPLMT NEUROSTIMLATOR ELGALILEO CRANIAL NRV Surgeons * Jori Reilly - Primary Procedure Summary Anesthesia: General ASA: III Estimated Blood Loss: 25 ccs Drains: * None in log * Implants Staff: Title Processor: Lisa Figueroa RN Nurse Practitioner: Fabi Richardson APRN - [employer] Title Processor: Sam Kingsley RN Scrub Person: Breanna Mcdaniels LPN; Kierra Holly Findings: Hypoglossal nerve stimulator cuff had dislodged, hypoglossal nerve identified and stimulated. Good tongue protrusion at 0.2 V. Good waveforms. Complications: None; patient tolerated the procedure well. Specimens Collected: Order Name Source Comment Collection Info Order Time POTASSIUM WITH MG REFLEX For patients on dialysis to draw potassium day of surgery 10/10/2022 8:15 AM PROTHROMBIN TIME If patient on coumadin within 4 days prior. 10/10/2022 8:15 AM Wound Class: Class I: Clean Blood Products: None Prophylactic Antibiotics: Procedure appropriate prophylactic antibiotic(s) given within 1 hour of surgical incision (two hours if receiving Vancomycin or flouroquinolone) Procedure in Detail: Patient was seen and evaluated in the pre-operative area. Informed consent was obtained after discussing the risks, benefits and indications for the procedure. The patient was taken back to the operating room by the anesthesia team. General anesthesia was induced and patient was orotracheally intubated. Appropriate timeout was performed. Table was turned 180 degrees and patient appropriately positioned. Patient was prepped and draped in the usual fashion. A shoulder roll was placed and the patient was prepped and draped in usual sterile fashion with the head turned to the left. Prior to prepping and draping, electrodes were placed in the genioglossus and styloglossus muscle and connected to the NIM box for intraoperative nerve monitoring. A modified sub-mandibular incision was made in the right upper neck approximately 2 cm below the mandible in the natural skin crease. Dissection was carried down through the subcutaneous tissue and platysma. Monopolar cautery was not used during this case given the leads. Blunt and sharp dissection was used to dissect down to the digastric tendon where the anchor was noted. We first identified the hypoglossal nerve and stimulated the exclusion and inclusion branches and protected the nerve. Submandibular gland was retracted superiorly and digastric inferiorly. The lead was followed to the cuff which was obviously dislodged posterior and inferior. The wound was copiously irrigated and the cuff placed back over the inclusion branches of the hypoglossal nerve. The cuff was irrigated with saline and the mylohyoid released taking care not to dislodge the cuff. Diagnostic evaluation confirmed activation of the genioglossus nerve, resulting in genioglossal activation and tongue protrusion, confirmed visually. This was first stimulated at 1.5 mA and then decreased until 0.5 with good tongue protrusion at each step. Assessment of the sense lead showed excellent waveforms with respiration. The wound was then closed in layers with deep 3-0 vicryl sutures and a 4-0 running subcuticular monocryl for the skin. Mastasol was applied followed by steri strips. This concluded the procedure and the patient was turned over to anesthesia for wake up. Patient was extubated and sent to the PACU in stable condition having tolerated the procedure well. All counts were correct at the end of case. . Date: 10/10/2022 Location: [facility] OR Name: Matthias Hoffmann, : 1945, Diagnosis Pre-op Diagnosis * Obstructive sleep apnea (adult) (pediatric) [G47.33] Post-op Diagnosis * Obstructive sleep apnea (adult) (pediatric) [G47.33] Procedures REVISION HYPOGLOSSAL NERVE STIMULATOR 51672 - IN REVISION/REPLMT NEUROSTIMLATOR ELTRD CRANIAL NRV Surgeons * Jori Reilly - Primary Procedure Summary Anesthesia: General ASA: III Estimated Blood Loss: 25 ccs Drains: * None in log * Implants Staff: Title Processor: Lisa Figueroa RN Nurse Practitioner: Fabi Richardson, NEWSPAPER PHOTOJOURNALIST - [employer] Title Processor: Sam Kingsley RN Scrub Person: Breanna Mcdaniels LPN; Kierra Holly Findings: Hypoglossal nerve stimulator cuff had dislodged, hypoglossal nerve identified and stimulated. Good tongue protrusion at 0.2 V. Good waveforms. Complications: None; patient tolerated the procedure well. Specimens Collected: Order Name Source Comment Collection Info Order Time POTASSIUM WITH MG REFLEX For patients on dialysis to draw potassium day of surgery 10/10/2022 8:15 AM PROTHROMBIN TIME If patient on coumadin within 4 days prior. 10/10/2022 8:15 AM Wound Class: Class I: Clean Blood Products: None Prophylactic Antibiotics: Procedure appropriate prophylactic antibiotic(s) given within 1 hour of surgical incision (two hours if receiving Vancomycin or flouroquinolone) documented in this encounter [facility] 10-04-2022 Note Patient: Matthias cunningham Procedure Information Date/Time: 10/10/22929 Procedure: REVISION HYPOGLOSSAL NERVE STIMULATOR (Bilateral) - 90 mins Location: [address] Operating Room Surgeons: Jori Reilly MD Past Medical History: Past Medical History: No date: Aortic stenosis, severe No date: Arthritis No date: Diabetes mellitus (HCC) No date: Hyperlipidemia No date: Hypertension No date: Sleep apnea, obstructive Comment: does not tolerate cpap Past Surgical History: Past Surgical History: 03/13/2020: CARDIAC PROCEDURE; Left Comment: Normal Coronaries/Dr. Salgado/Hai 04/12/2020: CARDIAC SURGERY Comment: TAVR No date: HERNIA REPAIR No date: KNEE ARTHROPLASTY; Bilateral No date: LIPOMA RESECTION Comment: chest No date: TONSILLECTOMY (HISTORICAL) Social History: TOBACCO: reports that he has never smoked. He has never used smokeless tobacco. ETOH: reports current alcohol use. Social History Substance and Sexual Activity Drug Use No Family History: Family History Problem Relation Name Age of Onset ? Breast cancer Mother ? Heart Surgery Brother ? Heart attack Father ? Heart attack Brother Screening: unknown Clinical information reviewed: Tobacco Allergies Meds Med Hx Surg Hx Fam Hx Soc Hx Physical Exam Airway Mallampati: IV TM distance: >3 FB Neck ROM: full Mouth Open: normalendotracheal tube not in place Cardiovascular Comments: Sinus rhythm Left anterior fascicular block Probable anteroseptal infarct, old Dental (+) Upper Dentures, Missing Pulmonary Abdominal Anesthesia Plan patient is NPO appropriate Any family history or previous problems with anesthesia no ASA 3 general Any family history or previous problems with anesthesia no The patient is not a current smoker. Anesthetic plan and risks discussed with patient and spouse. Anesthesia Liu Considerations May need glide Echo 05/10/2021 SUMMARY: ? 1. Left ventricle: There is moderate concentric hypertrophy. Systolic function is normal by the biplane method of disks. The estimated ejection fraction is 66%. Doppler parameters are consistent with abnormal left ventricular relaxation (grade 1 diastolic dysfunction). 2. Right ventricle: The cavity size is mildly dilated. Systolic function is mildly decreased. 3. Aortic valve: There is a 23 mm Noe Cynthia bioprosthetic aortic valve There is no regurgitation. The peak systolic velocity is 2.7 m/sec. The mean systolic gradient is 17 mm Hg. Dimensionless index: 0.46. The valve area by the velocity-time integral method is 2.0 cm^2. 4. Aorta: The aorta is mildly dilated. The ascending aorta internal dimension in the A-P direction, maximal systolic dimension is 3.8 cm. 5. Inferior vena cava: The vessel is normal. The IVC collapses by greater than 50% with inspiration. Blood Glucose BGT 185 Insulin Sliding Scale: low ERAS Type Short ERAS JULIANN Screening Labs: Lab Results Component Value Date WBC 13.0 (H) 04/11/2020 HGB 15.4 04/02/2022 HCT 44.0 04/02/2022 MCV 87.7 04/11/2020 Lab Results Component Value Date NA 136 04/02/2022 K 4.5 04/02/2022 CL 106 04/02/2022 CO2 27 04/02/2022 BUN 18 04/02/2022 CREATININE 1.15 04/02/2022 GLUCOSE 136 (H) 04/02/2022 CALCIUM 9.6 04/02/2022 PROT 7.6 03/21/2020 ALKPHOS 67 03/21/2020 AST 32 03/21/2020 EGFR 66.4 04/02/2022 No echocardiogram results found for the past 14 days 04/02/22 ECG 12-LEAD 04/03/2022 9:14 AM (Final) Impression Sinus rhythm Left anterior fascicular block Nonspecific ST and T wave changes Electronically Signed On 04-03-2022 9:14:53 EST by Tarik Shin Signed by: Tarik Shin MD on 04/03/2022 9:14 AM [facility] 10-04-2022 Note Comprehensive Pre Mark rgical History and Physical ? Name: Matthias Hoffmann : 1945 (Age-77 y.o.) Date of Service: Pt seen/examined on 10/04/2022 Procedure Information Date/Time: 10/10/22 0930 Procedure: REVISION HYPOGLOSSAL NERVE STIMULATOR (Bilateral) - 90 mins Location: [facility] OR Operating Room Surgeons: Jori Reilly MD Chief Complaint: Obstructive sleep apnea (adult) (pediatric) [G47.33] ASSESSMENT/PLAN: Patient is considered low/intermediate risk for this low/intermediate risk procedure/surgery. 1) Obstructive sleep apnea (adult) (pediatric) [G47.33] - Managed per surgery - Noncompliant with mask - 09/11/22 A1c reviewed - Ordered per PAT protocol - EKG, H&H, BMP 2) Aortic valve stenosis - S/p repair 2020 - 05/10/21 ECHO: There is a 23 mm Noe Cynthia bioprosthetic aortic valve There is no regurgitation. The peak systolic velocity is 2.7 m/sec. The mean systolic gradient is 17 mm Hg. Dimensionless index: 0.46. The valve area by the velocity-time integral method is 2.0 cm^2. - Managed on aspirin, statin - continue aspirin 3) HTN - Managed on hydrochlorothiazide, ramipril BP Readings from Last 3 Encounters: 10/04/22 121/79 08/28/22 136/82 07/09/22 126/88 4) NIDDM - Managed on Jardiance, metformin, Trulicity - A1c reviewed on patient's phone, on 09/11 resulted at 7.4% - BS less than 250 DOS per PAT Protocol 5) HLD - Continue statin, Zetia Visit Type: Pre-Admission Testing Visit Labs Ordered: YES - PER PAT PROTOCOL Sleep Referral Ordered: NO - ALREADY DIAGNOSED WITH JULIANN AND PATIENT IS NOT COMPLIANT WITH CPAP Total time spent (which include face to face and non face to face encounters) : 30 minutes Toxic drug monitoring/narrow therapeutic index drug monitoring : # Drug name : hydrochlorothiazide, ramipril, Jardiance/Tradjenta/metformin/Freddy licity # Route administered : oral # Method of monitoring : BMP PAT Protocol referenced includes: 1. Anesthesia Lab Protocol Orders 2. Perioperative Cardiovascular Risk Assessment 3. Anesthesia Assessment 4. Pain Assessment and Acute Pain Service Consult (if appropriate) 5. Medical Clearance/Consult from Internal Medicine (IMS) 6. Shower/Wash Order (for designated surgeries) 7. JULIANN Screen and Sleep Clinic Referral (if appropriate) History Of Present Illness: 77 y.o. male who we are asked to see/evaluate by Dr. Reilly for pre-operative evaluation prior to the above procedure. OV with Dr. Reilly on 09/17/22 Patient has been having issues with activation no tongue paresis and only mild stimulation at highest amplitudes. Case had been discussed and patient called x-ray of neck showing a displaced cuff consistent with poor activation of tongue with inspire device. Patient denies any weakness at the time. ? Denies history of DC, CAD, CHF, TIA, CVA Past Medical History: Past Medical History: No date: Aortic stenosis, severe No date: Arthritis No date: Diabetes mellitus (HCC) No date: Hyperlipidemia No date: Hypertension No date: Sleep apnea, obstructive Comment: does not tolerate cpap Past Surgical History: Past Surgical History: 03/13/2020: CARDIAC PROCEDURE; Left Comment: Normal Coronaries/Dr. Salgado/Hai 04/12/2020: CARDIAC SURGERY Comment: TAVR No date: HERNIA REPAIR No date: KNEE ARTHROPLASTY; Bilateral No date: LIPOMA RESECTION Comment: chest No date: TONSILLECTOMY (HISTORICAL) Medications Prior to Admission: Prior to Admission medications Medication Sig Start Date End Date Taking? Authorizing Provider aspirin 81 MG EC tablet Take 81 mg by mouth daily. Historical Provider, atorvastatin (Lipitor) 80 MG tablet Take 80 mg by mouth Nightly. 02/05/22 Historical Provider, clindamycin (Cleocin) 150 MG capsule 05/24/22 Historical Provider, ezetimibe (Zetia) 10 MG tablet Take 10 mg by mouth Nightly. 02/05/22 Historical Provider, finasteride (Proscar) 5 MG tablet Take 5 mg by mouth daily. 02/10/22 Historical Provider, hydroCHLOROthiazide (HYDRODiuril) 25 MG tablet Take 25 mg by mouth daily. 02/10/22 Historical Provider, Jardiance 25 MG 1 (one) time each day. 03/09/22 Historical Provider, linaGLIPtin (Tradjenta) 5 MG tablet Take 5 mg by mouth daily. Historical Provider, meclizine (Antivert) 25 MG tablet Take 25 mg by mouth 3 times daily as needed. 06/26/22 Historical Provider, metFORMIN XR (Glucophage-XR) 750 MG 24 hr tablet 02/05/22 Historical Provider, pyridoxine (B-6) 100 MG tablet Take 100 mg by mouth daily. Historical Provider, ramipril (Altace) 10 MG capsule Take 10 mg by mouth in the morning and 10 mg in the evening. 02/05/22 Historical Provider, tamsulosin (Flomax) 0.4 MG 24 hr capsule 12/31/21 Historical Provider, Trulicity 3 MG/0.5ML solution pen-injector 1 (one) time per week. 02/05/22 Historical Provider, MD GUTIERREZ (more content not included)... [facility] 10-04-2022 Note Comprehensive Pre Mark rgical History and Physical ? Name: Matthias Hoffmann : 1945 (Age-77 y.o.) Date of Service: Pt seen/examined on 10/04/2022 Procedure Information Date/Time: 10/10/22 0930 Procedure: REVISION HYPOGLOSSAL NERVE STIMULATOR (Bilateral) - 90 mins Location: [facility] OR Operating Room Surgeons: Jori Reilly MD Chief Complaint: Obstructive sleep apnea (adult) (pediatric) [G47.33] ASSESSMENT/PLAN: Patient is considered low/intermediate risk for this low/intermediate risk procedure/surgery. 1) Obstructive sleep apnea (adult) (pediatric) [G47.33] - Managed per surgery - Noncompliant with mask - 09/11/22 A1c reviewed - Ordered per PAT protocol - EKG, H&H, BMP 2) Aortic valve stenosis - S/p repair 2020 - 05/10/21 ECHO: There is a 23 mm Noe Cynthia bioprosthetic aortic valve There is no regurgitation. The peak systolic velocity is 2.7 m/sec. The mean systolic gradient is 17 mm Hg. Dimensionless index: 0.46. The valve area by the velocity-time integral method is 2.0 cm^2. - Managed on aspirin, statin - continue aspirin 3) HTN - Managed on hydrochlorothiazide, ramipril BP Readings from Last 3 Encounters: 10/04/22 121/79 08/28/22 136/82 07/09/22 126/88 4) NIDDM - Managed on Jardiance, metformin, Trulicity - A1c reviewed on patient's phone, on 09/11 resulted at 7.4% - BS less than 250 DOS per PAT Protocol 5) HLD - Continue statin, Zetia Visit Type: Pre-Admission Testing Visit Labs Ordered: YES - PER PAT PROTOCOL Sleep Referral Ordered: NO - ALREADY DIAGNOSED WITH JULIANN AND PATIENT IS NOT COMPLIANT WITH CPAP Total time spent (which include face to face and non face to face encounters) : 30 minutes Toxic drug monitoring/narrow therapeutic index drug monitoring : # Drug name : hydrochlorothiazide, ramipril, Jardiance/Tradjenta/metformin/Freddy licity # Route administered : oral # Method of monitoring : BMP PAT Protocol referenced includes: 1. Anesthesia Lab Protocol Orders 2. Perioperative Cardiovascular Risk Assessment 3. Anesthesia Assessment 4. Pain Assessment and Acute Pain Service Consult (if appropriate) 5. Medical Clearance/Consult from Internal Medicine (IMS) 6. Shower/Wash Order (for designated surgeries) 7. JULIANN Screen and Sleep Clinic Referral (if appropriate) History Of Present Illness: 77 y.o. male who we are asked to see/evaluate by Dr. Reilly for pre-operative evaluation prior to the above procedure. OV with Dr. Reilly on 09/17/22 Patient has been having issues with activation no tongue paresis and only mild stimulation at highest amplitudes. Case had been discussed and patient called x-ray of neck showing a displaced cuff consistent with poor activation of tongue with inspire device. Patient denies any weakness at the time. ? Denies history of DC, CAD, CHF, TIA, CVA Past Medical History: Past Medical History: No date: Aortic stenosis, severe No date: Arthritis No date: Diabetes mellitus (HCC) No date: Hyperlipidemia No date: Hypertension No date: Sleep apnea, obstructive Comment: does not tolerate cpap Past Surgical History: Past Surgical History: 03/13/2020: CARDIAC PROCEDURE; Left Comment: Normal Coronaries/Dr. Salgado/Hai 04/12/2020: CARDIAC SURGERY Comment: TAVR No date: HERNIA REPAIR No date: KNEE ARTHROPLASTY; Bilateral No date: LIPOMA RESECTION Comment: chest No date: TONSILLECTOMY (HISTORICAL) Medications Prior to Admission: Prior to Admission medications Medication Sig Start Date End Date Taking? Authorizing Provider aspirin 81 MG EC tablet Take 81 mg by mouth daily. Historical Provider, atorvastatin (Lipitor) 80 MG tablet Take 80 mg by mouth Nightly. 02/05/22 Historical Provider, clindamycin (Cleocin) 150 MG capsule 05/24/22 Historical Provider, ezetimibe (Zetia) 10 MG tablet Take 10 mg by mouth Nightly. 02/05/22 Historical Provider, finasteride (Proscar) 5 MG tablet Take 5 mg by mouth daily. 02/10/22 Historical Provider, hydroCHLOROthiazide (HYDRODiuril) 25 MG tablet Take 25 mg by mouth daily. 02/10/22 Historical Provider, Jardiance 25 MG 1 (one) time each day. 03/09/22 Historical Provider, linaGLIPtin (Tradjenta) 5 MG tablet Take 5 mg by mouth daily. Historical Provider, meclizine (Antivert) 25 MG tablet Take 25 mg by mouth 3 times daily as needed. 06/26/22 Historical Provider, metFORMIN XR (Glucophage-XR) 750 MG 24 hr tablet 02/05/22 Historical Provider, pyridoxine (B-6) 100 MG tablet Take 100 mg by mouth daily. Historical Provider, ramipril (Altace) 10 MG capsule Take 10 mg by mouth in the morning and 10 mg in the evening. 02/05/22 Historical Provider, tamsulosin (Flomax) 0.4 MG 24 hr capsule 12/31/21 Historical Provider, MD Benavides 3 MG/0.5ML solution pen-injector 1 (one) time per week. 02/05/22 Historical Provider, MD GUTIERREZ (more content not included)... [facility] 10-02-2022 Telephone encounter Note . [facility] 10-02-2022 Miscellaneous Notes . Name of Caller: Matthias Contact Reason for Appointment: Pt is asking to reschedule the pre-test Office Name: ENT Medication Refills need, if any: n/a Medication Name: n/a documented in this encounter [facility] 10-02-2022 Telephone encounter Note Name of Caller: Matthias Contact Reason for Appointment: Pt is asking to reschedule the pre-test Office Name: ENT Medication Refills need, if any: n/a Medication Name: n/a [facility] 10-02-2022 Telephone encounter Note Name of caller: Arlin Contact phone number: [phone] Relationship to Patient: Insp[employer] sleep Provider: Practice: ENT Chief Complaint/Reason for Call: Arlin had Pt on the other line regarding some questions he had about the INSPIRE. Pt had become disconnected and CAC called Pt back and LM with details to give the office a call back.Please be advised. [facility] 10-02-2022 Miscellaneous Notes Name of caller: Arlin Contact phone number: [phone] Relationship to Patient: Insp[employer] sleep Provider: Practice: ENT Chief Complaint/Reason for Call: Arlin had Pt on the other line regarding some questions he had about the INSPIRE. Pt had become disconnected and CAC called Pt back and LM with details to give the office a call back.Please be advised. documented in this encounter [facility] 09-17-2022 Note Assessment and Recom mendations: Matthias Hoffmann is a 76 y.o. male here for evaluation of obstructive sleep apnea status post OR on 12/25/2021 for drug-induced sleep endoscopy is a candidate for inspire s/p OR 04/09/22 for INSPIRE placement postop work-up with dislodged cuff -Given that patient also has restless leg and insomnia issues I discussed that the inspire may or may not completely improve his sleep continue follow-up with Dr. Coleman of sleep medicine. -JULIANN: Status post hypoglossal nerve stimulator placement. Patient with no tongue weakness. X-rays show a displaced cuff discussed case with patient, his sleep doctor, and [employer] company recommendation for surgical exploration and replacement of cough and testing Risks and benefits of hypoglossal nerve stimulator surgery were discussed, including infection, bleeding, risk of anesthesia, hematoma and seroma, injury to surrounding structures including nerves and blood vessels with nerve palsy issues with the tongue. There may be discomfort with abnormal stimulation and foreign body risks of infection requiring explant. We also discussed potentially aborting the procedure if it cannot be done safely. Patient verbalized understanding and elected to proceed. . Otolaryngology / Head and Neck Surgery Clinic Note Matthias Hoffmann is a 76 y.o. male who presents for evaluation of chief complaint of obstructive sleep apnea. Would like to discuss INSPIRE. Last sleep study was January 2018 AHI 47.7 O2 eugenia 79%. Was prescribed a CPAP in early 2018. Has tried wearing full mask, and nose mask and he states that he still does not sleep. He reports restless sleep. No real snoring. No witnessed apneas; but sleep study report that he stopped breathing quite a bit. No allergic rhinitis symptoms such as itchy watery eyes runny nose and sneezing. No nasal obstruction symptoms. BMI 36.40. Reports daytime somnolence and unrefreshing sleep. No need for serial MRIs. Had his Aortic valve replaced last year. Not on plavix anymore - was only taking it for 90 days. 81 ASA no other blood thinners. No history of stroke. No lung issues. Interval History 11/02/21: Patient did see Dr. Coleman 07/18/21 note reviewed referred for INSPIRE evaluation. BMI now 35.29. Patient repeat sleep study on 08/15/2021 shows severe sleep apnea with AHI of 61, 15% central apneas, oxygen eugenia 79%. Patient with no significant heart or lung issues no need for chest imaging. Does have a history of aortic stenosis but had a valve replacement and has been doing well since. Interval history 12/31/2021: Patient was a candidate for inspire based on sleep endoscopy. Patient here to discuss inspire hypoglossal nerve stimulator surgery. Patient is very excited to discuss surgical intervention. No concerns or complaints at this time. BMI is 34.31. Interval history 04/15/2022: Patient now status post hypoglossal nerve stimulator placement. Here for first postop. Patient is doing well overall. Has noticed bruising around the neck incision but has not noticed any swelling, drainage or any pain around the incision sites. Minimal pain. No concerns or complaints at this time. Interval history 09/17/2022: Patient has been having issues with activation no tongue paresis and only mild stimulation at highest amplitudes. Case had been discussed and patient called x-ray of neck showing a displaced cuff consistent with poor activation of tongue with inspire device. Patient denies any weakness at the time. Past Medical History: Diagnosis Date Aortic stenosis, severe Arthritis Diabetes mellitus (HCC) Hyperlipidemia Hypertension Sleep apnea, obstructive does not tolerate cpap Past Surgical History: Procedure Laterality Date CARDIAC PROCEDURE Left 03/13/2020 Normal Coronaries/Dr. Salgado/Hai CARDIAC SURGERY 04/12/2020 TAVR HERNIA REPAIR KNEE ARTHROPLASTY Bilateral LIPOMA RESECTION chest TONSILLECTOMY (HISTORICAL) Current Outpatient Medications: aspirin 81 MG EC tablet, Take 81 mg by mouth daily., Disp: , Rfl: atorvastatin (Lipitor) 80 MG tablet, Take 80 mg by mouth Nightly., Disp: , Rfl: clindamycin (Cleocin) 150 MG capsule, , Disp: , Rfl: ezetimibe (Zetia) 10 MG tablet, Take 10 mg by mouth Nightly., Disp: , Rfl: finasteride (Proscar) 5 MG tablet, Take 5 mg by mouth daily., Disp: , Rfl: hydroCHLOROthiazide (HYDRODiuril) 25 MG tablet, Take 25 mg by mouth daily., Disp: , Rfl: Jardiance 25 MG, 1 (one) time each day., Disp: , Rfl: linaGLIPtin (Tradjenta) 5 MG tablet, Take 5 mg by mouth daily., Disp: , Rfl: meclizine (Antivert) 25 MG tablet, Take 25 mg by mouth 3 times daily as needed., Disp: , Rfl: metFORMIN XR (Glucophage-XR) 750 MG 24 hr tablet, , Disp: , Rfl: pyridoxine (B-6) 100 MG tablet, Take 100 mg by mouth daily., Disp: , Rfl: ramipril (Altace) 10 MG capsule, Take 10 mg by mouth in the morning and 10 (more content not included)... [facility] 09-17-2022 History of Presen t illness Narrative Assessment and Recommendations: Matthias Hoffmann is a 76 y.o. male here for evaluation of obstructive sleep apnea status post OR on 12/25/2021 for drug-induced sleep endoscopy is a candidate for inspire s/p OR 04/09/22 for INSPIRE placement postop work-up with dislodged cuff -Given that patient also has restless leg and insomnia issues I discussed that the inspire may or may not completely improve his sleep continue follow-up with Dr. Coleman of sleep medicine. -JULIANN: Status post hypoglossal nerve stimulator placement. Patient with no tongue weakness. X-rays show a displaced cuff discussed case with patient, his sleep doctor, and [employer] company recommendation for surgical exploration and replacement of cough and testing Risks and benefits of hypoglossal nerve stimulator surgery were discussed, including infection, bleeding, risk of anesthesia, hematoma and seroma, injury to surrounding structures including nerves and blood vessels with nerve palsy issues with the tongue. There may be discomfort with abnormal stimulation and foreign body risks of infection requiring explant. We also discussed potentially aborting the procedure if it cannot be done safely. Patient verbalized understanding and elected to proceed. . Otolaryngology / Head and Neck Surgery Clinic Note Matthias Hoffmann is a 76 y.o. male who presents for evaluation of chief complaint of obstructive sleep apnea. Would like to discuss INSPIRE. Last sleep study was January 2018 AHI 47.7 O2 [place] 79%. Was prescribed a CPAP in early 2018. Has tried wearing full mask, and nose mask and he states that he still does not sleep. He reports restless sleep. No real snoring. No witnessed apneas; but sleep study report that he stopped breathing quite a bit. No allergic rhinitis symptoms such as itchy watery eyes runny nose and sneezing. No nasal obstruction symptoms. BMI 36.40. Reports daytime somnolence and unrefreshing sleep. No need for serial MRIs. Had his Aortic valve replaced last year. Not on plavix anymore - was only taking it for 90 days. 81 ASA no other blood thinners. No history of stroke. No lung issues. Interval History 11/02/21: Patient did see Dr. Coleman 07/18/21 note reviewed referred for INSPIRE evaluation. BMI now 35.29. Patient repeat sleep study on 08/15/2021 shows severe sleep apnea with AHI of 61, 15% central apneas, oxygen [place] 79%. Patient with no significant heart or lung issues no need for chest imaging. Does have a history of aortic stenosis but had a valve replacement and has been doing well since. Interval history 12/31/2021: Patient was a candidate for inspire based on sleep endoscopy. Patient here to discuss inspire hypoglossal nerve stimulator surgery. Patient is very excited to discuss surgical intervention. No concerns or complaints at this time. BMI is 34.31. Interval history 04/15/2022: Patient now status post hypoglossal nerve stimulator placement. Here for first postop. Patient is doing well overall. Has noticed bruising around the neck incision but has not noticed any swelling, drainage or any pain around the incision sites. Minimal pain. No concerns or complaints at this time. Interval history 09/17/2022: Patient has been having issues with activation no tongue paresis and only mild stimulation at highest amplitudes. Case had been discussed and patient called x-ray of neck showing a displaced cuff consistent with poor activation of tongue with inspire device. Patient denies any weakness at the time. Past Medical History: Diagnosis Date Aortic stenosis, severe Arthritis Diabetes mellitus (HCC) Hyperlipidemia Hypertension Sleep apnea, obstructive does not tolerate cpap Past Surgical History: Procedure Laterality Date CARDIAC PROCEDURE Left 03/13/2020 Normal Coronaries/Dr. Salgado/Hai CARDIAC SURGERY 04/12/2020 TAVR HERNIA REPAIR KNEE ARTHROPLASTY Bilateral LIPOMA RESECTION chest TONSILLECTOMY (HISTORICAL) Current Outpatient Medications: aspirin 81 MG EC tablet, Take 81 mg by mouth daily., Disp: , Rfl: atorvastatin (Lipitor) 80 MG tablet, Take 80 mg by mouth Nightly., Disp: , Rfl: clindamycin (Cleocin) 150 MG capsule, , Disp: , Rfl: ezetimibe (Zetia) 10 MG tablet, Take 10 mg by mouth Nightly., Disp: , Rfl: finasteride (Proscar) 5 MG tablet, Take 5 mg by mouth daily., Disp: , Rfl: hydroCHLOROthiazide (HYDRODiuril) 25 MG tablet, Take 25 mg by mouth daily., Disp: , Rfl: Jardiance 25 MG, 1 (one) time each day., Disp: , Rfl: linaGLIPtin (Tradjenta) 5 MG tablet, Take 5 mg by mouth daily., Disp: , Rfl: meclizine (Antivert) 25 MG tablet, Take 25 mg by mouth 3 times daily as needed., Disp: , Rfl: metFORMIN XR (Glucophage-XR) 750 MG 24 hr tablet, , Disp: , Rfl: pyridoxine (B-6) 100 MG tablet, Take 100 mg by mouth daily., Disp: , Rfl: ramipril (Altace) 10 MG capsule, Take 10 mg by mouth in the morning and 10 mg in the evening., Disp: , Rfl: tamsulosin (Flomax) 0.4 MG 24 hr capsule, , Disp: , Rfl: Trulicity 3 MG/0.5ML solution pen-injector, 1 (one) time per week., Disp: , Rfl: Allergies Allergen Reactions Nitroglycerin Anaphylaxis and Other BP dropped with administration Made blood pressure drop Penicillins Hives, Swelling and Dermatitis Has not had since childhood, unsure of rxn Physical Exam: Constitutional: General: Patient is not in acute distress. Appearance: Patient is well-developed. Eyes: Conjunctiva/sclera: Conjunctivae normal. Pupils: Pupils are equal, round, and reactive to light. HENT: Jaw: No trismus. Nose: External nose midline, anterior rhinoscopy with septal deviation mild to the left, turbinate mild hypertrophy bilaterally Mouth: Mucous membranes are not pale, not dry and not cyanotic. No oral lesions. Pharynx: Uvula midline. No oropharyngeal exudate or uvula swelling. modified mallampati score 1, tonsil size a tonsillar, palate mildly redundant, uvula normal, retrognathia not present. Tongue protrusion symmetric no atrophy no weakness equal strength normal. Tonsils: No tonsillar exudate. No abnormal masses or lesions Neck: No lymphadenopathy, neck circumference enlarged Thyroid: No significant thyromegaly. Trachea: Trachea and phonation normal. No tracheal deviation. Pulmonary: Effort: Pulmonary effort is normal. No respiratory distress. Breath sounds: No stridor. Musculoskeletal: Head: Normocephalic and atraumatic. Neck: Full passive range of motion without pain, neck supple. Chest and neck incisions clean dry intact. Neck incision with ecchymosis surrounding incision, no swelling, drainage or bleeding from incision Skin: General: Skin is warm and dry. Findings: No erythema or rash. Neurological: Cranial Nerves: No cranial nerve deficit. Sensory: No sensory deficit. Coordination: Coordination normal. Extremities: No significant peripheral edema or varicosities Psychiatric: Mood and Affect: Mood and affect normal. Cognition and Memory: Cognition and memory normal. Prior Flexible Nasolaryngoscopy -No masses or lesions throughout essentially normal exam crusting on the right anterior septum mild leftward septal deviation -lingual tonsils not present -tongue size normal -epiglottis position normal -lateral wall laxity not present documented in this encounter [facility] 08-28-2022 History of Presen t illness Narrative Called patient to schedule x-ray not having good activation results thus far would like to assess for possible cuff dislodgment. If negative will plan for CT scan. Voicemail left. documented in this encounter [facility] 08-28-2022 History of Presen t illness Narrative Images from the original note were not included. [facility] SLEEP MEDICINE FOLLOW UP OFFICE VISIT-SLEEP Date of last visit: 07/09/22 Plan at that time: Attempted to activate patient's Inspire device again. Normal waveform and impedence. However, elevated voltages (lower than last visit though) required for sensation and without optimal tongue protrusion (primarily tongue lifting seen), even at alternative electrode configurations tried. 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 Activation aborted. Patient did report he felt more tongue motion compared to last appointment. Inspire field care coordinator on-site discussed findings with Inspire care pathway specialist with recommendation to delay activation another 6 weeks to allow for continued nerve healing. Interval History: Patient reports no change in his sleep at this time. Denies any RLS symptoms at this time. Sleep-Wake Schedule Bedtime: 10 pm to 12 am. Final wake time: 6 am. Patient does not wake up refreshed. Sleep Latency: within few minutes Awakenings after sleep onset: 5-6 times; sometimes to go to bathroom. Will frequently change positions. Difficult to fall back asleep. Naps: several days per week for 30 mins Estimated total sleep time: 3 hours Sleep Metrics: [place] Sleepiness Scale: 7 (10 last visit) Past Treatments: Ropinirole (didn't help) CPAP Inspire Prior Sleep Studies: PSG 11/11/17 (hai): AHI 47.7; SpO2 min 79%. Weight 246 lbs. PLM 4.9. PAP titration 01/12/18 (hai): CPAP 11 cmH2O recommended. Weight 246. PLM 31.4; PLM-a 9. PSG 08/15/21: Weight 250 lbs. AHI 61; Spo2 min 79%. 15% central events. Absent supine sleep. Past Medical History Past Medical History: Diagnosis Date Aortic stenosis, severe Arthritis Diabetes mellitus (HCC) Hyperlipidemia Hypertension Sleep apnea, obstructive does not tolerate cpap Past Surgical History Past Surgical History: Procedure Laterality Date CARDIAC PROCEDURE Left 03/13/2020 Normal Coronaries/Dr. Salgado/Hai CARDIAC SURGERY 04/12/2020 TAVR HERNIA REPAIR KNEE ARTHROPLASTY Bilateral LIPOMA RESECTION chest TONSILLECTOMY (HISTORICAL) Allergies Allergies Allergen Reactions Nitroglycerin Anaphylaxis and Other BP dropped with administration Made blood pressure drop Penicillins Hives, Swelling and Dermatitis Has not had since childhood, unsure of rxn Medications Current Outpatient Medications Medication Instructions aspirin 81 mg, Oral, Daily atorvastatin (LIPITOR) 80 mg, Oral, Nightly clindamycin (Cleocin) 150 MG capsule No dose, route, or frequency recorded. ezetimibe (ZETIA) 10 mg, Oral, Nightly finasteride (PROSCAR) 5 mg, Oral, Daily hydroCHLOROthiazide (HYDRODIURIL) 25 mg, Oral, Daily Jardiance 25 MG Daily linaGLIPtin (TRADJENTA) 5 mg, Oral, Daily meclizine (ANTIVERT) 25 mg, Oral, 3 times daily PRN metFORMIN XR (Glucophage-XR) 750 MG 24 hr tablet No dose, route, or frequency recorded. pyridoxine (B-6) 100 mg, Oral, Daily ramipril (ALTACE) 10 mg, Oral, 2 time daily tamsulosin (Flomax) 0.4 MG 24 hr capsule No dose, route, or frequency recorded. Trulicity 3 MG/0.5ML solution pen-injector Weekly Social History Social History Tobacco Use Smoking status: Never Smokeless tobacco: Never Substance Use Topics Alcohol use: Yes Comment: once month Family History Family History Problem Relation Name Age of Onset Breast cancer Mother Heart Surgery Brother Heart attack Father Heart attack Brother Review of Systems Psychiatric/Behavioral: Positive for sleep disturbance. Physical Exam Vitals: 08/28/22 1422 BP: 136/82 BP Location: Left arm Patient Position: Sitting BP Cuff Size: Large adult Pulse: 92 Resp: 16 SpO2: 94% Weight: 252 lb 6.4 oz (114 kg) Height: 5' 11 (1.803 m) General appearance: Well appearing. No acute distress. AAOX3 Head: Normocephalic, without obvious abnormality, atraumatic Eyes: Normal sclera and conjunctiva Throat: Normal tongue protrusion (with device not active) Skin: Skin color normal. No rashes or lesions Psych: Euthymic Mood Labs/additional studies: Impression: Diagnosis Plan 1. 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 Previously found to have severe JULIANN, was unable to tolerate PAP therapy and stopped using after three months. Has not been able to have Inspire activated due to possible neurapraxia vs cuff slippage/dislodgement? Recommendations: - Attempted activation for patient with no improvement noted in tongue motion from previous visit 7 weeks prior. Patient recommended to follow up with Dr. Reilly for scans of system to help determine best course of action. - F/u after pt has seen Dr. Reilly and gotten imaging. On this date, 08/28/2022 I have spent 20 minutes reviewing previous notes, test results and face to face with the patient discussing the diagnosis and importance of compliance with the treatment plan as well as documenting on the day of the visit. documented in this encounter [facility] 08-16-2022 Telephone encounter Note Reschedule for 09/17 [facility] 08-16-2022 Miscellaneous Notes Reschedule for 09/17 Name of Caller: Matthias Contact Reason for Appointment: Pt is asking for a call to be rescheduled Office Name: ENT Medication Refills need, if any: n/a Medication Name: n/a documented in this encounter [facility] 08-16-2022 Telephone encounter Note Name of Caller: Matthias Contact Reason for Appointment: Pt is asking for a call to be rescheduled Office Name: ENT Medication Refills need, if any: n/a Medication Name: n/a [facility] 07-09-2022 History of Presen t illness Narrative Images from the original note were not included. [facility] SLEEP MEDICINE FOLLOW UP OFFICE VISIT-SLEEP Date of last visit: 05/08/22 Plan at that time: - Attempted to activate patient's Inspire device. Normal waveform and impedence. However, significantly elevated voltages required for sensation and without optimal tongue protrusion, even at alternative electrode configurations tried. 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 Activation aborted. - Check on any RLS symptoms next visit (off requip). - will have pt f/u in 3 weeks (before leaving for trip) to allow time to heal, and attempt activation again at this time. Interval History: Previously delayed activation due to ongoing neuropraxia. Unable to find good FT at previous visit, but some posterior tongue movement noted on 0-0, -0-, and ---. Presents today with some tongue deviation noted on functional tongue exam that has still not completely resolved. Unable to determine if this is baseline for patient, attempted activation on several electrode configurations. Functional Threshold was noted at 3.5V on -0- with patient confirming comfort while Sensation Threshold was determined to be around 3V on -0- configuration. 0-0 configuration did show tongue motion, but no clear Functional Threshold appreciated up to 5.0V. Sleep-Wake Schedule Bedtime: 10 pm to 12 am. Final wake time: 6 am. Patient does not wake up refreshed. Sleep Latency: within few minutes Awakenings after sleep onset: 5-6 times; sometimes to go to bathroom. Will frequently change positions. Difficult to fall back asleep. Naps: several days per week for 30 mins Estimated total sleep time: 3 hours Sleep Metrics: [place] Sleepiness Scale: 10 (7 last visit) Past Treatments: Ropinirole (didn't help) CPAP Prior Sleep Studies: PSG 11/11/17 (hai): AHI 47.7; SpO2 min 79%. Weight 246 lbs. PLM 4.9. PAP titration 01/12/18 (hai): CPAP 11 cmH2O recommended. Weight 246. PLM 31.4; PLM-a 9. PSG 08/15/21: Weight 250 lbs. AHI 61; Spo2 min 79%. 15% central events. Absent supine sleep. Past Medical History Past Medical History: Diagnosis Date Aortic stenosis, severe Arthritis Diabetes mellitus (HCC) Hyperlipidemia Hypertension Sleep apnea, obstructive does not tolerate cpap Past Surgical History Past Surgical History: Procedure Laterality Date CARDIAC PROCEDURE Left 03/13/2020 Normal Coronaries/Dr. Salgado/Hai CARDIAC SURGERY 04/12/2020 TAVR HERNIA REPAIR KNEE ARTHROPLASTY Bilateral LIPOMA RESECTION chest TONSILLECTOMY (HISTORICAL) Allergies Allergies Allergen Reactions Nitroglycerin Anaphylaxis and Other BP dropped with administration Made blood pressure drop Penicillins Hives, Swelling and Dermatitis Has not had since childhood, unsure of rxn Medications Current Outpatient Medications Medication Instructions aspirin 81 mg, Oral, Daily atorvastatin (LIPITOR) 80 mg, Oral, Nightly clindamycin (Cleocin) 150 MG capsule No dose, route, or frequency recorded. ezetimibe (ZETIA) 10 mg, Oral, Nightly finasteride (PROSCAR) 5 mg, Oral, Daily hydroCHLOROthiazide (HYDRODIURIL) 25 mg, Oral, Daily Jardiance 25 MG Daily linaGLIPtin (TRADJENTA) 5 mg, Oral, Daily meclizine (ANTIVERT) 25 mg, Oral, 3 times daily PRN metFORMIN XR (Glucophage-XR) 750 MG 24 hr tablet No dose, route, or frequency recorded. pyridoxine (B-6) 100 mg, Oral, Daily ramipril (ALTACE) 10 mg, Oral, 2 time daily tamsulosin (Flomax) 0.4 MG 24 hr capsule No dose, route, or frequency recorded. Trulicity 3 MG/0.5ML solution pen-injector Weekly Social History Social History Tobacco Use Smoking status: Never Smokeless tobacco: Never Substance Use Topics Alcohol use: Yes Comment: once month Family History Family History Problem Relation Name Age of Onset Breast cancer Mother Heart Surgery Brother Heart attack Father Heart attack Brother Review of Systems Psychiatric/Behavioral: Positive for sleep disturbance. Physical Exam Vitals: 07/09/22 0938 BP: 126/88 BP Location: Left arm Patient Position: Sitting BP Cuff Size: Large adult Pulse: 80 Resp: 16 SpO2: 96% Weight: 250 lb 9.6 oz (114 kg) Height: 5' 11 (1.803 m) General appearance: Well appearing. No acute distress. AAOX3 Head: Normocephalic, without obvious abnormality, atraumatic Eyes: Normal sclera and conjunctiva Throat: Normal tongue protrusion (with device not active) Skin: Skin color normal. No rashes or lesions Psych: Euthymic Mood, full affect Labs/additional studies: Impression: Diagnosis Plan 1. JULIANN (obstructive sleep apnea) 2. Insomnia, unspecified type 3. Neurapraxia 76 y/o M with HTN, aortic stenosis (s/p TAVR), and obesity. Previously found to have severe JULIANN, was unable to tolerate PAP therapy and stopped using after three months. Ongoing significant maintenance insomnia. Recommendations: - Attempted to activate patient's Inspire device again. Normal waveform and impedence. However, elevated voltages (lower than last visit though) required for sensation and without optimal tongue protrusion (primarily tongue lifting seen), even at alternative electrode configurations tried. 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 Activation aborted. Patient did report he felt more tongue motion compared to last appointment. Inspire field care coordinator on-site discussed findings with Inspire care pathway specialist with recommendation to delay activation another 6 weeks to allow for continued nerve healing. - Check on any RLS symptoms next visit (off requip). - F/u 6 weeks. On this date, 07/09/2022 I have spent 30 minutes reviewing previous notes, test results and face to face with the patient discussing the diagnosis and importance of compliance with the treatment plan as well as documenting on the day of the visit. documented in this encounter [facility] 12-18-2021 Hospital Discharg e segundo Herndon RN - 12/18/2021 3:26 PM EDT Please bring your [facility] Surgical Information folder on the day of surgery. Please dominic the last dose taken (date and time ) on your Daily Medications List provided in your After Visit Summary. Please bring a photo ID and insurance information Do NOT take the following medications on the morning of surgery hydrochlorithizide, jardiance, ramipril TAKE the following medications the morning of your surgery aspirin You may take your prescription pain medications. You may take Tylenol (Acetaminophen) if needed for pain. No Motrin, Ibuprofen, or Advil 24 hours prior to surgery, or longer if instructed by your surgeon. No Aleve or Naprosyn 3 days prior to surgery, or longer if instructed by your surgeon. If you are on BLOOD THINNERS or ASPIRIN, continue aspirin therapy Additional instructions Reilly If you use a CPAP or BiPAP please bring it with you on the day of surgery. You will receive a reminder call the day before surgery with your arrival time and driving directions. If you have specific questions, please call your surgeon. documented in this encounter [employer] Phone: Evaluation note Diagnosis JULIANN (obstructive sleep apnea)- Primary Obstructive sleep apnea (adult) (pediatric) Insomnia, unspecified type Neurapraxia Injury to nerves, unspecified site documented in this encounter [facility]* Diagnosis JULIANN (obstructive sleep apnea)- Primary Obstructive sleep apnea (adult) (pediatric) Breakdown (mechanical) of implanted electronic neurostimulator, generator, initial encounter (HCC) documented in this encounter [facility] note* Diagnosis JULIANN (obstructive sleep apnea)- Primary Obstructive sleep apnea (adult) (pediatric) Neurapraxia Injury to nerves, unspecified site documented in this encounter [facility] note* Diagnosis JULIANN (obstructive sleep apnea) Obstructive sleep apnea (adult) (pediatric) Breakdown (mechanical) of implanted electronic neurostimulator, generator, initial encounter (HCC) documented in this encounter [facility] note* Diagnosis JULIANN (obstructive sleep apnea)- Primary Obstructive sleep apnea (adult) (pediatric) documented in this encounter [facility] note* Diagnosis Postoperative pain- Primary Other acute postoperative pain documented [facility]* Diagnosis JULIANN (obstructive sleep apnea)- Primary Obstructive sleep apnea (adult) (pediatric) documented in this encounter [facility]* Diagnosis JULIANN (obstructive sleep apnea)- Primary Obstructive sleep apnea (adult) (pediatric) documented in this encounter [facility]* Diagnosis JULIANN (obstructive sleep apnea)- Primary Obstructive sleep apnea (adult) (pediatric) Insomnia, unspecified type documented in this encounter [facility]* Diagnosis JULIANN (obstructive sleep apnea)- Primary Obstructive sleep apnea (adult) (pediatric) Insomnia, unspecified type documented in this encounter [facility]* Diagnosis JULIANN (obstructive sleep apnea)- Primary Obstructive sleep apnea (adult) (pediatric) documented in this encounter [facility]* Diagnosis JULIANN (obstructive sleep apnea) Obstructive sleep apnea (adult) (pediatric) [facility] Diagnosis Nonrheumatic aortic valve stenosis Aortic valve disorders Dyspnea on exertion Other dyspnea and respiratory abnormality Diagnosis Nonrheumatic aortic valve stenosis Aortic valve disorders Aortic stenosis, severe Aortic valve disorders Diagnosis Severe aortic stenosis Aortic valve disorders Diagnosis Aortic valve stenosis, etiology of cardiac valve disease unspecified Diagnosis Aortic stenosis, severe Aortic valve disorders Advance Directives Documents on File Type Date Recorded Patient Gradall Operator Expl anation ACP-Advance Directive ACP-Power of Color Blender Documents on File Type Date Recorded Patient Gradall Operator Expl anation ACP-Advance Directive ACP-Power of Color Blender Latest Code Status on File Code Status Date Activated Date Inactivated Comments Full Code 04/10/2020 9:06 AM Full Code 04/10/2020 5:55 AM 04/10/2020 8:04 AM Latest Code Status on File Code Status Date Activated Date Inactivated Comments Full Code 04/10/2020 9:06 AM 04/11/2020 12:27 PM Full Code 04/10/2020 5:55 AM 04/10/2020 8:04 AM Latest Code Status on File Code Status Date Activated Date Inactivated Comments Full Code 04/10/2020 9:06 AM 04/11/2020 12:27 PM Documents on File Type Date Recorded Patient Gradall Operator Expl anation Advance Directives and Livin g Will 04/09/2022 1:06 PM Power of Color Blender 04/09/2022 1:04 PM Documents on File Type Date Recorded Patient Gradall Operator Expl anation Advance Directives and Livin g Will 04/09/2022 1:06 PM Power of Color Blender 04/09/2022 1:04 PM Reason for Referral Status Reason Specialty Diagnoses / Procedures Referre d By Contact Referred To Contact Closed Radiology Diagnoses Aortic stenosis, severe Procedures CTA Chest Abdomen Pelvis W Contrast Geoffrey Benedict MD [address] [place] [address] Status Reason Specialty Diagnoses / Procedures Referre d By Contact Referred To Contact Closed Cardiology Diagnoses Aortic valve stenosis, etiology of cardiac valve disease unspecified Procedures Echo 2D Doppler Color Portillo Howard, NEWSPAPER PHOTOJOURNALIST - [facility] [address] [place] [address] Specialty Diagnoses / Procedures Referred By Edison crane Referred To Contact Sleep Medicine Diagnoses JULIANN (obstructive sleep apnea) Procedures Polysomnography Srinivas Coleman MD [address] [facility] [address] [place] [address] Referral ID Status Reason Start Date Expiration Date V isits Requested Visits Authorized [id number] Pending Review 03/13/2023 03/07/2024 1 1 Discharge Instructions * Instructions* Portillo Howard APRN - [facility] - 04/10/2020 - Please call the [facility] with any questions: [phone] -You will have have the following follow up appointments in the [facility]: one week post procedure, one month post procedure with echocardiogram, one year post procedure with echocardiogram. -Wash groin/wrist incision with soap and water, pat dry. Apply bandage for 5 days. If you have a chest incision, you will receive specific instructions from your surgeon regarding care of the incision. -Check incision every day. If you see any changes in the way it looks, call the [facility] at . Look for any of these problems: redness and warmth that does not go away, yellow or green drainage from the wound, fever and chills, numbness in your legs, pain that is getting worse. -It is normal to have a bruise or soft lump in the groin. This will get smaller and go away with time -Do not drive until after your first [facility] Appointment. -Do not lift, push, or pull anything weighing more than 5 lbs or more for one week if you had the procedure through your groin and 4 weeks if you had the procedure through the chest -We strongly encourage a regular exercise program such as cardiac rehabilitation once you have beencleared to resume normal activity. -Eating well is important for your recovery. Eat nutritious foods every day. Please follow a cardiac, 2 gram sodium diet. Please continue to follow any other dietary recommendations provided by your health care provider prior to your valve surgery. -From now on, tell your doctors and health care providers about your heart valve implantation (prosthetic heart valve ). -If you go to the emergency room or are admitted to the hospital during the first year after your procedure, please call the [facility] at -If you have major dental work or other invasive medical procedures (like surgery) you may need to take antibiotics before the dental work or the procedure. Please discuss with your health care provider. - You will need to take blood thinning medications(antiplatelet) after your valve procedure. Generally, this includes aspirin and clopidogrel. The clopidogrel will be for 3 months and the aspirin will be indefinite. * Attachments The following attachments cannot be sent through Care Everywhere. * Transcatheter Aortic Valve Replacement (TAVR): General Info (Vietnamese) * Transcatheter Aortic Valve Replacement (TAVR): Older Adult: Post-op (Vietnamese) * Aortic Valve Stenosis (Vietnamese) * hydrochlorothiazide (Vietnamese) documented in this encounter History of Present Illness * Cheryl Raya RN - 04/10/2020 5:35 PM EST Patient out of bed for all meals today. Ambulated entire lap around unit and remained asymptomatic.Incentive spirometer given and educated; patient able to reach 2500. No complaints of pain at this time. documented in this encounter Summary Purpose Family History No Family History Records FoundNo Family History Records Found Additional Source Comments Ordered Prescriptions (unrec ognized section and content) Prescription Sig Dispensed Refills Start Date End Da te metFORMIN (GLUCOPHAGE-XR) 750 MG extended release tablet Take 1 tablet by mouth daily Resume 04/13/2020 30 tablet 3 04/11/2020 clopidogrel (PLAVIX) 75 MG tablet Take 1 tablet by mouth daily 15 tablet 0 04/11/2020 04/11/2020 Care Teams (unrecognized sec tion and content) Dampproofer Relationship Specialty Start Date End Date Afshin Yi PCP - General Family Medicine 03/14/20 Dampproofer Relationship Specialty Start Date End Date Afshin Yi PCP - General Family Medicine 03/14/20 Dampproofer Relationship Specialty Start Date End Date Afshin Yi [address] [address] PCP - General 03/14/20 Dampproofer Relationship Specialty Start Date End Date Afshin Yi [address] [place] [address] PCP - General 03/14/20 Dampproofer Relationship Specialty Start Date End Date Mart Yilulylisa Pedroza [address] [place] [address] PCP - General 03/14/20 Dampproofer Relationship Specialty Start Date End Date Afshin Yi [address] [place] [address] PCP - General 03/14/20 Dampproofer Relationship Specialty Start Date End Date Afshin Yi [address] [place] [address] PCP - General 03/14/20 Dampproofer Relationship Specialty Start Date End Date Afshin Yi [address] [place] [address] PCP - General 03/14/20 Dampproofer Relationship Specialty Start Date End Date Afshin Yi [address] [place] [address] PCP - General 03/14/20 Dampproofer Relationship Specialty Start Date End Date Afshin Yi [address] [place] [address] PCP - General 03/14/20 Dampproofer Relationship Specialty Start Date End Date Afshin Yi [address] [place] [address] PCP - General 03/14/20 Dampproofer Relationship Specialty Start Date End Date Mart Yilulylisa Pedroza [address] [place] [address] PCP - General 03/14/20 Dampproofer Relationship Specialty Start Date End Date Mart Yilulylisa Pedroza [address] [place] [address] PCP - General 03/14/20 Dampproofer Relationship Specialty Start Date End Date Afshin Yi [address] [place] [address] PCP - General 03/14/20 Dampproofer Relationship Specialty Start Date End Date Afshin Yi [address] [place] [address] PCP - General 03/14/20 Dampproofer Relationship Specialty Start Date End Date Mart Yiclovis Kasia [address] [place] [address] PCP - General 03/14/20 Dampproofer Relationship Specialty Start Date End Date Afshin Yi [address] [place] [address] PCP - General 03/14/20 Dampproofer Relationship Specialty Start Date End Date Afshin Yi [address] [place] [address] PCP - General 03/14/20 (unrecognized sect ion and content) No Status Records FoundNo Status Records Found INFORMATION SOURCE (unrecogn ized section and content) DATE CREATED AUTHOR 12/18/2021 [facility] DATE CREATED AUTHOR AUTHOR'S ORGANIZ ATION [facility] Reason for Visit (unrecogniz ed section and content) Reason Comments Follow-up Reason Comments Follow-up JULIANN Reason Onset Date Comments Appointment 08/16/2022 Reason Onset Date Comments Appointment 10/02/2022 Specialty Diagnoses / Procedures Referred By Contac t Referred To Contact Diagnoses Obstructive sleep apnea (adult) (pediatric) Obstructive sleep apnea (adult) (pediatric) [G47.33] Procedures IN REVISION/REPLMT NEUROSTIMLATOR ELTRD CRANIAL NRV REVISION HYPOGLOSSAL NERVE STIMULATOR Jori Reilly MD [address] [place] [address] [facility] [address] [place] [address] Referral ID Status Reason Start Date Expiration Date Visits Re quested Visits Authorized [id number] 1 Reason Onset Date Comments questions regarding the INSPIRE 10/02/2022 Reason Comments Follow-up Pt states doing well Reason Onset Date Comments Care Coordination 12/12/2022 [facility] Follow Up Reason Comments Follow-up Reason Comments Follow-up juliann Reason Comments Follow-up IOP awake endoscopy Specialty Diagnoses / Procedures Referred By Contac t Referred To Contact Sleep Medicine Diagnoses JULIANN (obstructive sleep apnea) Procedures Polysomnography Srinivas Coleman MD [address] [facility] [address] [place] [address] [facility] [address] [place] [address] Referral ID Status Reason Start Date Expiration Date Visits Re quested Visits Authorized [id number] Closed 03/13/2023 03/07/2024 1 1 Scheduled Active and Recently Administ ered Medications (unrecognized section and content) Medication Order 10/08/2022 10/09/2022 10/10/2022 acetaminophen (Tylenol) tablet 1,000 mg (COMPLETED) 1,000 mg, Oral, Once, On Tisha 10/10/22 at 0830, For 1 dose, Preprocedure, Maximum dose of acetaminophen is 4000 mg from all sources in 24 hours. Do not administer if patient has taken tylenol <4 hours earlier. Do not give if contraindicated ie. patient has active liver disease or cirrhosis. 0829 (Given - Provid er: Florida Wong RN) famotidine (Pepcid) tablet 20 mg (COMPLETED) 20 mg, Oral, Once, On Tisha 10/10/22 at 0830, For 1 dose, Preprocedure 0829 (Given - Provid er: Florida Wong RN) sodium chloride 0.9% (NS) flush 10 mL 10 mL, IntraVENous, Every 12 hours scheduled (2 times per day), First dose on Tisha 10/10/22 at 0900, Preprocedure 0900 (Canceled Entry - Provider: Automatic Discharge Provider - Comment: Automatically canceled at discontinue of medication order) sodium chloride 0.9% (NS) flush 5-40 mL 5-40 mL, IntraVENous, Every 12 hours, First dose on Tisha 10/10/22 at 0830, Preprocedure, For Line Patency: Peripheral IV = 5 mL; Midline or Central Line = 10 mL/lumen. If following IV push medication, administer flush at same rate as the IV push. Flush volume is determined by type of infusion therapy being given. For non-viscous solutions use: Peripheral IV = 5 mL Midline or Central Line = 10 mL/lumen For viscous solutions (i.e. blood components, parenteral nutrition, contrast media, or after obtaining blood sample) use: Peripheral IV = 10 mL Midline or Central Line = 20 mL/lumen 0830 (Canceled Entry - Provider: Automatic Discharge Provider - Comment: Automatically canceled at discontinue of medication order) vancomycin (Vancocin) 1500 mg in NS 250 mL IVPB (compounded premix) (COMPLETED) 1,500 mg, IntraVENous, at 125 mL/hr, Administer over 120 Minutes, [employer] to O.R., On Tisha 10/10/22 at 0830, For 1 dose, Preprocedure, Administer within 1 hour prior to incision. premix bag, Suspected Indication (Select all that apply): Surgical Prophylaxis 1014 (Given - Provid er: COURT Meza CRNA) Continuous Medication Order 10/08/2022 10/09/2022 10/10/2022 lactated Ringer's (LR) infusion 50 mL/hr, IntraVENous, Continuous, Starting on Tisha 10/10/22 at 0830, Preprocedure, Upon admission to sameday - please start iv if patient does not have iv access. Use 500ml NS for patients on dialysis. 0959 (New Bag - Prov ider: COURT Meza CRNA)1203 (Stopped - Provider: COURT Meza CRNA) PRN Medication Order 10/08/2022 10/09/2022 10/10/2022 ALPRAZolam (Xanax) disintegrating tablet 0.25 mg 0.25 mg, Oral, PRN, anxiety, Starting on Tisha 10/10/22 at 0815, For 1 dose, Preprocedure, Using dry hands, place tablet on top of tongue and allow to disintegrate. Administration with water is not necessary. dextrose 5 % infusion 100 mL/hr, IntraVENous, PRN, Blood sugar less than 70mg/dL, Starting on Tisha 10/10/22 at 0815, Preprocedure, Start infusion following administration of dextrose 50% or glucagon. dextrose 50 % solution 12.5 g 12.5 g, IntraVENous, PRN, low blood sugar, Blood glucose less than 70 mg/dL and patient NOT ALERT or NPO., Starting on Tisha 10/10/22 at 0815, Preprocedure, If patient does not respond within 5 minutes, repeat dose x1. Start D5W at 100 mL/hour until ordering provider can be reached. Repeat blood glucose in 15 minutes. If blood glucose is less than 70 mg/dL, repeat treatment and recheck blood glucose in 15 minutes x2. If using Glucostabilizer, dose as instructed per system. glucagon (human recombinant) injection 1 mg 1 mg, IntraMUSCular, PRN, low blood sugar, Blood glucose less than 70 mg/dL and patient NOT ALERT or NPO and does not have IV access., Starting on Tisha 10/10/22 at 0815, Preprocedure, After administration, attempt intravenous access and start D5W at 100 mL/hr. Repeat blood glucose in 15 minutes x2 and notify provider. glucose oral gel 15 g 15 g, Oral, As needed, low blood sugar, Starting on Fri10/10/22 at 0815, Preprocedure, If blood glucose less than 50 mg/dL and patient ALERT and NOT NPO, give 2 tubes glucose gel. If blood glucose less than 70 mg/dL and patient ALERT and NOT NPO, give 1 tube glucose gel. Repeat blood glucose in 15 minutes. If blood glucose is less than 70 mg/dL, repeat treatment and recheck blood glucose in 15 minutes x2 and notify provider. Insulin Lispro (Humalog) injection 0-12 Units 0-12 Units, SubCUTAneous, PRN, high blood sugar, Surgery patient, Starting on Fri10/10/22 at 0815, For 3 doses, Preprocedure, Corrective Low Dose Algorithm Glucose: Dose: 70-180 No Insulin 181-240 4 Unit 241-300 6 Units 301-350 8 Units 351-400 10 Units Over 400 12 Units and notify physician 0830 (Given - Provid er: Florida Wong RN) lidocaine-EPINEPHrine (Xylocaine W/EPI) 1 %-1:077999 injection (CANCELED) As needed, Starting on Fri10/10/22 at 1020, Intraprocedure 1020 (Given - Provid er: Jori Reilly MD) sodium chloride 0.9 % infusion 5-250 mL/hr, IntraVENous, PRN, if patient receiving piggyback infusions and maintenance fluids are not ordered OR KVO fluids to protect IV site / prevent frequent line interruptions/ long duration, Starting on Fri10/10/22 at 0815, Preprocedure, For piggyback infusion, administer at same rate as piggyback for a total of 25 mL. Enter 25 mL into dose field and piggyback rate into rate field of order. If piggyback is infusing at a rate less than 100 mL/hr, enter 25 mL into dose field and 100 mL/hr into rate field of order. For KVO fluids, enter rate of 20 mL/hr or less into rate field of order. sodium chloride 0.9 % infusion 5-250 mL/hr, IntraVENous, PRN, if patient receiving piggyback infusions and maintenance fluids are not ordered OR KVO fluids to protect IV site / prevent frequent line interruptions / long duration, Starting on Tisha 10/10/22 at 0815, Preprocedure, For piggyback infusion, administer at same rate as piggyback for a total of 25 mL. Enter 25 mL into dose field and piggyback rate into rate field of order. If piggyback is infusing at a rate less than 100 mL/hr, enter 25 mL into dose field and 100 mL/hr into rate field of order. For KVO fluids, enter rate of 20 mL/hr or less into rate field of order. sodium chloride 0.9 % irrigation solution (CANCELED) As needed, Starting on Tisha 10/10/22 at 1042, Intraprocedure 1042 (Given - Provid er: Jori Reilly MD) sodium chloride 0.9% (NS) flush 10 mL 10 mL, IntraVENous, PRN, line care, Starting on Tisha 10/10/22 at 0815, Preprocedure, After every IV line use sodium chloride 0.9% (NS) flush 5-40 mL 5-40 mL, IntraVENous, PRN, line care, After every IV line use, Starting on Tisha 10/10/22 at 0815, Preprocedure, For Line Patency: Peripheral IV = 5 mL; Midline or Central Line = 10 mL/lumen. If following IV push medication, administer flush at same rate as the IV push. Flush volume is determined by type of infusion therapy being given. For non-viscous solutions use: Peripheral IV = 5 mL Midline or Central Line = 10 mL/lumen For viscous solutions (i.e. blood components, parenteral nutrition, contrast media, or after obtaining blood sample) use: Peripheral IV = 10 mL Midline or Central Line = 20 mL/lumen FOR RECORDS PERTAINING TO PATIENTS WHO ARE OR HAVE BEEN ENROLLED IN A CHEMICAL DEPENDENCY/SUBSTANCEABUSE PROGRAM, SOME INFORMATION MAY BE OMITTED. This clinical summary was aggregated from multiple sources. Caution should be exercised in using it in the provision of clinical care. This summary normalizes information from multiple sources, and as a consequence, information in this document may materially change the coding, format and clinical context of patient data. In addition, data may be omitted in some cases. CLINICAL DECISIONS SHOULD BE BASED ON THE PRIMARY CLINICAL RECORDS. [facility]. provides no warranty or guarantee of the accuracy or completeness of information in this document.
--- NOTE | 2024-01-07 07:04 | HP.PCM_ITS ---
HPI - General HPI Narrative ANILA ROBLEDO is a 78 M who presents for right middle finger trigger finger release. no change to h and p. right middle finger marked. rab post op instructions discussed. ok to proceed. MR#: [id number] Acct: [id number] Name: ANILA ROBLEDO Rep #: [id number] : 1945 Provider: Dr. Checo Zhang MD Age/Sex: 78/M Location: [facility] [place] Status: Signed Intake Vital Signs 08/13/2408:16 12/23/2409:32 12/25/2408:02 12/25/2408:02 Height 5 ft 11 in 5 ft 11 in 5 ft 11 in 5 ft 11 in Weight: 238 lb BMI 33.2 Intake Visit Reasons: RIGHT HAND Chief Complaint: right hand Is patient in pain?: Yes (right hand ) Pain scale (1-10): 5 Allergies Penicillins (PCN) Allergy (Mild, Verified 12/26/23 09:03) hivesnitroglycerin Adverse Reaction (Mild, Verified 12/26/23 09:03) LOC Medications ?Medication ?Instructions ?Recorded ?Confirmed ?Type atorvastatin 80 mg tablet 80 mg PO QHS CHOLESTEROL LOWERING 09/24/15 11/18/23 History hydrochlorothiazide 25 mg tablet 25 mg PO DAILY WATER PILL, BLOOD 09/24/15 11/18/23 History PRESSUR finasteride 5 mg tablet 5 mg PO DAILY PROSTATE 09/24/17 11/18/23 History metformin 750 mg tablet,extended 750 mg PO DAILY BLOOD SUGAR 09/24/17 11/18/23 History release 24 hr pyridoxine (vitamin B6) 100 mg 100 mg PO DAILY SUPPLEMENT 09/24/17 11/18/23 History tablet tamsulosin 0.4 mg capsule 0.4 mg PO DAILY PROSTATE 09/24/17 11/18/23 History empagliflozin 25 mg tablet 1 tab PO DAILY 02/01/20 11/18/23 History saw palmetto 450 mg capsule 900 mg PO DAILY 03/07/20 11/18/23 History aspirin 81 mg tablet,delayed 81 mg PO DAILY 04/19/20 11/18/23 History release (Adult Aspirin Regimen) ramipril 10 mg capsule 10 mg PO BID BLOOD PRESSURE 04/19/20 11/18/23 History ezetimibe 10 mg tablet 10 mg PO DAILY 11/18/23 11/18/23 History garlic 500 mg capsule 500 mg PO DAILY 11/18/23 11/18/23 History semaglutide 1 mg/dose (4 mg/3 mL) 1 mg subcut QWEEK 11/18/23 12/16/23 History subcutaneous pen injector (Ozempic) Have you fallen in the past year?: No PFSH Medical History (Updated 12/26/23 @ 09:23 by Checo Zhang MD) Trigger finger, right middle finger Wears dentures Wears glasses Diabetes Arthritis Non-smoker History of echocardiogram Hypertension Cardiology follow-up encounter 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) Cholecystitis BPH (benign prostatic hyperplasia) GERD (gastroesophageal reflux disease) Type 2 diabetes mellitus Non-rheumatic aortic stenosis Positive Helicobacter pylori test (05/13/18) Essential hypertension HLD (hyperlipidemia) Surgical History History of cardiac catheterization History of left heart catheterization (03/13/20) History of esophagogastroduodenoscopy (EGD) (05/13/18) History of bilateral knee replacement History of colonoscopy (2016) Sleep apnea Family History Mother Breast cancer Liver diseaseFather , Age 41 Myocardial infarction Heart diseaseSister Cancer Breast cancerBrother CAD (coronary artery disease) CABG Heart disease Social History Smoking Status: Never smoker alcohol intake: current alcohol intake frequency: holidays/special occasions only substance use type: does not use caffeine: No HPI RIGHT HAND Details: This documentation accurately reflects the service provided and the decisions made by me, Dr. Checo Zhang MD 12/26/23 0900. Part of today?s visit was documented by [ ], acting as scribe. ANILA ROBLEDO is a 78 year old M here today for right middle finger trigger finger. Patient also developing this on the left ring finger but that is more recent the patient has a history of about 3 years history of right middle finger locking up in flexion having to use the other side to get it straightened. This is getting little bit worse with time. The patient has had multiple injections in the past with Dr. 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 Ortho Exam General General: Yes no acute distress Neurologic: Yes alert and Yes oriented x3 Psychologic: Yes reasonable and appropriate Right Wrist/Hand Skin/Wound: Yes CDI, No Swelling, No Ecchymosis, Yes nail intact and Yes capillary refill normal A1 gabriela trigger: Yes (middle finger, pain at a1 gabriela) Right Wrist: No CMC Grind or tender to palpate 1st dorsal compartment Motor: EPL: 5, FDP-2: 5, 1st Dorsal Interosseous: 5 and APB: 5 Sensation: Radial: I, Ulnar: I and Median: I WRIST: There is stiffness of the PIP joint the patient lacks about 30 degrees of full extension but is able to make a full fist with the fingers normal sensation on both sides of the digit. Left Wrist/Hand Skin/Wound: No Swelling and No Ecchymosis Coding Level of Care Code Off vis,new,level 4 Diagnoses Trigger finger, right middle finger M65.331 Assessment and Plan Assessment and Plan (1) Trigger finger, right middle finger: Status: Acute Plan: 78-year-old man with a right middle finger trigger finger as well as some mild stiffness at the PIP joint. Patient counseled on the diagnosis prognosis different treatment options available including but not limited to rest ice anti-inflammatories bracing taping strapping cortisone injections as well as surgical release of the volar A1 gabriela. The patient has had multiple injections in the past is more interested in surgery. This would be in the form of right middle finger trigger finger release. Patient also has a cardiac history sees Dr. Salgado so we will get a cardiac clearance. He also has diabetes and may increase the chance of infection or other complications. The patient understands wished to proceed warned him about weakness damage to the tendon bowstringing or other complications related to surgery he understands and signed the consent form today. Pros and cons risks and benefits were discussed with the patient including but not limited to infection, pain, stiffness, bleeding, damage to surrounding structures, neurovascular injury, recurrence or retear, failure or wear of hardware or fixation, instability, fracture, deep vein thrombosis and pulmonary embolism, anesthetic risks, , patient dissatisfaction, need for further surgery and other risks. Patient understood and wished to proceed with surgery, and signed the informed consent documentation. 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) Cholecystitis BPH (benign prostatic hyperplasia) GERD (gastroesophageal reflux disease) Type 2 diabetes mellitus Non-rheumatic aortic stenosis Positive Helicobacter pylori test (05/13/18) Essential hypertension HLD (hyperlipidemia) Home Medications ?Medication ?Instructions ?Recorded ?Last Taken ?Type atorvastatin 80 mg tablet 80 mg PO QHS CHOLESTEROL LOWERING 09/24/15 09/23/17 History hydrochlorothiazide 25 mg tablet 25 mg PO DAILY WATER PILL, BLOOD 09/24/15 09/23/17 History PRESSUR finasteride 5 mg tablet 5 mg PO DAILY PROSTATE 09/24/17 09/23/17 History metformin 750 mg tablet,extended 750 mg PO DAILY BLOOD SUGAR 09/24/17 03/12/20 History release 24 hr pyridoxine (vitamin B6) 100 mg 100 mg PO DAILY SUPPLEMENT 09/24/17 09/23/17 History tablet tamsulosin 0.4 mg capsule 0.4 mg PO DAILY PROSTATE 09/24/17 09/23/17 History empagliflozin 25 mg tablet 1 tab PO DAILY 02/01/20 Unknown History saw palmetto 450 mg capsule 900 mg PO DAILY 03/07/20 Unknown History aspirin 81 mg tablet,delayed 81 mg PO DAILY 04/19/20 11/16/23 History release (Adult Aspirin Regimen) ramipril 10 mg capsule 10 mg PO BID BLOOD PRESSURE 04/19/20 Unknown History ezetimibe 10 mg tablet 10 mg PO DAILY 11/18/23 Unknown History garlic 500 mg capsule 500 mg PO DAILY 11/18/23 Unknown History semaglutide 1 mg/dose (4 mg/3 mL) 1 mg subcut QWEEK 11/18/23 12/28/23 History subcutaneous pen injector (Ozempic) Allergy/AdvReac Type Severity Reaction Status Date / Time Penicillins (PCN) Allergy Mild hives Verified 01/05/24 13:47 nitroglycerin AdvReac Mild LOC Verified 01/05/24 13:47 Family History Mother Breast cancer Liver disease Father , Age 41 Myocardial infarction Heart disease Sister Cancer Breast cancer Brother CAD (coronary artery disease) CABG Heart disease Surgical History History of cardiac catheterization History of left heart catheterization (03/13/20) History of esophagogastroduodenoscopy (EGD) (05/13/18) History of bilateral knee replacement History of colonoscopy (2016) Sleep apnea Social History Smoking Status: Never smoker alcohol intake: current alcohol intake frequency: holidays/special occasions only substance use type: does not use caffeine: No
[2024-01-07] MEDS: 0.9% Saline Lock 10 ML Syringe IV (07:26)
--- NOTE | 2024-01-07 07:39 | PRE.ANES_ITS ---
ASA Classification* ASA Classification ASA Classification: 3 (SEE WRITTEN PRE ANESTHESIA RECORD FOR FULL ASSESSMENT) Assessment & Plan Anesthesia* Anesthesia Assessment Anesthesia Assessment: Discussed sedation and/or anesthesia options, risks, benefits, and alternatives with patient/parents/legal guardian/POA. Questions invited. The patient/parents/legal guardian/POA seems to understand and agrees to proceed with anesthesia plan. Reviewed the physical assessment, medical history, allergy history and patient home medications list prior to surgery/procedure/anesthetic and documented any changes. Performed airway and anesthesia risk assessments. Anesthesia Type Anesthesia Type: MAC (SEE WRITTEN PRE ANESTHESIA RECORD FOR FULL ASSESSMENT) Anesthesia Focused Assessment* Temperature: 97.2 F Pulse Rate: 76 Blood Pressure: 126/80 Respiratory Rate: 17 Pulse Ox: 93 Airway Assessment Mouth opens: >3 cm Mallampati Score: II Focused Labs Anesthesia Preop lab: CBC WBC 8.7 K/mm3 (4.4-11.0) 11/20/23 08:12 RBC 4.77 M/mm3 (4.6-6.2) 11/20/23 08:12 Hgb 14.5 g/dL (13.0-16.5) 11/20/23 08:12 Hct 43.2 % (40-54) 11/20/23 08:12 Plt Count 216 K/mm3 (150-450) 11/20/23 08:12 CHEMISTRY Potassium 3.9 mmol/L (3.5-5.1) 11/20/23 08:12 Sodium 138 mmol/L (136-145) 11/20/23 08:12 BUN 22 mg/dL (7-18) H 11/20/23 08:12 Creatinine 1.22 mg/dL (0.70-1.30) 11/20/23 08:12 Glucose 162 mg/dL (74-106) H 11/20/23 08:12 POC Glucose 221 mg/dL (70-110) H 05/13/18 08:33 TSH 1.58 uIU/mL (0.358-3.74) 07/10/23 15:32 COAG PT 12.9 SECONDS (11.7-14.9) 03/07/20 12:38 Pre-Assessment Diagnosis/Proposed Procedure Planned Operative Procedure(s): TRIGGER FINGER RELEASE Anesthesia History 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 When Was Last Pacemaker Check QUESTION #4 FULL TEXT: You/Your Family Experience fever (hyperthermia) with Anesthesia Last Oral Intake Last Oral intake: Last Oral Intake NPO since 00:00 01/07/24 07:27 Meds taken in AM with sips of No 01/07/24 07:27 water? Meds patient instructed to take am of surgery PONV PONV - aerospace project manager: PONV - aerospace project manager Female No 01/05/24 13:49 HX of Motion Sickness No 01/05/24 13:49 HX of N/V After Surgery No 01/05/24 13:49 Non-Smoker Yes 01/05/24 13:49 Duration of Surgery greater No 01/05/24 13:49 than 60 minutes Number of Risk Factors 1 01/05/24 13:49 PONV Score Low Risk 01/05/24 13:49 Height & Weight Height & Weight: Anesthesia: Height & Weight Height 5 ft 11 in 01/07/24 07:27 Weight: 108 kg 01/07/24 07:27 Body Mass Index (BMI) 33.2 01/07/24 07:27 Respiratory Assessment Respiratory Assessment - aerospace project manager: Respiratory Tract Infection Hx - aerospace project manager Hx Respiratory Tract Infection No 01/05/24 13:49 STOP Sleep Apnea STOP Sleep Apnea - aerospace project manager: STOP Sleep Apnea - aerospace project manager Hx Hypertension Yes: CONTROLLED WITH MED 01/05/24 13:49 Hx Sleep Apnea Yes: INSPIRE IMPLANT 01/05/24 13:49 CPAP No 01/05/24 13:49 BIPAP No 01/05/24 13:49 Do you snore loudly (louder than talking or can be heard Do you often feel tired/ fatigued/ sleepy during daytime? Has anyone observed you stop breathing during sleep? STOP Results Positive 01/05/24 13:49 QUESTION #5 FULL TEXT : Do you snore loudly (louder than talking or can be heard through closed doors)? 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 Specify any problems Hx of Preganancy in last 3 N/A 01/05/24 13:49 Months Nurse Filling Out Transfusion NBUCHER 01/05/24 13:49 & Questions: Date: 01/05/24 01/05/24 13:49 Time: 13:50 01/05/24 13:49 Patient unable to answer at this time (ie. confused, unrespo /Reproduction History /Reproductive History - aerospace project manager: /Reproductive Hx- aerospace project manager Hx Now No 01/05/24 13:49 Gestational Age (in weeks): EDC: Hx Hx Para Hx Section SAB No 01/05/24 13:49 Active Medications Active Medications: Current Medications Generic Name Dose Route Start Last Admin Trade Name Freq PRN Reason Stop Dose Admin Cefazolin Sodium 2 gm/ N/A 20 mls @ 400 mls/hr 01/07/24 08:35 IV 01/07/24 08:37 PREOP ONE Sodium Chloride 10 - 40 ml 01/07/24 07:10 01/07/24 07:26 0.9% Saline Lock 10 Ml Syringe IV 10 ml UD PRN Administration SALINE FLUSH PFSH Medical History Trigger finger, right middle finger Wears dentures Wears glasses Diabetes Arthritis Non-smoker History of echocardiogram Hypertension Cardiology follow-up encounter 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) Cholecystitis BPH (benign prostatic hyperplasia) GERD (gastroesophageal reflux disease) Type 2 diabetes mellitus Non-rheumatic aortic stenosis Positive Helicobacter pylori test (05/13/18) Essential hypertension HLD (hyperlipidemia) Home Medications ?Medication ?Instructions ?Recorded ?Last Taken ?Type atorvastatin 80 mg tablet 80 mg PO QHS CHOLESTEROL LOWERING 09/24/15 01/06/24 History hydrochlorothiazide 25 mg tablet 25 mg PO DAILY WATER PILL, BLOOD 09/24/15 01/06/24 History PRESSUR finasteride 5 mg tablet 5 mg PO DAILY PROSTATE 09/24/17 01/06/24 History metformin 750 mg tablet,extended 750 mg PO DAILY BLOOD SUGAR 09/24/17 01/06/24 History release 24 hr pyridoxine (vitamin B6) 100 mg 100 mg PO DAILY SUPPLEMENT 09/24/17 01/06/24 History tablet tamsulosin 0.4 mg capsule 0.4 mg PO DAILY PROSTATE 09/24/17 01/06/24 History empagliflozin 25 mg tablet 1 tab PO DAILY 02/01/20 01/06/24 History saw palmetto 450 mg capsule 900 mg PO DAILY 03/07/20 01/06/24 History aspirin 81 mg tablet,delayed 81 mg PO DAILY 04/19/20 12/31/23 History release (Adult Aspirin Regimen) ramipril 10 mg capsule 10 mg PO BID BLOOD PRESSURE 04/19/20 01/06/24 History ezetimibe 10 mg tablet 10 mg PO DAILY 11/18/23 01/06/24 History garlic 500 mg capsule 500 mg PO DAILY 11/18/23 01/06/24 History semaglutide 1 mg/dose (4 mg/3 mL) 1 mg subcut QWEEK 11/18/23 12/28/23 History subcutaneous pen injector (Ozempic) Allergy/AdvReac Type Severity Reaction Status Date / Time Penicillins (PCN) Allergy Mild hives Verified 01/07/24 07:25 nitroglycerin AdvReac Mild LOC Verified 01/07/24 07:25 Family History Mother Breast cancer Liver disease Father , Age 41 Myocardial infarction Heart disease Sister Cancer Breast cancer Brother CAD (coronary artery disease) CABG Heart disease Surgical History History of cardiac catheterization History of left heart catheterization (03/13/20) History of esophagogastroduodenoscopy (EGD) (05/13/18) History of bilateral knee replacement History of colonoscopy (2016) Sleep apnea Social History Smoking Status: Never smoker alcohol intake: current alcohol intake frequency: holidays/special occasions only substance use type: does not use caffeine: No Review of Systems (Anesthesia) ROS Narrative System reviewed and no additional complaints, except as documented.
[2024-01-07 07:44] LABS: Bedside Glucose 150 mg/dL (74-106)
[2024-01-07] MEDS: Cefazolin 2 GM in Syringe IV (08:30)
[2024-01-07] MEDS: Bupivacaine Mpf 0.5% 30 ML VIAL (08:45)
--- NOTE | 2024-01-07 09:13 | PCM.OPRPT ---
Problems Associated Problem List Diagnoses (1) Trigger finger, right middle finger: Operative Report (Standard) Operative Information Surgery/Procedure Performed: right middle finger volar a1 gabriela release Surgeon: Checo Zhang Date of Procedure: 01/07/24 Procedure Start Time: 08:45 Procedure Stop Time: 09:07 Pre-Operative Diagnosis: right middle finger trigger finger Post-Operative Diagnosis: same Select all DRAINS/GRAFTS/IMPLANTS that apply: None Type of Anesthesia: Local MAC Estimated Blood Loss: 5 Specimen collected: No Description of surgery: Patient brought to the operating room theater. Placed supine on table. Local/MAC anesthesia induced. Right upper extremity prepped and draped in the usual sterile fashion hand table used SCDs on the legs all bony prominences padded. Bed turned 90 degrees. Tourniquet applied to the upper extremity appropriately padded. Preoperative timeout performed to confirm the site patient and the surgery. Began by elevating the limb inflated tourniquet to 250 mmHg. Made a longitudinal incision over the volar A1 gabriela. Carried the dissection down through skin and subcutaneous tissue achieved meticulous hemostasis. This gabriela was quite tight. Gabriela fully released proximally and distally no triggering or locking of the digit either when the patient flexed or extended or when I did that. There is an area quite tight at the proximal end of the gabriela this was fully released. This is a wide decompression. There is some mild tendinosis of the FDS tendon slips. Able to fully deliver the tendon through the incision. Case terminated tourniquet let down. Wound thoroughly irrigated. Subcutaneous tissue closed with 3-0 Vicryl sutures and skin with 3-0 Monocryl. Skin cleaned with wet and dry dressing. 3 cc of quarter percent bupivacaine instilled in around the soft tissues. Skin cleaned with wet and dry dressing followed application of Steri-Strips Adaptic 4 x 4 gauze Abby and Kurt wrap loosely wrapped. Patient woken up from the anesthetic transferred off the operating table and taken to postanesthetic care unit in stable condition. All sponge needle instrument counts were correct no complications plan for the patient discharged home according to day surgery criteria gentle range of motion of the hand and wrist no heavy lifting or gripping. cpt 89037 Surgical Findings: trigger finger Marketing Sales Consultant spragger: No Complications Complications: No Admit VTE Documentation VTE Present on Admission: No VTE Mechan Device Prophylaxis: SCD's VTE Pharm Prophylaxis ordered?: No Reason prophylaxis not ordered: Treatment Not Indicated Procedures Musculoskeletal [id number]-29xxx: Other Procedure See Report
--- NOTE | 2024-01-07 09:13 | PCM.POST.ANE ---
Anesthesia: Postop Eval I Current Vital Signs Temperature: 97.4 F Pulse Rate: 72 Blood Pressure: 85/61 Respiratory Rate: 18 Pulse Ox: 94 Oxygen Delivery Method: Room Air Assessment Airway patent: Yes Spontaneous unlabored respirations: Yes Mental status: Awake and Calm nausea: No Vomiting: No Anesthesia Complication: No Fluid Hydration Crystalloid volume administer (ml): 10 Total IV fluid infused: 10 Progress Note Anesthesia document: Postop Eval 1 completed: Yes
--- NOTE | 2024-01-07 09:18 | DCINST_ITS ---
Discharge Instructions Diet Discharge Diet: No restrictions Activity Discharge Activity: Return to Normal Activity Ice area for (Minutes): 10 Lifting Restrictions: gentle rom of fingers and wrist, no heavy lifting or gripping Keep extremity elevated above heart level: Operative Extremity Dressing / Incision Call your doctor if your incision/area has: Continuous Slow Oozing, Sudden Increased Bleeding, Increased Pain/ Swelling, Increased Redness, Foul Smelling Discharge and Swelling at the incision site Call your doctor if you observe: Fever of 101 or Higher, Coldness, Increased Pain and Numbness or Tingling Remove Dressing in: leave in place till F/U Cleanse incision/area with: Do not get Incision Wet Follow Up Care Please Follow Up With: Checo Zhang MD When: 2 days Test Results: Test results from this visit will be discussed in further detail at your follow- up appointment, if applicable. Discharge Plan Admission Attending Provider: Checo Zhang Primary Care Provider: Puma Yi Instructions Print Language: Montserratian Discharge Orders/Prescriptions Prescriptions: No Action saw palmetto 450 mg capsule 900 mg PO DAILY empagliflozin 25 mg tablet 1 tab PO DAILY aspirin [Adult Aspirin Regimen] 81 mg tablet,delayed release (DR/EC) 81 mg PO DAILY atorvastatin 80 MG tablet 80 mg PO QHS hydrochlorothiazide 25 MG tablet 25 mg PO DAILY ramipril 10 mg capsule 10 mg PO BID tamsulosin 0.4 MG capsule 0.4 mg PO DAILY pyridoxine (vitamin B6) 100 MG tablet 100 mg PO DAILY finasteride 5 MG tablet 5 mg PO DAILY metformin 750 MG tablet extended release 24 hr 750 mg PO DAILY garlic 500 mg capsule 500 mg PO DAILY ezetimibe 10 mg tablet 10 mg PO DAILY Ozempic 1 mg/dose (4 mg/3 mL) pen injector 1 mg subcut QWEEK Referrals / Follow Up: Puma Yi MD [Primary Care Provider] - Checo Zhang MD [Med Staff - Active Staff] - Disposition Disposition (needs filled in before D/C Order can be placed): Home, Self Care
--- NOTE | 2024-01-07 09:20 | POSTOPAN2_ITS ---
Anesthesia Postop Eval I Sum Postop Eval Completion status Anesthesia document: Postop Eval 1 completed: Yes Anesthesia Postop Eval I Summary Anesthesia Postop Eval I Summary: Anesthesia Postop Eval I: Assessment Summary Airway patent Yes 01/07/24 09:15 OPERATOR TECHNICIAN.[email or web address] Spontaneous unlabored Yes 01/07/24 09:15 OPERATOR TECHNICIAN.SOPHIA respirations Mental status Awake,Calm 01/07/24 09:15 OPERATOR TECHNICIAN.[email or web address] nausea No 01/07/24 09:15 OPERATOR TECHNICIAN.[email or web address] Vomiting No 01/07/24 09:15 OPERATOR TECHNICIAN.SOPHIA Anesthesia Postop Eval I: Fluid Summary Crystalloid volume administer 10 01/07/24 09:15 OPERATOR TECHNICIAN.TANISHAOBY (ml) Colloids volume administered ( ml) Blood Product volume administered (ml) Total IV fluid infused 10 01/07/24 09:15 OPERATOR TECHNICIAN.SOPHIA Anesthesia Postop Eval I: Summary Notes Anesthesia Complication No 01/07/24 09:15 OPERATOR TECHNICIAN.SOPHIA Anesthesia Complication Comment: Post-operative progress note Anesthesia: Postop Eval II Evaluation Mental status: Awake Pain Level: 0 nausea: No Vomiting: No
--- NOTE | 2024-01-07 09:20 | PCM.POSTANE2 ---
Anesthesia Postop Eval I Sum Postop Eval Completion status Anesthesia document: Postop Eval 1 completed: Yes Anesthesia Postop Eval I Summary Anesthesia Postop Eval I Summary: Anesthesia Postop Eval I: Assessment Summary Airway patent Yes 01/07/24 09:15 BATHING SUIT MAKER.[email or web address] Spontaneous unlabored Yes 01/07/24 09:15 BATHING SUIT MAKER.SOPHIA respirations Mental status Awake,Calm 01/07/24 09:15 BATHING SUIT MAKER.[email or web address] nausea No 01/07/24 09:15 BATHING SUIT MAKER.[email or web address] Vomiting No 01/07/24 09:15 BATHING SUIT MAKER.SOPHIA Anesthesia Postop Eval I: Fluid Summary Crystalloid volume administer 10 01/07/24 09:15 BATHING SUIT MAKER.TANISHAOBY (ml) Colloids volume administered ( ml) Blood Product volume administered (ml) Total IV fluid infused 10 01/07/24 09:15 BATHING SUIT MAKER.SOPHIA Anesthesia Postop Eval I: Summary Notes Anesthesia Complication No 01/07/24 09:15 BATHING SUIT MAKER.SOPHIA Anesthesia Complication Comment: Post-operative progress note Anesthesia: Postop Eval II Evaluation Mental status: Awake Pain Level: 0 nausea: No Vomiting: No
== END 2024-01-07 10:31 | disposition home or self-care (01) ==
LOC: SDC 06:59 → AC 07:01
PROVIDERS: PCP Family Medicine; Referring Provider Orthopaedic Surgery Sports Medicine; Visit Provider Orthopaedic Surgery Sports Medicine
PROC: (CPT 26055; principal; 2024-01-07 08:25)
DX: M65.331 Trigger finger, right middle finger (principal); E11.9 Type 2 diabetes mellitus without complications; I10 Essential (primary) hypertension; E78.5 Hyperlipidemia, unspecified; Z79.84 Long term (current) use of oral hypoglycemic drugs; Z79.82 Long term (current) use of aspirin; Z79.899 Other long term (current) drug therapy
CPT/HCPCS: 26055; 01810; 82962; A4216; J2405

== ENCOUNTER 2024-02-13 07:40 | Day surgery (SDC) | payer MEDICARE, OTHER, SELFPAY ==
[2023-12-24 10:32] VITALS: BMI 36.3
[2024-02-13] VITALS (14 sets, daily range): BP systolic 95–141; BP diastolic 54–78; PULSE 70–89; RESP 16–18; TEMP 36–37; O2SAT 92–98; BMI 33.3
--- NOTE | 2024-02-13 | PROS_PTH ---
PATIENT: ANILA ROBLEDO [place] [facility] [id number] AGE/SX: 78/M ROOM: RE02/13/[address]: Dr. Melvin Nation MD : [id number] BED: DIS: 02/14/2024 SPEC #: [id number] RECD: 02/13/24 12:30 STATUS: RACHNA REBob #: [id number] ZAKIA: 02/13/24 00:[address]: Melvin Nation DEPT: SURGICAL PATHOLOGY RECD BY: Jimy Griffith ENTERED: 02/13/24 12:30 SP TYPE: TURP OTHR DR: Dr. Puma Yi MD Tissues: Prostate, NOS Procedures: Surgery Specimen Level IV HEADER OPERATION: Transurethral resection prostate PRE-OP DIAGNOSIS: Benign prostatic hyperplasia TISSUE SUBMITTED: Prostate tissue MICROSCOPIC DIAGNOSIS Prostate, transurethral resection: Benign nodule hyperplasia, primarily stromal type. Minimal chronic inflammation. AM.mr 02/16/2024 MICROSCOPIC DESCRIPTION Slides are reviewed. GROSS DESCRIPTION Received is one container labeled with the patient's name and designated prostate tissue. The specimen consists of multiple irregular fragments of pink-wong, rubbery, soft tissue that in aggregate weigh 4.2 gm and measure in aggregate 4.0 x 4.0 x 0.5 cm. The entire specimen is submitted in six cassettes. AM. 02/13/2024 TC:3 CPT: 00693
--- NOTE | 2024-02-13 08:07 | PCM.PRE.AN2 ---
ASA Classification* ASA Classification ASA Classification: 2 Assessment & Plan Anesthesia* Anesthesia Assessment Anesthesia Assessment: Discussed sedation and/or anesthesia options, risks, benefits, and alternatives with patient/parents/legal guardian/POA. Questions invited. The patient/parents/legal guardian/POA seems to understand and agrees to proceed with anesthesia plan. Reviewed the physical assessment, medical history, allergy history and patient home medications list prior to surgery/procedure/anesthetic and documented any changes. Performed airway and anesthesia risk assessments. Anesthesia Type Anesthesia Type: General Anesthesia Focused Assessment* Airway Assessment Mouth opens: >3 cm Mallampati Score: II Focused Labs Anesthesia Preop lab: CBC WBC 8.7 K/mm3 (4.4-11.0) 11/20/23 08:12 RBC 4.77 M/mm3 (4.6-6.2) 11/20/23 08:12 Hgb 14.5 g/dL (13.0-16.5) 11/20/23 08:12 Hct 43.2 % (40-54) 11/20/23 08:12 Plt Count 216 K/mm3 (150-450) 11/20/23 08:12 CHEMISTRY Potassium 3.9 mmol/L (3.5-5.1) 11/20/23 08:12 Sodium 138 mmol/L (136-145) 11/20/23 08:12 BUN 22 mg/dL (7-18) H 11/20/23 08:12 Creatinine 1.22 mg/dL (0.70-1.30) 11/20/23 08:12 Glucose 162 mg/dL (74-106) H 11/20/23 08:12 POC Glucose 150 mg/dL (74-106) H 01/07/24 07:18 TSH 1.58 uIU/mL (0.358-3.74) 07/10/23 15:32 COAG PT 12.9 SECONDS (11.7-14.9) 03/07/20 12:38 Pre-Assessment Diagnosis/Proposed Procedure Planned Operative Procedure(s): TURP Anesthesia History 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 When Was Last Pacemaker Check QUESTION #4 FULL TEXT: You/Your Family Experience fever (hyperthermia) with Anesthesia Last Oral Intake Last Oral intake: Last Oral Intake NPO since Meds taken in AM with sips of water? Meds patient instructed to take am of surgery PONV PONV - massage therapy instructor: PONV - massage therapy instructor Female No 01/30/24 13:07 HX of Motion Sickness No 01/30/24 13:07 HX of N/V After Surgery No 01/30/24 13:07 Non-Smoker Yes 01/30/24 13:07 Duration of Surgery greater Yes 01/30/24 13:07 than 60 minutes Number of Risk Factors 2 01/30/24 13:07 PONV Score Moderate Risk 01/30/24 13:07 Height & Weight Height & Weight: Anesthesia: Height & Weight Height 5 ft 11 in 01/07/24 07:27 Respiratory Assessment Respiratory Assessment - massage therapy instructor: Respiratory Tract Infection Hx - massage therapy instructor Hx Respiratory Tract Infection No 01/30/24 13:07 STOP Sleep Apnea STOP Sleep Apnea - massage therapy instructor: STOP Sleep Apnea - massage therapy instructor Hx Hypertension Yes: CONTROLLED WITH MED 01/30/24 13:07 Hx Sleep Apnea Yes: INSPIRE IMPLANT 01/30/24 13:07 CPAP No 01/30/24 13:07 BIPAP No 01/30/24 13:07 Do you snore loudly (louder than talking or can be heard Do you often feel tired/ fatigued/ sleepy during daytime? Has anyone observed you stop breathing during sleep? STOP Results Positive 01/30/24 13:07 QUESTION #5 FULL TEXT : Do you snore loudly (louder than talking or can be heard through closed doors)? 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 Specify any problems Hx of Preganancy in last 3 N/A 01/30/24 13:07 Months Nurse Filling Out Transfusion DSCHRIBER 01/30/24 13:07 & Questions: Date: 01/30/24 01/30/24 13:07 Time: 13:08 01/30/24 13:07 Patient unable to answer at this time (ie. confused, unrespo /Reproduction History /Reproductive History - massage therapy instructor: /Reproductive Hx- massage therapy instructor Hx Now Gestational Age (in weeks): EDC: Hx Hx Para Hx Section SAB No 01/30/24 13:07 Active Medications Active Medications: Current Medications Generic Name Dose Route Start Last Admin Trade Name Freq PRN Reason Stop Dose Admin Cefazolin Sodium 2 gm/ N/A 20 mls @ 400 mls/hr 02/13/24 09:45 IV 02/13/24 09:47 PREOP ONE Lactated Ringer's 1,000 mls @ 15 mls/hr 02/13/24 08:00 IV 02/18/24 21:19 .Q48H [facility] Protocol PFSH Medical History Trigger finger, right middle finger Wears dentures Wears glasses Diabetes Arthritis Non-smoker History of echocardiogram Hypertension Cardiology follow-up encounter 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) BPH (benign prostatic hyperplasia) GERD (gastroesophageal reflux disease) Non-rheumatic aortic stenosis Positive Helicobacter pylori test (05/13/18) Essential hypertension HLD (hyperlipidemia) Home Medications ?Medication ?Instructions ?Recorded ?Last Taken ?Type atorvastatin 80 mg tablet 80 mg PO QHS CHOLESTEROL LOWERING 09/24/15 01/06/24 History hydrochlorothiazide 25 mg tablet 25 mg PO DAILY WATER PILL, BLOOD 09/24/15 01/06/24 History PRESSUR finasteride 5 mg tablet 5 mg PO QHS PROSTATE 09/24/17 01/06/24 History metformin 750 mg tablet,extended 750 mg PO QHS BLOOD SUGAR 09/24/17 01/06/24 History release 24 hr pyridoxine (vitamin B6) 100 mg 100 mg PO DAILY SUPPLEMENT 09/24/17 01/06/24 History tablet tamsulosin 0.4 mg capsule 0.4 mg PO QHS PROSTATE 09/24/17 01/06/24 History empagliflozin 25 mg tablet 1 tab PO DAILY 02/01/20 01/06/24 History saw palmetto 450 mg capsule 900 mg PO DAILY 03/07/20 01/06/24 History aspirin 81 mg tablet,delayed 81 mg PO DAILY 04/19/20 12/31/23 History release (Adult Aspirin Regimen) ramipril 10 mg capsule 10 mg PO BID BLOOD PRESSURE 04/19/20 01/06/24 History ezetimibe 10 mg tablet 10 mg PO DAILY 11/18/23 01/06/24 History garlic 500 mg capsule 500 mg PO DAILY 11/18/23 01/06/24 History semaglutide 1 mg/dose (4 mg/3 mL) 1 mg subcut MARTÍNEZ 11/18/23 01/25/24 History subcutaneous pen injector (Ozempic) acetaminophen 500 mg tablet 500 mg PO Q6H PRN pain 01/09/24 Unknown History (Tylenol Extra Strength) Allergy/AdvReac Type Severity Reaction Status Date / Time Penicillins (PCN) Allergy Mild hives Verified 02/13/24 08:07 nitroglycerin AdvReac Mild LOC Verified 02/13/24 08:07 Family History Mother Breast cancer Liver disease Father , Age 41 Myocardial infarction Heart disease Sister Cancer Breast cancer Brother CAD (coronary artery disease) CABG Heart disease Surgical History S/P trigger finger release History of left heart catheterization (03/13/20) History of esophagogastroduodenoscopy (EGD) (05/13/18) History of bilateral knee replacement History of colonoscopy (2016) Sleep apnea Social History Smoking Status: Never smoker alcohol intake: current alcohol intake frequency: holidays/special occasions only substance use type: does not use caffeine: No Review of Systems (Anesthesia) ROS Narrative System reviewed and no additional complaints, except as documented.
[2024-02-13] MEDS: Lactated Ringers 1,000 ML 15 ML IV (08:28)
[2024-02-13 08:51] LABS: Bedside Glucose 195 mg/dL (74-106)
--- NOTE | 2024-02-13 09:09 | PCM.HP.STD ---
HPI - General General Date of Admission: 02/13/24 Chief Complaint: bph HPI Narrative ANILA ROBLEDO, is a 78 M male presents for a TURP he is on maximal medical therapy with Flomax and Proscar and still having significant voiding problems and bladder control problems. On cystoscopy is found to have an obstructive prostate, bile ultrasound was done demonstrated a 45 g prostate we talked about the options of management continued with current medications and symptoms or hopefully relief of symptoms with a TURP. He has agreed to undergo a transurethral section of the prostate understands the risk of surgery includes bleeding and infection and possible bladder control problems afterwards and no guarantees that will relieve of bladder symptoms after surgery but I think given his findings he has a good chance of having improvement in his bladder control after surgery. Also talked about the risk of incontinence with surgery. Consent was signed and will proceed. 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) BPH (benign prostatic hyperplasia) GERD (gastroesophageal reflux disease) Non-rheumatic aortic stenosis Positive Helicobacter pylori test (05/13/18) Essential hypertension HLD (hyperlipidemia) Home Medications ?Medication ?Instructions ?Recorded ?Last Taken ?Type atorvastatin 80 mg tablet 80 mg PO QHS CHOLESTEROL LOWERING 09/24/15 02/12/24 History hydrochlorothiazide 25 mg tablet 25 mg PO DAILY WATER PILL, BLOOD 09/24/15 02/12/24 History PRESSUR finasteride 5 mg tablet 5 mg PO QHS PROSTATE 09/24/17 02/12/24 History metformin 750 mg tablet,extended 750 mg PO QHS BLOOD SUGAR 09/24/17 02/12/24 History release 24 hr pyridoxine (vitamin B6) 100 mg 100 mg PO DAILY SUPPLEMENT 09/24/17 02/12/24 History tablet tamsulosin 0.4 mg capsule 0.4 mg PO QHS PROSTATE 09/24/17 02/12/24 History empagliflozin 25 mg tablet 1 tab PO DAILY 02/01/20 02/12/24 History saw palmetto 450 mg capsule 900 mg PO DAILY 03/07/20 02/12/24 History aspirin 81 mg tablet,delayed 81 mg PO DAILY 04/19/20 02/02/24 History release (Adult Aspirin Regimen) ramipril 10 mg capsule 10 mg PO BID BLOOD PRESSURE 04/19/20 02/13/24 History ezetimibe 10 mg tablet 10 mg PO DAILY 11/18/23 02/12/24 History garlic 500 mg capsule 500 mg PO DAILY 11/18/23 02/12/24 History semaglutide 1 mg/dose (4 mg/3 mL) 1 mg subcut MARTÍNEZ 11/18/23 01/25/24 History subcutaneous pen injector (Ozempic) acetaminophen 500 mg tablet 500 mg PO Q6H PRN pain 01/09/24 Unknown History (Tylenol Extra Strength) Allergy/AdvReac Type Severity Reaction Status Date / Time Penicillins (PCN) Allergy Mild hives Verified 02/13/24 08:07 nitroglycerin AdvReac Mild LOC Verified 02/13/24 08:07 Family History Mother Breast cancer Liver disease Father , Age 41 Myocardial infarction Heart disease Sister Cancer Breast cancer Brother CAD (coronary artery disease) CABG Heart disease Surgical History S/P trigger finger release History of left heart catheterization (03/13/20) History of esophagogastroduodenoscopy (EGD) (05/13/18) History of bilateral knee replacement History of colonoscopy (2016) Sleep apnea Social History Smoking Status: Never smoker alcohol intake: current alcohol intake frequency: holidays/special occasions only substance use type: does not use caffeine: No Vital Signs Vital Signs Vital Signs: 02/13/24 08:12 02/13/24 08:12 Temperature 96.8 F L Temperature Source Temporal Pulse Rate 89 Respiratory Rate 16 Respiratory Pattern Normal Blood Pressure 95/62 Blood Pressure Mean 73 Blood Pressure Source Monitor Blood Pressure Position Semi-Fowlers Blood Pressure Location Left Arm Pulse Ox 96 Oxygen Delivery Method Room Air Weight Weight: 108.4 kg Body Mass Index (BMI) 33.3 Results Lab / Micro Data Labs: Laboratory Results - last 24 hr 02/13/24 08:04: POC Glucose 195 H
[2024-02-13] MEDS: Cefazolin 2 GM in Syringe IV (09:29)
--- NOTE | 2024-02-13 10:28 | DCINST_ITS ---
Discharge Instructions Diet Discharge Diet: No restrictions, Light diet - advance as tolerated and Soft diet DC O2, CPAP, BIPAP needs Additional Home O2 Discharge instructions: No Dressing / Incision Discharge Activity: Return to Normal Activity Return to work on:: 02/20/24July shower in (days): 1 Lifting Restrictions: no lifting > 10lbs Additional Activity Instructions:: push fluids, no heavy lifing. Dressing / Incision Call your doctor if your incision/area has: Sudden Increased Bleeding Call your doctor if you observe: Fever of 101 or Higher Follow Up Care Please Follow Up With: Melvin Nation MD When: call for appt , 2 weeks follow up Test Results: Test results from this visit will be discussed in further detail at your follow- up appointment, if applicable. Discharge Plan Admission Primary Reason for Your Visit: ZEINA Attending Provider: Melvin Nation Primary Care Provider: Puma Yi Instructions Patient Instructions: TURP, TURP Home Recovery, TURP Hospital Recovery Print Language: [place] Discharge Orders/Prescriptions Prescriptions: New docusate sodium [Colace] 100 mg capsule 100 mg PO BID Qty: 20 0RF ciprofloxacin HCl [Cipro] 500 mg tablet 500 mg PO BID Qty: 14 0RF oxycodone 5 mg tablet 5 mg PO Q6H PRN (Reason: pain) 3 Days Qty: 14 0RF Continued empagliflozin 25 mg tablet 1 tab PO DAILY acetaminophen [Tylenol Extra Strength] 500 mg tablet 500 mg PO Q6H PRN (Reason: pain) atorvastatin 80 MG tablet 80 mg PO QHS hydrochlorothiazide 25 MG tablet 25 mg PO DAILY ramipril 10 mg capsule 10 mg PO BID pyridoxine (vitamin B6) 100 MG tablet 100 mg PO DAILY metformin 750 MG tablet extended release 24 hr 750 mg PO QHS garlic 500 mg capsule 500 mg PO DAILY ezetimibe 10 mg tablet 10 mg PO DAILY Ozempic 1 mg/dose (4 mg/3 mL) pen injector 1 mg subcut MARTÍNEZ Held aspirin [Adult Aspirin Regimen] 81 mg tablet,delayed release (DR/EC) 81 mg PO DAILY Hold Instructions: Resume on 02/20/24. Discontinued saw palmetto 450 mg capsule 900 mg PO DAILY tamsulosin 0.4 MG capsule 0.4 mg PO QHS finasteride 5 MG tablet 5 mg PO QHS Referrals / Follow Up: Puma Yi MD [Primary Care Provider] - Melvin Nation MD [Med Staff - Active Staff] - Disposition Disposition (needs filled in before D/C Order can be placed): Home, Self Care
--- NOTE | 2024-02-13 10:29 | PCM.OPRPT ---
Operative Report (Standard) Operative Information Date of Procedure: 02/13/24 Pre-Operative Diagnosis: BPH with obstruction Post-Operative Diagnosis: Same Surgery/Procedure Performed: Transurethral resection of prostate spout worker: No Type of Anesthesia: General RN Documented Start/Stop Times: Operation Date: 02/13/24 09:45 Case Time Into Pre-Op 02/13/24 07:45 Out of Pre-Op 02/13/24 09:28 Anesthesia Start 02/13/24 09:29 Into Room 02/13/24 09:29 Procedure Start 02/13/24 09:46 Procedure End 02/13/24 10:25 Procedure Start Time: 09:46 Procedure Stop Time: 10:29 Select all DRAINS/GRAFTS/IMPLANTS that apply: Drains Drain details: [address] [place] [address] Estimated Blood Loss: Minimal Specimen collected: No Description of surgery: 78-year-old male with significant obstruction in the prostate is a difficulty with urination is 1 maximal medical therapy today working to proceed with a transurethral resection of the prostate with a TURP discussed with the patient the risk of bleeding and infection possibility of bladder control problems afterwards hopefully with the of surgery he will relieve the obstruction and improve his urinary outcome and urinary symptoms. Patient was taken back to the operating room after smooth induction of anesthesia he was placed in dorsolithotomy position. The penis and testicles were prepped and draped in usual sterile fashion patient looks like he had a prior circumcision. Went into the bladder with a 24 [place] Citizen noncontinuous flow bipolar Olympus resectoscope identified the verumontanum identified the sphincter identified and he had a large high bladder neck with a median lobe I resected this made sure identified both the left and right ureteral orifice which were uninjured during the resection of the median lobe I then resected back to the verumontanum I then resected the right lobe of the prostate and then resect the left lower the prostate I then very carefully resected the anterior part of prostate and the apical tissue I did a flow test he had a nice wide open flow looking from the sphincter into the bladder there was a open channel I then cauterized the channel extensively got hemostasis and we placed a 22 [place] Citizen catheter in the bladder and continuous irrigation and the urine was nice and clear patient anesthetic was reversed he is taken back to the PACU in good condition. Surgical Findings: Obstruction prostate short length Complications Complications: No Admit VTE Documentation VTE Present on Admission: No VTE Mechan Device Prophylaxis: SCD's VTE Pharm Prophylaxis ordered?: No
--- NOTE | 2024-02-13 10:39 | PCM.POST.ANE ---
Anesthesia: Postop Eval I Current Vital Signs Temperature: 97.5 F Pulse Rate: 87 Blood Pressure: 110/78 Respiratory Rate: 18 Pulse Ox: 96 Assessment Airway patent: Yes Spontaneous unlabored respirations: Yes nausea: No Vomiting: No Anesthesia Complication: No Fluid Hydration Crystalloid volume administer (ml): 1,000 Total IV fluid infused: 1,000 Progress Note Anesthesia document: Postop Eval 1 completed: Yes
[2024-02-13 11:08] LABS: Bedside Glucose 161 mg/dL (74-106)
[2024-02-13] MEDS: 0.9% Normal Saline (1000mL) 1,000 ML 75 ML IV (12:15)
--- NOTE | 2024-02-13 12:28 | POSTOPAN2_ITS ---
Anesthesia Postop Eval I Sum Postop Eval Completion status Anesthesia document: Postop Eval 1 completed: Yes Anesthesia Postop Eval I Summary Anesthesia Postop Eval I Summary: Anesthesia Postop Eval I: Assessment Summary Airway patent Yes 02/13/24 10:39 PHOTOSTATIC COPY [email or web address] Spontaneous unlabored Yes 02/13/24 10:39 PHOTOSTATIC COPY MAKER.CSIR respirations Mental status nausea No 02/13/24 10:39 PHOTOSTATIC COPY MAKER.CSIR Vomiting No 02/13/24 10:39 PHOTOSTATIC COPY MAKER.CSIR Anesthesia Postop Eval I: Fluid Summary Crystalloid volume administer 1,000 02/13/24 10:39 PHOTOSTATIC COPY MAKER.CSIR (ml) Colloids volume administered ( ml) Blood Product volume administered (ml) Total IV fluid infused 1,000 02/13/24 10:39 PHOTOSTATIC COPY MAKER.CSIR Anesthesia Postop Eval I: Summary Notes Anesthesia Complication No 02/13/24 10:39 PHOTOSTATIC COPY MAKER.CSIR Anesthesia Complication Comment: Post-operative progress note Anesthesia: Postop Eval II Evaluation Mental status: Awake Pain Level: 0 nausea: No Vomiting: No
--- NOTE | 2024-02-13 12:28 | PCM.POSTANE2 ---
Anesthesia Postop Eval I Sum Postop Eval Completion status Anesthesia document: Postop Eval 1 completed: Yes Anesthesia Postop Eval I Summary Anesthesia Postop Eval I Summary: Anesthesia Postop Eval I: Assessment Summary Airway patent Yes 02/13/24 10:39 ENTRY LEVEL WEB DEVELOPER.CSIR Spontaneous unlabored Yes 02/13/24 10:39 ENTRY LEVEL WEB DEVELOPER.CSIR respirations Mental status nausea No 02/13/24 10:39 ENTRY LEVEL WEB DEVELOPER.CSIR Vomiting No 02/13/24 10:39 ENTRY LEVEL WEB DEVELOPER.CSIR Anesthesia Postop Eval I: Fluid Summary Crystalloid volume administer 1,000 02/13/24 10:39 ENTRY LEVEL WEB DEVELOPER.CSIR (ml) Colloids volume administered ( ml) Blood Product volume administered (ml) Total IV fluid infused 1,000 02/13/24 10:39 ENTRY LEVEL WEB DEVELOPER.CSIR Anesthesia Postop Eval I: Summary Notes Anesthesia Complication No 02/13/24 10:39 ENTRY LEVEL WEB DEVELOPER.CSIR Anesthesia Complication Comment: Post-operative progress note Anesthesia: Postop Eval II Evaluation Mental status: Awake Pain Level: 0 nausea: No Vomiting: No
[2024-02-13] MEDS: Ketorolac 15 MG/ML Vial IV (14:11)
[2024-02-13] MEDS: Ezetimibe 10 MG Tablet PO (14:12)
[2024-02-13] MEDS: Docusate Sodium 100 MG Capsule 200 MG PO ×2 (14:12→20:53)
[2024-02-13] MEDS: 0.9% Saline Lock 10 ML Syringe IV ×2 (14:12→15:07)
[2024-02-13] MEDS: hydroCHLOROthiazide 25 MG Tablet PO (14:12)
[2024-02-13] MEDS: Empagliflozin 25 MG Tablet PO (14:12)
[2024-02-13] MEDS: Ondansetron 4 MG/2 ML Vial IV (15:07)
[2024-02-13] MEDS: Ramipril 10 MG Capsule PO (20:52)
[2024-02-13] MEDS: METFORMIN HCL 750 MG TAB.ER.24H PO (20:53)
[2024-02-13] MEDS: Atorvastatin Calcium 80 MG Tablet PO (20:53)
[2024-02-14 00:17] VITALS: BP 128/68; PULSE 67; RESP 18; TEMP 37.2; O2SAT 97
[2024-02-14] MEDS: Ketorolac 15 MG/ML Vial IV (00:32)
[2024-02-14] MEDS: 0.9% Normal Saline (1000mL) 1,000 ML 75 ML IV (01:26)
[2024-02-14] MEDS: Ondansetron 4 MG/2 ML Vial IV (03:15)
[2024-02-14 04:41] VITALS: BP 120/63; PULSE 62; RESP 16; TEMP 36.9; O2SAT 96
[2024-02-14 09:06] VITALS: BP 123/64; PULSE 61; RESP 12; TEMP 37.3; O2SAT 95
[2024-02-14] MEDS: Docusate Sodium 100 MG Capsule 200 MG PO (09:27)
[2024-02-14] MEDS: Empagliflozin 25 MG Tablet PO (09:27)
[2024-02-14] MEDS: hydroCHLOROthiazide 25 MG Tablet PO (09:27)
[2024-02-14] MEDS: Ramipril 10 MG Capsule PO (09:27)
[2024-02-14] MEDS: Ezetimibe 10 MG Tablet PO (09:27)
--- NOTE | 2024-02-14 09:51 | DS.PCM_ITS ---
Providers Date of Admission: 02/13/24 Date of Discharge: 02/14/24 Primary Care Physician: Dr. Puma Yi MD Reason For Visit: Cysto,TUR,Prostate,Olympus Medications at Discharge Home Medications atorvastatin 80 mg tablet 80 mg PO QHS CHOLESTEROL LOWERING 09/24/15 hydrochlorothiazide 25 mg tablet 25 mg PO DAILY WATER PILL, BLOOD PRESSUR 09/24/15 metformin 750 mg tablet,extended release 24 hr 750 mg PO QHS BLOOD SUGAR 09/24/17 pyridoxine (vitamin B6) 100 mg tablet 100 mg PO DAILY SUPPLEMENT 09/24/17 empagliflozin 25 mg tablet 1 tab PO DAILY 02/01/20 aspirin 81 mg tablet,delayed release (Adult Aspirin Regimen) 81 mg PO DAILY 04/19/20 ramipril 10 mg capsule 10 mg PO BID BLOOD PRESSURE 04/19/20 ezetimibe 10 mg tablet 10 mg PO DAILY 11/18/23 garlic 500 mg capsule 500 mg PO DAILY 11/18/23 semaglutide 1 mg/dose (4 mg/3 mL) subcutaneous pen injector (Ozempic) 1 mg subcut MARTÍNEZ 11/18/23 acetaminophen 500 mg tablet (Tylenol Extra Strength) 500 mg PO Q6H PRN pain 01/09/24 ciprofloxacin HCl 500 mg tablet (Cipro) 500 mg PO BID #14 tabs 02/13/24 docusate sodium 100 mg capsule (Colace) 100 mg PO BID #20 caps 02/13/24 oxycodone 5 mg tablet 5 mg PO Q6H PRN pain 3 days #14 tabs 02/13/24 Hospital Course Operations TURP Summary of Care Provided Hospital Course: s/p turp overnight for observation masterson out next am home after voids Physical Exam Const alert and oriented x3 General Appearance: cooperative HEENT normocephalic and head/scalp atraumatic Eyes PERRL and EOMs intact bilaterally Neck supple, no JVD and no carotid bruits Resp normal respiratory effort, normal air movement and clear to auscultation bilaterally Cardio regular rate and no murmurs GI normal to inspection, nondistended, normoactive bowel sounds and soft to palpation Extremity normal capillary refill General Extremity: no tenderness to palpation of joints or extremities; Negative for edema Skin no rashes or lesions noted and no wounds General Skin Exam: no breakdown Neuro CN's II-XII intact bilaterally Psych affect normal Appearance: appropriate Weight / BMI Weight Weight: 108.4 kg Body Mass Index (BMI) 33.3 ABG / Lab / Microbiology Data Laboratory: Laboratory Results - last 24 hr 02/13/24 10:49: POC Glucose 161 H D/C Instructions Discharge Diet: No restrictions, Light diet - advance as tolerated and Soft diet Return to work on: 02/20/24 May shower in (days): 1 Additional Activity Instructions: push fluids, no heavy lifing. Call your doctor if your incision/area has: Sudden Increased Bleeding Call your doctor if you observe: Fever of 101 or Higher DC O2, CPAP, BIPAP Needs Additional Home O2 Discharge instructions: No DC home with Oxygen: No Please Follow Up With: Melvin Nation MD When: call for appt , 2 weeks follow up Meaningful Use Info Meaningful Use Meaningful Use Diagnoses (Choose all that apply): None applicable Ischemic Stroke Statin Dosing Therapy Reference: STATIN DOSE THERAPY REFERENCE: * Patients > 75 years receive moderate or high dose statin therapy. * Patients 75 years or YOUNGER should receive HIGH intensity statin dose unless contraindicated. You will be required to document reason for non-treatment if statin daily dose does not meet guidelines. HIGH DOSE STATIN THERAPY DAILY Atorvastatin > than or = to 40 mg Rosuvastatin > than or = to 20 mg Amlodipine + Atorvastatin > than or = to 2.5/40 mg Ezetimibe + Simvastatin 10/80 mg Simvastatin 80mg Discharge Plan Admission Primary Reason for Your Visit: [facility] Attending Provider: Melvin Nation Primary Care Provider: Puma Yi Instructions Patient Instructions: [facility], [facility] Print Language: Faroese Discharge Orders/Prescriptions Prescriptions: New docusate sodium [Colace] 100 mg capsule 100 mg PO BID Qty: 20 0RF ciprofloxacin HCl [Cipro] 500 mg tablet 500 mg PO BID Qty: 14 0RF oxycodone 5 mg tablet 5 mg PO Q6H PRN (Reason: pain) 3 Days Qty: 14 0RF Continued empagliflozin 25 mg tablet 1 tab PO DAILY acetaminophen [Tylenol Extra Strength] 500 mg tablet 500 mg PO Q6H PRN (Reason: pain) atorvastatin 80 MG tablet 80 mg PO QHS hydrochlorothiazide 25 MG tablet 25 mg PO DAILY ramipril 10 mg capsule 10 mg PO BID pyridoxine (vitamin B6) 100 MG tablet 100 mg PO DAILY metformin 750 MG tablet extended release 24 hr 750 mg PO QHS garlic 500 mg capsule 500 mg PO DAILY ezetimibe 10 mg tablet 10 mg PO DAILY Ozempic 1 mg/dose (4 mg/3 mL) pen injector 1 mg subcut MARTÍNEZ Held aspirin [Adult Aspirin Regimen] 81 mg tablet,delayed release (DR/EC) 81 mg PO DAILY Hold Instructions: Resume on 02/20/24. Discontinued saw palmetto 450 mg capsule 900 mg PO DAILY tamsulosin 0.4 MG capsule 0.4 mg PO QHS finasteride 5 MG tablet 5 mg PO QHS Referrals / Follow Up: Puma Yi MD [Primary Care Provider] - Melvin Nation MD [Med Staff - Active Staff] - Disposition Disposition (needs filled in before D/C Order can be placed): Home, Self Care
[2024-02-14 09:52] VITALS: BP 98/55; PULSE 65; RESP 16; TEMP 36.6; O2SAT 94
--- NOTE | 2024-02-14 11:58 | CASEMGMT ---
[facility] Assessment: Face to Face with pt for initial transition planning/care coordination assessment. RN CARLY introduced self and role at [facility], pt voices understanding and consents to assessment. Pt is A&O x4 and answers all questions appropriately at this time. Pt lying in bed in no distress, pt sitting at bedside. Pt agreeable to discussing plan of care with present. Care providers, pharmacy, and demographics verified/updated. Admitting Dx: Cysto, TUR, Prostate Olympus PCP: Kd Specialists: VI Nation Preferred Pharmacy: [facility] Insurance: MCR, [employer] Prescription Benefit: yes LNOK: [place]oisa Living Arrangements: Pt lives with in a 1 story home with 2 steps to enter. ADLs: Pt I with ADLs and IADLs. Transportation: Pt drives self and denies concerns with transportation. DME: can, walker, wheelchair, shower chair available but pt does not use. HHC/SNF: Denies Hx of. Pt states no concerns with going home at time of dc. Pt states no further concerns/needs. CM to follow. Advised pt to ask CM if any further question/concerns/needs arise, voices understanding. Pt Goal: Home Plan: Home with family support. Delmi MOON CM
== END 2024-02-14 16:31 | disposition home or self-care (01) ==
LOC: SDC 07:40 → AC 07:41 → MS3 02-14 16:18
PROVIDERS: PCP Family Medicine; Referring Provider Urology; Visit Provider Urology
PROC: (CPT 52601; principal; 2024-02-13 09:35)
DX: N40.1 Benign prostatic hyperplasia with lower urinary tract symptoms (principal); E11.9 Type 2 diabetes mellitus without complications; I10 Essential (primary) hypertension; E78.5 Hyperlipidemia, unspecified; Z79.82 Long term (current) use of aspirin; Z79.899 Other long term (current) drug therapy; Z79.84 Long term (current) use of oral hypoglycemic drugs
CPT/HCPCS: 52601; 00914; 82962; 88305; 94668; 99252; A4216; G0463; J2405

== ENCOUNTER → 2024-03-17 | Outpatient (CLI) | payer MEDICARE, OTHER, SELFPAY ==
[2023-12-24 10:32] VITALS: BMI 36.3
[2024-03-17 10:45] LABS: Vitamin B12 427 pg/mL (211-911)
[2024-03-17 11:30] LABS: ALB/GLOB Ratio 0.9 RATIO (0.9-2.4); AST(SGOT) 15 U/L (15-37); Alanine Aminotransfer ALT/SGPT 24 U/L (16-61); Albumin, Serum 3.4 g/dL (3.2-5.0); Alkaline Phosphatase 83 U/L (45-117); Anion Gap 9 (5-15); BUN 22 mg/dL (7-18); BUN/Creat Ratio 16.3 RATIO (10-20); Calcium,Total 9.6 mg/dL (8.5-10.1); Chloride 103 mmol/L (98-107); Cholesterol 180 mg/dL (200); Creatinine, Serum 1.35 mg/dL (0.70-1.30); EST Glomerular Filtration Rate 54 mL/min (>60); Est Glom Filt Rate - Afr Amer 66 mL/min (>60); Globulin 3.8 g/dL (2.2-4.2); Glucose 158 mg/dL (74-106); High Density Lipoprotein 41 mg/dL; Potassium 3.5 mmol/L (3.5-5.1); Protein, Total 7.2 g/dL (6.4-8.2); Sodium Level 134 mmol/L (136-145); Triglycerides 72 mg/dL; Very Low Density Lipoprotein 14 mg/dL (5-40)
[2024-03-17 12:49] LABS: Hemoglobin A1c 6.6 % (3.8-5.6)
== END | disposition home or self-care (01) ==
LOC: MFPLAB 08:22
PROVIDERS: PCP Family Medicine; Referring Provider Family Medicine; Visit Provider Family Medicine
DX: E11.22 Type 2 diabetes mellitus with diabetic chronic kidney disease (principal); N18.9 Chronic kidney disease, unspecified
CPT/HCPCS: 36415; 80053; 80061; 82607; 83036; 84403; 84443

== ENCOUNTER → 2024-03-29 | Outpatient (CLI) | payer MEDICARE, OTHER, SELFPAY ==
[2023-12-24 10:32] VITALS: BMI 36.3
== END | disposition home or self-care (01) ==
LOC: LABSPEC 16:21
PROVIDERS: PCP Family Medicine; Referring Provider Urology; Visit Provider Urology
DX: R30.0 Dysuria (principal)

== ENCOUNTER 2024-03-31 07:30 | Observation (INO) | payer MEDICARE, OTHER, SELFPAY ==
[2023-12-24 10:32] VITALS: BMI 36.3
[2024-03-31] VITALS (13 sets, daily range): BP systolic 101–130; BP diastolic 60–79; PULSE 64–87; RESP 16–20; TEMP 35.8–37.1; O2SAT 97–100; BMI 28.6; BMI 31.6
--- NOTE | 2024-03-31 07:35 | EKG12_ITS ---
Test Reason : Blood Pressure : */* mmHG Vent. Rate : 72 BPM Atrial Rate : 72 BPM P-R Int : 158 ms QRS Dur : 96 ms QT Int : 406 ms P-R-T Axes : 54 -49 17 degrees QTcB Int : 444 ms Normal sinus rhythm Left axis deviation Abnormal ECG Confirmed by EMEKA FLEMING, GARRETT ([id number]), story editor JULIANA ALEMAN ([id number]) on 04/06/2024 7:04:39 AM Referred By: Confirmed By: GARRETT HENDRICKSON MD
--- NOTE | 2024-03-31 07:35 | CT_ITS ---
We are attempting to reach an attending provider to discuss findings. An addendum with communication details will be sent when the communication is complete. EXAM: CT HEAD WITHOUT INTRAVENOUS CONTRAST CLINICAL INDICATION: Neuro deficit, acute, stroke suspected TECHNIQUE: Multiple axial images were obtained of the head without intravenous contrast. This CT exam was performed using one or more of the following dose reduction techniques: automated exposure control, adjustment of the mA and/or kV according to patient size, and/or use of iterative reconstruction technique. COMPARISON: Head CT 07/15/2023 FINDINGS: BRAIN AND EXTRA-AXIAL SPACES: Diffuse cerebral volume loss. Periventricular small vessel ischemic changes. Benign basal ganglia calcifications. No intra- or extra-axial hemorrhage. No intracranial mass or mass effect. Posterior fossa structures are unremarkable. No hydrocephalus. Basal cisterns are patent. BONES/JOINTS: Unremarkable. No discrete lytic or blastic abnormalities. VASCULATURE: Vascular calcifications. SINUSES: Unremarkable as visualized. Clear. MASTOID AIR CELLS: Unremarkable. Clear. ORBITS: Visualized globes, extraocular muscles, optic nerves and retrobulbar fat appear unremarkable. ASPECTS: 10. CT/STROKE Brain/Head without Cont IMPRESSION: 1. No acute intracranial abnormalities. 2. Age-related changes. Electronically Signed: Ricardo Han MD at 7:51 EST ,
--- NOTE | 2024-03-31 07:35 | CT_ITS ---
We are attempting to reach an attending provider to discuss findings. An addendum with communication details will be sent when the communication is complete. STUDY: CTA HEAD AND NECK WITH CONTRAST REASON FOR EXAM: Male, 78 years old. Neuro deficit, acute, stroke suspected RADIATION DOSAGE (If Supplied By Facility): CTDIvol = ( 22.55 ) mGy, DLP = ( 829.17 ) mGycm TECHNIQUE: CT angiography was performed with a multi-detector CT scanner. Data acquisition was obtained from the skull base through the vertex following intravenous administration of IV 100mL [id number]-[id number]. MIP images were reconstructed from the axial data set. Post-processing of the angiographic images was performed, with multiplanar reformation and 3D reconstruction. Individualized dose optimization techniques were used for this CT. COMPARISON: No relevant priors. FINDINGS: Normal bilateral petrous carotid arteries. There is calcified plaque formation of the right cavernous carotid artery, without a cross-sectional luminal stenosis. There is calcified plaque formation of the left cavernous carotid artery, without a cross-sectional luminal stenosis. Normal right A1 segments of the anterior cerebral artery. Normal left A1 segments of the anterior cerebral artery. Normal intact anterior communicating artery (ACOM). Normal bilateral A2 segments of the anterior cerebral arteries. Normal right M1 and M2 segments of the middle cerebral arteries, with a normal M1 bifurcation. Normal left M1 and M2 segments of the middle cerebral arteries, with a normal M1 bifurcation. Normal right posterior communicating artery (PCOM). Normal left posterior communicating artery (PCOM). Normal bilateral vertebral arteries. Normal basilar artery with a normal basilar bifurcation. The visualized bilateral superior cerebellar (SCA) arteries are normal. Normal bilateral P1, P2 and visualized P3 segments of the posterior cerebral arteries. There is no demonstrated aneurysm of the elim ira of [place]. There is no demonstrated abnormality of the visualized brain. AORTIC ARCH: There is atherosclerotic calcific plaque formation of the aortic arch and great vessels arising from the aortic arch, without a hemodynamically significant stenosis. There is a normal origin of the brachiocephalic, left common carotid, and left subclavian arteries. Normal origins of the brachiocephalic, left common carotid, and left subclavian arteries. RIGHT CAROTID ARTERIES: Normal right common carotid artery (CCA). Normal right common carotid bulb. There is severe atherosclerotic plaque formation of the origin of the right internal carotid artery with a near complete occlusion. Normal visualized cervical portion of the right internal carotid artery. Normal origin of the right external carotid artery (ECA). LEFT CAROTID ARTERIES: Normal left common carotid artery (CCA). Normal left common carotid bulb. There is extensive atherosclerotic plaque formation of the origin of the left internal carotid artery with an estimated stenosis of greater than 70%. Normal visualized cervical portion of the left internal carotid artery. Normal origin of the left external carotid artery (ECA). VERTEBRAL ARTERIES: Normal bilateral vertebral arteries. 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 Electronically Signed: Lance Jaramillo MD at 8:08 EST ,
--- NOTE | 2024-03-31 07:35 | RAD_ITS ---
STUDY: X-RAY CHEST REASON FOR EXAM: Male, 78 years old. Neuro deficit, acute, stroke suspected TECHNIQUE: Single AP portable view of the chest. COMPARISON: Comparison is made with prior study dated December 07, 2019. FINDINGS: EKG electrodes are seen. A pacer battery pack device is seen overlying the mid right chest with electrodes heading cephalad. The lungs are clear and expanded. There is no demonstrated pleural abnormality. There is borderline cardiomegaly. Normal mediastinum and corby. Normal visualized pulmonary arteries. There is atherosclerotic calcification of the aortic arch with tortuosity. There are diffuse degenerative changes of the visualized thoracic spine. Normal visualized ribs, clavicles, and shoulders. There is no demonstrated abnormality of the visualized soft tissue structures of the upper abdomen. RAD/Chest 1 View IMPRESSION: No acute abnormality is seen. Electronically Signed: Lance Jaramillo MD at 9:17 EST ,
--- NOTE | 2024-03-31 07:40 | EDS_ITS ---
HPI History of Present Illness Chief Complaint: Stroke Alert Informant: patient, family and EMS Onset/Context/Timing Onset: Today Context: Sudden Onset Timing: Continuous Quality and Location: Positive for Left Facial Droop and Right Leg Weakness Worsened by: Nothing Relieved by: Nothing Associated Symptoms Associated Symptoms: Positive for Nausea; Negative for Headache, Vomiting or Chest Pain Narrative Narrative: Patient presents with left facial weakness and right leg weakness that began this morning. Patient states he remembers going to bed last night. Patient states he woke up on the bathroom floor. Patient states he does not know how he got there. Family states that he was awake and talking normally around 0300. Patient denies any visual changes. Patient denies any headaches. Patient denies any chest pain. Patient admits to some nausea but denies any vomiting. 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) BPH (benign prostatic hyperplasia) GERD (gastroesophageal reflux disease) Non-rheumatic aortic stenosis Positive Helicobacter pylori test (05/13/18) Essential hypertension HLD (hyperlipidemia) Home Medications ?Medication ?Instructions ?Recorded ?Last Taken ?Type atorvastatin 80 mg tablet 80 mg PO QHS CHOLESTEROL LOWERING 09/24/15 02/12/24 History hydrochlorothiazide 25 mg tablet 25 mg PO DAILY WATER PILL, BLOOD 09/24/15 02/12/24 History PRESSUR metformin 750 mg tablet,extended 750 mg PO QHS BLOOD SUGAR 09/24/17 02/12/24 History release 24 hr pyridoxine (vitamin B6) 100 mg 100 mg PO DAILY SUPPLEMENT 09/24/17 02/12/24 History tablet empagliflozin 25 mg tablet 1 tab PO DAILY 02/01/20 02/12/24 History aspirin 81 mg tablet,delayed 81 mg PO DAILY 04/19/20 02/02/24 History release (Adult Aspirin Regimen) ramipril 10 mg capsule 10 mg PO BID BLOOD PRESSURE 04/19/20 02/13/24 History ezetimibe 10 mg tablet 10 mg PO DAILY 11/18/23 02/12/24 History garlic 500 mg capsule 500 mg PO DAILY 11/18/23 02/12/24 History semaglutide 1 mg/dose (4 mg/3 mL) 1 mg subcut MARTÍNEZ 11/18/23 01/25/24 History subcutaneous pen injector (Ozempic) acetaminophen 500 mg tablet 500 mg PO Q6H PRN pain 01/09/24 Unknown History (Tylenol Extra Strength) docusate sodium 100 mg capsule 100 mg PO BID #20 caps 02/13/24 Unknown Rx (Colace) oxycodone 5 mg tablet 5 mg PO Q6H PRN pain 3 days #14 02/13/24 Unknown Rx tabs Allergy/AdvReac Type Severity Reaction Status Date / Time Penicillins (PCN) Allergy Mild hives Verified 02/13/24 08:07 nitroglycerin AdvReac Mild LOC Verified 02/13/24 08:07 Family History Mother Breast cancer Liver disease Father , Age 41 Myocardial infarction Heart disease Sister Cancer Breast cancer Brother CAD (coronary artery disease) CABG Heart disease Surgical History S/P trigger finger release History of left heart catheterization (03/13/20) History of esophagogastroduodenoscopy (EGD) (05/13/18) History of bilateral knee replacement History of colonoscopy (2016) Sleep apnea Social History Smoking Status: Never smoker alcohol intake: current alcohol intake frequency: holidays/special occasions only substance use type: does not use caffeine: No ROS ROS ED Constitutional Constitutional ED: Denies chills or fever(s) Eyes Eyes: Denies blurry vision or change in vision ENT ENT ED: Reports rhinorrhea; Denies sore throat Cardiovascular Cardiovascular: Denies chest pain or palpitations Respiratory/Chest Respiratory/Chest: Denies cough or dyspnea Gastrointestinal Gastrointestinal: Denies nausea or vomiting Genitourinary Genitourinary ED: Reports urinary frequency; Denies dysuria or hematuria Musculoskeletal Musculoskeletal: Denies back pain or neck pain Integumentary Denies abscess or rash Neurologic Neurologic: Denies headache(s) or weakness Allergic/Immunologic Allergic/Immunologic ED: Denies mouth swelling or urticaria EXAM Physical Exam Const Vital Signs: 03/31/24 07:30 03/31/24 07:38 03/31/24 07:40 Temperature 96.4 F L 97.4 F L Temperature Source Oral Temporal Pulse Rate 75 87 Respiratory Rate 16 16 Blood Pressure 114/66 114/66 Blood Pressure Mean 82 82 Pulse Ox 98 97 Oxygen Delivery Method Room Air Room Air Room Air 03/31/24 08:05 03/31/24 08:30 Temperature Temperature Source Pulse Rate 68 64 Respiratory Rate 16 19 H Blood Pressure 117/70 124/66 H Blood Pressure Mean 85 85 Pulse Ox 100 100 Oxygen Delivery Method Room Air Room Air Positive well nourished and well developed General Appearance ED: well developed and NAD HEENT Reports moist mucous membranes Neck supple and no JVD Resp normal respiratory effort and clear to auscultation bilaterally Cardio Rate: regular rate Rhythm: regular rhythm GI soft to palpation, non-tender and non-distended Extremity normal to inspection General Extremety ED: Negative for edema or tenderness General Extremity: Negative for edema Neuro oriented x3 and no sensory deficits noted Neuro Narrative: There is left facial weakness. The eyebrows elevate equally. There is weakness of the right lower extremity. He is able to lift it up off of the bed but not hold it up for 5 seconds. Juanis Coma Scale: document GCS findings Spontaneous Obeys Commands Oriented 15 Sensorium / Orientation: alert Speech: speech normal Psych mental status grossly normal NIHSS NIHSS Initial: 1a Level of Consciousness: 0 1b LOC Questions (Score 2 if aphasic/stupor): 0 1c LOC Commands (Only score 1st attempt): 0 3 Visual: 0 4 Facial Palsy: 1 5 Motor Arm Right (UN = amputation/fusion): 0 5 Motor Arm Left: 0 6 Motor Leg Right: 0 6 Motor Leg Left: 1 8 Sensory (Aphasia/stupor=0 or 1, coma=2): 0 9 Best Language: 0 10 Dysarthria (mute, coma=2, intubated=UN): 0 11 Extinction and Inattention (only scored if +): 0 Total Score: 2 MDM MDM MDM Narrative Medical decision making narrative: Differential diagnosis includes stroke, intracranial bleeding, electrolyte abnormality, cardiac dysrhythmia, cardiac ischemia, and hypoglycemia. EKG will be obtained to assess for cardiac dysrhythmia and cardiac ischemia. CT scan of the brain will be obtained to assess for intracranial bleeding and stroke. CTA of the head and neck will be obtained to assess for large vessel occlusion and carotid stenosis. Chest x-ray will be obtained to assess for pneumonia and pneumothorax. CBC will be obtained to assess for leukocytosis and anemia. Basic metabolic profile will be obtained to assess for electrolyte abnormality and renal function. High-sensitivity troponin will be obtained to assess for cardiac ischemia. PT with INR and PTT will be obtained to assess for coagulopathy. Lab Data Attestation: I reviewed the patient's lab results. Lab results narrative: CBC was reviewed and was within normal limits. Basic metabolic profile was reviewed. Creatinine was 1.47 and BUN was 27. This is consistent with previous results. Glucose was slightly elevated at 188. The remainder is within normal limits. High-sensitivity troponin was reviewed and was normal at 18. Labs: Laboratory Results - last 24 hr 03/31/24 07:35 WBC 6.4 RBC 4.50 L Hgb 13.8 Hct 39.5 L MCV 87.8 MCH 30.7 MCHC 34.9 RDW Std Deviation 44.8 H RDW Coeff of Mateo 14.0 Plt Count 175 MPV 10.1 Immature Gran % (Auto) 0.600 Neut % (Auto) 47.4 Lymph % (Auto) 30.0 [place] % (Auto) 20.3 H Eos % (Auto) 1.4 Baso % (Auto) 0.3 Absolute Neuts (auto) 3.0 Absolute Lymphs (auto) 1.92 Nucleated RBC % 0 PT 14.6 INR 1.1 APTT 29.7 Sodium 134 L Potassium 3.5 Chloride 104 Carbon Dioxide 19.0 L Anion Gap 11 BUN 27 H Creatinine 1.47 H Estim Creat Clear Calc 49.08 Est GFR (MDRD) Af Amer 60 Est GFR (MDRD) Non-Af 49 L BUN/Creatinine Ratio 18.4 Glucose 188 H Calcium 9.5 Troponin I High Sens 18 Radiography Chest X-Ray - ED: 1 View, Read by ED Physician, Read by Radiologist and No Acute Disease Diagnostic Testing: Clinical Impression(s) from Imaging Studies Brain CT 03/31/24 07:35 IMPRESSION: 1. No acute intracranial abnormalities. 2. Age-related changes. Electronically Signed: Ricardo Han MD at 7:51 EST , ADDENDUM: 03/31/24 0800 IMPRESSION: 1. No acute intracranial abnormalities. 2. Age-related changes. N.B. : The above Results were Read Back by Ricardo Han MD to Asif Delgado DO, and understanding confirmed on 03/31/2024 07:53:33 (ET). Electronically Signed: Ricardo Han MD at 7:51 EST , Head/Neck CTA 03/31/24 07:35 IMPRESSION: High-grade stenosis at the origins of both the right and left internal carotid arteries more prominent on the right side. Electronically Signed: Lance Jaramillo MD at 8:08 EST , CT scan of the brain was obtained. There is no acute intracranial abnormality. There are some age-related changes. This was interpreted by the radiologist and was also independently reviewed by myself. CTA of the head and neck was obtained. There is bilateral internal carotid stenosis, worse on the right. There is no other acute abnormality noted. This was interpreted by the radiologist and was also independently reviewed by myself. Portable 1 view chest x-ray was obtained. On my independent interpretation, lung martinez are clear. There is normal cardiac silhouette. Bony thorax is normal. There is no acute process noted. Radiologist also interpreted the x- ray and agrees. EKG Initial EKG: Attestation: I personally reviewed and interpreted this EKG as follows: Interpretation: Sinus Rhythm (72) and No Acute Injury Pattern Comments: EKG was obtained. On my independent interpretation, it showed a normal sinus rhythm with a rate of 72. PA interval, QRS interval, and QTc intervals were all normal. There is left axis deviation at -49. There are no acute ST or T wave changes. Prior: Unchanged (05/10/2021) Management Discussion w/another healthcare provider: Hospitalist, [employer] [facility] and Radiologist Treatment and Re-Evaluation Narrative: Stroke alert was called. Patient's last known well was 4-1/2 hours prior to arrival. Patient is not a candidate for thrombolytics. Patient was evaluated by Dr. Wilkins, stroke neurologist at the [facility]. She recommended admitting the patient for further stroke workup. Case was discussed with the hospitalist. Stroke Documentation Questions Stroke Team Activated: Yes Reviewed Inclusion/Exclusion criteria: Yes Was Patient considered for Endovascular Intervention?: No-CTA negative, determined not to be an endovascular candidate IV Thrombolytic Administered: No No contraindications from thrombolytic administration: No Critical Care Time Critical Care Time: Yes Critical care time (excluding procedures): 30-74 minutes (33), Including time spent:, Discussing w/Patient &/or Family/Transplant Registered Nurse, Discussing w/Consultants, Arranging Admission or Transfer and Performing Direct Patient Care at Bedside Discharge Plan Triage Chief Complaint: Stroke Alert ED Provider: Asif Delgado Dx/Rx/DC Orders Clinical Impression: Weakness on left side of face, Carotid artery stenosis, Essential hypertension Prescriptions: No Action empagliflozin 25 mg tablet 1 tab PO DAILY aspirin [Adult Aspirin Regimen] 81 mg tablet,delayed release (DR/EC) 81 mg PO DAILY acetaminophen [Tylenol Extra Strength] 500 mg tablet 500 mg PO Q6H PRN (Reason: pain) atorvastatin 80 MG tablet 80 mg PO QHS hydrochlorothiazide 25 MG tablet 25 mg PO DAILY ramipril 10 mg capsule 10 mg PO BID pyridoxine (vitamin B6) 100 MG tablet 100 mg PO DAILY metformin 750 MG tablet extended release 24 hr 750 mg PO QHS docusate sodium [Colace] 100 mg capsule 100 mg PO BID Qty: 20 0RF oxycodone 5 mg tablet 5 mg PO Q6H PRN (Reason: pain) 3 Days Qty: 14 0RF garlic 500 mg capsule 500 mg PO DAILY ezetimibe 10 mg tablet 10 mg PO DAILY Ozempic 1 mg/dose (4 mg/3 mL) pen injector 1 mg subcut MARTÍNEZ Primary Care Provider: Puma Yi Referrals: Puma Yi MD [Primary Care Provider] - Print Language: Vietnamese Disposition Disposition: Acute Care [facility]
[2024-03-31 07:46] LABS: Absolute Lymphocyte Count 1.92 X10^3/uL (0.83-4.51); Basophil# 0.02 X10^3/uL; Basophil% 0.3 % (0-1); Eosinophil# 0.09 X10^3/uL; Eosinophils% 1.4 % (0-5); Hematocrit 39.5 % (40-54); Hemoglobin 13.8 g/dL (13.0-16.5); Lymphocyte # 1.92 X10^3/ul (0.83-4.51); Mean Corp Hgb Conc 34.9 g/dL (32-36); Mean Corpuscular Hgb 30.7 pg (27.0-32.0); Mean Corpuscular Volume 87.8 fL (80-94); Mean Platelet Vol. 10.1 fl (6.2-12.0); Monocyte% 20.3 % (0-10); NRBC Flagged by Analyzer 0 % (0-5); Neutrophil # 3.02 X10^3/uL (2.7-7.7); Neutrophil % 47.4 % (47-70); Platelet Count 175 K/mm3 (150-450); RBC Distribution Width SD 44.8 fl (35.1-43.9); White Blood Count 6.4 K/mm3 (4.4-11.0)
--- NOTE | 2024-03-31 07:56 | ED.RN ---
informs this RN that pt. has been ill with cold sx since friday. Dr. camarillo from [facility] states no TNK but admit for MRI.
[2024-03-31 08:04] LABS: International Normalized Ratio 1.1; Partial Thromboplast Time 29.7 Seconds (24.1-36.2); Prothrombin Time (Protime)PT. 14.6 SECONDS (11.7-14.9)
[2024-03-31 08:07] LABS: Anion Gap 11 (5-15); BUN 27 mg/dL (7-18); BUN/Creat Ratio 18.4 RATIO (10-20); Calcium,Total 9.5 mg/dL (8.5-10.1); Chloride 104 mmol/L (98-107); Creatinine, Serum 1.47 mg/dL (0.70-1.30); EST Glomerular Filtration Rate 49 mL/min (>60); Est Glom Filt Rate - Afr Amer 60 mL/min (>60); Estimated Creatinine Clearance 49.08 ml/min; Glucose 188 mg/dL (74-106); Potassium 3.5 mmol/L (3.5-5.1); Sodium Level 134 mmol/L (136-145); Troponin-I HS 18 pg/mL (3.0-78.0)
--- NOTE | 2024-03-31 09:17 | PCM.HP.STD ---
HPI - General General Date of Admission: 03/31/24 Date of Service: 03/31/24 Chief Complaint: left facial weakness, right leg weakness HPI Narrative ANILA ROBLEDO, is a 78 M with a PMH as outlined who was admitted via the ED with a complaint of lightheadedness and near syncope. His last known well was ~ 3am on hte morning of admission. He subsequently developed left facial weakness and right leg weakness when he woke up ~ 6:30am on the day of admission. He woke up and went to the bathroom and and all he remembers is waking up on the bathroom floor. He realised he had some left facial weakness and right lower extremity weakness. His symptoms had resolved by the time he got here. He denied any lightheadedness, dizziness, nausea, vomiting, numbness or tingling or any other symptoms. Review of systems is otherwise negative. Vitals in the ED were BP of 124/66, MD of 64, RR of 19 and oxygen sats of 100% on room air. CBC was largely unremarkable, and Chemistry showed sodium of 134, potassium of 3.5 and bicarb of 19; Cr was 1.47 and initial troponin was 18. CT of the brain showed no acute intracranial pathology and age related changes. CTA head and neck showed high grade stenosis >70% at the origins of both the right and left internal carotid arteries more prominent on the right side. He is being admitted to be managed for stroke like symptoms to rule out a stroke. [facility] Medical History Trigger finger, right middle finger Wears dentures Wears glasses Diabetes Arthritis Non-smoker History of echocardiogram Hypertension Cardiology follow-up encounter 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) BPH (benign prostatic hyperplasia) GERD (gastroesophageal reflux disease) Non-rheumatic aortic stenosis Positive Helicobacter pylori test (05/13/18) Essential hypertension HLD (hyperlipidemia) Home Medications ?Medication ?Instructions ?Recorded ?Last Taken ?Type atorvastatin 80 mg tablet 80 mg PO QHS CHOLESTEROL LOWERING 09/24/15 02/12/24 History hydrochlorothiazide 25 mg tablet 12.5 mg PO DAILY WATER PILL, BLOOD 09/24/15 02/12/24 History PRESSUR metformin 750 mg tablet,extended 750 mg PO QHS BLOOD SUGAR 09/24/17 02/12/24 History release 24 hr pyridoxine (vitamin B6) 100 mg 100 mg PO DAILY SUPPLEMENT 09/24/17 02/12/24 History tablet empagliflozin 25 mg tablet 1 tab PO DAILY 02/01/20 02/12/24 History aspirin 81 mg tablet,delayed 81 mg PO DAILY 04/19/20 02/02/24 History release (Adult Aspirin Regimen) ramipril 10 mg capsule 10 mg PO BID BLOOD PRESSURE 04/19/20 02/13/24 History ezetimibe 10 mg tablet 10 mg PO DAILY 11/18/23 02/12/24 History garlic 500 mg capsule 500 mg PO DAILY 11/18/23 02/12/24 History semaglutide 1 mg/dose (4 mg/3 mL) 1 mg subcut MARTÍNEZ 11/18/23 01/25/24 History subcutaneous pen injector (Ozempic) acetaminophen 500 mg tablet 500 mg PO Q6H PRN pain 01/09/24 Unknown History (Tylenol Extra Strength) docusate sodium 100 mg capsule 100 mg PO BID #20 caps 02/13/24 Unknown Rx (Colace) doxycycline hyclate 100 mg capsule 100 mg PO Q12H cough 03/31/24 Unknown History finasteride 5 mg tablet 5 mg PO QHS 03/31/24 03/30/24 History oxybutynin chloride 10 mg 10 mg PO DAILY 03/31/24 Unknown History tablet,extended release 24 hr tamsulosin 0.4 mg capsule mg PO DAILY 03/31/24 Unknown History Allergy/AdvReac Type Severity Reaction Status Date / Time Penicillins (PCN) Allergy Mild hives Verified 02/13/24 08:07 nitroglycerin AdvReac Mild LOC Verified 02/13/24 08:07 Family History Mother Breast cancer Liver disease Father , Age 41 Myocardial infarction Heart disease Sister Cancer Breast cancer Brother CAD (coronary artery disease) CABG Heart disease Surgical History S/P trigger finger release History of left heart catheterization (03/13/20) History of esophagogastroduodenoscopy (EGD) (05/13/18) History of bilateral knee replacement History of colonoscopy (2016) Sleep apnea Social History Smoking Status: Never smoker alcohol intake: current alcohol intake frequency: holidays/special occasions only substance use type: does not use caffeine: No ROS Constitutional Constitutional: Reports fatigue, malaise and weakness; Denies anorexia, chills or fever(s) Eyes Eyes: Denies change in vision ENT HEENT: Denies dysphagia, headache(s) or sore throat Cardiovascular Cardiovascular: Denies chest pain, dyspnea on exertion, edema, lightheadedness, orthopnea, palpitations, paroxysmal nocturnal dyspnea, rapid heart rate or syncope Respiratory/Chest Respiratory/Chest: Denies cough, dyspnea, productive cough, shortness of breath at rest, shortness of breath with exertion or wheezing Gastrointestinal Gastrointestinal: Denies abdominal pain, constipation, diarrhea, nausea or vomiting Genitourinary Genitourinary: Denies dysuria Musculoskeletal Musculoskeletal: Denies arthralgias or joint pain Neurologic Neurologic: Denies confusion, dizziness, focal weakness, headache(s), numbness, paresthesias, seizure-like activity or seizures Psychiatric Psychiatric: Denies anxiety or depression Endocrine Endocrinology: Denies change in body appearance Hematologic/Lymphatic Hematologic/Lymphatic: Denies anemia Vital Signs Vital Signs Vital Signs: 03/31/24 07:30 03/31/24 07:38 03/31/24 07:40 Temperature 96.4 F L 97.4 F L Temperature Source Oral Temporal Pulse Rate 75 87 Respiratory Rate 16 16 Blood Pressure 114/66 114/66 Blood Pressure Mean 82 82 Pulse Ox 98 97 Oxygen Delivery Method Room Air Room Air Room Air 03/31/24 08:05 03/31/24 08:30 Temperature Temperature Source Pulse Rate 68 64 Respiratory Rate 16 19 H Blood Pressure 117/70 124/66 H Blood Pressure Mean 85 85 Pulse Ox 100 100 Oxygen Delivery Method Room Air Room Air Weight Weight: 205 lb 7.533 oz Body Mass Index (BMI) 28.6 Physical Exam Const alert, oriented x3 and no apparent distress General Appearance: cooperative HEENT normocephalic, head/scalp atraumatic and moist oral mucous membranes Mouth: oral and palatal mucosa normal Eyes PERRL, EOMs intact bilaterally and conjunctivae normal Neck no lymphadenopathy and supple Resp normal respiratory effort, no retractions, no use of accessory muscles and clear to auscultation bilaterally Cardio regular rate, regular rhythm, S1 normal heart sound, S2 normal heart sound and no murmurs GI normal to inspection, nondistended, normoactive bowel sounds, soft to palpation, non-tender and non-distended Extremity normal to inspection, full ROM and no clubbing, cyanosis or edema Neuro oriented x3, CN's II-XII intact bilaterally, moves all extremities and no focal motor deficits Neuro Narrative: no focal weakness. Sensorium / Orientation: awake and alert Speech: speech normal Motor Exam: strength 5/5 throughout Psych affect normal Results Lab / Micro Data 03/31/24 07:35 03/31/24 07:35 Labs: Laboratory Results - last 24 hr 03/31/24 07:35: WBC 6.4, RBC 4.50 L, Hgb 13.8, Hct 39.5 L, MCV 87.8, MCH 30.7, MCHC 34.9, RDW Std Deviation 44.8 H, RDW Coeff of Mateo 14.0, Plt Count 175, MPV 10.1, Immature Gran % (Auto) 0.600, Neut % (Auto) 47.4, Lymph % (Auto) 30.0, [place] % (Auto) 20.3 H, Eos % (Auto) 1.4, Baso % (Auto) 0.3, Absolute Neuts (auto) 3.0, Absolute Lymphs (auto) 1.92, Nucleated RBC % 0, PT 14.6, INR 1.1, APTT 29.7, Sodium 134 L, Potassium 3.5, Chloride 104, Carbon Dioxide 19.0 L, Anion Gap 11, BUN 27 H, Creatinine 1.47 H, Estim Creat Clear Calc 49.08, Est GFR (MDRD) Af Amer 60, Est GFR (MDRD) Non-Af 49 L, BUN/Creatinine Ratio 18.4, Glucose 188 H, Calcium 9.5, Troponin I High Sens 18 Imaging Radiology Impression Brain CT 03/31/24 07:35 IMPRESSION: 1. No acute intracranial abnormalities. 2. Age-related changes. Electronically Signed: Ricardo Han MD at 7:51 EST , ADDENDUM: 03/31/24 0800 IMPRESSION: 1. No acute intracranial abnormalities. 2. Age-related changes. N.B. : The above Results were Read Back by Ricardo Han MD to Asif Delgado DO, and understanding confirmed on 03/31/2024 07:53:33 (ET). Electronically Signed: Ricardo Han MD at 7:51 EST , Head/Neck CTA 03/31/24 07:35 IMPRESSION: High-grade stenosis at the origins of both the right and left internal carotid arteries more prominent on the right side. Electronically Signed: Lance Jaramillo MD at 8:08 EST , Assessment & Plan Assessment/Plan (1) Carotid artery stenosis: (2) Stroke-like symptoms: PLAN: Plan #Stroke like symptoms admitted with a complaint of left facial weakness and right lower extremity weakness which had resolved by the time he arrived in the ED. CT brain showed no acute intracranial pathology CTA head and neck showed high grade stenosis at the origin of the left and right internal carotid arteries more prominent on the right side. admit to rule out a stroke get MRI brain order 2D echo PO aspirin 81mg daily. High intensity statin check A1C and lipid profile. PT/OT consult consult vascular surgery. consult teleneurology. #High-grade bilateral carotid stenosis CTA head and neck as above, showing high-grade stenosis of the origin of the left and right internal carotid arteries, more prominent on the right side. On high intensity statin and aspirin. Consult vascular surgery. #Hyperlipidemia: on statin and ezetimibe. #Hypertension: on ramipiril and HCTZ. Hold to allow for permissive hypertension. #Type 2 diabetes mellitus: hold metformin and ozempic. ISS. Accuchecks ACHS #BPH: S/p TURP. On flomax. DVT prophylaxis: SCDs Code status: full code Patient and counseled extensively about different types of CODE STATUS including full code, DNR CCA and DNR CCA. Patient elects to be full code. Total [id number] time 16 minutes. Charges/Coding Visit Charges Inpatient E&M: 13176 Init Hosp L2 Procedures Hospitalists Procedures: 99399 Advncd Care Plan 30 Min
[2024-03-31 10:11] LABS: Hemoglobin A1c 6.8 % (3.8-5.6)
--- NOTE | 2024-03-31 10:32 | ECHOCS_ITS ---
Version 2 Reason For Study: TIA/CVA Procedure This was a 2D Doppler, Color Flow transthoracic echocardiogram. Technically difficult study, contrast injection performed. Echo done with patient sitting upright. Exam performed portable in ICU/CCU. Left Ventricle Normal LV size. The estimated ejection fraction is 70 %. No evidence for diastolic dysfunction. No regional wall motion abnormalities noted. Right Ventricle Normal RV size. Normal systolic function. Atria The left and right atria are normal. No doppler evidence for ASD. Mitral Valve There is no mitral valve stenosis. No mitral valve insufficiency. Tricuspid Valve There is no tricuspid stenosis. Unable to estimate RV systolic pressure due to inadequate jet, pulmonary artery pressure probably normal. Aortic Valve The aortic valve is not well visualized. There is no aortic stenosis. Trivial aortic valve insufficiency. Bioprosthetic aortic valve. Pulmonic Valve There is no pulmonic valvular stenosis. No pulmonic valve insufficiency. Great Vessels Normal aortic root. Pericardium/Pleural No pericardial effusion. Medication Diluted definity 2ml given slow IV push to enhance endocardial definition. MMode/2D Measurements & Calculations LVIDd: 5.3 cm IVSd: 1.4 cm LVOT diam: 2.0 cm LVIDs: 3.5 cm LVPWd: 1.3 cm RVDd: 3.2 cm FS: 34.0 % LVOT area: 3.0 cm2 LAV(MOD-bp): 62.7 ml LVAd ap4: 31.9 cm2 SV(MOD-sp4): 64.1 ml LAV(MOD-bp) Indexed: 29.4 ml/m2 LVLd ap4: 8.6 cm SI(MOD-sp4): 30.1 ml/m2 LAV(MOD-sp2): 57.3 ml EDV(MOD-sp4): 95.1 ml LAV(MOD-sp4): 62.8 ml EDV(sp4-el): 100.8 ml LVAs ap4: 15.3 cm2 LVLs ap4: 6.1 cm ESV(MOD-sp4): 31.0 ml ESV(sp4-el): 32.5 ml EF(MOD-sp4): 67.4 % EF(sp4-el): 67.7 % SV(sp4-el): 68.3 ml LA A4 area: 21.3 cm2 LA dimension(2D): 4.9 cm RA A4 area: 16.9 cm2 Time Measurements MV dec time: 0.27 sec Doppler Measurements & Calculations MV E max ld: 52.0 cm/sec Lat Peak E' Ld: 10.8 cm/sec Med Peak E' Ld: 4.8 cm/sec MV A max ld: 101.6 cm/sec E/E' lat: 4.8 E/E' med: 10.7 MV E/A: 0.51 MV V2 max: 119.9 cm/sec MV P1/2t max ld: 60.7 cm/sec Ao V2 max: 235.8 cm/sec MV max P.8 mmHg MV P1/2t: 98.2 msec Ao max P.3 mmHg MV V2 mean: 58.3 cm/sec MV dec slope: 181.1 cm/sec2 Ao V2 mean: 155.0 cm/sec MV mean P.7 mmHg MVA(P1/2t): 2.2 cm2 Ao mean P.1 mmHg MV V2 VTI: 24.4 cm Ao V2 VTI: 38.8 cm MVA(VTI): 2.8 cm2 AV (velocity ratio): 0.58 SHERWIN(I,D): 1.7 cm2 SHERWIN(V,D): 1.5 cm2 LV V1 max: 120.5 cm/sec SV(LVOT): 67.4 ml PA V2 max: 71.7 cm/sec LV V1 max P.8 mmHg LV V1 mean P.4 mmHg LV V1 mean: 86.1 cm/sec LV V1 VTI: 22.4 cm ECHO/Echo Complete W/ Contrast Interpretation Summary The estimated ejection fraction is 70 %. No evidence for diastolic dysfunction. Trivial aortic valve insufficiency. Ordering Physician: Rosalva Altman Performed By: Enrique Johnson RCS
--- NOTE | 2024-03-31 10:32 | MRI_ITS ---
STUDY: MRI BRAIN WITHOUT CONTRAST REASON FOR EXAM: Male, 78 years old. stroke like symptoms TECHNIQUE: Standardized multiplanar fat and water weighted pulse sequences were obtained. COMPARISON: CT brain March 31, 2024. FINDINGS: There is mild cerebral atrophy with widening of the extra-axial spaces and ventricular dilatation. There are multiple white matter hyperintensities, distributed throughout the deep white matter tracts of the cerebral hemispheres, consistent with moderate chronic white matter ischemic changes. There is no evidence for recent intracranial ischemia or other cause of cytotoxic edema on diffusion weighted imaging (DWI). Normal bilateral basal ganglia. Normal thalami. There is no extra-axial fluid accumulation. Normal flow voids within the major intracranial circulation suggesting patency by spin echo criteria. Normal sella turcica, pituitary gland, infundibular stalk, optic chiasm and hypothalamus. Normal tectal plate and pineal gland. Normal midbrain, jailyn and medulla. Normal cerebellum. Normal basal cisterns. Normal bilateral temporal bones. Normal bilateral internal auditory canals. No demonstrated orbital abnormality, within the constraints of a routine brain study. Normal visualized paranasal sinuses. Normal calvarium and skull base. Normal visualized soft tissue structures. Normal visualized upper cervical spine. MRI/Brain without Contrast IMPRESSION: Involutional changes of the brain, as described above. Electronically Signed: Luis Agnel Santos MD at 23:20 [facility] ,
[2024-03-31] MEDS: Pyridoxine HCl 100 MG Tablet PO (12:15)
[2024-03-31] MEDS: Empagliflozin 25 MG Tablet PO (12:15)
[2024-03-31] MEDS: Ezetimibe 10 MG Tablet PO (12:15)
[2024-03-31] MEDS: guaiFENesin 1,200 MG Tablet 1200 MG PO ×2 (14:11→22:19)
--- NOTE | 2024-03-31 16:30 | CDU_ITS ---
Reason For Study: CVA Rt. Velocities/BP Lt. Velocities/BP Prox CCA 70.7/13.0 cm/sec. Prox CCA 92.2/17.6 cm/sec. Mid CCA 69.5/14.2 cm/sec. Mid CCA 79.0/18.5 cm/sec. Dist CCA 57.2/13.0 cm/sec. Dist CCA 67.6/16.6 cm/sec. Prox ICA 64.8/15.7 cm/sec. Prox ICA 123.5/41.3 cm/sec. Mid ICA 58.2/18.5 cm/sec. Mid ICA 99.0/30.2 cm/sec. Dist ICA 65.5/19.2 cm/sec. Dist ICA 87.5/27.0 cm/sec. Rt. ICA/CCA = 0.9. Lt. ICA/CCA = 1.6. Prox ECA 107.6/15.5 cm/sec. Prox ECA 95.0/15.7 cm/sec. Rt. Vert. 34.5/9.2 cm/sec. Lt. Vert. 52.5/16.6 cm/sec. Right Extracranial There is heterogeneous, irregular atherosclerotic plaque noted in the right common carotid artery. There is heterogeneous, irregular atherosclerotic plaque noted in the right internal carotid artery. There is intimal thickening but no significant atherosclerotic plaque noted in the right external carotid artery. Antegrade flow is noted in the right vertebral artery. Acoustic shadowing noted within the bulb. Left Extracranial There is intimal thickening but no significant atherosclerotic plaque noted in the left common carotid artery. There is heterogeneous, irregular atherosclerotic plaque noted in the left internal carotid artery. There is intimal thickening but no significant atherosclerotic plaque noted in the left external carotid artery. Antegrade flow is noted in the left vertebral artery. Acoustic shadowing noted within the bulb. Procedure Carotid Duplex 33224. This is a Carotid Duplex examination using B-mode, color flow and specral Doppler. The exam was diagnostic. Exam performed in department. VL/Carotid Duplex Ultrasound Interpretation Summary Mild (<50%) stenosis right extracranial internal carotid. Limited by calcific s hadowing. Mild (<50%) stenosis left extracranial internal carotid. Patent and antegrade vertebrals bilaterally. Ordering Physician: Natalie Wayne Referring Physician: Baudilio Yi Performed By: Malik Rogers RVT
[2024-03-31] MEDS: Oseltamivir Phosphate 75 MG Capsule PO (18:03)
[2024-03-31] MEDS: Atorvastatin Calcium 80 MG Tablet PO (22:19)
[2024-03-31] MEDS: Finasteride 5 MG Tablet PO (22:19)
[2024-04-01 02:00] VITALS: BP 97/62; PULSE 77; RESP 21; TEMP 36.8; O2SAT 98
[2024-04-01 05:09] LABS: Absolute Lymphocyte Count 1.67 X10^3/uL (0.83-4.51); Absolute Neutrophil Count 2.9 X10^3/uL (2.0-7.7); Basophil# 0.02 X10^3/uL; Basophil% 0.4 % (0-1); Eosinophil# 0.02 X10^3/uL; Eosinophils% 0.4 % (0-5); Hematocrit 40.9 % (40-54); Hemoglobin 14.2 g/dL (13.0-16.5); Lymphocyte # 1.67 X10^3/ul (0.83-4.51); Lymphocyte % 29.9 % (19-41); Mean Corp Hgb Conc 34.7 g/dL (32-36); Mean Corpuscular Hgb 30.5 pg (27.0-32.0); Mean Corpuscular Volume 87.8 fL (80-94); Mean Platelet Vol. 10.5 fl (6.2-12.0); Monocyte# 0.97 X10^3/uL; Monocyte% 17.4 % (0-10); NRBC Flagged by Analyzer 0 % (0-5); Neutrophil # 2.88 X10^3/uL (2.7-7.7); Neutrophil % 51.4 % (47-70); Platelet Count 157 K/mm3 (150-450); RBC Distribution Width CV 14.3 % (11.6-14.6); Red Blood Count 4.66 M/mm3 (4.6-6.2); White Blood Count 5.6 K/mm3 (4.4-11.0)
[2024-04-01 05:41] LABS: Anion Gap 10 (5-15); BUN 31 mg/dL (7-18); BUN/Creat Ratio 23.8 RATIO (10-20); Chloride 101 mmol/L (98-107); Cholesterol 142 mg/dL (200); EST Glomerular Filtration Rate 57 mL/min (>60); Est Glom Filt Rate - Afr Amer 69 mL/min (>60); Glucose 113 mg/dL (74-106); High Density Lipoprotein 36 mg/dL; Potassium 3.1 mmol/L (3.5-5.1); Sodium Level 132 mmol/L (136-145); Triglycerides 79 mg/dL; Very Low Density Lipoprotein 16 mg/dL (5-40)
[2024-04-01 06:00] VITALS: BP 95/67; PULSE 69; RESP 18; TEMP 36.6; O2SAT 90
[2024-04-01 07:35] VITALS: BMI 31.6
[2024-04-01 07:53] VITALS: O2SAT 96
[2024-04-01 08:39] VITALS: BP 102/56; PULSE 68; RESP 16; TEMP 36.3; O2SAT 100
[2024-04-01] MEDS: guaiFENesin 1,200 MG Tablet 1200 MG PO (08:40)
[2024-04-01] MEDS: Ezetimibe 10 MG Tablet PO (08:40)
[2024-04-01] MEDS: Empagliflozin 25 MG Tablet PO (08:40)
[2024-04-01] MEDS: Pyridoxine HCl 100 MG Tablet PO (08:41)
[2024-04-01] MEDS: Atorvastatin Calcium 80 MG Tablet PO (08:41)
[2024-04-01] MEDS: Aspirin E.C. 81 MG Tablet PO (08:41)
[2024-04-01] MEDS: Potassium Chloride Oral Tablet 20 MEQ 40 MEQ PO (08:44)
[2024-04-01] MEDS: Oseltamivir Phosphate 75 MG Capsule PO (08:44)
[2024-04-01] MEDS: BENZOCAINE/MENTHOL 1 LOZENGE MUCOUS MEM (10:48)
--- NOTE | 2024-04-01 10:59 | CON.PCM.SX_ITS ---
Assessment & Plan Assessment/Plan (1) Carotid artery stenosis: PLAN: CTA images were reviewed with Dr. Buckner, by JOSE ENRIQUE R ICA 67% stenosis and L ICA 40% stenosis; his symptoms of possible L facial droop with contralateral R leg weakness would not be attributable to typical pattern associated with TIA of carotid origin and no stroke identified on MRI so would consider his carotid disease asymptomatic. At this time, no indication for surgical intervention. Will arrange outpatient follow-up for ongoing monitoring of his carotid disease. Recommend continued ASA 81mg daily and high-intensity statin therapy. Could consider 21 days of DAPT, though would defer to teleneuro recommendations. HPI Consult Data Date of Consult: 04/01/24 HPI Narrative HPI Narrative: ANILA ROBLEDO, is a 78 M who presented to the [facility] ER on 03/31/24 as a stroke alert via EMS. 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 He and his did not notice any lateralized weakness themselves, but report EMS evaluated and felt the right leg was weaker than the left. He does have slight asymmetry with his smile and flattening of the nasolabial fold on the left, but his feels this looks to be his baseline; she said it did appear perhaps more severe at first but back to normal once they arrived at the ER. CT brain was negative. Head/Neck CTA reported high-grade stenosis at the origins of both the right and left carotid arteries more prominent on the right side. Brain MRI was negative for stroke. Carotid duplex suggested <50% stenosis bilaterally. During his admission, he was also found to be positive for flu. He denies any history of prior similar symptoms or known CVA/TIA. He denies any prior knowledge of carotid artery disease or prior vascular surgical interventions. He was on ASA and statin already at the time of this event. 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) BPH (benign prostatic hyperplasia) GERD (gastroesophageal reflux disease) Non-rheumatic aortic stenosis Positive Helicobacter pylori test (05/13/18) Essential hypertension HLD (hyperlipidemia) Home Medications ?Medication ?Instructions ?Recorded ?Last Taken ?Type atorvastatin 80 mg tablet 80 mg PO QHS CHOLESTEROL LOWERING 09/24/15 02/12/24 History hydrochlorothiazide 25 mg tablet 12.5 mg PO DAILY WATER PILL, BLOOD 09/24/15 02/12/24 History PRESSUR metformin 750 mg tablet,extended 750 mg PO QHS BLOOD SUGAR 09/24/17 02/12/24 History release 24 hr pyridoxine (vitamin B6) 100 mg 100 mg PO DAILY SUPPLEMENT 09/24/17 02/12/24 History tablet empagliflozin 25 mg tablet 1 tab PO DAILY 02/01/20 02/12/24 History aspirin 81 mg tablet,delayed 81 mg PO DAILY 04/19/20 02/02/24 History release (Adult Aspirin Regimen) ramipril 10 mg capsule 10 mg PO BID BLOOD PRESSURE 04/19/20 02/13/24 History ezetimibe 10 mg tablet 10 mg PO DAILY 11/18/23 02/12/24 History garlic 500 mg capsule 500 mg PO DAILY 11/18/23 02/12/24 History semaglutide 1 mg/dose (4 mg/3 mL) 1 mg subcut MARTÍNEZ 11/18/23 01/25/24 History subcutaneous pen injector (Ozempic) acetaminophen 500 mg tablet 500 mg PO Q6H PRN pain 01/09/24 Unknown History (Tylenol Extra Strength) docusate sodium 100 mg capsule 100 mg PO BID #20 caps 02/13/24 Unknown Rx (Colace) doxycycline hyclate 100 mg capsule 100 mg PO Q12H cough 03/31/24 Unknown History finasteride 5 mg tablet 5 mg PO QHS 03/31/24 03/30/24 History oxybutynin chloride 10 mg 10 mg PO DAILY 03/31/24 Unknown History tablet,extended release 24 hr tamsulosin 0.4 mg capsule mg PO DAILY 03/31/24 Unknown History Allergy/AdvReac Type Severity Reaction Status Date / Time Penicillins (PCN) Allergy Mild hives Verified 02/13/24 08:07 nitroglycerin AdvReac Mild LOC Verified 02/13/24 08:07 Family History Mother Breast cancer Liver disease Father , Age 41 Myocardial infarction Heart disease Sister Cancer Breast cancer Brother CAD (coronary artery disease) CABG Heart disease Surgical History S/P trigger finger release History of left heart catheterization (03/13/20) History of esophagogastroduodenoscopy (EGD) (05/13/18) History of bilateral knee replacement History of colonoscopy (2016) Sleep apnea Social History Smoking Status: Never smoker alcohol intake: current alcohol intake frequency: holidays/special occasions only substance use type: does not use caffeine: No Physical Exam Const alert General Appearance: cooperative and comfortable HEENT normocephalic, head/scalp atraumatic, hearing grossly normal bilaterally, external ears normal and external nose normal Eyes General Eye: normal appearance of both eyes Neck General: normal visual inspection and trachea midline Resp normal respiratory effort, no retractions and no use of accessory muscles Effort and Inspection: able to speak in complete sentences; Negative for labored, grunting or stridor Cardio regular rate and regular rhythm Extremity no clubbing, cyanosis or edema Skin no rashes or lesions noted Neuro Neuro Narrative: Noted mild left smile asymmetry perhaps his baseline per , otherwise appears neurologically intact Psych mental status grossly normal Appearance: grossly normal Attitude: calm and engaged Activity / Motor Behavior: appropriate eye contact Speech: normal speech Mood & Affect: euthymic mood Lab / Micro Data 04/01/24 03:56 04/01/24 03:56 Labs: Laboratory Results - last 24 hr 04/01/24 03:56: WBC 5.6, RBC 4.66, Hgb 14.2, Hct 40.9, MCV 87.8, MCH 30.5, MCHC 34.7, RDW Std Deviation 46.0 H, RDW Coeff of Mateo 14.3, Plt Count 157, MPV 10.5, Immature Gran % (Auto) 0.500, Neut % (Auto) 51.4, Lymph % (Auto) 29.9, [place] % (Auto) 17.4 H, Eos % (Auto) 0.4, Baso % (Auto) 0.4, Absolute Neuts (auto) 2.9, Absolute Lymphs (auto) 1.67, Nucleated RBC % 0, Sodium 132 L, Potassium 3.1 L, Chloride 101, Carbon Dioxide 21.0, Anion Gap 10, BUN 31 H, Creatinine 1.30, Estim Creat Clear Calc 55.50, Est GFR (MDRD) Af Amer 69, Est GFR (MDRD) Non-Af 57 L, BUN/Creatinine Ratio 23.8 H, Glucose 113 H, Calcium 9.0, Triglycerides 79, Cholesterol 142, LDL Cholesterol 90, VLDL Cholesterol 16, HDL Cholesterol 36 L Imaging Radiology Impression Brain MRI 03/31/24 10:32 IMPRESSION: Involutional changes of the brain, as described above. Electronically Signed: Luis Angel Santos MD at 23:20 EST , Echocardiogram 03/31/24 10:32 Interpretation Summary The estimated ejection fraction is 70 %. No evidence for diastolic dysfunction. Trivial aortic valve insufficiency. Ordering Physician: Rosalva Altman Performed By: Enrique Johnson RCS Charges/Coding Visit Charges Inpatient E&M: 83287 Init Hosp L1
--- NOTE | 2024-04-01 11:35 | DS.PCM_ITS ---
Providers Date of Admission: 03/31/24 Date of Discharge: 04/01/24 Primary Care Physician: Dr. Puma Yi MD Consultations 03/31/24 10:32 Consult: Tele-Neurology Routine Consulting Provider: [facility] Reason for Consult: Acute Ischemic Stroke/TIA EMERGENT Consult: No Notified: Yes Date Notified: 03/31/24 Time Notified: 09:28 Method of Notification: Answering Service Nursing Unit Staff Notify [facility] of Tele-Neurology Consult: Yes 03/31/24 15:01 Consult: Vascular Surgery Routine Consulting Provider: Asif Buckner Reason for Consult: bilateral high grade carotid stenosis EMERGENT Consult: No Notified: Yes Date Notified: 03/31/24 Time Notified: 15:01 Method of Notification: Text Reason For Visit: STROKE LIKE SYMPTONS Diagnosis Discharge Diagnosis (1) Carotid artery stenosis: Status: Acute Code(s): I65.29 - Occlusion and stenosis of unspecified carotid artery Plan #Stroke like symptoms * admitted with a complaint of left facial weakness and right lower extremity weakness which had resolved by the time he arrived in the ED. * CT brain showed no acute intracranial pathology * CTA head and neck showed high grade stenosis at the origin of the left and right internal carotid arteries more prominent on the right side. * admit to rule out a stroke * get MRI brain * order 2D echo * PO aspirin 81mg daily. High intensity statin * check A1C and lipid profile. * PT/OT consult * consult vascular surgery. * consult teleneurology. * * #High-grade bilateral carotid stenosis * CTA head and neck as above, showing high-grade stenosis of the origin of the left and right internal carotid arteries, more prominent on the right side. * On high intensity statin and aspirin. Consult vascular surgery. * #Hyperlipidemia: on statin and ezetimibe. #Hypertension: on ramipiril and HCTZ. Hold to allow for permissive hypertension. #Type 2 diabetes mellitus: hold metformin and ozempic. ISS. Accuchecks ACHS #BPH: S/p TURP. On flomax. DVT prophylaxis: SCDs Code status: full code * Patient and counseled extensively about different types of CODE STATUS including full code, DNR CCA and DNR CCA. * Patient elects to be full code. * Total [id number] time 16 minutes. Medications at Discharge Home Medications atorvastatin 80 mg tablet 80 mg PO QHS CHOLESTEROL LOWERING 09/24/15 hydrochlorothiazide 25 mg tablet 12.5 mg PO DAILY WATER PILL, BLOOD PRESSUR 09/24/15 metformin 750 mg tablet,extended release 24 hr 750 mg PO QHS BLOOD SUGAR 09/24/17 pyridoxine (vitamin B6) 100 mg tablet 100 mg PO DAILY SUPPLEMENT 09/24/17 empagliflozin 25 mg tablet 1 tab PO DAILY 02/01/20 aspirin 81 mg tablet,delayed release (Adult Aspirin Regimen) 81 mg PO DAILY 04/19/20 ramipril 10 mg capsule 10 mg PO BID BLOOD PRESSURE 04/19/20 ezetimibe 10 mg tablet 10 mg PO DAILY 11/18/23 garlic 500 mg capsule 500 mg PO DAILY 11/18/23 semaglutide 1 mg/dose (4 mg/3 mL) subcutaneous pen injector (Ozempic) 1 mg subcut MARTÍNEZ 11/18/23 acetaminophen 500 mg tablet (Tylenol Extra Strength) 500 mg PO Q6H PRN pain 01/09/24 docusate sodium 100 mg capsule (Colace) 100 mg PO BID #20 caps 02/13/24 finasteride 5 mg tablet 5 mg PO QHS 03/31/24 oxybutynin chloride 10 mg tablet,extended release 24 hr 10 mg PO DAILY 03/31/24 tamsulosin 0.4 mg capsule mg PO DAILY 03/31/24 clopidogrel 75 mg tablet 75 mg PO DAILY #30 tabs 04/01/24 oseltamivir 75 mg capsule 75 mg PO BID #8 caps 04/01/24 Hospital Course Operations None Procedures 2-D Echocardiogram Summary of Care Provided Minutes Spent on Discharge: 47 Hospital Course: ANILA ROBLEDO, is a 78 M with a PMH as outlined who was admitted via the ED with a complaint of lightheadedness and near syncope. His last known well was ~ 3am on hte morning of admission. He subsequently developed left facial weakness and right leg weakness when he woke up ~ 6:30am on the day of admission. He woke up and went to the bathroom and and all he remembers is waking up on the bathroom floor. He realised he had some left facial weakness and right lower extremity weakness. His symptoms had resolved by the time he got here. He denied any lightheadedness, dizziness, nausea, vomiting, numbness or tingling or any other symptoms. Review of systems is otherwise negative. Vitals in the ED were BP of 124/66, WV of 64, RR of 19 and oxygen sats of 100% on room air. CBC was largely unremarkable, and Chemistry showed sodium of 134, potassium of 3.5 and bicarb of 19; Cr was 1.47 and initial troponin was 18. CT of the brain showed no acute intracranial pathology and age related changes. CTA head and neck showed high grade stenosis >70% at the origins of both the right and left internal carotid arteries more prominent on the right side. He is being admitted to be managed for stroke like symptoms to rule out a stroke. MRI of the brain done was negative. He was placed on p.o. aspirin and high intensity statin. He had 2D echo which showed EF of 70% with no evidence of diastolic dysfunction and no regional wall motion abnormalities noted. He had a bioprosthetic aortic valve in place. Vascular surgery was consulted due to the bilateral high-grade stenosis. He had a carotid ultrasound which showed mild less than 50% stenosis bilaterally of the right and left extracranial carotid arteries. Per vascular surgery recommendations he was started on p.o. Plavix 75 mg daily as well. Patient felt better and he did work with physical therapy and did well. Of note he did test positive for influenza with results been communicated to us from his PCPs office. He was therefore started on oseltamivir. He was discharged home on 04/01/2024 with a prescription for p.o. aspirin and Plavix as well as a 4-day course of p.o. Tamiflu to complete a 5-day course. Patient seen and examined prior to discharge. He had no active complaints and felt much better. Review of symptoms otherwise negative. Labs and vitals reviewed. Home medication reviewed and reconciled. Physical Exam Const alert, oriented x3 and no apparent distress General Appearance: cooperative and comfortable Orientation / Consciousness: awake HEENT normocephalic, head/scalp atraumatic, hearing grossly normal bilaterally and moist oral mucous membranes Mouth: oral and palatal mucosa normal Eyes PERRL, EOMs intact bilaterally and conjunctivae normal Neck no lymphadenopathy and supple Resp normal respiratory effort, no retractions, no use of accessory muscles and clear to auscultation bilaterally Cardio regular rate, regular rhythm, S1 normal heart sound, S2 normal heart sound and no murmurs GI normal to inspection, nondistended, normoactive bowel sounds, soft to palpation, non-tender and non-distended Extremity normal to inspection, full ROM and no clubbing, cyanosis or edema Skin no rashes or lesions noted Neuro oriented x3, CN's II-XII intact bilaterally, moves all extremities and no focal motor deficits Neuro Narrative: no focal weakness. Sensorium / Orientation: awake and alert Speech: speech normal Motor Exam: strength 5/5 throughout Psych affect normal Weight / BMI Weight Weight: 205 lb 7.533 oz Body Mass Index (BMI) 31.6 ABG / Lab / Microbiology Data 04/01/24 03:56 04/01/24 03:56 Laboratory: Laboratory Results - last 24 hr 04/01/24 03:56: WBC 5.6, RBC 4.66, Hgb 14.2, Hct 40.9, MCV 87.8, MCH 30.5, MCHC 34.7, RDW Std Deviation 46.0 H, RDW Coeff of Mateo 14.3, Plt Count 157, MPV 10.5, Immature Gran % (Auto) 0.500, Neut % (Auto) 51.4, Lymph % (Auto) 29.9, [place] % (Auto) 17.4 H, Eos % (Auto) 0.4, Baso % (Auto) 0.4, Absolute Neuts (auto) 2.9, Absolute Lymphs (auto) 1.67, Nucleated RBC % 0, Sodium 132 L, Potassium 3.1 L, Chloride 101, Carbon Dioxide 21.0, Anion Gap 10, BUN 31 H, Creatinine 1.30, Estim Creat Clear Calc 55.50, Est GFR (MDRD) Af Amer 69, Est GFR (MDRD) Non-Af 57 L, BUN/Creatinine Ratio 23.8 H, Glucose 113 H, Calcium 9.0, Triglycerides 79, Cholesterol 142, LDL Cholesterol 90, VLDL Cholesterol 16, HDL Cholesterol 36 L Radiography Diagnostic Testing: Radiology Impression Brain MRI 03/31/24 10:32 IMPRESSION: Involutional changes of the brain, as described above. Electronically Signed: Luis Angel Santos MD at 23:20 EST Reading Location ID and State: [facility] / [place] Tel , Service support , Echocardiogram 03/31/24 10:32 Interpretation Summary The estimated ejection fraction is 70 %. No evidence for diastolic dysfunction. Trivial aortic valve insufficiency. Ordering Physician: Rosalva Altman Performed By: Enrique Johnson RCS D/C Instructions Discharge Diet: Low fat / Low cholesterol Discharge Activity: Return to Normal Activity Weight Bearing Status: Weight bearing as tolerated Call your doctor if you observe: Fever of 101 or Higher, Shortness of breath, Dizziness, Fainting spells, Swelling in the ankles and Chest pain DC O2, CPAP, BIPAP Needs Home O2 Discharge instructions: No Meaningful Use Info Meaningful Use Meaningful Use Diagnoses (Choose all that apply): None applicable Ischemic Stroke Statin Dosing Therapy Reference: STATIN DOSE THERAPY REFERENCE: * Patients > 75 years receive moderate or high dose statin therapy. * Patients 75 years or YOUNGER should receive HIGH intensity statin dose unless contraindicated. You will be required to document reason for non-treatment if statin daily dose does not meet guidelines. HIGH DOSE STATIN THERAPY DAILY Atorvastatin > than or = to 40 mg Rosuvastatin > than or = to 20 mg Amlodipine + Atorvastatin > than or = to 2.5/40 mg Ezetimibe + Simvastatin 10/80 mg Simvastatin 80mg Discharge Plan Admission Admit Date/Time: 03/31/24 09:26 Primary Reason for Your Visit: STROKE LIKE SYMPTOMS, CAROTID STENOSIS Attending Provider: Rosalva Altman Primary Care Provider: Puma Yi Consulting Providers: Jozef Kc; Eduar Cao; Meghann Benitez; Natalie Tan; Karlene Almonte; Kingsley Tuttle; Jessy Akhtar; Fermin Tripp; Ervin Jiang; Brendon Rojas; Marci Evans; Preet Chen; Jaycee Dixon; Kerri Dumont; Shani Markhamt; Iam Pyle; Xenia Cunningham; Piero Vieira; Earlene Wilkins; Arlene Tucker; Asif Buckner Instructions Patient Instructions: Carotid Artery Disease Discharge Orders/Prescriptions Prescriptions: New oseltamivir 75 mg Capsule 75 mg PO BID Qty: 8 0RF clopidogrel 75 mg tablet 75 mg PO DAILY Qty: 30 2RF Continued empagliflozin 25 mg tablet 1 tab PO DAILY aspirin [Adult Aspirin Regimen] 81 mg tablet,delayed release (DR/EC) 81 mg PO DAILY acetaminophen [Tylenol Extra Strength] 500 mg tablet 500 mg PO Q6H PRN (Reason: pain) atorvastatin 80 MG tablet 80 mg PO QHS hydrochlorothiazide 25 MG tablet 12.5 mg PO DAILY ramipril 10 mg capsule 10 mg PO BID pyridoxine (vitamin B6) 100 MG tablet 100 mg PO DAILY metformin 750 MG tablet extended release 24 hr 750 mg PO QHS docusate sodium [Colace] 100 mg capsule 100 mg PO BID Qty: 20 0RF garlic 500 mg capsule 500 mg PO DAILY ezetimibe 10 mg tablet 10 mg PO DAILY Ozempic 1 mg/dose (4 mg/3 mL) pen injector 1 mg subcut MARTÍNEZ oxybutynin chloride 10 mg tablet extended release 24hr 10 mg PO DAILY tamsulosin 0.4 mg capsule PO DAILY finasteride 5 mg tablet 5 mg PO QHS Discontinued doxycycline hyclate 100 mg capsule 100 mg PO Q12H Referrals / Follow Up: Puma Yi MD [Primary Care Provider] - Within 1 Week Asif Buckner MD [Med Staff - Active Staff] - Within 2 Weeks Disposition Disposition (needs filled in before D/C Order can be placed): Home, Self Care Charges/Coding Visit Charges Inpatient E&M: 98140 Disch Hosp >30min
--- NOTE | 2024-04-01 11:50 | CASEMGMT ---
RED CARROLL NOTE: Discharge order is in. 2 Rx's have been sent to [facility] retail pharmacy, tamiflu and plavix. RED CM to room. Pt sitting up in chair, @ bedside. Introduced self and role. Pt and aware of Rx's @ the pharmacy, states they will get @ the drive-thru. Pt lives w/his in 1-story home w/2 steps to enter. Pt is independent. He has a functioning glucometer w/sufficient supplies and all needed routine medications. He has other DME available, but does not use. His PCP is Dr Yi and they are aware he is to f/u with PCP in 1 week. They are also aware pt to f/u with Dr Buckner in 2 wks. Both pt and drive. Pt and deny having any further discharge needs/concerns/questions. Nico BURCIAGAN RN CM
--- NOTE | 2024-04-01 11:55 | CASEMGMT ---
Met with patient to complete VERDIN form. VERDIN form explained to patient who voiced understanding and signed form. Original form placed in pt?s chart and copy provided to patient. Yamini Sanders, Discharge Planning Asst
[2024-04-01 12:17] VITALS: BP 132/76; PULSE 89; RESP 19; O2SAT 97
[2024-04-01 12:21] VITALS: BMI 31.6
--- NOTE | 2024-04-01 12:21 | CON.PCM.NE_ITS ---
Assessment and Plan: Stroke Assessment/Plan Logged on to assess patient and get history and make recommendations but was told patient is being dcd and consult was cancelled, so patient was not seen. HPI Consult Data Date of Consult: 04/01/24 [facility] Medical History Trigger finger, right middle finger Wears dentures Wears glasses Diabetes Arthritis Non-smoker History of echocardiogram Hypertension Cardiology follow-up encounter 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) BPH (benign prostatic hyperplasia) GERD (gastroesophageal reflux disease) Non-rheumatic aortic stenosis Positive Helicobacter pylori test (05/13/18) Essential hypertension HLD (hyperlipidemia) Home Medications ?Medication ?Instructions ?Recorded ?Last Taken ?Type atorvastatin 80 mg tablet 80 mg PO QHS CHOLESTEROL LOWERING 09/24/15 02/12/24 History hydrochlorothiazide 25 mg tablet 12.5 mg PO DAILY WATER PILL, BLOOD 09/24/15 02/12/24 History PRESSUR metformin 750 mg tablet,extended 750 mg PO QHS BLOOD SUGAR 09/24/17 02/12/24 History release 24 hr pyridoxine (vitamin B6) 100 mg 100 mg PO DAILY SUPPLEMENT 09/24/17 02/12/24 History tablet empagliflozin 25 mg tablet 1 tab PO DAILY 02/01/20 02/12/24 History aspirin 81 mg tablet,delayed 81 mg PO DAILY 04/19/20 02/02/24 History release (Adult Aspirin Regimen) ramipril 10 mg capsule 10 mg PO BID BLOOD PRESSURE 04/19/20 02/13/24 History ezetimibe 10 mg tablet 10 mg PO DAILY 11/18/23 02/12/24 History garlic 500 mg capsule 500 mg PO DAILY 11/18/23 02/12/24 History semaglutide 1 mg/dose (4 mg/3 mL) 1 mg subcut MARTÍNEZ 11/18/23 01/25/24 History subcutaneous pen injector (Ozempic) acetaminophen 500 mg tablet 500 mg PO Q6H PRN pain 01/09/24 Unknown History (Tylenol Extra Strength) docusate sodium 100 mg capsule 100 mg PO BID #20 caps 02/13/24 Unknown Rx (Colace) finasteride 5 mg tablet 5 mg PO QHS 03/31/24 03/30/24 History oxybutynin chloride 10 mg 10 mg PO DAILY 03/31/24 Unknown History tablet,extended release 24 hr tamsulosin 0.4 mg capsule mg PO DAILY 03/31/24 Unknown History clopidogrel 75 mg tablet 75 mg PO DAILY #30 tabs 04/01/24 Unknown Rx oseltamivir 75 mg capsule 75 mg PO BID #8 caps 04/01/24 Unknown Rx Allergy/AdvReac Type Severity Reaction Status Date / Time Penicillins (PCN) Allergy Mild hives Verified 02/13/24 08:07 nitroglycerin AdvReac Mild LOC Verified 02/13/24 08:07 Family History Mother Breast cancer Liver disease Father , Age 41 Myocardial infarction Heart disease Sister Cancer Breast cancer Brother CAD (coronary artery disease) CABG Heart disease Surgical History S/P trigger finger release History of left heart catheterization (03/13/20) History of esophagogastroduodenoscopy (EGD) (05/13/18) History of bilateral knee replacement History of colonoscopy (2016) Sleep apnea Social History Smoking Status: Never smoker alcohol intake: current alcohol intake frequency: holidays/special occasions only substance use type: does not use caffeine: No Vital Signs Vital Signs Vital Signs: 03/31/24 13:15 03/31/24 14:00 03/31/24 16:00 Temperature 98.5 F Temperature Source Temporal Pulse Rate 82 75 Respiratory Rate 19 H Respiratory Effort Respiratory Depth Respiratory Pattern Blood Pressure 124/75 H Blood Pressure Mean 91 Blood Pressure Source Monitor Blood Pressure Position Semi-Fowlers Blood Pressure Location Right Arm Pulse Ox 100 100 Oxygen Delivery Method Room Air Room Air Oxygen Flow Rate (L/min) 03/31/24 18:00 03/31/24 22:00 03/31/24 22:00 Temperature 98.8 F 98.2 F Temperature Source Temporal Temporal Pulse Rate 82 81 Respiratory Rate 18 20 H Respiratory Effort Normal Non-Labored Respiratory Depth Normal Respiratory Pattern Normal Blood Pressure 101/64 118/60 Blood Pressure Mean 76 79 Blood Pressure Source Monitor Monitor Blood Pressure Position Semi-Fowlers Semi-Fowlers Blood Pressure Location Left Arm Left Arm Pulse Ox 98 97 Oxygen Delivery Method Room Air Room Air Oxygen Flow Rate (L/min) 04/01/24 02:00 04/01/24 06:00 04/01/24 07:53 Temperature 98.2 F 98 F Temperature Source Temporal Temporal Pulse Rate 77 69 Respiratory Rate 21 H 18 Respiratory Effort Respiratory Depth Respiratory Pattern Blood Pressure 97/62 95/67 Blood Pressure Mean 73 76 Blood Pressure Source Monitor Monitor Blood Pressure Position Semi-Fowlers Semi-Fowlers Blood Pressure Location Left Arm Left Arm Pulse Ox 98 90 96 Oxygen Delivery Method Nasal Cannula Nasal Cannula Nasal Cannula Oxygen Flow Rate (L/min) 2 2 2 04/01/24 08:39 04/01/24 12:17 Temperature 97.4 F L Temperature Source Temporal Pulse Rate 68 89 Respiratory Rate 16 19 H Respiratory Effort Respiratory Depth Respiratory Pattern Blood Pressure 102/56 L 132/76 H Blood Pressure Mean 71 94 Blood Pressure Source Monitor Monitor Blood Pressure Position Semi-Fowlers Sitting Blood Pressure Location Left Arm Right Arm Pulse Ox 100 97 Oxygen Delivery Method Room Air Room Air Oxygen Flow Rate (L/min) Weight Weight: 93.2 kg Body Mass Index (BMI) 31.6 EEG Results Procedure Details EEG Procedure Details: ANILA ROBLEDO is a 78 year old M with a past medical history of , who presents for evaluation of Electroencephalogram on DATE at TIME NIHSS NIHSS Nursing Documentation NIHSS Nursing Documentation: NIHSS: Ischemic Stroke/TIA Start: 03/31/24 10:32 Text: For PCU Patients: NIH and Neuro Check every 4 Status: Active hours, PRN and with change in RN caregiver. Freq: [id number] Protocol: Activity Type Activity Date Activity User E-sign Co-sign Detail Recorded Client Recorded Date Recorded By Document 04/01/24 09:15 [id number] 04/01/24 09:15 04/01/24 09:15 NIH Stroke Scale [NIHSS] A score of 0 is normal or asymptomatic . Total possible score is 42. Inpatient: RN or Physician to activate a stroke alert for onset of new stroke symptoms or with NIHSS increase >/= 3 points. Following change in neurological status, NIHSS will be performed per physician order or more frequently PRN. -1a. Level of Consciousness Alert; keenly responsive -1b. LOC Questions Answers BOTH questions correctly. -1c. LOC Commands Performs both tasks correctly . -2. Best Gaze Normal -3. Visual No visual loss -4. Facial Palsy Minor paralysis (flattened nasolabial fold , asymmetry on smiling) -5a. Left Arm No drift; arm holds 90 (or 45 ) degrees for full 10 seconds -5b. Right Arm No drift; arm holds 90 (or 45 ) degrees for full 10 seconds -6a. Left Leg No drift; leg holds 30-degree position for full 5 seconds -6b. Right Leg No drift; leg holds 30-degree position for full 5 seconds -7. Limb Ataxia Absent -8. Sensory Normal; no sensory loss -9. Best Language No aphasia; normal -10. Dysarthria Normal -11. Extinction and Inattention No abnormality -Total 1 Query Text:A score of 0 is normal or asymptomatic. Total possible score is 42 . ED: Notify Physician for NIHSS increase by > / = 3 points. Inpatient: RN or Physician to activate a stroke alert for NIHSS increase of > / = 3 points. Lab / Micro Data 04/01/24 03:56 04/01/24 03:56 Labs: Laboratory Results - last 24 hr 04/01/24 03:56: WBC 5.6, RBC 4.66, Hgb 14.2, Hct 40.9, MCV 87.8, MCH 30.5, MCHC 34.7, RDW Std Deviation 46.0 H, RDW Coeff of Mateo 14.3, Plt Count 157, MPV 10.5, Immature Gran % (Auto) 0.500, Neut % (Auto) 51.4, Lymph % (Auto) 29.9, [place] % (Auto) 17.4 H, Eos % (Auto) 0.4, Baso % (Auto) 0.4, Absolute Neuts (auto) 2.9, Absolute Lymphs (auto) 1.67, Nucleated RBC % 0, Sodium 132 L, Potassium 3.1 L, Chloride 101, Carbon Dioxide 21.0, Anion Gap 10, BUN 31 H, Creatinine 1.30, Estim Creat Clear Calc 55.50, Est GFR (MDRD) Af Amer 69, Est GFR (MDRD) Non-Af 57 L, BUN/Creatinine Ratio 23.8 H, Glucose 113 H, Calcium 9.0, Triglycerides 79, Cholesterol 142, LDL Cholesterol 90, VLDL Cholesterol 16, HDL Cholesterol 36 L Imaging Radiology Impression Brain MRI 03/31/24 10:32 IMPRESSION: Involutional changes of the brain, as described above. Electronically Signed: Luis Agnel Santos MD at 23:20 EST Reading Location ID and State: [id number] [facility] [place] Tel , Service support , Echocardiogram 03/31/24 10:32 Interpretation Summary The estimated ejection fraction is 70 %. No evidence for diastolic dysfunction. Trivial aortic valve insufficiency. Ordering Physician: Rosalva Altman Performed By: Enrique Johnson RCS Active Medications Active Medications Active Medications: Current Medications Generic Name Dose Route Start Last Admin Trade Name Freq PRN Reason Stop Dose Admin Acetaminophen 500 mg 03/31/24 10:32 Acetaminophen 500 Mg Tablet PO Q6H PRN PRN Pain Score 1-10 Aspirin 81 mg 04/01/24 08:00 04/01/24 08:41 Aspirin E.C. 81 Mg Tablet PO 81 mg BREAKFAST JANES Administration Atorvastatin Calcium 80 mg 03/31/24 22:00 04/01/24 08:41 Atorvastatin Calcium 80 Mg Tablet PO 80 mg QHS JANES Administration Ezetimibe 10 mg 03/31/24 11:00 04/01/24 08:40 Ezetimibe 10 Mg Tablet PO 10 mg DAILY JANES Administration Empagliflozin 25 mg 03/31/24 11:00 04/01/24 08:40 Empagliflozin 25 Mg Tablet PO 25 mg DAILY JANES Administration Finasteride 5 mg 03/31/24 22:00 03/31/24 22:19 Finasteride 5 Mg Tablet PO 5 mg QHS JANES Administration Guaifenesin 1,200 mg 03/31/24 13:40 04/01/24 08:40 Guaifenesin 1,200 Mg Tablet PO 1,200 mg BID JANES Administration Sodium Chloride 100 mls @ 15 mls/hr 03/31/24 10:53 IV .Q6H40M PRN Saline Flush Sodium Chloride 100 mls @ 15 mls/hr 03/31/24 10:53 IV .Q6H40M PRN Additional IVPB Infusion Nitroglycerin 0.4 mg 03/31/24 10:32 Nitroglycerin (Inpatient Use) 0.4 Mg Tab.Subl SL Q5M PRN CARDIAC/CHEST PAIN Ondansetron HCl 4 mg 03/31/24 10:32 Ondansetron 4 Mg/2 Ml Vial IV Q8H PRN PRN NAUSEA/VOMITING Oseltamivir Phosphate 75 mg 03/31/24 16:50 04/01/24 08:44 Oseltamivir Phosphate 75 Mg Capsule PO 04/05/24 10:01 75 mg BID JANES Administration Oxycodone HCl 5 mg 03/31/24 10:32 Oxycodone 5 Mg Tablet PO Q6H PRN PRN Pain Score 1-10 Pyridoxine HCl 100 mg 03/31/24 11:00 04/01/24 08:41 Pyridoxine Hcl 100 Mg Tablet PO 100 mg DAILY JANES Administration Sodium Chloride 10 - 40 ml 03/31/24 10:53 0.9% Saline Lock 10 Ml Syringe IV UD PRN SALINE FLUSH Throat Lozenges 1 lozenge 03/31/24 16:53 04/01/24 10:48 Benzocaine/Menthol 1 Lozenge MUCOUS MEM 1 lozenge Q2H PRN PRN Administration SORE THROAT
== END 2024-04-01 13:00 | disposition home or self-care (01) ==
LOC: ED 09:31 → ICU 09:53
PROVIDERS: Admitting Provider Student in an Organized Health Care Education/Training Program; Emergency Provider Emergency Medicine; PCP Family Medicine; Visit Provider Student in an Organized Health Care Education/Training Program
DX: I65.23 Occlusion and stenosis of bilateral carotid arteries (principal); E11.9 Type 2 diabetes mellitus without complications; R29.810 Facial weakness; R29.898 Other symptoms and signs involving the musculoskeletal system; Z79.84 Long term (current) use of oral hypoglycemic drugs; R42 Dizziness and giddiness; N40.0 Benign prostatic hyperplasia without lower urinary tract symptoms; E78.5 Hyperlipidemia, unspecified; I10 Essential (primary) hypertension; Z95.3 Presence of xenogenic heart valve; Z79.82 Long term (current) use of aspirin; Z79.899 Other long term (current) drug therapy; R55 Syncope and collapse
CPT/HCPCS: 36415; 70450; 70496; 70498; 70551; 71045; 80048; 80061; 83036; 84484; 85025; 85610; 85730; 93005; 93306; 93880; 97162; 97166; 99221; 99285; Q9957; Q9967; A4216; C8929; G0378

== ENCOUNTER 2024-04-05 23:26 | Emergency (ER) | payer MEDICARE, OTHER, SELFPAY ==
[2023-12-24 10:32] VITALS: BMI 36.3
[2024-04-05 23:28] VITALS: BP 119/71; PULSE 96; RESP 18; TEMP 36.8; O2SAT 97; BMI 33.0
[2024-04-05 23:30] VITALS: BP 122/75; PULSE 85; RESP 18; TEMP 36.6; O2SAT 98
[2024-04-06 00:03] LABS: Bacteria 0 SEEN /hpf (None Seen); Mucous, Urine 0 SEEN /hpf (<or=2+); Squamous Epithelial Cells - UA 0 SEEN /hpf (0-5)
[2024-04-06 00:09] LABS: Color, Urine Yellow (Yellow); Glucose, Dipstick 1000 mg/dl (Normal); Ketone-Dipstick Negative (Negative); Leukocyte Esterase-Dipstick 100 /ul (Negative); Nitrite-Dipstick Negative (Negative); Occult Blood-Urine 25 /ul (Negative); Protein-Dipstick 100 mg/dl (Negative); Specific Gravity, Urine 1.015 (1.002-1.030); Urine Bilirubin Dipstick Negative (Negative); Urine Clarity Clear (Clear); Urine Urobilinogen 1 mg/dl (Normal)
[2024-04-06 00:35] LABS: Red Blood Cells-Urine 0-5 SEEN /hpf (0-5); White Blood Cells 10-25 SEEN /hpf (0-5)
--- NOTE | 2024-04-06 00:57 | EDS_ITS ---
HPI History of Present Illness Chief Complaint: Complaint Informant: patient and spouse/S.O. Narrative Narrative: Patient is a 78-year-old male with past medical history of hypertension hyperlipidemia diabetes and BPH. He states that he has difficulty with uri nation secondary to his BPH and has had recurrent infections. He states that around 6 or 7:00 this evening he noticed he was having increased urinary frequency. He states he felt he was not emptying his bladder and there is pain/discomfort when trying to do so. 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) BPH (benign prostatic hyperplasia) GERD (gastroesophageal reflux disease) Non-rheumatic aortic stenosis Positive Helicobacter pylori test (05/13/18) Essential hypertension HLD (hyperlipidemia) Home Medications ?Medication ?Instructions ?Recorded ?Last Taken ?Type atorvastatin 80 mg tablet 80 mg PO QHS CHOLESTEROL LOWERING 09/24/15 02/12/24 History hydrochlorothiazide 25 mg tablet 12.5 mg PO DAILY WATER PILL, BLOOD 09/24/15 02/12/24 History PRESSUR metformin 750 mg tablet,extended 750 mg PO QHS BLOOD SUGAR 09/24/17 02/12/24 History release 24 hr pyridoxine (vitamin B6) 100 mg 100 mg PO DAILY SUPPLEMENT 09/24/17 02/12/24 History tablet empagliflozin 25 mg tablet 1 tab PO DAILY 02/01/20 02/12/24 History aspirin 81 mg tablet,delayed 81 mg PO DAILY 04/19/20 02/02/24 History release (Adult Aspirin Regimen) ramipril 10 mg capsule 10 mg PO BID BLOOD PRESSURE 04/19/20 02/13/24 History ezetimibe 10 mg tablet 10 mg PO DAILY 11/18/23 02/12/24 History garlic 500 mg capsule 500 mg PO DAILY 11/18/23 02/12/24 History semaglutide 1 mg/dose (4 mg/3 mL) 1 mg subcut MARTÍNEZ 11/18/23 01/25/24 History subcutaneous pen injector (Ozempic) acetaminophen 500 mg tablet 500 mg PO Q6H PRN pain 01/09/24 Unknown History (Tylenol Extra Strength) docusate sodium 100 mg capsule 100 mg PO BID #20 caps 02/13/24 Unknown Rx (Colace) finasteride 5 mg tablet 5 mg PO QHS 03/31/24 03/30/24 History oxybutynin chloride 10 mg 10 mg PO DAILY 03/31/24 Unknown History tablet,extended release 24 hr tamsulosin 0.4 mg capsule mg PO DAILY 03/31/24 Unknown History clopidogrel 75 mg tablet 75 mg PO DAILY #30 tabs 04/01/24 Unknown Rx oseltamivir 75 mg capsule 75 mg PO BID #8 caps 04/01/24 Unknown Rx cephalexin 500 mg capsule 500 mg PO TID 7 days #21 caps 04/06/24 Unknown Rx Allergy/AdvReac Type Severity Reaction Status Date / Time Penicillins (PCN) Allergy Mild hives Verified 04/05/24 23:30 nitroglycerin AdvReac Mild LOC Verified 04/05/24 23:30 Family History Mother Breast cancer Liver disease Father , Age 41 Myocardial infarction Heart disease Sister Cancer Breast cancer Brother CAD (coronary artery disease) CABG Heart disease Surgical History S/P trigger finger release History of left heart catheterization (03/13/20) History of esophagogastroduodenoscopy (EGD) (05/13/18) History of bilateral knee replacement History of colonoscopy (2016) Sleep apnea Social History Smoking Status: Never smoker alcohol intake: current alcohol intake frequency: holidays/special occasions only substance use type: does not use caffeine: No ROS ROS ED Constitutional Constitutional ED: Denies chills or fever(s) ENT ENT ED: Denies sore throat Cardiovascular Cardiovascular: Denies chest pain Respiratory/Chest Respiratory/Chest: Denies cough or dyspnea Gastrointestinal Gastrointestinal: Denies abdominal pain, diarrhea, nausea or vomiting Genitourinary Genitourinary ED: Reports dysuria and urinary frequency; Denies hematuria Musculoskeletal Musculoskeletal: Denies back pain Integumentary Denies rash Neurologic Neurologic: Denies headache(s) Hematologic/Lymphatic Hematologic/Lymphatic: Denies easy bleeding or easy bruising EXAM Physical Exam Const Vital Signs: 04/05/24 23:28 04/05/24 23:30 04/06/24 01:02 Temperature 98.3 F 97.9 F 97.9 F Temperature Source Oral Oral Pulse Rate 96 85 67 Respiratory Rate 18 18 16 Blood Pressure 119/71 122/75 H 145/71 H Blood Pressure Mean 87 90 95 Pulse Ox 97 98 96 Oxygen Delivery Method Room Air Room Air Positive well nourished, well developed and obese General Appearance ED: well developed; Negative for pallor Nutritional Appearance: obese HEENT HEENT Narrative: Normocephalic atraumatic Eyes PERRL and EOMs intact bilaterally General Eye ED: Negative for scleral icterus Neck supple Neck Narrative: No nuchal rigidity or meningeal sign Resp normal respiratory effort and clear to auscultation bilaterally Cardio regular rate and regular rhythm Rate: other Other Details: Radial and carotid pulses are equal and symmetric GI non-distended and no masses GI Narrative: There is faint pain with palpation in the suprapubic region but no organomegaly to suggest urinary retention No pulsatile mass or fluid wave Auscultation: normoactive bowel sounds Palpation: soft Back/Spine no CVA tenderness Extremity normal to inspection Neuro oriented x3, CN's II-XII intact bilaterally and no sensory deficits noted Sensorium / Orientation: alert Motor Exam: strength 5/5 throughout Psych mental status grossly normal Skin no rashes or lesions noted and no wounds General Skin Exam: Negative for jaundice or pallor MDM MDM MDM Narrative Medical decision making narrative: Patient arrived to the ER with stable vitals. He has a history of BPH and reportedly recurrent infections. There is concern for UTI versus prostatitis versus urinary retention versus atypical presentation for kidney stone versus urosepsis. As vitals are stable I have low concern for urosepsis do not feel the need for blood work. A urine sample was obtained which shows no blood going against kidney stone. Patient's urine sample does not show bacteria but there is 10-25 white cells without contamination. The patient has only had symptoms for a few hours and states it feels similar nature to his previous history of UTIs and his glucose level in his urine is high secondary to his diabetes which does place him at risk for recurrent infection. Therefore this time he does not have blood to suggest kidney stone he does not have vital sign changes to suggest urosepsis and even though the urine does not show any bacteria based on his history of recurrent infections and diabetic status with elevated glucose in the urine the urine will be sent for culture and I will start him on antibiotics and have high concern that this is early infection. Plan of care was discussed with the patient and he is agreeable to it History & Record Review Discussion w/independent historian: Patient and Significant other Lab Data Attestation: I reviewed the patient's lab results. Labs: Laboratory Results - last 24 hr 04/05/24 23:47 Urine Color Yellow Urine Clarity Clear Urine pH 5.0 Ur Specific [place] 1.015 Urine Protein 100 H Urine Glucose (UA) 1000 H Urine Ketones Negative Urine Occult Blood 25 H Urine Nitrite Negative Urine Bilirubin Negative Urine Urobilinogen 1 H Ur Leukocyte Esterase 100 H Urine RBC 0-5 SEEN Urine WBC 10-25 SEEN Ur Squamous Epith Cells 0 SEEN Urine Bacteria 0 SEEN Urine Mucus 0 SEEN Discharge Plan Triage Chief Complaint: Complaint ED Provider: Geoffrey Ramirez Dx/Rx/DC Orders Clinical Impression: Dysuria, Essential hypertension, BPH (benign prostatic hyperplasia), HLD (hyperlipidemia), Non-insulin dependent diabetes mellitus Instructions: Dysuria, ED Urinary Tract Infections in Men Prescriptions: New cephalexin 500 mg capsule 500 mg PO TID 7 Days Qty: 21 0RF No Action empagliflozin 25 mg tablet 1 tab PO DAILY aspirin [Adult Aspirin Regimen] 81 mg tablet,delayed release (DR/EC) 81 mg PO DAILY acetaminophen [Tylenol Extra Strength] 500 mg tablet 500 mg PO Q6H PRN (Reason: pain) atorvastatin 80 MG tablet 80 mg PO QHS hydrochlorothiazide 25 MG tablet 12.5 mg PO DAILY ramipril 10 mg capsule 10 mg PO BID pyridoxine (vitamin B6) 100 MG tablet 100 mg PO DAILY metformin 750 MG tablet extended release 24 hr 750 mg PO QHS docusate sodium [Colace] 100 mg capsule 100 mg PO BID Qty: 20 0RF garlic 500 mg capsule 500 mg PO DAILY ezetimibe 10 mg tablet 10 mg PO DAILY Ozempic 1 mg/dose (4 mg/3 mL) pen injector 1 mg subcut MARTÍNEZ oxybutynin chloride 10 mg tablet extended release 24hr 10 mg PO DAILY tamsulosin 0.4 mg capsule PO DAILY finasteride 5 mg tablet 5 mg PO QHS oseltamivir 75 mg Capsule 75 mg PO BID Qty: 8 0RF clopidogrel 75 mg tablet 75 mg PO DAILY Qty: 30 2RF Primary Care Provider: Puma Yi Referrals: Puma Yi MD [Primary Care Provider] - Melvin Nation MD [Med Staff - Active Staff] - Activity Restrictions/Additional Instructions: Please follow-up with your urologist for repeat evaluation and if you have worsening symptoms despite taking the antibiotic that was prescribed please return to the ER for repeat evaluation Print Language: Yemeni Disposition Disposition: Home, Self Care Discharge Date/Time: 04/06/24 01:42
[2024-04-06 01:02] VITALS: BP 145/71; PULSE 67; RESP 16; TEMP 36.6; O2SAT 96
[2024-04-06] MEDS: Ceftriaxone 500 MG Vial IM (01:23)
== END 2024-04-06 01:42 | disposition home or self-care (01) ==
PROVIDERS: Emergency Provider Emergency Medicine; PCP Family Medicine; Visit Provider Emergency Medicine
DX: R30.0 Dysuria (principal); E11.9 Type 2 diabetes mellitus without complications; N40.0 Benign prostatic hyperplasia without lower urinary tract symptoms; I10 Essential (primary) hypertension; E78.5 Hyperlipidemia, unspecified; E66.9 Obesity, unspecified; Z79.82 Long term (current) use of aspirin; Z79.899 Other long term (current) drug therapy; Z79.84 Long term (current) use of oral hypoglycemic drugs
CPT/HCPCS: 81001; 87086; 96372; 99282

== ENCOUNTER → 2024-04-09 | Outpatient (CLI) | payer MEDICARE, OTHER, SELFPAY ==
[2023-12-24 10:32] VITALS: BMI 36.3
--- NOTE | 2024-04-09 10:26 | RAD_ITS ---
PROCEDURE: HAND MIN 3 VIEWS REASON FOR EXAM: Contracture TECHNIQUE: 3 views of the left hand COMPARISON: None FINDINGS: No visible fracture. No suspicious bone lesion. Moderate joint space narrowing at the PIP is and DIPs. Moderate joint space narrowing at the radiocarpal joint. Mild joint space narrowing at the carpometacarpal joint. Normal alignment. Soft tissues are unremarkable. RAD/Hand Min 3 Views IMPRESSION: [id number] degenerative changes with no evidence of fracture or dislocati on. Reading Location: [facility]
--- NOTE | 2024-04-09 10:26 | RAD_ITS ---
PROCEDURE: HAND MIN 3 VIEWS REASON FOR EXAM: Contracture TECHNIQUE: 3 views of the right hand COMPARISON: None FINDINGS: No visible fracture. No suspicious bone lesion. Moderate joint space narrowing at the PIP is and DIPs. Moderate narrowing and degenerative changes in the radiocarpal joint. Mild narrowing in the carpometacarpal joint. Normal alignment. Soft tissues are unremarkable. RAD/Hand Min 3 Views IMPRESSION: Degenerative changes with no acute fracture or dislocation in the right hand. Reading Location: [facility]
== END | disposition home or self-care (01) ==
LOC: MTRAD 10:25
PROVIDERS: PCP Family Medicine; Referring Provider Surgery Plastic and Reconstructive Surgery; Visit Provider Surgery Plastic and Reconstructive Surgery
DX: M24.549 Contracture, unspecified hand (principal)
CPT/HCPCS: 73130

== ENCOUNTER → 2024-04-20 | Outpatient (CLI) | payer MEDICARE, OTHER, SELFPAY ==
[2023-12-24 10:32] VITALS: BMI 36.3
== END | disposition home or self-care (01) ==
LOC: LABSPEC 15:45
PROVIDERS: PCP Family Medicine; Referring Provider Urology; Visit Provider Urology
DX: N39.0 Urinary tract infection, site not specified (principal)
CPT/HCPCS: 87077; 87086; 87088; 87186

== ENCOUNTER 2024-05-19 08:36 | Inpatient (IN) | payer MEDICARE, OTHER, SELFPAY ==
[2023-12-24 10:32] VITALS: BMI 36.3
--- NOTE | 2024-05-05 18:54 | PAT.ANESEVAL ---
Pre-Assessment Diagnosis/Proposed Procedure Planned Operative Procedure(s): CYSTO INJECT 100 UNITS BOTOX IN BLADDER Anesthesia History Anesthesia History - inventory administrator: Anesthesia History - inventory administrator Hx Hospitalization No 05/05/24 15:07 Any Problems With Anesthesia No 05/05/24 15:07 Cholinesterase deficiency No 05/05/24 15:07 You/Your Family Experience No 05/05/24 15:07 fever (hyperthermia) with Relationship Recent Exposure to Contagious No 02/13/24 08:12 Disease Does patient have nerve No 05/05/24 15:07 stimulator Patient instructed to have device shut off --Does patient have Pacemaker or ICD? When Was Last Pacemaker Check QUESTION #4 FULL TEXT: You/Your Family Experience fever (hyperthermia) with Anesthesia Last Oral Intake Last Oral intake: Last Oral Intake NPO since Meds taken in AM with sips of water? Meds patient instructed to take am of surgery PONV PONV - inventory administrator: PONV - inventory administrator Female No 05/05/24 15:07 HX of Motion Sickness No 05/05/24 15:07 HX of N/V After Surgery No 05/05/24 15:07 Non-Smoker Yes 05/05/24 15:07 Duration of Surgery greater No 05/05/24 15:07 than 60 minutes Number of Risk Factors 1 05/05/24 15:07 PONV Score Low Risk 05/05/24 15:07 Height & Weight Height & Weight: Anesthesia: Height & Weight Height 5 ft 11 in 04/09/24 09:22 Respiratory Assessment Respiratory Assessment - inventory administrator: Respiratory Tract Infection Hx - inventory administrator Hx Respiratory Tract Infection No 05/05/24 15:07 STOP Sleep Apnea STOP Sleep Apnea - inventory administrator: STOP Sleep Apnea - inventory administrator Hx Hypertension Yes: CONTROLLED WITH MED 05/05/24 15:07 Hx Sleep Apnea Yes: INSPIRE/NOT WORKING 05/05/24 15:07 CPAP No 05/05/24 15:07 BIPAP No 05/05/24 15:07 Do you snore loudly (louder than talking or can be heard Do you often feel tired/ fatigued/ sleepy during daytime? Has anyone observed you stop breathing during sleep? STOP Results Positive 05/05/24 15:07 QUESTION #5 FULL TEXT : Do you snore loudly (louder than talking or can be heard through closed doors)? Tobacco Use History Tobacco Use History - inventory administrator: Tobacco Use History - inventory administrator Tobacco Use Non-smoker 04/01/24 12:21 Smoking Status Never smoker 05/05/24 15:07 Hx Tobacco Use No 05/05/24 15:07 Years Smoking Packs Smoked per Day Smoking Cessation Date was within the last 15 years Hx Smoking Cessation Date Hx Smoking Cessation Counseling Hematologic Medial History Hematologic Hx - inventory administrator: Hematologic Medical Hx - special procedures technologist Hx of Blood Transfusion No 05/05/24 15:07 Hx of Transfusion in last 3 No 05/05/24 15:07 Months Date of Last Transfusion (if within last 3 months) Ever experience any problems No 05/05/24 15:07 with transfusion(s)? Specify any problems Hx of Preganancy in last 3 N/A 05/05/24 15:07 Months Nurse Filling Out Transfusion DSCHRIBER 05/05/24 15:07 & Questions: Date: 05/05/24 05/05/24 15:07 Time: 15:08 05/05/24 15:07 Patient unable to answer at this time (ie. 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) BPH (benign prostatic hyperplasia) GERD (gastroesophageal reflux disease) Non-rheumatic aortic stenosis Positive Helicobacter pylori test (05/13/18) Essential hypertension HLD (hyperlipidemia) Home Medications ?Medication ?Instructions ?Recorded ?Last Taken ?Type atorvastatin 80 mg tablet 80 mg PO QHS CHOLESTEROL LOWERING 09/24/15 02/12/24 History hydrochlorothiazide 25 mg tablet 12.5 mg PO DAILY WATER PILL, BLOOD 09/24/15 02/12/24 History PRESSUR metformin 750 mg tablet,extended 750 mg PO QHS BLOOD SUGAR 09/24/17 02/12/24 History release 24 hr pyridoxine (vitamin B6) 100 mg 100 mg PO DAILY SUPPLEMENT 09/24/17 02/12/24 History tablet empagliflozin 25 mg tablet 1 tab PO DAILY 02/01/20 02/12/24 History aspirin 81 mg tablet,delayed 81 mg PO DAILY 04/19/20 02/02/24 History release (Adult Aspirin Regimen) ramipril 10 mg capsule 10 mg PO BID BLOOD PRESSURE 04/19/20 02/13/24 History ezetimibe 10 mg tablet 10 mg PO DAILY 11/18/23 02/12/24 History garlic 500 mg capsule 500 mg PO DAILY 11/18/23 02/12/24 History semaglutide 1 mg/dose (4 mg/3 mL) 1 mg subcut MARTÍNEZ 11/18/23 01/25/24 History subcutaneous pen injector (Ozempic) acetaminophen 500 mg tablet 500 mg PO Q6H PRN pain 01/09/24 Unknown History (Tylenol Extra Strength) finasteride 5 mg tablet 5 mg PO QHS 03/31/24 03/30/24 History mirabegron 50 mg tablet,extended 50 mg PO DAILY 05/05/24 Unknown History release 24 hr (Myrbetriq) Allergy/AdvReac Type Severity Reaction Status Date / Time Penicillins (PCN) Allergy Mild hives Verified 05/05/24 15:00 nitroglycerin AdvReac Mild LOC Verified 05/05/24 15:00 Family History Mother Breast cancer Liver disease Father , Age 41 Myocardial infarction Heart disease Sister Cancer Breast cancer Brother CAD (coronary artery disease) CABG Heart disease Surgical History (Updated 05/05/24 @ 15:11 by Lily Lyles) Hx of transurethral resection of prostate S/P trigger finger release History of left heart catheterization (03/13/20) History of esophagogastroduodenoscopy (EGD) (05/13/18) History of bilateral knee replacement History of colonoscopy (2016) Sleep apnea Social History Smoking Status: Never smoker alcohol intake: current alcohol intake frequency: holidays/special occasions only substance use type: does not use caffeine: No Audit: Pertinent Findings HISTORY of Pertinent Findings History of Pertinent Findings: This is a patient with aortic valve disease who underwent cardiac catheterization which demonstrated minimal coronary artery disease and underwent an elective TAVR on April 10, 2020. Patient last saw his cafe assistant in August 2023 at which time he was doing well and they had recommended a repeat echocardiogram. With the results as below. Pertinent Findings EKG Perinent findings: EKG from March 2024 demonstrates normal sinus rhythm with left axis deviation Echo (EF%) pertinent findings: Echocardiogram from March 2024 demonstrates LVEF of 70% with no evidence of diastolic dysfunction, trivial aortic valve insufficiency. Additional pertinent findings: Carotid duplex ultrasound from March 2024 demonstrates mild less than 50% stenosis of both the left and right internal carotids. Patient's potassium from March 2024 is 3.1. Current Visit Impressions Current Visit Impressions: From a cardiac standpoint it appears that the patient is optimized. However the patient's potassium is 3.1 on his last blood draw. Recommendation Anesthesia Recommendation Anesthesia recommendation: F/U recommended Follow up Details BMP Recommendation: Yes BMP Rec Details: Patient should have a repeat BMP to assess his potassium level that was last recorded at 3.1 on April 01, 2024. This patient is at high risk of arrhythmias particularly with low potassium level.
[2024-05-12 09:12] LABS: Anion Gap 12 (5-15); BUN 15 mg/dL (4-19); BUN/Creat Ratio 13.7 RATIO (10-20); Calcium,Total 9.6 mg/dL (7.6-11.0); Carbon Dioxide 20.8 mmol/L (21.0-32.0); Chloride 103 mmol/L (98-108); Creatinine, Serum 1.06 mg/dL (0.70-1.20); EST Glomerular Filtration Rate 72 (>60); Glucose 138 mg/dL (70-99); Potassium 3.9 mmol/L (3.3-5.1); Sodium Level 137 mmol/L (133-145)
--- NOTE | 2024-05-13 10:42 | PAT.ANE_ITS ---
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 When Was Last Pacemaker Check QUESTION #4 FULL TEXT: You/Your Family Experience fever (hyperthermia) with Anesthesia Last Oral Intake Last Oral intake: Last Oral Intake NPO since Meds taken in AM with sips of water? Meds patient instructed to take am of surgery PONV PONV - visual merchandising coordinator: PONV - visual merchandising coordinator Female No 05/05/24 15:07 HX of Motion Sickness No 05/05/24 15:07 HX of N/V After Surgery No 05/05/24 15:07 Non-Smoker Yes 05/05/24 15:07 Duration of Surgery greater No 05/05/24 15:07 than 60 minutes Number of Risk Factors 1 05/05/24 15:07 PONV Score Low Risk 05/05/24 15:07 Height & Weight Height & Weight: Anesthesia: Height & Weight Height 5 ft 11 in 04/09/24 09:22 Respiratory Assessment Respiratory Assessment - visual merchandising coordinator: Respiratory Tract Infection Hx - visual merchandising coordinator Hx Respiratory Tract Infection No 05/05/24 15:07 STOP Sleep Apnea STOP Sleep Apnea - visual merchandising coordinator: STOP Sleep Apnea - visual merchandising coordinator Hx Hypertension Yes: CONTROLLED WITH MED 05/05/24 15:07 Hx Sleep Apnea Yes: INSPIRE/NOT WORKING 05/05/24 15:07 CPAP No 05/05/24 15:07 BIPAP No 05/05/24 15:07 Do you snore loudly (louder than talking or can be heard Do you often feel tired/ fatigued/ sleepy during daytime? Has anyone observed you stop breathing during sleep? STOP Results Positive 05/05/24 15:07 QUESTION #5 FULL TEXT : Do you snore loudly (louder than talking or can be heard through closed doors)? Tobacco Use History Tobacco Use History - visual merchandising coordinator: Tobacco Use History - visual merchandising coordinator Tobacco Use Non-smoker 04/01/24 12:21 Smoking Status Never smoker 05/05/24 15:07 Hx Tobacco Use No 05/05/24 15:07 Years Smoking Packs Smoked per Day Smoking Cessation Date was within the last 15 years Hx Smoking Cessation Date Hx Smoking Cessation Counseling Hematologic Medial History Hematologic Hx - visual merchandising coordinator: Hematologic Medical Hx - clinical documentation spec Hx of Blood Transfusion No 05/05/24 15:07 Hx of Transfusion in last 3 No 05/05/24 15:07 Months Date of Last Transfusion (if within last 3 months) Ever experience any problems No 05/05/24 15:07 with transfusion(s)? Specify any problems Hx of Preganancy in last 3 N/A 05/05/24 15:07 Months Nurse Filling Out Transfusion DSCHRIBER 05/05/24 15:07 & Questions: Date: 05/05/24 05/05/24 15:07 Time: 15:08 05/05/24 15:07 Patient unable to answer at this time (ie. 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) BPH (benign prostatic hyperplasia) GERD (gastroesophageal reflux disease) Non-rheumatic aortic stenosis Positive Helicobacter pylori test (05/13/18) Essential hypertension HLD (hyperlipidemia) Home Medications ?Medication ?Instructions ?Recorded ?Last Taken ?Type atorvastatin 80 mg tablet 80 mg PO QHS CHOLESTEROL LOW ERING 09/24/15 02/12/24 History hydrochlorothiazide 25 mg tablet 12.5 mg PO DAILY WATE R PILL, BLOOD 09/24/15 02/12/24 History PRESSUR metformin 750 mg tablet,extended 750 mg PO QHS BLOOD S UGAR 09/24/17 02/12/24 History release 24 hr pyridoxine (vitamin B6) 100 mg 100 mg PO DAILY SUPPLEM ENT 09/24/17 02/12/24 History tablet empagliflozin 25 mg tablet 1 tab PO DAILY 02/01/2007/31 History aspirin 81 mg tablet,delayed 81 mg PO DAILY 04/19/20 1 04/03/23 History release (Adult Aspirin Regimen) ramipril 10 mg capsule 10 mg PO BID BLOOD PRESSURE 04/19/20 02/13/24 History ezetimibe 10 mg tablet 10 mg PO DAILY 11/18/2307/31 History garlic 500 mg capsule 500 mg PO DAILY 11/18/2307/31 History semaglutide 1 mg/dose (4 mg/3 mL) 1 mg subcut MARTÍNEZ 11/1701/25/24 History subcutaneous pen injector (Ozempic) acetaminophen 500 mg tablet 500 mg PO Q6H PRN pain 04/02 Unknown History (Tylenol Extra Strength) finasteride 5 mg tablet 5 mg PO QHS 03/31/24 5 History mirabegron 50 mg tablet,extended 50 mg PO DAILY Unknown History release 24 hr (Myrbetriq) Allergy/AdvReac Type Severity Reaction Status Date / Time Penicillins (PCN) Allergy Mild hives Verified 05/05/24 15:00 nitroglycerin AdvReac Mild LOC Verified 05/05/24 15:00 Family History Mother Breast cancer Liver disease Father , Age 41 Myocardial infarction Heart disease Sister Cancer Breast cancer Brother CAD (coronary artery disease) CABG Heart disease Surgical History (Updated 05/05/24 @ 15:11 by Lily Lyles) Hx of transurethral resection of prostate S/P trigger finger release History of left heart catheterization (03/13/20) History of esophagogastroduodenoscopy (EGD) (05/13/18) History of bilateral knee replacement History of colonoscopy (2016) Sleep apnea Social History Smoking Status: Never smoker alcohol intake: current alcohol intake frequency: holidays/special occasions on ly substance use type: does not use caffeine: No Audit: Pertinent Findings HISTORY of Pertinent Findings History of Pertinent Findings: EKG Pertinent Findings EKG Perinent findings EKG from March 2024 05/05/24 18:59 demonstrates normal sinus rhythm with left axis deviation Echo Pertinent Findings Echo (EF%) pertinent findings Echocardiogram from 05/05/24 18:59 2024 demonstrates LVEF of 70 % with no evidence of diastolic dysfunction, trivial aortic valve insufficiency. Additional Pertinent Findings Additional pertinent findings Carotid duplex ultrasound 05/05/24 18:59 from March 2024 demonstrates mild less than 50% stenosis of both the left and right internal carotids. Patient's potassium from March 2024 is 3.1. Pertinent Findings Additional pertinent findings: Repeat potassium done on May 12, 2024 was 3.9. Now in acceptable range. Okay to proceed. Recommendation Anesthesia Recommendation Anesthesia recommendation: OPTIMIZED for anesthesia
[2024-05-19] VITALS (16 sets, daily range): BP systolic 118–158; BP diastolic 73–94; PULSE 67–98; RESP 15–16; TEMP 36.6–37.4; O2SAT 93–98; BMI 32.5
[2024-05-19] MEDS: Lactated Ringers 1,000 ML 15 ML IV (06:30)
--- NOTE | 2024-05-19 07:09 | PCM.PRE.AN2 ---
ASA Classification* ASA Classification ASA Classification: 2 Assessment & Plan Anesthesia* Anesthesia Assessment Anesthesia Assessment: Discussed sedation and/or anesthesia options, risks, benefits, and alternatives with patient/parents/legal guardian/POA. Questions invited. The patient/parents/legal guardian/POA seems to understand and agrees to proceed with anesthesia plan. Reviewed the physical assessment, medical history, allergy history and patient home medications list prior to surgery/procedure/anesthetic and documented any changes. Performed airway and anesthesia risk assessments. Anesthesia Type Anesthesia Type: General Anesthesia Focused Assessment* Temperature: 99.4 F Pulse Rate: 70 Blood Pressure: 118/77 Respiratory Rate: 16 Pulse Ox: 94 Airway Assessment Mouth opens: >3 cm Mallampati Score: II Focused Labs Anesthesia Preop lab: CBC WBC 5.6 K/mm3 (4.4-11.0) 04/01/24 03:56 04/01/24 RBC 4.66 M/mm3 (4.6-6.2) 04/01/24 03:56 04/01/24 Hgb 14.2 g/dL (13.0-16.5) 04/01/24 03:56 04/01/24 Hct 40.9 % (40-54) 04/01/24 03:56 04/01/24 Plt Count 157 K/mm3 (150-450) 04/01/24 03:56 04/01/24 CHEMISTRY Potassium 3.9 mmol/L (3.3-5.1) 05/12/24 08:04 05/12/24 Sodium 137 mmol/L (133-145) 05/12/24 08:04 05/12/24 BUN 15 mg/dL (4-19) 05/12/24 08:04 05/12/24 Creatinine 1.06 mg/dL (0.70-1.20) 05/12/24 08:04 05/12/24 Glucose 138 mg/dL (70-99) H 05/12/24 08:04 05/12/24 POC Glucose 161 mg/dL (74-106) H 02/13/24 10:49 02/13/24 TSH 1.180 uIU/mL (0.358-3.740) 03/17/24 08:22 03/17/24 COAG PT 14.6 SECONDS (11.7-14.9) 03/31/24 07:35 03/31/24 Pre-Assessment Diagnosis/Proposed Procedure Planned Operative Procedure(s): CYSTO INJECT 100 UNITS BOTOX IN BLADDER Anesthesia History Anesthesia History - pension administrator: Anesthesia History - pension administrator Hx Hospitalization No 05/05/24 15:07 Any Problems With Anesthesia No 05/05/24 15:07 Cholinesterase deficiency No 05/05/24 15:07 You/Your Family Experience No 05/05/24 15:07 fever (hyperthermia) with Relationship Recent Exposure to Contagious No 05/19/24 06:39 Disease Does patient have nerve No 05/05/24 15:07 stimulator Patient instructed to have device shut off --Does patient have Pacemaker No 05/19/24 06:39 or ICD? When Was Last Pacemaker Check QUESTION #4 FULL TEXT: You/Your Family Experience fever (hyperthermia) with Anesthesia Last Oral Intake Last Oral intake: Last Oral Intake NPO since 21:00 05/19/24 06:39 Meds taken in AM with sips of water? Meds patient instructed to take am of surgery PONV PONV - pension administrator: PONV - pension administrator Female No 05/05/24 15:07 HX of Motion Sickness No 05/05/24 15:07 HX of N/V After Surgery No 05/05/24 15:07 Non-Smoker Yes 05/05/24 15:07 Duration of Surgery greater No 05/05/24 15:07 than 60 minutes Number of Risk Factors 1 05/05/24 15:07 PONV Score Low Risk 05/05/24 15:07 Height & Weight Height & Weight: Anesthesia: Height & Weight Height 5 ft 11 in 05/19/24 06:39 Weight: 106 kg 05/19/24 06:39 Body Mass Index (BMI) 32.5 05/19/24 06:39 Respiratory Assessment Respiratory Assessment - pension administrator: Respiratory Tract Infection Hx - pension administrator Hx Respiratory Tract Infection No 05/05/24 15:07 STOP Sleep Apnea STOP Sleep Apnea - pension administrator: STOP Sleep Apnea - pension administrator Hx Hypertension Yes: CONTROLLED WITH MED 05/05/24 15:07 Hx Sleep Apnea Yes: INSPIRE/NOT WORKING 05/05/24 15:07 CPAP No 05/05/24 15:07 BIPAP No 05/05/24 15:07 Do you snore loudly (louder than talking or can be heard Do you often feel tired/ fatigued/ sleepy during daytime? Has anyone observed you stop breathing during sleep? STOP Results Positive 05/05/24 15:07 QUESTION #5 FULL TEXT : Do you snore loudly (louder than talking or can be heard through closed doors)? 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 Specify any problems Hx of Preganancy in last 3 N/A 05/05/24 15:07 Months Nurse Filling Out Transfusion DSCHRIBER 05/05/24 15:07 & Questions: Date: 05/05/24 05/05/24 15:07 Time: 15:08 05/05/24 15:07 Patient unable to answer at this time (ie. confused, unrespo /Reproduction History /Reproductive History - pension administrator: /Reproductive Hx- pension administrator Hx Now Gestational Age (in weeks): EDC: Hx Hx Para Hx Section SAB No 05/05/24 15:07 Active Medications Active Medications: Current Medications Generic Name Dose Route Start Last Admin Trade Name Freq PRN Reason Stop Dose Admin Cefazolin Sodium 2 gm/ N/A 20 mls @ 400 mls/hr 05/19/24 07:30 IV 05/19/24 07:32 PREOP ONE Lactated Ringer's 1,000 mls @ 15 mls/hr 05/19/24 06:30 05/19/24 06:30 IV 05/24/24 19:49 15 mls/hr .Q48H JANES Administration Protocol PFSH Medical History Wears partial dentures Carotid artery stenosis Trigger finger, right middle finger Wears glasses Diabetes Arthritis Non-smoker History of echocardiogram Hypertension Cardiology follow-up encounter 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) BPH (benign prostatic hyperplasia) GERD (gastroesophageal reflux disease) Non-rheumatic aortic stenosis Positive Helicobacter pylori test (05/13/18) Essential hypertension HLD (hyperlipidemia) Home Medications ?Medication ?Instructions ?Recorded ?Last Taken ?Type atorvastatin 80 mg tablet 80 mg PO QHS CHOLESTEROL LOWERING 09/24/15 05/18/24 History hydrochlorothiazide 25 mg tablet 12.5 mg PO DAILY WATER PILL, BLOOD 09/24/15 05/18/24 History PRESSUR metformin 750 mg tablet,extended 750 mg PO QHS BLOOD SUGAR 09/24/17 05/18/24 History release 24 hr pyridoxine (vitamin B6) 100 mg 100 mg PO DAILY SUPPLEMENT 09/24/17 05/18/24 History tablet empagliflozin 25 mg tablet 1 tab PO DAILY 02/01/20 05/18/24 History aspirin 81 mg tablet,delayed 81 mg PO DAILY 04/19/20 05/07/24 History release (Adult Aspirin Regimen) ramipril 10 mg capsule 10 mg PO BID BLOOD PRESSURE 04/19/20 05/18/24 History ezetimibe 10 mg tablet 10 mg PO DAILY 11/18/23 05/18/24 History garlic 500 mg capsule 500 mg PO DAILY 11/18/23 02/12/24 History semaglutide 1 mg/dose (4 mg/3 mL) 1 mg subcut MARTÍNEZ 11/18/23 05/05/24 History subcutaneous pen injector (Ozempic) acetaminophen 500 mg tablet 500 mg PO Q6H PRN pain 01/09/24 Unknown History (Tylenol Extra Strength) finasteride 5 mg tablet 5 mg PO QHS 03/31/24 05/18/24 History mirabegron 50 mg tablet,extended 50 mg PO DAILY 05/05/24 05/18/24 History release 24 hr (Myrbetriq) Allergy/AdvReac Type Severity Reaction Status Date / Time Penicillins (PCN) Allergy Mild hives Verified 05/19/24 06:36 nitroglycerin AdvReac Mild LOC Verified 05/19/24 06:36 Family History Mother Breast cancer Liver disease Father , Age 41 Myocardial infarction Heart disease Sister Cancer Breast cancer Brother CAD (coronary artery disease) CABG Heart disease Surgical History Hx of transurethral resection of prostate S/P trigger finger release History of left heart catheterization (03/13/20) History of esophagogastroduodenoscopy (EGD) (05/13/18) History of bilateral knee replacement History of colonoscopy (2016) Sleep apnea Social History Smoking Status: Never smoker alcohol intake: current alcohol intake frequency: holidays/special occasions only substance use type: does not use caffeine: No Review of Systems (Anesthesia) ROS Narrative System reviewed and no additional complaints, except as documented.
[2024-05-19 07:16] LABS: Bedside Glucose 169 mg/dL (74-106)
--- NOTE | 2024-05-19 07:30 | PROS_PTH ---
PATIENT: ANILA ROBLEDO LOC: MS3 U#:[id number] AGE/SX: 78/M ROOM: [facility] [place]19/[address]: Dr. Melvin Nation MD : 1945 BED: 1 DIS: 05/20/2024 SPEC #: [id number] RECD: 05/19/24 12:41 STATUS: RACHNA DE LA ROSA #: [id number] ZAKIA: 05/19/24 07:[address]: Melvin Nation DEPT: SURGICAL PATHOLOGY RECD BY: Francisco J Loyola ENTERED: 05/19/24 12:41 SP TYPE: TURP OTHR DR: Dr. Puma Yi MD Tissues: Prostate, NOS Procedures: Surgery Specimen Level IV HEADER OPERATION: Cysto, injection Botox 100 units into the bladder, TURP PRE-OP DIAGNOSIS: Benign prostatic hyperplasia with obstruction, urge incontinence TISSUE SUBMITTED: Prostate chips MICROSCOPIC DIAGNOSIS PROSTATE, TRANSURETHRAL RESECTION: Negative for malignant cellsBenign prostate with chronic inflammation, multinucleate giant cell reactions, and acute inflammation with reactive changes of transitional hyperplasia (See Comment) COMMENT Dr. Thomas has [id number] the slides and agrees that no malignancy is present. MICROSCOPIC DESCRIPTION Slides are reviewed. GROSS DESCRIPTION The specimen is received in a container labeled with the patient's name and designated prostate chips. The specimen consists of multiple fragments of [id number] soft tissue weighing in aggregate 1.7 g and measuring in aggregate 4 x 3 x 0.4 cm. TE5. 05/20/24 CPT:86581, TC:4
--- NOTE | 2024-05-19 07:30 | PCM.HP.STD ---
HPI - General General Date of Admission: 05/19/24 Date of Service: 05/19/24 Chief Complaint: Urge incontinence HPI Narrative ANILA ROBLEDO, is a 78 M who presents for injection of Botox into the bladder he had a TURP not that long ago and afterwards developed severe urge incontinence. So organ to do Botox since the urge incontinence has not gotten better after several courses of medications. 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) BPH (benign prostatic hyperplasia) GERD (gastroesophageal reflux disease) Non-rheumatic aortic stenosis Positive Helicobacter pylori test (05/13/18) Essential hypertension HLD (hyperlipidemia) Home Medications ?Medication ?Instructions ?Recorded ?Last Taken ?Type atorvastatin 80 mg tablet 80 mg PO QHS CHOLESTEROL LOWERING 09/24/15 05/18/24 History hydrochlorothiazide 25 mg tablet 12.5 mg PO DAILY WATER PILL, BLOOD 09/24/15 05/18/24 History PRESSUR metformin 750 mg tablet,extended 750 mg PO QHS BLOOD SUGAR 09/24/17 05/18/24 History release 24 hr pyridoxine (vitamin B6) 100 mg 100 mg PO DAILY SUPPLEMENT 09/24/17 05/18/24 History tablet empagliflozin 25 mg tablet 1 tab PO DAILY 02/01/20 05/18/24 History aspirin 81 mg tablet,delayed 81 mg PO DAILY 04/19/20 05/07/24 History release (Adult Aspirin Regimen) ramipril 10 mg capsule 10 mg PO BID BLOOD PRESSURE 04/19/20 05/18/24 History ezetimibe 10 mg tablet 10 mg PO DAILY 11/18/23 05/18/24 History garlic 500 mg capsule 500 mg PO DAILY 11/18/23 02/12/24 History semaglutide 1 mg/dose (4 mg/3 mL) 1 mg subcut MARTÍNEZ 11/18/23 05/05/24 History subcutaneous pen injector (Ozempic) acetaminophen 500 mg tablet 500 mg PO Q6H PRN pain 01/09/24 Unknown History (Tylenol Extra Strength) finasteride 5 mg tablet 5 mg PO QHS 03/31/24 05/18/24 History mirabegron 50 mg tablet,extended 50 mg PO DAILY 05/05/24 05/18/24 History release 24 hr (Myrbetriq) Allergy/AdvReac Type Severity Reaction Status Date / Time Penicillins (PCN) Allergy Mild hives Verified 05/19/24 06:36 nitroglycerin AdvReac Mild LOC Verified 05/19/24 06:36 Family History Mother Breast cancer Liver disease Father , Age 41 Myocardial infarction Heart disease Sister Cancer Breast cancer Brother CAD (coronary artery disease) CABG Heart disease Surgical History Hx of transurethral resection of prostate S/P trigger finger release History of left heart catheterization (03/13/20) History of esophagogastroduodenoscopy (EGD) (05/13/18) History of bilateral knee replacement History of colonoscopy (2016) Sleep apnea Social History Smoking Status: Never smoker alcohol intake: current alcohol intake frequency: holidays/special occasions only substance use type: does not use caffeine: No Vital Signs Vital Signs Vital Signs: 05/19/24 06:39 05/19/24 06:39 05/19/24 07:10 Temperature 99.4 F H 99.4 F H Temperature Source Temporal Pulse Rate 70 70 Respiratory Rate 16 16 Respiratory Pattern Normal Blood Pressure 118/77 118/77 Blood Pressure Mean 90 Blood Pressure Source Monitor Blood Pressure Position Semi-Fowlers Blood Pressure Location Right Arm Pulse Ox 94 94 Oxygen Delivery Method Room Air Weight Weight: 106 kg Body Mass Index (BMI) 32.5 Results Lab / Micro Data 05/12/24 08:04 Labs: Laboratory Results - last 24 hr 05/19/24 06:31: POC Glucose 169 H
--- NOTE | 2024-05-19 07:31 | PCM.DC ---
Discharge Instructions Diet Discharge Diet: No restrictions DC O2, CPAP, BIPAP needs Home O2 Discharge instructions: No Dressing / Incision Discharge Activity: Return to Normal Activity and May Not Drive (while taking narcotic pain medications.) Dressing / Incision Call your doctor if you observe: Fever of 101 or Higher Follow Up Care Please Follow Up With: Melvin Nation MD When: Call [phone] for an appointment Test Results: Test results from this visit will be discussed in further detail at your follow-up appointment, if applicable. Discharge Plan Admission Attending Provider: Melvin Nation Primary Care Provider: Puma Yi Instructions Print Language: Jamaican Discharge Orders/Prescriptions Prescriptions: No Action empagliflozin 25 mg tablet 1 tab PO DAILY aspirin [Adult Aspirin Regimen] 81 mg tablet,delayed release (DR/EC) 81 mg PO DAILY acetaminophen [Tylenol Extra Strength] 500 mg tablet 500 mg PO Q6H PRN (Reason: pain) atorvastatin 80 MG tablet 80 mg PO QHS hydrochlorothiazide 25 MG tablet 12.5 mg PO DAILY ramipril 10 mg capsule 10 mg PO BID pyridoxine (vitamin B6) 100 MG tablet 100 mg PO DAILY metformin 750 MG tablet extended release 24 hr 750 mg PO QHS mirabegron [Myrbetriq] 50 mg tablet extended release 24 hr 50 mg PO DAILY garlic 500 mg capsule 500 mg PO DAILY ezetimibe 10 mg tablet 10 mg PO DAILY Ozempic 1 mg/dose (4 mg/3 mL) pen injector 1 mg subcut MARTÍNEZ finasteride 5 mg tablet 5 mg PO QHS Referrals / Follow Up: Puma Yi MD [Primary Care Provider] - Disposition Disposition (needs filled in before D/C Order can be placed): Home, Self Care
[2024-05-19] MEDS: Cefazolin 2 GM in Syringe IV (07:38)
[2024-05-19] MEDS: Botulinum Toxin A 100 Units Vial IJ (07:48)
[2024-05-19] MEDS: 0.9% Normal Saline (Pres. free 10 ML Vial ×2 (07:48→07:54)
--- NOTE | 2024-05-19 08:39 | OP.PCM_ITS ---
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 Post-Operative Diagnosis: The same Surgery/Procedure Performed: Transurethral resection of the prostate for residual tissue, cystoscopy injection of Botox in the bladder 100 units computer systems engineer: No Type of Anesthesia: General RN Documented Start/Stop Times: Operation Date: 05/19/24 07:30 Case Time Into Pre-Op 05/19/24 06:11 Procedure Start Time: 07:30 Procedure Stop Time: 08:40 Select all DRAINS/GRAFTS/IMPLANTS that apply: Drains Drain details: 22 Citizen Of [place] three-way catheter Estimated Blood Loss: 20 Specimen collected: Yes Description of specimen(s) removed: Prostate tissue Description of surgery: Indication this is a 78-year-old male without significant very large prostate and obstruction of the prostate he underwent a TURP in February in hopes of alleviating the obstruction and improving his urinary symptoms he did have improvement in the outflow and had better flow but still had poor control of his bladder we tried several medications with no results so I thought we could do a Botox injection the other possibility is still has obstruction of the prostate causing urgency so today organ to do a cystoscopy probably Botox injection of the bladder to help with urgency and if he still has obstruction of the kidney resected prostate to make sure that he has no obstruction of the prostatic channel. Patient was taken back to the operating room after smooth induction of ane sthesia he was placed in dorsolithotomy position. Went of the bladder with a visual obturator offset scope and went to the sphincter got to the verumontanum and I did see a lot of obstructive tissue coming from the patient's left side of the prostate that was blocking off the channel way and still had a lot of anterior tissue that was causing obstruction of the channel way. So then after this I injected the back of bladder with Botox we prepared the Botox in the back table injected 1 cc per site in the bladder 10 injection sites for a total of 100 units in the bladder after this I then switched over to the Olympus 24 Citizen [place] noncontinuous flow by polar resectoscope and I started with the resection started in the floor the prostate and then started mostly working on the left side of the prostate that was coming over and causing a lot of obstruction once this was all resected I make sure that resected all back to there was no flapping tissue then I went to the right side and then there was a little bit of tissue causing obstruction I resected all that that the end of the procedure had a nice wide open channel with no flapping tissue no obstructing tissue whatsoever had a good flow cauterized the prostate extensively get hemostasis and put a catheter in the bladder we will keep him overnight ureter irrigation he will go home tomorrow with a catheter let it heal up for a week. Surgical Findings: Still has significant obstruction of the prostate so he underwent resection for residual tissue. And we injected Botox in the bladder for urgency Complications Complications: No Admit VTE Documentation VTE Present on Admission: No VTE Mechan Device Prophylaxis: SCD's VTE Pharm Prophylaxis ordered?: No
--- NOTE | 2024-05-19 10:10 | PCM.POST.ANE ---
Anesthesia: Postop Eval I Current Vital Signs Temperature: 98 F Pulse Rate: 67 Blood Pressure: 140/82 Respiratory Rate: 16 Pulse Ox: 96 Oxygen Delivery Method: Room Air Assessment Airway patent: Yes Spontaneous unlabored respirations: Yes Mental status: Awake nausea: No Vomiting: No Anesthesia Complication: No Fluid Hydration Crystalloid volume administer (ml): 10 Total IV fluid infused: 10 Progress Note Anesthesia document: Postop Eval 1 completed: No
--- NOTE | 2024-05-19 10:55 | PCM.POSTANE2 ---
Anesthesia Postop Eval I Sum Postop Eval Completion status Anesthesia document: Postop Eval 1 completed: No Anesthesia Postop Eval I Summary Anesthesia Postop Eval I Summary: Anesthesia Postop Eval I: Assessment Summary Airway patent Yes 05/19/24 10:54 Spontaneous unlabored Yes 05/19/24 10:54 respirations Mental status Awake 05/19/24 10:54 nausea No 05/19/24 10:54 Vomiting No 05/19/24 10:54 Anesthesia Postop Eval I: Fluid Summary Crystalloid volume administer 10 05/19/24 10:54 (ml) Colloids volume administered ( ml) Blood Product volume administered (ml) Total IV fluid infused 10 05/19/24 10:54 Anesthesia Postop Eval I: Summary Notes Anesthesia Complication No 05/19/24 10:54 Anesthesia Complication Comment: Post-operative progress note Anesthesia: Postop Eval II Evaluation Mental status: Awake Pain Level: 0 nausea: No Vomiting: No
[2024-05-19] MEDS: hydroCHLOROthiazide 12.5mg 12.5 MG PO (11:40)
[2024-05-19] MEDS: Ezetimibe 10 MG Tablet PO (11:40)
[2024-05-19] MEDS: Docusate Sodium 100 MG Capsule 200 MG PO ×2 (11:40→22:22)
[2024-05-19] MEDS: Pyridoxine HCl 100 MG Tablet PO (11:40)
[2024-05-19] MEDS: Vibegron 75 MG TABLET PO (11:40)
[2024-05-19] MEDS: Ramipril 10 MG Capsule PO ×2 (11:40→22:22)
[2024-05-19] MEDS: Empagliflozin 25 MG Tablet PO (11:40)
[2024-05-19] MEDS: METFORMIN HCL 750 MG TAB.ER.24H PO (22:23)
[2024-05-19] MEDS: Atorvastatin Calcium 80 MG Tablet PO (22:23)
[2024-05-20 03:00] VITALS: BP 180/90; PULSE 78; RESP 15; TEMP 36.9; O2SAT 97
[2024-05-20 05:17] VITALS: BP 147/86; PULSE 75; RESP 15; TEMP 36.7; O2SAT 93
--- NOTE | 2024-05-20 07:34 | PCM.PN.GU ---
Subjective Subjective Status post TURP and injection Botox in the bladder, patient should be able go home today after he urinates Yan catheter was removed this morning Objective Data Objective Data Vital Signs: Vital Signs Temp Pulse Resp BP Pulse Ox O2 Del Method 98.1 F 75 15 147/86 H 93 Room Air 05/20/24 05:17 05/20/24 05:17 05/20/24 05:17 05/20/24 05:17 05/20/24 05:17 05/20/24 05:17 Oxygen Delivery Method Room Air Weight: 106 kg Body Mass Index (BMI) 32.5 Intake & Output: Intake and Output for Last 24 Hours 05/18/24 05/19/24 05/20/24 23:59 23:59 23:59 Intake Total 124.75 / 924.75 1200 / 1200 Output Total 3400 / 3400 1200 / 1200 Balance -3275.25 / -2475.25 0 / 0 Lab / Micro Data 05/12/24 08:04
[2024-05-20 07:53] VITALS: BP 121/78; PULSE 70; RESP 20; TEMP 37; O2SAT 93
--- NOTE | 2024-05-20 09:08 | CASEMGMT ---
RED CARROLL Assessment: Face to Face with pt for initial transition planning/care coordination assessment. RED CARROLL introduced self and role at [facility], pt voices understanding and consents to assessment. Pt is A&O x4 and answers all questions appropriately at this time. Pt lying in bed in no distress, pt sitting at bedside. Care providers, pharmacy, and demographics verified/updated. Admitting Dx: cysto, injection botox 100 units into the bladder Strata:2 PCP: Kd Specialists: Rios, uro; [facility]G, cardio Preferred Pharmacy: [facility] Retail Insurance: [employer] Prescription Benefit: yes LNOK: , Eloisa Hoffmann Living Arrangements: Pt lives with in a 1 story home with 2 steps to enter. ADLs: Pt I with ADLs and IADLs. Pt denies concerns at home. Transportation: Pt drives self and denies concerns with transportation. DME: cane, walker, wheelchair, shower chair available but pt does not use. HHC/SNF: Denies Hx of Pt states no concerns with going home at time of dc. Pt states no further concerns/needs. CM to follow. Advised pt to ask CM if any further question/concerns/needs arise, voices understanding. Pt Goal: Home Plan: Home [place] MO[place]
[2024-05-20] MEDS: Ramipril 10 MG Capsule PO (09:18)
[2024-05-20] MEDS: Docusate Sodium 100 MG Capsule 200 MG PO (09:19)
[2024-05-20] MEDS: Empagliflozin 25 MG Tablet PO (09:20)
[2024-05-20] MEDS: hydroCHLOROthiazide 12.5mg 12.5 MG PO (09:21)
[2024-05-20] MEDS: Vibegron 75 MG TABLET PO (09:22)
[2024-05-20] MEDS: Ezetimibe 10 MG Tablet PO (09:22)
[2024-05-20] MEDS: Pyridoxine HCl 100 MG Tablet PO (09:22)
--- NOTE | 2024-05-20 10:28 | PHA.DC_ITS ---
Pharmacy [place] Med Reconciliation Pharmacy Service has performed discharge medication reconciliation for this patient. The patient's discharge medication list was reviewed for discrepancies and discrepancies were resolved. Medications at Discharge Home Medications atorvastatin 80 mg tablet 80 mg PO QHS CHOLESTEROL LOWERING 09/24/15 hydrochlorothiazide 25 mg tablet 12.5 mg PO DAILY WATER PILL, BLOOD PRESSUR 09/24/15 metformin 750 mg tablet,extended release 24 hr 750 mg PO QHS BLOOD SUGAR 09/07 10/25 pyridoxine (vitamin B6) 100 mg tablet 100 mg PO DAILY SUPPLEMENT 09/24/17 empagliflozin 25 mg tablet 1 tab PO DAILY 02/01/20 aspirin 81 mg tablet,delayed release (Adult Aspirin Regimen) 81 mg PO DAILY 04/19/20 ramipril 10 mg capsule 10 mg PO BID BLOOD PRESSURE 04/19/20 ezetimibe 10 mg tablet 10 mg PO DAILY 11/18/23 garlic 500 mg capsule 500 mg PO DAILY 11/18/23 semaglutide 1 mg/dose (4 mg/3 mL) subcutaneous pen injector (Ozempic) 1 mg subcut MARTÍNEZ 11/18/23 acetaminophen 500 mg tablet (Tylenol Extra Strength) 500 mg PO Q6H PRN pain 01/09/24 mirabegron 50 mg tablet,extended release 24 hr (Myrbetriq) 50 mg PO DAILY 05/05/24
== END 2024-05-20 11:25 | disposition home or self-care (01) | DRG 713 ==
LOC: SDC 10:28 → MS3 10:28
PROVIDERS: Admitting Provider Urology; PCP Family Medicine; Referring Provider Urology; Visit Provider Urology
PROC: 3E0K8GC Introduction of Other Therapeutic Substance into Genitourinary Tract, Via Natural or Artificial Opening Endoscopic (ICD-10-PCS; CPT 52287; principal; 2024-05-19 07:20)
DX: N40.1 Benign prostatic hyperplasia with lower urinary tract symptoms (principal); N13.8 Other obstructive and reflux uropathy; E11.9 Type 2 diabetes mellitus without complications; I10 Essential (primary) hypertension; E78.5 Hyperlipidemia, unspecified; N39.41 Urge incontinence; Z79.82 Long term (current) use of aspirin; Z79.899 Other long term (current) drug therapy; Z79.84 Long term (current) use of oral hypoglycemic drugs
CPT/HCPCS: 36415; 80048; 82962; 88305; 97035; 97140; J0585; J2405

== ENCOUNTER 2024-05-28 10:30 | Outpatient (RCR) | payer MEDICARE, OTHER, SELFPAY ==
[2023-12-24 10:32] VITALS: BMI 36.3
--- NOTE | 2024-04-14 12:39 | HP.OTEVAL_ITS ---
Patient's Visit Information Visit Information Visit Information: ANILA ROBLEDO is a 78 year old M, referred to Occupational Therapy by Dr. Trip Davis MD, with a diagnosis of hand contractures. 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 Pt state he had a right MF tri gger finger release 2023. pt states has had difficulty with his right grasp since. pt states his hands hurt with holding a steering wheel. 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 Pain right hand: Current Pain Intensity: 6 Pain Intensity Range: 6 and 8 ROM MP: right MF 0/70 RF 0/65 PIP: right MF -40/ 85 right RF -30/85 left MF -20/ 70 ROM Comments: all other digits demo ability to flex to light fist- but painful for pt on bilateral hands Strength [employer] Teacher: right 22# left 10# Lateral Pinch: right 8# left 10# Tripod Pinch: right 10# left 10# Strength Comments: pt demo with bilateral hand weakness limiting pts functional ROM Sensation Sensation Comments: denies Quick DASH-Disab of Arm,Shoulder& Hand Quick DASH Score: 15.0000 Goals Goal:: pt will demo a increase in bilateral hand strength by 15# to increase pts IND with ADLs and IADL by d/c Goal:: pt will demo increase in PIP extension by 15* or greater to increase pts ind with ADLs by d.c pt will demo the ability to form tight composite fist to hold small objects by d.c Goal:: pt will report no pain greater than 2/10 with use of bilateral hands with ADLS Goal:: Pt will demo understanding of joint protection and ergonomics when performing BADLs and IADLs by d/c Pt will demo understanding of adaptive Equipment use to decrease stress on joints to allow pt to perform BADSL and IADLS at LEXY level. Goal:: Therapist ed. Pt on correct donning/doffing orthosis, use and precautions. Pt agrees to return to clinic to have orthosis adj if needed. Rehabilitation General Assessment: pt demo with bilateral hand contractures that are limiting pts ability to open hand fully and form a composite fist- with palpation pt tender at right MF A1 gabriela region and PIPJ - pt painful at left RF/MF A1 gabriela region- pt demo need for skilled OT services 2x week for 6 weeks to decrease pain- improve pts ROM and return pt strength to use bilateral hands with ADLs and IADLs. pt demo understanding and agree to POC. Rehabilitation Potential: Good Anticipated Interventions Anticipated Interventions: A/AAROM/PROM, Strengthening, Scar Care, Triggerpoint Release, Modalities, Orthoses, Joint Protection/Energy Conservation, Ergonomic Education, Education re assistive Equipment, Education re Diagnosis and Home Program Visit Plan Frequency: 2-3x /Week Duration: 6 Weeks TEXT: Thank you for the opportunity to evaluate your patient. For Medicare and Medicare HMO plans, please review the plan of care and approve it. It will need to be FAXED BACK to us at [phone] for Medicare purposes. Please let me know if there are questions or concerns regarding this plan of care. Physician Signature: Date:
--- NOTE | 2024-05-28 10:59 | HP.OTDCSUM_ITS ---
Discharge Summary D/C Summary: It has been my pleasure to treat ANILA ROBLEDO under orders from Dr. Trip Davis MD, for the diagnosis of hand contractures for a total of 8 visit(s). Please see the following information for a summary of their discharge status. Overall Improvement % Improvement: 30 Objective Objective/Function: pt demo with limited gains in ROM-despite splinting and soft tissue mobilization- pt did see Dr. Davis and will have sx when he returns from his vacation. Goals Patient Goals: Decrease Pain, Improve Fine Motor Skills, Use Hand/Wrist/Arm Normally Again and Be More Independent in ADLS Goal:: pt will demo a increase in bilateral hand strength by 15# to increase pts IND with ADLs and IADL by d/c Goal:: pt will demo increase in PIP extension by 15* or greater to increase pts ind with ADLs by d.c pt will demo the ability to form tight composite fist to hold small objects by d.c Goal:: pt will report no pain greater than 2/10 with use of bilateral hands with ADLS Goal:: Pt will demo understanding of joint protection and ergonomics when perfo rming BADLs and IADLs by d/c Pt will demo understanding of adaptive Equipment use to decrease stress on joints to allow pt to perform BADSL and IADLS at LEXY level. Goal:: Therapist ed. Pt on correct donning/doffing orthosis, use and precautions. Pt agrees to return to clinic to have orthosis adj if needed. Plan Plan: 6 weeks (2x week) D/C Information Discharge Comments: pt was seen conservatively for 8 OT sessions. conservative tx did not make sig. improvements. pt will have sx by Dr. Davis when he returns from vacation. pt d/c at this time d/c sentence: If there are questions or concerns regarding this patient's occupational therapy, please fell free to call me at [phone]. Thank you for the referral of this patient. Sincerely, Yancy Jim, OTR/L, CHT
== END 2024-05-28 19:00 | disposition home or self-care (01) ==
LOC: OT 10:30
PROVIDERS: PCP Family Medicine; Referring Provider Surgery Plastic and Reconstructive Surgery; Visit Provider Surgery Plastic and Reconstructive Surgery
DX: M24.549 Contracture, unspecified hand (principal)
CPT/HCPCS: 97035; 97110; 97140; 97166; 97530; 97760

== ENCOUNTER → 2024-08-04 | Outpatient (CLI) | payer MEDICARE, OTHER, SELFPAY ==
[2023-12-24 10:32] VITALS: BMI 36.3
== END | disposition home or self-care (01) ==
LOC: LAB 11:48
PROVIDERS: PCP Family Medicine; Referring Provider Urology; Visit Provider Urology
DX: R30.0 Dysuria (principal)
CPT/HCPCS: 87077; 87086; 87088; 87186

== ENCOUNTER → 2024-09-07 | Outpatient (CLI) | payer MEDICARE, OTHER, SELFPAY ==
[2023-12-24 10:32] VITALS: BMI 36.3
== END | disposition home or self-care (01) ==
LOC: LABSPEC 15:13
PROVIDERS: PCP Family Medicine; Referring Provider Urology; Visit Provider Urology
DX: N39.0 Urinary tract infection, site not specified (principal)
CPT/HCPCS: 87086; 87088

== ENCOUNTER 2024-09-08 08:00 | Outpatient (RCR) | payer MEDICARE, OTHER, SELFPAY ==
[2023-12-24 10:32] VITALS: BMI 36.3
== END 2024-09-08 19:00 | disposition home or self-care (01) ==
LOC: OT 08:00
PROVIDERS: PCP Family Medicine; Referring Provider Surgery Plastic and Reconstructive Surgery; Visit Provider Surgery Plastic and Reconstructive Surgery
DX: M72.0 Palmar fascial fibromatosis [Dupuytren] (principal)
CPT/HCPCS: 97110; 97166; 97530

== ENCOUNTER → 2024-10-13 | Outpatient (CLI) | payer MEDICARE, OTHER, SELFPAY ==
[2023-12-24 10:32] VITALS: BMI 36.3
--- NOTE | 2024-10-13 12:57 | NEURO ---
NCS and/or EMG Patient Report Ordering Doctor: Trip Davis DATE OF SERVICE: 10/13/24 Matthias presents with complaints of right upper extremity numbness and tingling. Electrodiagnostic findings: Right median motor nerve demonstrates prolonged distal latency with reduced amplitude and reduced conduction velocity. Right ulnar motor nerve demonstrates normal distal latency, amplitude and conduction velocity across the elbow. Normal right ulnar F?wave. Borderline prolonged right median F?wave. Prolonged right median sensory latency at the wrist. Normal right radial and ulnar sensory responses. Needle EMG testing was performed the right upper limb. All muscles tested showed no evidence of denervation with normal motor unit action potentials. Electrodiagnostic impression: This is an abnormal study. 1. Electrodiagnostic findings suggestive of right-sided median mononeuropathy. This is suggestive of moderate to advanced right carpal tunnel syndrome Multi Select Codes Neurology Neurology Interp Codes: 91042-14 Musc test done w/n test comp (interp) and 89603-68 Nrv cndj tst 5-6 studies (interp)
== END | disposition home or self-care (01) ==
LOC: PSN 09:59
PROVIDERS: PCP Family Medicine; Referring Provider Surgery Plastic and Reconstructive Surgery; Visit Provider Surgery Plastic and Reconstructive Surgery
DX: R20.0 Anesthesia of skin (principal)
CPT/HCPCS: 95886; 95909

== ENCOUNTER → 2024-11-25 | Outpatient (CLI) | payer MEDICARE, OTHER, SELFPAY ==
[2024-10-18 08:57] VITALS: BMI 36.3
[2024-11-25 13:15] LABS: AST(SGOT) 23 U/L (<=37); Alanine Aminotransfer ALT/SGPT 24 U/L (<=46); Albumin, Serum 4.0 g/dL (3.4-4.8); Alkaline Phosphatase 69 U/L (40-129); Anion Gap 10 (5-15); BUN 16 mg/dL (4-19); BUN/Creat Ratio 16.4 RATIO (10-20); Calcium,Total 9.8 mg/dL (7.6-11.0); Carbon Dioxide 24.2 mmol/L (21.0-32.0); Chloride 105 mmol/L (98-108); Cholesterol 193 mg/dL (<=200); Globulin 3.0 g/dL (2.2-4.2); Glucose 123 mg/dL (70-99); Low Density Lipoprotein Calc. 136 mg/dL; Potassium 4.3 mmol/L (3.3-5.1); Triglycerides 74 mg/dL; Very Low Density Lipoprotein 15 mg/dL (5-40); Vitamin B12 317 pg/mL (180-914); cholesterol:hdl ratio screen 4.58
== END | disposition home or self-care (01) ==
LOC: MFPLAB 09:54
PROVIDERS: PCP Family Medicine; Visit Provider Family Medicine
DX: E11.59 Type 2 diabetes mellitus with other circulatory complications (principal); E11.22 Type 2 diabetes mellitus with diabetic chronic kidney disease; N18.9 Chronic kidney disease, unspecified
CPT/HCPCS: 36415; 80053; 80061; 82607; 84403; 84443

== ENCOUNTER 2024-12-16 11:49 | Outpatient (RCR) | payer MEDICARE, OTHER, SELFPAY ==
[2024-10-18 08:57] VITALS: BMI 36.3
--- NOTE | 2024-12-16 12:38 | HP.PTEVAL ---
Patient's Visit Information Visit Information Visit Information: ANILA ROBLEDO is a 79 year old M referred to Physical Therapy by Dr. Clive Garner DO with a diagnosis of B hip bursitis.. Date of Evaluation: 12/16/24 Physical Therapist: Asif Clifton, DPT, OCS, CSCS Visit Plan Frequency: 3x /Week Duration: 4-6 Weeks Plan: weekly visits around hand surgery to progress to HS stretches adn hip strength next session then gym general strength after FLA trip in early totalling 2-23 visits prior to trip adn 8-10 after in the gym. IE HEP ITB streetch 3-4 min 2x/day with pics in sidelying Subjective Subjective: Wanteed hip looked at R to start hurt to get up and got better and is not a problem. L hip started hurting intermittiently, now and then maybe 2 x /day but not sure why. L hip comfortable at rest. Steps are not a rpoblem. Activites are normal. Runs course and doing what he needs to do without pain. basic ADLs all i and without pain. Not golfing due to hand and will have surgery on . Could golf with hip. Sleep is not interupted mostly L side. Pain L hip: Pain Intensity (Out of 10): 0 Pain Intensity Range: 0 and 3 Objective Objective: Walks with slightly wide AVIS but good balance and no pain or antalgia into PT today. Trasnfers beed and chair without pain but weakness in core makes bed trasnfer awkward. Tender to palpation in L>R GT area minimally and slightly into ITB B. Max tight ITB, HS at -35 90/90 test and quad (history of B TKA) in upper legs B. strength hips abd and ext 3, flexion 3+ with core instability. knee xt adn flexion 4-/5, ankles 4/5. reflexes 1/3 patella adn achills B. Sensation LE WNL to gross light touch. Able to heel raise adn toe raise. Balance/Special Test Scores Lower Extremity Functional Score: 80 Goals Goal 1:: I appropriate home stretch to upper legs and strengthen hips and gym general LE core strength program to I. Goal Time Frame: 4-6 Weeks Goal 2:: pain in hips 90% better and 1/10 at worst Goal Time Frame: 4-6 Weeks Rehabilitation Potential Physical Therapy Diagnosis: hip weakness and tightness in upper legs possbily leading to GT pain hips intemrittently. Rehabilitation Potential: Fair Anticipated Interventions Patient/Client Instruction: Educate patient on: Condition and Plan of Care For the Purpose of:: To decrease pain, To increase ROM, To improve nutrient delivery to tissue, To improve muscle performance and motor function and To increase tolerance to activity/condition/position Therapeutic Exercise to Include: Strength training, Flexibilty training, Passive ROM and Active ROM For the Purpose of:: To decrease pain, To increase ROM, To improve nutrient delivery to tissue, To improve muscle performance and motor function and To increase tolerance to activity/condition/position Text: Thank you for the opportunity to evaluate your patient. For Medicare and Medicare HMO plans, please review the plan of care and approve it. It will need to be FAXED BACK to us at [phone] for Medicare purposes. For Medicare only, by signing this I certify the plan of care. Please let me know if there are questions or concerns regarding this plan of care. Physician Signature: Date:
--- NOTE | 2025-02-14 15:46 | HP.PTDCNRP_ITS ---
Patient Information Patient Information: ANILA ROBLEDO was seen in my office for initial evaluation on 12/16/24. The following Plan of Care was established for this patient: POC Established Initial Frequency: 3x /Week Initial Duration: 4-6 Weeks Anticipated Interventions Patient/Client Instruction: Educate patient on: Condition and Plan of Care For the Purpose of:: To decrease pain, To increase ROM, To improve nutrient delivery to tissue, To improve muscle performance and motor function and To increase tolerance to activity/condition/position Therapeutic Exercise to Include: Strength training, Flexibilty training, Passive ROM and Active ROM For the Purpose of:: To decrease pain, To increase ROM, To improve nutrient d elivery to tissue, To improve muscle performance and motor function and To increase tolerance to activity/condition/position Last Seen Last Seen: This patient was last seen in our office 12/16/24. Pertinent comments regarding their Physical therapy will appear below: Pt seen for one visit of POC and cancelled, no showed the others. At this point, it has been almost two months and I will disocntinue due to nonattendance. At this point I will be discontinuing this patient from physical therapy. I would be happy to see this patient again in the future if found appropriate by the physician. Thank you! Asif Clifton, DPT, OCS, CSCS Balance/Gait/Functional tests Balance/Special Test Scores Lower Extremity Functional Score: 80
== END 2024-12-16 19:00 | disposition home or self-care (01) ==
LOC: PT 11:49
PROVIDERS: PCP Family Medicine; Referring Provider Orthopaedic Surgery; Visit Provider Orthopaedic Surgery
DX: M70.61 Trochanteric bursitis, right hip (principal); M70.62 Trochanteric bursitis, left hip
CPT/HCPCS: 97161

== ENCOUNTER 2024-12-22 08:31 | Day surgery (SDC) | payer MEDICARE, OTHER, SELFPAY ==
[2024-10-18 08:57] VITALS: BMI 36.3
--- NOTE | 2024-12-13 13:41 | PAT.ANE_ITS ---
Pre-Assessment Diagnosis/Proposed Procedure Planned Operative Procedure(s): (R) Right endoscopic Carpal Tunnel Release Anesthesia History Anesthesia History - wood veneer taper: Anesthesia History - wood veneer taper Hx Hospitalization No 12/13/24 09:03 Any Problems With Anesthesia No 12/13/24 09:03 Cholinesterase deficiency No 12/13/24 09:03 You/Your Family Experience No 12/13/24 09:03 fever (hyperthermia) with Relationship Recent Exposure to Contagious No 10/18/24 08:57 Disease Does patient have nerve No 12/13/24 09:03 stimulator Patient instructed to have device shut off --Does patient have Pacemaker or ICD? When Was Last Pacemaker Check QUESTION #4 FULL TEXT: You/Your Family Experience fever (hyperthermia) with Anesthesia Last Oral Intake Last Oral intake: Last Oral Intake NPO since Meds taken in AM with sips of water? Meds patient instructed to take am of surgery PONV PONV - wood veneer taper: PONV - wood veneer taper Female No 12/13/24 09:03 HX of Motion Sickness No 12/13/24 09:03 HX of N/V After Surgery No 12/13/24 09:03 Non-Smoker Yes 12/13/24 09:03 Duration of Surgery greater No 12/13/24 09:03 than 60 minutes Number of Risk Factors 1 12/13/24 09:03 PONV Score Low Risk 12/13/24 09:03 Height & Weight Height & Weight: Anesthesia: Height & Weight Height 5 ft 11 in 10/22/24 09:36 Respiratory Assessment Respiratory Assessment - wood veneer taper: Respiratory Tract Infection Hx - wood veneer taper Hx Respiratory Tract Infection No 12/13/24 09:03 STOP Sleep Apnea STOP Sleep Apnea - wood veneer taper: STOP Sleep Apnea - wood veneer taper Hx Hypertension Yes: CONTROLLED WITH MED 12/13/24 09:03 Hx Sleep Apnea Yes: INSPIRE IMPLANT 12/13/24 09:03 CPAP No 12/13/24 09:03 BIPAP No 12/13/24 09:03 Do you snore loudly (louder than talking or can be heard Do you often feel tired/ fatigued/ sleepy during daytime? Has anyone observed you stop breathing during sleep? STOP Results Positive 12/13/24 09:03 QUESTION #5 FULL TEXT : Do you snore loudly (louder than talking or can be heard through closed doors)? 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 Specify any problems Hx of Preganancy in last 3 N/A 12/13/24 09:03 Months Nurse Filling Out Transfusion NBUCHER 12/13/24 09:03 & Questions: Date: 12/13/24 12/13/24 09:03 Time: 09:12/13/24 09:03 Patient unable to answer at this time (ie. confused, unrespo /Reproduction History /Reproductive History - wood veneer taper: /Reproductive Hx- wood veneer taper Hx Now Gestational Age (in weeks): EDC: Hx Hx Para Hx Section SAB No 12/13/24 09:03 PFSH Medical History (Updated 12/13/24 @ 09:09 by Laura Velázquez) History of stress test Wears partial dentures Carotid artery stenosis Trigger finger, right middle finger Wears glasses Diabetes Arthritis Non-smoker History of echocardiogram Hypertension Cardiology follow-up encounter 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) BPH (benign prostatic hyperplasia) GERD (gastroesophageal reflux disease) Non-rheumatic aortic stenosis Positive Helicobacter pylori test (05/13/18) Essential hypertension HLD (hyperlipidemia) Home Medications ?Medication ?Instructions ?Recorded ?Last Taken ?Type atorvastatin 80 mg tablet 80 mg PO QHS CHOLESTEROL LOW ERING 09/24/15 05/18/24 History hydrochlorothiazide 25 mg tablet 12.5 mg PO DAILY WATE R PILL, BLOOD 09/24/15 05/18/24 History PRESSUR metformin 750 mg tablet,extended 750 mg PO QHS BLOOD S UGAR 09/24/17 05/18/24 History release 24 hr pyridoxine (vitamin B6) 100 mg 100 mg PO DAILY SUPPLEM ENT 09/24/17 05/18/24 History tablet empagliflozin 25 mg tablet 1 tab PO DAILY 02/01/2002/01 History aspirin 81 mg tablet,delayed 81 mg PO DAILY 04/19/20 0 05/07/24 History release (Adult Aspirin Regimen) ramipril 10 mg capsule 10 mg PO BID BLOOD PRESSURE 04/19/20 05/18/24 History ezetimibe 10 mg tablet 10 mg PO DAILY 11/18/2305/08 History garlic 500 mg capsule 500 mg PO DAILY 11/18/2307/31 History semaglutide 1 mg/dose (4 mg/3 mL) 1 mg subcut MARTÍNEZ 11/1705/05/24 History subcutaneous pen injector (Ozempic) Allergy/AdvReac Type Severity Reaction Status Date / Time Penicillins (PCN) Allergy Mild hives Verified 12/13/24 08:59 nitroglycerin AdvReac Mild LOC Verified 12/13/24 08:59 Family History Mother Breast cancer Liver disease Father , Age 41 Myocardial infarction Heart disease Sister Cancer Breast cancer Brother CAD (coronary artery disease) CABG Heart disease Surgical History (Updated 12/13/24 @ 09:09 by Laura Velázquez) Hx of transurethral resection of prostate S/P trigger finger release History of left heart catheterization (03/13/20) History of esophagogastroduodenoscopy (EGD) (05/13/18) History of bilateral knee replacement History of colonoscopy (2016) Sleep apnea Social History Smoking Status: Never smoker alcohol intake: current alcohol intake frequency: holidays/special occasions only substance use type: does not use caffeine: No Audit: Pertinent Findings Pertinent Findings EKG Perinent findings: March 31, 2024. Normal sinus rhythm. Left axis deviation. Echo (EF%) pertinent findings: March 31, 2024. EF of 70%. Bioprosthetic aortic valve. No aortic stenosis. Heart catheterization pertinent findings: March 13, 2020. Normal coronary arteries. Severe aortic valve stenosis. Recommend TAVR (done April 10, 2020). Consult pertinent findings: October 22, 2024. Dr. Salgado. 1. Status post TAVR-doing well. No changes. Continue antibiotic prophylaxis for procedures. 2. Hypertension?controlled. Continue meds. Additional pertinent findings: Carotid duplex. April 01, 2024. Less than 50% stenosis ROGE and LICA. Recommendation Anesthesia Recommendation Anesthesia recommendation: OPTIMIZED for anesthesia
[2024-12-22] VITALS (10 sets, daily range): BP systolic 106–145; BP diastolic 68–86; PULSE 61–74; RESP 14–16; TEMP 36.1–36.7; O2SAT 94–95; BMI 33.8
[2024-12-22] MEDS: Lactated Ringers 1,000 ML 15 ML IV (09:04)
--- NOTE | 2024-12-22 09:19 | PRE.ANES_ITS ---
ASA Classification* ASA Classification ASA Classification: 2 Assessment & Plan Anesthesia* Anesthesia Assessment Anesthesia Assessment: Discussed sedation and/or anesthesia options, risks, benefits, and alternatives with patient/parents/legal guardian/POA. Questions invited. The patient/parents/legal guardian/POA seems to understand and agrees to proceed with anesthesia plan. Reviewed the physical assessment, medical history, allergy history and patient home medications list prior to surgery/procedure/anesthetic and documented any changes. Performed airway and anesthesia risk assessments. Anesthesia Type Anesthesia Type: General and MAC History Source History Obtained from:: Patient and Chart Anesthesia Focused Assessment* Temperature: 98.1 F Pulse Rate: 66 Blood Pressure: 145/79 Respiratory Rate: 16 Pulse Ox: 95 Oxygen Delivery Method: Room Air Airway Assessment Mouth opens: >3 cm Mallampati Score: II Teeth Condition: Dentures (Upper dentures) Neck Range of motion (ROM): Limited ROM Labs Anesthesia Preop lab: CBC WBC, (4.4-11.0) 5.6 K/mm3 04/01/24, 03:56 RBC, (4.6-6.2) 4.66 M/mm3 04/01/24, 03:56 Hgb, (13.0-16.5) 14.2 g/dL 04/01/24, 03:56 Hct, (40-54) 40.9 % 04/01/24, 03:56 Plt Count, (150-450) 157 K/mm3 04/01/24, 03:56 CHEMISTRY Potassium, (3.3-5.1) 4.3 mmol/L 11/25/24, 09:55 Sodium, (133-145) 139 mmol/L 11/25/24, 09:55 BUN, (4-19) 16 mg/dL 11/25/24, 09:55 Creatinine, (0.70-1.20) 0.99 mg/dL 11/25/24, 09:55 Glucose, (70-99) 123 mg/dL H 11/25/24, 09:55 POC Glucose, (74-106) 169 mg/dL H 05/19/24, 06:31 TSH, (0.300-4.200) 1.160 uIU/mL 11/25/24, 09:55 COAG PT, (11.7-14.9) 14.6 SECONDS 03/31/24, 07:35 Pre-Assessment Diagnosis/Proposed Procedure Planned Operative Procedure(s): (R) Right endoscopic Carpal Tunnel Release Anesthesia History Anesthesia History - food preservation scientist: Anesthesia History - food preservation scientist Hx Hospitalization No 12/13/24 09:03 Any Problems With Anesthesia No 12/13/24 09:03 Cholinesterase deficiency No 12/13/24 09:03 You/Your Family Experience No 12/13/24 09:03 fever (hyperthermia) with Relationship Recent Exposure to Contagious No 12/22/24 08:53 Disease Does patient have nerve No 12/13/24 09:03 stimulator Patient instructed to have device shut off --Does patient have Pacemaker No 12/22/24 08:53 or ICD? When Was Last Pacemaker Check QUESTION #4 FULL TEXT: You/Your Family Experience fever (hyperthermia) with Anesthesia Last Oral Intake Last Oral intake: Last Oral Intake NPO since Meds taken in AM with sips of No 12/22/24 08:53 water? Meds patient instructed to take am of surgery PONV PONV - food preservation scientist: PONV - food preservation scientist Female No 12/13/24 09:03 HX of Motion Sickness No 12/13/24 09:03 HX of N/V After Surgery No 12/13/24 09:03 Non-Smoker Yes 12/13/24 09:03 Duration of Surgery greater No 12/13/24 09:03 than 60 minutes Number of Risk Factors 1 12/13/24 09:03 PONV Score Low Risk 12/13/24 09:03 Height & Weight Height & Weight: Anesthesia: Height & Weight Height 5 ft 11 in 12/22/24 08:53 Weight: 110 kg 12/22/24 08:53 Body Mass Index (BMI) 33.8 12/22/24 08:53 Respiratory Assessment Respiratory Assessment - food preservation scientist: Respiratory Tract Infection Hx - food preservation scientist Hx Respiratory Tract Infection No 12/13/24 09:03 STOP Sleep Apnea STOP Sleep Apnea - food preservation scientist: STOP Sleep Apnea - food preservation scientist Hx Hypertension Yes: CONTROLLED WITH MED 12/13/24 09:03 Hx Sleep Apnea Yes: INSPIRE IMPLANT 12/13/24 09:03 CPAP No 12/13/24 09:03 BIPAP No 12/13/24 09:03 Do you snore loudly (louder than talking or can be heard Do you often feel tired/ fatigued/ sleepy during daytime? Has anyone observed you stop breathing during sleep? STOP Results Positive 12/13/24 09:03 QUESTION #5 FULL TEXT : Do you snore loudly (louder than talking or can be heard through closed doors)? Tobacco Use History Tobacco Use History - food preservation scientist: Tobacco Use History - food preservation scientist Tobacco Use Non-smoker 10/18/24 08:57 Smoking Status Never smoker 12/13/24 09:03 Hx Tobacco Use No 12/13/24 09:03 Years Smoking Packs Smoked per Day Smoking Cessation Date was within the last 15 years Hx Smoking Cessation Date Hx Smoking Cessation Counseling Hematologic Medial History Hematologic Hx - food preservation scientist: Hematologic Medical Hx - medical services assistant Hx of Blood Transfusion No 12/13/24 09:03 Hx of Transfusion in last 3 No 12/13/24 09:03 Months Date of Last Transfusion (if within last 3 months) Ever experience any problems No 12/13/24 09:03 with transfusion(s)? Specify any problems Hx of Preganancy in last 3 N/A 12/13/24 09:03 Months Nurse Filling Out Transfusion NBUCHER 12/13/24 09:03 & Questions: Date: 12/13/24 12/13/24 09:03 Time: 09:06 12/13/24 09:03 Patient unable to answer at this time (ie. confused, unrespo /Reproduction History /Reproductive History - food preservation scientist: /Reproductive Hx- food preservation scientist Hx Now Gestational Age (in weeks): EDC: Hx Hx Para Hx Section SAB No 12/13/24 09:03 Active Medications Active Medications: Current Medications Generic Name Dose Route Start Last Admin Trade Name Freq PRN Reason Stop Dose Admin Clindamycin Phosphate 900 mg in 50 mls @ 75 mls/hr 12/22/24 10:00 Cleocin IV 12/22/24 10:39 INTRAOP ONE Lactated Ringer's 1,000 mls @ 15 mls/hr 12/22/24 08:45 12/22/24 09:04 IV 15 mls/hr .Q48H JANES Administration PFSH Medical History History of stress test Wears partial dentures Carotid artery stenosis Trigger finger, right middle finger Wears glasses Diabetes Arthritis Non-smoker History of echocardiogram Hypertension Cardiology follow-up encounter 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) BPH (benign prostatic hyperplasia) GERD (gastroesophageal reflux disease) Non-rheumatic aortic stenosis Positive Helicobacter pylori test (05/13/18) Essential hypertension HLD (hyperlipidemia) Home Medications ?Medication ?Instructions ?Recorded ?Last Taken ?Type atorvastatin 80 mg tablet 80 mg PO QHS CHOLESTEROL LOW ERING 09/24/15 12/21/24 History hydrochlorothiazide 25 mg tablet 12.5 mg PO DAILY WATE R PILL, BLOOD 09/24/15 12/21/24 History PRESSUR metformin 750 mg tablet,extended 750 mg PO QHS BLOOD S UGAR 09/24/17 12/21/24 History release 24 hr pyridoxine (vitamin B6) 100 mg 100 mg PO DAILY SUPPLEM ENT 09/24/17 12/21/24 History tablet empagliflozin 25 mg tablet 1 tab PO DAILY 02/01/2003/03 History aspirin 81 mg tablet,delayed 81 mg PO DAILY 04/19/20 1 History release (Adult Aspirin Regimen) ramipril 10 mg capsule 10 mg PO BID BLOOD PRESSURE 04/19/20 12/21/24 History ezetimibe 10 mg tablet 10 mg PO DAILY 11/18/2312/08 History garlic 500 mg capsule 500 mg PO DAILY 11/18/23 History semaglutide 1 mg/dose (4 mg/3 mL) 1 mg subcut MARTÍNEZ 11/1712/12/24 History subcutaneous pen injector (Ozempic) Allergy/AdvReac Type Severity Reaction Status Date / Time Penicillins (PCN) Allergy Mild hives Verified 12/22/24 08:46 nitroglycerin AdvReac Mild LOC Verified 12/22/24 08:46 Family History Mother Breast cancer Liver disease Father , Age 41 Myocardial infarction Heart disease Sister Cancer Breast cancer Brother CAD (coronary artery disease) CABG Heart disease Surgical History Hx of transurethral resection of prostate S/P trigger finger release History of left heart catheterization (03/13/20) History of esophagogastroduodenoscopy (EGD) (05/13/18) History of bilateral knee replacement History of colonoscopy (2016) Sleep apnea Social History Smoking Status: Never smoker alcohol intake: current alcohol intake frequency: holidays/special occasions only substance use type: does not use caffeine: No Review of Systems (Anesthesia) ROS Narrative System reviewed and no additional complaints, except as documented.
--- NOTE | 2024-12-22 09:28 | HP.PCM_ITS ---
Documented by User: LINDA Barrientos 12/22/24 09:32 HPI - General HPI Narrative ANILA ROBLEDO, is a 79 M who presents today for endoscopic right carpal tunnel release with Dr. Davis. Patient has been followed by Dr. Davis for Dupuytren contracture of right long finger status post xiaflex injectionX1 and night splinting. He was also having numbness and tingling impacting his radial 3 digits with EMG positive for mild to severe carpal tunnel syndrome of his right upper extremity. Informed consent was obtained for surgical intervention. He denies changes in his medical health since the last time he was evaluated. He admits ongoing numbness and tingling of his radial 3 digits without weakness, fever, chills, rash, URI symptoms, dental infection. [facility] Medical History History of stress test Wears partial dentures Carotid artery stenosis Trigger finger, right middle finger Wears glasses Diabetes Arthritis Non-smoker History of echocardiogram Hypertension Cardiology follow-up encounter 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) BPH (benign prostatic hyperplasia) GERD (gastroesophageal reflux disease) Non-rheumatic aortic stenosis Positive Helicobacter pylori test (05/13/18) Essential hypertension HLD (hyperlipidemia) Home Medications ?Medication ?Instructions ?Recorded ?Last Taken ?Type atorvastatin 80 mg tablet 80 mg PO QHS CHOLESTEROL LOW ERING 09/24/15 12/21/24 History hydrochlorothiazide 25 mg tablet 12.5 mg PO DAILY WATE R PILL, BLOOD 09/24/15 12/21/24 History PRESSUR metformin 750 mg tablet,extended 750 mg PO QHS BLOOD S UGAR 09/24/17 12/21/24 History release 24 hr pyridoxine (vitamin B6) 100 mg 100 mg PO DAILY SUPPLEM ENT 09/24/17 12/21/24 History tablet empagliflozin 25 mg tablet 1 tab PO DAILY 02/01/2003/03 History aspirin 81 mg tablet,delayed 81 mg PO DAILY 04/19/20 1 History release (Adult Aspirin Regimen) ramipril 10 mg capsule 10 mg PO BID BLOOD PRESSURE 04/19/20 12/21/24 History ezetimibe 10 mg tablet 10 mg PO DAILY 11/18/2312/08 History garlic 500 mg capsule 500 mg PO DAILY 11/18/23 History semaglutide 1 mg/dose (4 mg/3 mL) 1 mg subcut MARTÍNEZ 11/1712/12/24 History subcutaneous pen injector (Ozempic) oxycodone 5 mg tablet 5 mg PO BID PRN pain 5 days #10 12/22/24 Unknown Rx tabs Allergy/AdvReac Type Severity Reaction Status Date / Time Penicillins (PCN) Allergy Mild hives Verified 12/22/24 08:46 nitroglycerin AdvReac Mild LOC Verified 12/22/24 08:46 Family History Mother Breast cancer Liver disease Father , Age 41 Myocardial infarction Heart disease Sister Cancer Breast cancer Brother CAD (coronary artery disease) CABG Heart disease Surgical History Hx of transurethral resection of prostate S/P trigger finger release History of left heart catheterization (03/13/20) History of esophagogastroduodenoscopy (EGD) (05/13/18) History of bilateral knee replacement History of colonoscopy (2016) Sleep apnea Social History Smoking Status: Never smoker alcohol intake: current alcohol intake frequency: holidays/special occasions only substance use type: does not use caffeine: No ROS ROS Narrative General: Denies fever, chills HEENT: Denies headaches, vision changes, sore throat Cardio: Denies chest pain, leg edema Pulmonary: Denies shortness of pain, cough, wheezing GI: Denies nausea, vomiting, diarrhea Vital Signs Vital Signs Vital Signs: 12/22/24 08:53 12/22/24 08:53 12/22/24 09:22 Temperature 98.1 F 98.1 F Temperature Source Temporal Pulse Rate 66 66 Respiratory Rate 16 16 Respiratory Pattern Normal Blood Pressure 145/79 H 145/79 H Blood Pressure Mean 101 Blood Pressure Source Monitor Blood Pressure Position Supine Blood Pressure Location Left Forearm Pulse Ox 95 95 Oxygen Delivery Method Room Air Room Air Weight Weight: 242 lb 8.136 oz Body Mass Index (BMI) 33.8 Assessment & Plan Assessment/Plan (1) Carpal tunnel syndrome of right wrist: PLAN: Plan for endoscopic decompression today Discharge same day. Documented by User: Dr. Trip Davis MD 12/22/24 09:42 HPI - General HPI Narrative ANILA ROBLEDO, is a 79 M who presents today for endoscopic right carpal tunnel release with Dr. Davis. Patient has been followed by Dr. Davis for Dupuytren contracture of right long finger status post xiaflex injectionX1 and night splinting. He was also having numbness and tingling impacting his radial 3 digits with EMG positive for mild to severe carpal tunnel syndrome of his right upper extremity. Informed consent was obtained for surgical intervention. He denies changes in his medical health since the last time he was evaluated. He admits ongoing numbness and tingling of his radial 3 digits without weakness, fever, chills, rash, URI symptoms, dental infection. Current Encounter (DATE OF SURGERY H&P UPDATE): I saw and examined the patient this morning in pre-operative holding. We discussed risks and benefits of today's surgery and they would like to proceed. NO CHANGE in health history since last seen and evaluated. Ready to proceed with surgery. I reviewed the EMG/NCS with the patient (right sided moderate to severe CTS) [facility] Medical History History of stress test Wears partial dentures Carotid artery stenosis Trigger finger, right middle finger Wears glasses Diabetes Arthritis Non-smoker History of echocardiogram Hypertension Cardiology follow-up encounter 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) BPH (benign prostatic hyperplasia) GERD (gastroesophageal reflux disease) Non-rheumatic aortic stenosis Positive Helicobacter pylori test (05/13/18) Essential hypertension HLD (hyperlipidemia) Home Medications ?Medication ?Instructions ?Recorded ?Last Taken ?Type atorvastatin 80 mg tablet 80 mg PO QHS CHOLESTEROL LOW ERING 09/24/15 12/21/24 History hydrochlorothiazide 25 mg tablet 12.5 mg PO DAILY WATE Radha MORENO, BLOOD 09/24/15 12/21/24 History PRESSUR metformin 750 mg tablet,extended 750 mg PO QHS BLOOD S UGAR 09/24/17 12/21/24 History release 24 hr pyridoxine (vitamin B6) 100 mg 100 mg PO DAILY SUPPLEM ENT 09/24/17 12/21/24 History tablet empagliflozin 25 mg tablet 1 tab PO DAILY 02/01/2003/03 History aspirin 81 mg tablet,delayed 81 mg PO DAILY 04/19/20 1 History release (Adult Aspirin Regimen) ramipril 10 mg capsule 10 mg PO BID BLOOD PRESSURE 04/19/20 12/21/24 History ezetimibe 10 mg tablet 10 mg PO DAILY 11/18/2312/08 History garlic 500 mg capsule 500 mg PO DAILY 11/18/23 History semaglutide 1 mg/dose (4 mg/3 mL) 1 mg subcut MARTÍNEZ 11/1712/12/24 History subcutaneous pen injector (Ozempic) oxycodone 5 mg tablet 5 mg PO BID PRN pain 5 days #10 12/22/24 Unknown Rx tabs Allergy/AdvReac Type Severity Reaction Status Date / Time Penicillins (PCN) Allergy Mild hives Verified 12/22/24 08:46 nitroglycerin AdvReac Mild LOC Verified 12/22/24 08:46 Family History Mother Breast cancer Liver disease Father , Age 41 Myocardial infarction Heart disease Sister Cancer Breast cancer Brother CAD (coronary artery disease) CABG Heart disease Surgical History Hx of transurethral resection of prostate S/P trigger finger release History of left heart catheterization (03/13/20) History of esophagogastroduodenoscopy (EGD) (05/13/18) History of bilateral knee replacement History of colonoscopy (2016) Sleep apnea Social History Smoking Status: Never smoker alcohol intake: current alcohol intake frequency: holidays/special occasions only substance use type: does not use caffeine: No Physical Exam Narrative R Upper Extremity Inspection: Right long finger PIP joint is straighter (negative 10 resting, able to passively extend completely). Positive Durkan's test on the right hand. Positive Phalen's test as well. POSITIVE Tinel's sign at the right wrist today. Palpation: A small cord is felt in the right hand, which is softer than before. Motor: Able to bend and extend all MP, PIP, and DIP joints. Able to make a fist. No flexor tendon injuries. He has has slight/developing ABP weakness/thenar atrophy today on the right compared to the left (which is new to me for his exam). Sensory: Intact to light touch on the radial and ulnar borders. 2-point discrimination is about 3 or 4 mm on the radial and ulnar borders of all the di gits on the left side. On the right side, 2-point discrimination is about 5 to 6 mm on the radial and ulnar borders of the radial 3 digits, and about 4 mm on the small and ring finger. Vascular: Finger tips are warm and well perfused with greater than 2 second capillary refill. Assessment & Plan Assessment/Plan (1) Carpal tunnel syndrome of right wrist: PLAN: Plan The patient desires to proceed with endoscopic carpal tunnel release, with possible conversion to the open approach if good visualization cannot be achieved using the endoscope. I talked to the patient extensively about the risks of surgery, including bleeding, infection, damage to surrounding structures (we talked about risks of injury to the nerves (median nerve and recurrent branch especially), tendons, and the arch), poor scaring, surgical site dehiscence and wound formation (in the setting of his diabetes), need for wound care, need for repeat operations, failure to obtain the desired result (with anticipated several months at least to see improved symptoms and maybe it taking up to a year to improve), and the risks of anesthesia. The benefits and alternatives of this surgery were also discussed. All of their questions were answered, and they agreed to proceed with surgery. Discussed how symptoms may take up to a year to improve. I talked to him about worsening of Dupuytren's from the CT incisions as this could stimulate the scaring process. Plan to proceed with endoscopic v. open right carpal tunnel release (patient consented)
[2024-12-22] MEDS: Lidocaine 1% (5 ml sdv) 5 ML Vial IV (09:57)
[2024-12-22] MEDS: fentaNYL 100 MCG/2 ML Ampul 50 MCG IV (09:58)
[2024-12-22] MEDS: Midazolam 2 MG/2 ML Syringe IV (09:58)
[2024-12-22] MEDS: Bupiv/Epi 0.25% 30 ML Vial (10:15)
--- NOTE | 2024-12-22 10:49 | PCM.POST.ANE ---
Anesthesia: Postop Eval I Current Vital Signs Temperature: 97 F Pulse Rate: 74 Blood Pressure: 116/78 Respiratory Rate: 16 Pulse Ox: 95 Oxygen Delivery Method: Nasal Cannula Oxygen Flow Rate (L/min): 8 Assessment Airway patent: Yes Spontaneous unlabored respirations: Yes Mental status: Asleep nausea: No Vomiting: No Anesthesia Complication: No Fluid Hydration Crystalloid volume administer (ml): 700 Total IV fluid infused: 700 Progress Note Post-operative progress note: oral airway in place Anesthesia document: Postop Eval 1 completed: Yes
--- NOTE | 2024-12-22 10:56 | PCM.OPRPT ---
Operative Report (Standard) Operative Information Date of Procedure: 12/22/24 Pre-Operative Diagnosis: Right hand carpal tunnel syndrome Post-Operative Diagnosis: Same Surgery/Procedure Performed: 1) right endoscopic carpal tunnel release wire spring relay adjuster: Yes Plant Taxonomist: Abiel Herbert Tasks completed by contact lens assistant: Retracting Type of Anesthesia: General/Supplemental (10 cc of quarter percent Marcaine with 1-200,000 epinephrine) RN Documented Start/Stop Times: Operation Date: 12/22/24 10:00 Case Time Into Pre-Op 12/22/24 08:39 Out of Pre-Op 12/22/24 09:49 Anesthesia Start 12/22/24 09:52 Into Room 12/22/24 09:52 Procedure Start 12/22/24 10:15 Procedure End 12/22/24 10:31 Anesthesia End 12/22/24 10:41 Out of Room 12/22/24 10:41 Into Recovery 12/22/24 10:45 Procedure Start Time: 10:15 Procedure Stop Time: 10:31 Select all DRAINS/GRAFTS/IMPLANTS that apply: None Estimated Blood Loss: Minimal Specimen collected: No Description of surgery: Indications: Patient is a delightful 79-year-old male with right carpal tunnel syndrome. His EMG nerve conduction study demonstrated moderate to severe right carpal tunnel. He has symptomatology of carpal tunnel syndrome. I talked him about the risks, benefits, and alternatives to release of the transverse carpal ligament for treatment of his carpal tunnel syndrome. He agreed to proceed. Procedure details: Patient was correct identified in preoperative holding and taken back to the operating room where he was administered anesthesia (LMA with above-noted local anesthesia). A timeout was performed and he was prepped and draped in sterile fashion. A tourniquet was insufflated to 250 mmHg in the right upper extremity after he was exsanguinated with the Esmarch. 15 blade scalpel was used to make a transverse incision in an existing wrist crease over the palmaris longus tendon just proximal to the carpal tunnel. Careful dissection with tenotomy scissors and bipolar electrocautery was performed and the palmaris longus tendon was retracted radially. Tenotomy scissors and a pickup were used to carefully incise the antebrachial fascia under direct visualization, and it was released proximally under direct visualization. The dilator and the synovial scraping tool were then subsequently placed underneath the fascia and placed distally into the carpal tunnel, dilating the area and scraping the synovium off of the transverse carpal ligament. The endoscope (Arthrex Nanoscope) was then placed within the incision and into the carpal tunnel. A clear view of the transverse carpal ligament was obtained and the transcript was placed with distal aspect to the proximal aspect with the blade under direct visualization. The skin was protected with a Ragnell retractor. The tourniquet was then let down and bipolar electrocautery was used for hemostasis. 4-0 nylon interrupted horizontal mattresses were then used. Patient tolerated the procedure well. He was awakened and taken to the PACU in stable condition after Xeroform Abby and Coban were applied. Postoperative plan: Follow-up with me in 2 days for a wound check. No lifting with the right upper extremity for now, but he can use his hand otherwise for self-care and to move his fingers. Surgical Findings: Able to get clear view of the transverse carpal ligament and perform an endoscopic release Complications Complications: No
--- NOTE | 2024-12-22 12:11 | POSTOPAN2_ITS ---
Anesthesia Postop Eval I Sum Postop Eval Completion status Anesthesia document: Postop Eval 1 completed: Yes Anesthesia Postop Eval I Summary Anesthesia Postop Eval I Summary: Anesthesia Postop Eval I: Assessment Summary Airway patent Yes 12/22/24 10:51 [email or web address] Spontaneous unlabored Yes 12/22/24 10:51 [email or web address] respirations Mental status Asleep 12/22/24 10:51 [email or web address] nausea No 12/22/24 10:51 [email or web address] Vomiting No 12/22/24 10:51 [email or web address] Anesthesia Postop Eval I: Fluid Summary Crystalloid volume administer 700 12/22/24 10:51 [email or web address] (ml) Colloids volume administered ( ml) Blood Product volume administered (ml) Total IV fluid infused 700 12/22/24 10:51 [email or web address] Anesthesia Postop Eval I: Summary Notes Anesthesia Complication No 12/22/24 10:51 [email or web address] Anesthesia Complication Comment: Post-operative progress note oral airway in 12/22/24 10:[email or web address] Anesthesia: Postop Eval II Evaluation Mental status: Awake and Calm Pain Level: 1 nausea: No Vomiting: No Complications Anesthesia Complication: No
--- NOTE | 2024-12-22 12:11 | PCM.POSTANE2 ---
Anesthesia Postop Eval I Sum Postop Eval Completion status Anesthesia document: Postop Eval 1 completed: Yes Anesthesia Postop Eval I Summary Anesthesia Postop Eval I Summary: Anesthesia Postop Eval I: Assessment Summary Airway patent Yes 12/22/24 10:51 BUILDING CONSTRUCTION [email or web address] Spontaneous unlabored Yes 12/22/24 10:51 BUILDING CONSTRUCTION [email or web address] respirations Mental status Asleep 12/22/24 10:51 BUILDING CONSTRUCTION [email or web address] nausea No 12/22/24 10:51 BUILDING CONSTRUCTION [email or web address] Vomiting No 12/22/24 10:51 BUILDING CONSTRUCTION [email or web address] Anesthesia Postop Eval I: Fluid Summary Crystalloid volume administer 700 12/22/24 10:51 BUILDING CONSTRUCTION [email or web address] (ml) Colloids volume administered ( ml) Blood Product volume administered (ml) Total IV fluid infused 700 12/22/24 10:51 BUILDING CONSTRUCTION [email or web address] Anesthesia Postop Eval I: Summary Notes Anesthesia Complication No 12/22/24 10:51 BUILDING CONSTRUCTION [email or web address] Anesthesia Complication Comment: Post-operative progress note oral airway in 12/22/24 10:[email or web address] Anesthesia: Postop Eval II Evaluation Mental status: Awake and Calm Pain Level: 1 nausea: No Vomiting: No Complications Anesthesia Complication: No
== END 2024-12-22 12:14 | disposition home or self-care (01) ==
LOC: SDC 08:32 → AC 08:33
PROVIDERS: PCP Family Medicine; Referring Provider Surgery Plastic and Reconstructive Surgery; Visit Provider Surgery Plastic and Reconstructive Surgery
PROC: (CPT 64721; principal; 2024-12-22 09:45)
DX: G56.01 Carpal tunnel syndrome, right upper limb (principal); E11.9 Type 2 diabetes mellitus without complications; I10 Essential (primary) hypertension; M72.0 Palmar fascial fibromatosis [Dupuytren]; K21.9 Gastro-esophageal reflux disease without esophagitis; E78.5 Hyperlipidemia, unspecified; Z79.84 Long term (current) use of oral hypoglycemic drugs; Z79.899 Other long term (current) drug therapy; Z79.85 Long-term (current) use of injectable non-insulin antidiabetic drugs
CPT/HCPCS: 64721; 01810; 82962; J2405